=== PATIENT | female | born 1945 | race Caucasian/White ===

== ENCOUNTER → 2020-02-15 09:02 | Outpatient (BNVA) | payer MEDICARE, SELFPAY | PROVIDERS: PCP Internal Medicine; Referring Provider Internal Medicine; Visit Provider Internal Medicine Gastroenterology | DX: K21.00 Gastro-esophageal reflux disease with esophagitis, without bleeding (principal); K74.60 Unspecified cirrhosis of liver; K44.9 Diaphragmatic hernia without obstruction or gangrene; Z86.2 Personal history of diseases of the blood and blood-forming organs and certain disorders involving the immune mechanism | CPT/HCPCS: 99213 ==

== ENCOUNTER → 2020-04-17 10:35 | Outpatient (BNVA) | payer MEDICARE, BC, SELFPAY | PROVIDERS: PCP Internal Medicine; Visit Provider Internal Medicine | DX: J30.9 Allergic rhinitis, unspecified (principal); J44.9 Chronic obstructive pulmonary disease, unspecified | CPT/HCPCS: 99212 ==

== ENCOUNTER 2020-07-26 10:15 | Outpatient (REF) | payer MEDICARE, BC, SELFPAY ==
[2020-07-26 10:54] LABS: MANUAL DIFF FLAG NO
[2020-07-26 11:01] LABS: Basophils Absolute Auto 0.1 X10*3/uL (0.0-0.2); Basophils Percent Auto 0.8 % (0-2); Eosinophils Absolute Auto 0.2 X10*3/uL (0.0-0.4); Eosinophils Percent Auto 2.2 % (0-4); Hematocrit 47.1 % (37-47); Hemoglobin 15.1 g/dl (12.0-16.0); Imm Gran Abs Auto 0.03 X10*3/uL (0.00-0.03); Imm Gran Pct Auto 0.3 % (0.0-0.4); Lymphocytes Absolute Auto 1.8 X10*3/uL (1.2-4.9); Lymphocytes Percent Auto 20.4 % (20-40); Mean Corpuscular HGB Conc 32.1 g/dl (31.0-35.0); Mean Corpuscular Hemoglobin 29.2 pg (27.0-33.0); Mean Corpuscular Volume 91.1 fL (80-98); Mean Platelet Volume 9.9 fL (9.4-12.3); Monocytes Absolute Auto 0.7 X10*3/uL (0.1-1.2); Monocytes Percent Auto 7.8 % (2-11); Neutrophils Percent Auto 68.5 % (45-73); Platelet Count 323 X10*3/uL (160-400); Red Blood Count 5.17 X10*6/uL (4.20-5.50); Red Cell Distribution Width 13.9 % (11.0-16.0); White Blood Count 8.7 X10*3/uL (4.8-10.8)
[2020-07-26 11:08] LABS: INTERNATIONAL NORM RATIO 1.1 (0.9-1.1); Prothrombin Time 12.5 SEC (10.8-13.0)
[2020-07-26 11:26] LABS: Alanine Aminotransferase 15 U/L (0-31); Aspartate Amino Transferase 17 U/L (5-31); Blood Urea Nitrogen 18 mg/dL (9-16); Estimated Glomerular Filt Rate > 60
== END 2020-07-26 10:16 | disposition home or self-care (01) ==
LOC: HO.LAB 10:15
PROVIDERS: PCP Internal Medicine; Visit Provider Internal Medicine Gastroenterology
DX: K74.60 Unspecified cirrhosis of liver (principal); Z86.2 Personal history of diseases of the blood and blood-forming organs and certain disorders involving the immune mechanism
CPT/HCPCS: 36415; 82565; 84450; 84460; 84520; 85025; 85610

== ENCOUNTER → 2020-08-08 09:01 | Outpatient (BNVA) | payer MEDICARE, BC, SELFPAY | PROVIDERS: PCP Internal Medicine; Visit Provider Internal Medicine Gastroenterology | DX: K21.00 Gastro-esophageal reflux disease with esophagitis, without bleeding (principal); K44.9 Diaphragmatic hernia without obstruction or gangrene; K74.60 Unspecified cirrhosis of liver; J44.9 Chronic obstructive pulmonary disease, unspecified; Z86.2 Personal history of diseases of the blood and blood-forming organs and certain disorders involving the immune mechanism | CPT/HCPCS: 99212 ==

== ENCOUNTER → 2020-08-13 11:37 | Outpatient (BNVA) | payer MEDICARE, BC, SELFPAY | PROVIDERS: PCP Internal Medicine; Visit Provider Internal Medicine | DX: J44.9 Chronic obstructive pulmonary disease, unspecified (principal); J30.9 Allergic rhinitis, unspecified; Z79.899 Other long term (current) drug therapy; Z87.891 Personal history of nicotine dependence | CPT/HCPCS: 99212 ==

== ENCOUNTER 2020-09-03 09:05 | Outpatient (REF) | payer MEDICARE, BC, SELFPAY ==
--- NOTE | ~2020-09-03 | US_ITS ---
EXAMINATION: US ABDOMEN COMPLETE CLINICAL INFORMATION: Unspecified cirrhosis of liver. COMPARISON: Ultrasound abdomen complete dated 06/01/2019 and 12/26/2018. MRI abdomen without contrast dated 06/07/2018. TECHNIQUE: Real-time imaging of the abdominal viscera. Technically difficult study secondary to bowel gas and body habitus. FINDINGS: PANCREAS: The pancreas is completely obscured by overlying gas. ABDOMINAL AORTA: The proximal, mid, and distal segments are normal in caliber. INFERIOR VENA CAVA: Visualized portions are normal. LIVER: The liver is normal in size. The liver contour is normal. The liver is diffusely echogenic. No focal hepatic lesion. There is no intrahepatic biliary duct dilatation seen. GALLBLADDER: Surgically absent. COMMON BILE DUCT: Normal in caliber measuring 0.6 cm in diameter. RIGHT KIDNEY: Normal. No hydronephrosis. No renal calculi or focal parenchymal lesions. The kidney measures 10.2 cm in maximum dimension. LEFT KIDNEY: There is mild pelvic fullness. No renal calculi or focal parenchymal lesions. The kidney measures 11.0 cm in maximum dimension. SPLEEN: Normal. The spleen measures 9.0 cm in maximum dimension. FREE FLUID: None. US/US abdomen complete IMPRESSION: Diffusely echogenic liver without focal lesion. Mild pelvic fullness left kidney. No echogenic stones in either kidney. Pancreas is not well visualized.
== END 2020-09-03 09:06 | disposition home or self-care (01) ==
LOC: HO.US 09:05
PROVIDERS: Visit Provider Internal Medicine Gastroenterology
DX: K74.60 Unspecified cirrhosis of liver (principal)
CPT/HCPCS: 76700

== ENCOUNTER → 2020-12-16 11:24 | Outpatient (BNVA) | payer MEDICARE, BC, SELFPAY | PROVIDERS: PCP Internal Medicine; Visit Provider Internal Medicine | DX: J30.9 Allergic rhinitis, unspecified (principal); J44.9 Chronic obstructive pulmonary disease, unspecified | CPT/HCPCS: 99212 ==

== ENCOUNTER → 2021-02-13 08:53 | Outpatient (BNVA) | payer MEDICARE, BC, SELFPAY | PROVIDERS: PCP Internal Medicine; Referring Provider Internal Medicine; Visit Provider Internal Medicine Gastroenterology | DX: K21.00 Gastro-esophageal reflux disease with esophagitis, without bleeding (principal); K44.9 Diaphragmatic hernia without obstruction or gangrene; K74.60 Unspecified cirrhosis of liver; Z86.2 Personal history of diseases of the blood and blood-forming organs and certain disorders involving the immune mechanism | CPT/HCPCS: 99212 ==

== ENCOUNTER 2021-04-17 10:55 | Outpatient (REF) | payer MEDICARE, BC, SELFPAY ==
[2021-04-17 12:00] LABS: MANUAL DIFF FLAG NO
[2021-04-17 12:45] LABS: Basophils Absolute Auto 0.1 X10*3/uL (0.0-0.2); Basophils Percent Auto 0.8 % (0-2); Eosinophils Absolute Auto 0.2 X10*3/uL (0.0-0.4); Eosinophils Percent Auto 1.9 % (0-4); Hematocrit 46.8 % (37.0-47.0); Hemoglobin 14.8 g/dl (12.0-16.0); Imm Gran Abs Auto 0.02 X10*3/uL (0.00-0.03); Imm Gran Pct Auto 0.2 % (0.0-0.4); Lymphocytes Absolute Auto 1.4 X10*3/uL (1.2-4.9); Lymphocytes Percent Auto 14.2 % (20-40); Mean Corpuscular HGB Conc 31.6 g/dl (31.0-35.0); Mean Corpuscular Hemoglobin 28.6 pg (27.0-33.0); Mean Corpuscular Volume 90.3 fL (80.0-98.0); Mean Platelet Volume 10.5 fL (9.4-12.3); Monocytes Absolute Auto 0.7 X10*3/uL (0.1-1.2); Monocytes Percent Auto 7.3 % (2-11); Neutrophils Absolute Auto 7.3 x10*3/uL (2.0-8.3); Neutrophils Percent Auto 75.6 % (45-73); Platelet Count 415 X10*3/uL (160-400); Red Blood Count 5.18 X10*6/uL (4.20-5.50); Red Cell Distribution Width 13.9 % (11.0-16.0); White Blood Count 9.6 X10*3/uL (4.8-10.8)
[2021-04-17 12:49] LABS: Prothrombin Time 11.7 SEC (9.9-13.0)
[2021-04-17 12:52] LABS: Appearance Urine CLEAR; Color Urine YELLOW; Glucose Urine UA NEG (NEG); Leukocyte Esterase Urine NEG (NEG); Nitrite Urine NEG (NEG); PH 5.5 (5.0-8.0); Specific Gravity - Urine 1.025 (1.005-1.025); Urine Blood NEG (NEG); Urine Ketones 5 MG/DL (NEG); Urine Protein NEG (NEG-TRACE)
[2021-04-17 13:09] LABS: Alanine Aminotransferase 11 U/L (0-31); Albumin Level 4.3 g/dL (3.5-5.0); Alkaline Phosphatase 126 U/L (39-117); Anion Gap 16 (12-20); Aspartate Amino Transferase 19 U/L (5-31); Bilirubin Direct 0.2 mg/dL (0.0-0.5); Bilirubin Total 0.5 mg/dL (0.0-1.0); Blood Urea Nitrogen 17 mg/dL (9-16); Calcium 10.4 mg/dL (8.4-10.2); Carbon Dioxide 25 mmol/L (22-29); Chloride 106 mmol/L (96-108); Cholesterol 238 mg/dL; Estimated Glomerular Filt Rate > 60; Glucose Random 91 mg/dL (60-115); HDL Cholesterol 72 mg/dL; LDL Cholesterol Calculated 143 mg/dl; Potassium 4.7 mmol/L (3.3-5.1); Sodium 142 mmol/L (135-145); Total Protein 7.3 g/dL (6.5-8.0); Triglycerides 119 mg/dL
[2021-04-17 13:32] LABS: Thyroid Stimulating Hormone 0.98 uIU/mL (0.32-4.0)
[2021-04-17 13:41] LABS: Vitamin B12 475 pg/mL (200-900)
[2021-04-18 07:40] LABS: ~Hepatitis B Surface Antibody NONREACTIVE (Nonreactive); ~Hepatitis C Antibody Nonreactive (Nonreactive)
[2021-04-18 08:44] LABS: Hepatitis A Antibody IgG REACTIVE (Nonreactive); ~Hepatitis A Antibody IgG 12.44 S/CO (0.00-0.99)
== END 2021-04-17 10:56 | disposition home or self-care (01) ==
LOC: HO.LAB 10:55
PROVIDERS: Absent Provider Internal Medicine; PCP Internal Medicine; Visit Provider Internal Medicine Gastroenterology
DX: K21.00 Gastro-esophageal reflux disease with esophagitis, without bleeding (principal); K74.60 Unspecified cirrhosis of liver; E55.9 Vitamin D deficiency, unspecified; J44.9 Chronic obstructive pulmonary disease, unspecified; J30.9 Allergic rhinitis, unspecified
CPT/HCPCS: 36415; 80053; 80061; 81003; 82248; 82607; 84443; 85025; 85610; 86706; 86708; 86803; 99212

== ENCOUNTER 2021-06-04 10:15 | Outpatient (REF) | payer MEDICARE, BC, SELFPAY ==
--- NOTE | ~2021-06-04 | US_ITS ---
EXAMINATION: US ABDOMEN LIMITED CLINICAL INFORMATION: Unspecified cirrhosis of liver. Screen for HCC. COMPARISON: Ultrasound abdomen complete 09/03/2020 and 06/01/2019. MRI abdomen 06/07/2018. TECHNIQUE: Real-time imaging of the right upper quadrant abdominal viscera. FINDINGS: PANCREAS: The head and body of the pancreas are homogeneous in echotexture. The tail is obscured by overlying gas. LIVER: The liver is normal in size. The liver contour is normal. The liver is diffusely heterogenous and echogenic. No focal hepatic lesion. There is no intrahepatic biliary duct dilatation seen. GALLBLADDER: Surgically absent. COMMON BILE DUCT: Normal in caliber measuring 0.8 cm in diameter. RIGHT KIDNEY: Normal. No hydronephrosis. No renal calculi or focal parenchymal lesions. The kidney measures 10.3 cm in maximum dimension. FREE FLUID: None. US/US abdomen limited IMPRESSION: Heterogeneous and echogenic liver, likely cirrhosis. No focal lesion seen. The visualized gallbladder, CBD and right kidney are unremarkable.
== END 2021-06-04 10:16 | disposition home or self-care (01) ==
LOC: HO.US 10:15
PROVIDERS: PCP Internal Medicine; Visit Provider Internal Medicine Gastroenterology
DX: K74.60 Unspecified cirrhosis of liver (principal)
CPT/HCPCS: 76705

== ENCOUNTER → 2021-08-12 11:09 | Outpatient (BNVA) | payer MEDICARE, BC, SELFPAY | PROVIDERS: PCP Internal Medicine; Visit Provider Internal Medicine | DX: J44.9 Chronic obstructive pulmonary disease, unspecified (principal); J30.9 Allergic rhinitis, unspecified; Z79.899 Other long term (current) drug therapy | CPT/HCPCS: 99212 ==

== ENCOUNTER → 2021-08-14 08:28 | Outpatient (BNVA) | payer MEDICARE, BC, SELFPAY | PROVIDERS: PCP Internal Medicine; Referring Provider Internal Medicine; Visit Provider Internal Medicine Gastroenterology | DX: K21.00 Gastro-esophageal reflux disease with esophagitis, without bleeding (principal); K44.9 Diaphragmatic hernia without obstruction or gangrene; K74.60 Unspecified cirrhosis of liver; Z86.2 Personal history of diseases of the blood and blood-forming organs and certain disorders involving the immune mechanism; Z23 Encounter for immunization | CPT/HCPCS: 90471; 90746; 99212 ==

== ENCOUNTER → 2021-09-16 09:42 | Outpatient (BNVA) | payer MEDICARE, BC, SELFPAY | PROVIDERS: PCP Internal Medicine; Referring Provider Internal Medicine; Visit Provider Internal Medicine Gastroenterology | DX: Z23 Encounter for immunization (principal) | CPT/HCPCS: 90471; 90746 ==

== ENCOUNTER 2021-12-16 09:52 | Outpatient (REF) | payer MEDICARE, BC, SELFPAY ==
[2021-12-16 10:45] LABS: Hematocrit 45.4 % (37.0-47.0); Hemoglobin 14.5 g/dl (12.0-16.0); Mean Corpuscular HGB Conc 31.9 g/dl (31.0-35.0); Mean Corpuscular Hemoglobin 29.5 pg (27.0-33.0); Mean Corpuscular Volume 92.3 fL (80.0-98.0); Mean Platelet Volume 10.4 fL (9.4-12.3); Platelet Count 319 X10*3/uL (160-400); Red Blood Count 4.92 X10*6/uL (4.20-5.50); Red Cell Distribution Width 13.9 % (11.0-16.0); White Blood Count 8.1 X10*3/uL (4.8-10.8)
[2021-12-16 11:20] LABS: Alanine Aminotransferase 9 U/L (0-31); Alkaline Phosphatase 87 U/L (39-117); Anion Gap 15 (12-20); Aspartate Amino Transferase 17 U/L (5-31); Bilirubin Direct 0.2 mg/dL (0.0-0.5); Bilirubin Total 0.3 mg/dL (0.0-1.0); Blood Urea Nitrogen 16 mg/dL (9-16); Calcium 9.2 mg/dL (8.4-10.2); Carbon Dioxide 25 mmol/L (22-29); Chloride 107 mmol/L (96-108); Cholesterol 229 mg/dL; Estimated Glomerular Filt Rate > 60; Glucose Random 82 mg/dL (60-115); HDL Cholesterol 80 mg/dL; LDL Cholesterol Calculated 132 mg/dl; Potassium 4.2 mmol/L (3.3-5.1); Sodium 143 mmol/L (135-145); Total Protein 6.7 g/dL (6.5-8.0); Triglycerides 89 mg/dL
[2021-12-16 11:41] LABS: Thyroid Stimulating Hormone 0.97 uIU/mL (0.32-4.0)
== END 2021-12-16 09:53 | disposition home or self-care (01) ==
LOC: HO.LAB 09:52
PROVIDERS: PCP Internal Medicine; Visit Provider Internal Medicine
DX: K74.60 Unspecified cirrhosis of liver (principal); J44.9 Chronic obstructive pulmonary disease, unspecified; J30.9 Allergic rhinitis, unspecified; Z86.2 Personal history of diseases of the blood and blood-forming organs and certain disorders involving the immune mechanism
CPT/HCPCS: 36415; 80048; 80061; 80076; 84443; 85027; 99212

== ENCOUNTER 2022-01-26 07:51 | Outpatient (REF) | payer MEDICARE, BC, SELFPAY ==
--- NOTE | ~2022-01-26 | US_ITS ---
EXAMINATION: US ABDOMEN LIMITED CLINICAL INFORMATION: Unspecified cirrhosis of liver. COMPARISON: Ultrasound abdomen limited 06/04/2021. TECHNIQUE: Real-time imaging of the right upper quadrant abdominal viscera. FINDINGS: PANCREAS: Visualized portions of the pancreas are unremarkable. The pancreatic tail is obscured by bowel gas. LIVER: The liver is normal in size. The liver contour is normal. There is diffuse increased liver parenchymal echogenicity, consistent with infiltrative hepatocellular disease. No focal hepatic lesion. There is no intrahepatic biliary duct dilatation seen. GALLBLADDER: Surgically absent. COMMON BILE DUCT: Normal in caliber measuring 0.6 cm in diameter. RIGHT KIDNEY: Normal. No hydronephrosis. No renal calculi or focal parenchymal lesions. The kidney measures 10.3 cm in maximum dimension. FREE FLUID: None. US/US abdomen limited IMPRESSION: Increased hepatic echogenicity which can be seen in the setting of hepatic steatosis or underlying liver disease. No liver lesion.
== END 2022-01-26 07:52 | disposition home or self-care (01) ==
LOC: HO.US 07:51
PROVIDERS: Visit Provider Internal Medicine Gastroenterology
DX: K74.60 Unspecified cirrhosis of liver (principal)
CPT/HCPCS: 76705

== ENCOUNTER → 2022-02-12 12:20 | Outpatient (BNVA) | payer MEDICARE, BC, SELFPAY | PROVIDERS: PCP Internal Medicine; Visit Provider Internal Medicine Gastroenterology | DX: K44.9 Diaphragmatic hernia without obstruction or gangrene (principal); K74.60 Unspecified cirrhosis of liver; K21.00 Gastro-esophageal reflux disease with esophagitis, without bleeding; E55.9 Vitamin D deficiency, unspecified; Z86.2 Personal history of diseases of the blood and blood-forming organs and certain disorders involving the immune mechanism | CPT/HCPCS: Q3014 ==

== ENCOUNTER 2022-02-17 14:40 | Outpatient (REF) | payer MEDICARE, BC, SELFPAY ==
--- NOTE | ~2022-02-17 | XR_ITS ---
EXAMINATION: XR CHEST CLINICAL INFORMATION: COPD COMPARISON: Previous chest x-ray June 2018 TECHNIQUE: 2 views of the chest were obtained. FINDINGS: The cardiac and mediastinal contours are stable. There is an air-fluid level that projects over the heart suggestive of an esophageal hernia. The lungs are clear. There is no pleural effusion or pneumothorax. Degenerative changes of the spine, mild scoliosis and kyphosis. There is a moderate old-appearing lower thoracic vertebral body compression fracture. XR/XR chest 2V IMPRESSION: Esophageal hernia. No evidence for acute disease in the chest. Old-appearing moderate lower thoracic vertebral body compression fracture.
== END 2022-02-17 14:41 | disposition home or self-care (01) ==
LOC: HO.XRAY 14:40
PROVIDERS: PCP Internal Medicine; Visit Provider Internal Medicine
DX: J44.9 Chronic obstructive pulmonary disease, unspecified (principal); U07.1 COVID-19
CPT/HCPCS: 71046

== ENCOUNTER 2022-03-05 16:33 | Outpatient (REF) | payer MEDICARE, BC, SELFPAY ==
--- NOTE | ~2022-03-05 | XR_ITS ---
EXAMINATION: XR CHEST CLINICAL INFORMATION: COVID-19 COMPARISON: 02/17/2022 and 06/04/2018 TECHNIQUE: 2 views of the chest were obtained. FINDINGS: There is no evidence of acute parenchymal disease, pneumothorax, or pleural effusion. Heart normal size. No evidence of pulmonary edema. Prominent pericardial fat pads are present. Hiatal hernia is seen. There is degenerative change of both shoulders. XR/XR chest 2V IMPRESSION: No acute disease. Hiatal hernia.
== END 2022-03-05 16:34 | disposition home or self-care (01) ==
LOC: HO.XRAY 16:33
PROVIDERS: PCP Internal Medicine; Visit Provider Internal Medicine
DX: U07.1 COVID-19 (principal); J44.9 Chronic obstructive pulmonary disease, unspecified; J30.9 Allergic rhinitis, unspecified
CPT/HCPCS: 71046; 99212

== ENCOUNTER → 2022-03-12 09:49 | Outpatient (BNVA) | payer MEDICARE, BC, SELFPAY | PROVIDERS: PCP Internal Medicine; Visit Provider Internal Medicine Gastroenterology | DX: Z23 Encounter for immunization (principal); K74.60 Unspecified cirrhosis of liver; Z72.89 Other problems related to lifestyle | CPT/HCPCS: 90471; 90746 ==

== ENCOUNTER → 2022-04-14 10:55 | Outpatient (BNVA) | payer MEDICARE, BC, SELFPAY | PROVIDERS: PCP Internal Medicine; Visit Provider Internal Medicine | DX: J44.9 Chronic obstructive pulmonary disease, unspecified (principal); U07.1 COVID-19; J30.9 Allergic rhinitis, unspecified; R00.0 Tachycardia, unspecified | CPT/HCPCS: 99212 ==

== ENCOUNTER 2022-06-09 09:45 | Outpatient (REF) | payer MEDICARE, BC, SELFPAY ==
--- NOTE | 2022-06-09 11:46 | PFT_ITS ---
Forced vital capacity 70%, FEV1 68%. FEV1/FVC ratio is 73. [id number] is 57% and MVV 64%. Post bronchodilator therapy, there is no significant change. Total lung capacity 74%. Residual volume 69%. Diffusion capacity 77%. CONCLUSION: There is evidence of mild degree of restrictive pulmonary disorder. No significant obstructive airway disorder. Diffusion capacity is normal. MD SARAH Weston/MODL / [id number]
== END 2022-06-09 09:46 | disposition home or self-care (01) ==
LOC: HO.RESP 09:45
PROVIDERS: PCP Internal Medicine; Visit Provider Internal Medicine
DX: J44.9 Chronic obstructive pulmonary disease, unspecified (principal); R00.0 Tachycardia, unspecified; U07.1 COVID-19
CPT/HCPCS: 94060; 94727; 94729; 99212

== ENCOUNTER 2022-07-22 08:38 | Outpatient (REF) | payer MEDICARE, BC, SELFPAY ==
--- NOTE | ~2022-07-22 | US_ITS ---
EXAMINATION: US ABDOMEN COMPLETE CLINICAL INFORMATION: Cirrhosis of liver. COMPARISON: None available. TECHNIQUE: Real-time imaging of the abdominal viscera. FINDINGS: PANCREAS: Normal. ABDOMINAL AORTA: The proximal, mid, and distal segments are normal in caliber. INFERIOR VENA CAVA: Visualized portions are normal. LIVER: The liver is normal in size. The liver contour is normal. Parenchymal echogenicity is heterogeneous. No focal hepatic lesion. There is no intrahepatic biliary duct dilatation seen. GALLBLADDER: Normal. The gallbladder is physiologically distended without evidence of stones, sludge, polyps, wall thickening or pericholecystic fluid. COMMON BILE DUCT: Normal in caliber measuring 0.7 cm in diameter. RIGHT KIDNEY: Normal. No hydronephrosis. No renal calculi or focal parenchymal lesions. The kidney measures 10.6 cm in maximum dimension. LEFT KIDNEY: There are numerous small peripelvic cysts with the largest measuring 2.3 x 1.8 x 2.0 cm. No hydronephrosis. No renal calculi or focal parenchymal lesions. The kidney measures 11.6 cm in maximum dimension. SPLEEN: Normal. The spleen measures 1 cm in maximum dimension. FREE FLUID: None. US/US abdomen complete IMPRESSION: Heterogeneous cirrhotic appearing liver without focal lesion. Left renal cyst. The rest of the abdominal ultrasound is unremarkable.
== END 2022-07-22 08:39 | disposition home or self-care (01) ==
LOC: HO.US 08:38
PROVIDERS: Visit Provider Internal Medicine Gastroenterology
DX: K74.60 Unspecified cirrhosis of liver (principal)
CPT/HCPCS: 76700

== ENCOUNTER → 2022-10-06 11:07 | Outpatient (BNVA) | payer MEDICARE, BC, SELFPAY | PROVIDERS: PCP Internal Medicine; Visit Provider Internal Medicine | DX: J44.9 Chronic obstructive pulmonary disease, unspecified (principal); J98.4 Other disorders of lung; J30.9 Allergic rhinitis, unspecified; Z79.899 Other long term (current) drug therapy | CPT/HCPCS: 99212 ==

== ENCOUNTER 2022-10-15 13:40 | Outpatient (REF) | payer MEDICARE, BC, SELFPAY ==
--- NOTE | ~2022-10-15 | XR_ITS ---
EXAMINATION: XR HIP, RIGHT CLINICAL INFORMATION: Right hip pain. COMPARISON: None available. TECHNIQUE: AP upright, AP supine, and frog-leg lateral views of the right hip. XR/XR hip RT w PEL1V FINDINGS/IMPRESSION: Examination demonstrates moderate to severe osteoarthritis of the right hip, with joint space narrowing, sclerosis, and osteophyte formation. The patient is status post left total hip arthroplasty. There is no evidence of hardware fracture or loosening. There is significant migration of the acetabular component cephalad to its normal anatomical location, with mild associated acetabular protrusion. There are mild degenerative changes of the lower lumbar spine. No soft tissue mass is seen.
[2022-10-15 14:18] LABS: Hematocrit 43.8 % (37.0-47.0); Mean Corpuscular Volume 90.9 fL (80.0-98.0); Mean Platelet Volume 10.1 fL (9.4-12.3); Platelet Count 303 X10*3/uL (160-400); Red Blood Count 4.82 X10*6/uL (4.20-5.50); Red Cell Distribution Width 13.9 % (11.0-16.0); White Blood Count 7.3 X10*3/uL (4.8-10.8)
[2022-10-15 15:04] LABS: Alanine Aminotransferase 15 U/L (0-31); Alkaline Phosphatase 96 U/L (39-117); Anion Gap 14 (12-20); Aspartate Amino Transferase 20 U/L (5-31); Bilirubin Direct 0.1 mg/dL (0.0-0.5); Bilirubin Total 0.4 mg/dL (0.0-1.0); Blood Urea Nitrogen 13 mg/dL (9-16); Calcium 9.1 mg/dL (8.4-10.2); Carbon Dioxide 27 mmol/L (22-29); Chloride 105 mmol/L (96-108); Cholesterol 219 mg/dL; Estimated Glomerular Filt Rate > 60; Glucose Random 84 mg/dL (60-115); HDL Cholesterol 72 mg/dL; LDL Cholesterol Calculated 127 mg/dl; Potassium 3.8 mmol/L (3.3-5.1); Sodium 142 mmol/L (135-145); Triglycerides 103 mg/dL
[2022-10-15 15:10] LABS: Thyroid Stimulating Hormone 1.62 uIU/mL (0.32-4.0)
[2022-10-22 12:44] LABS: Vitamin D 25-OH, D2 <4 ng/mL; Vitamin D 25-OH, D3 34 ng/mL; Vitamin D 25-OH, Total 34 ng/mL (30-100)
== END 2022-10-15 13:41 | disposition home or self-care (01) ==
LOC: HO.XRAY 13:40
PROVIDERS: PCP Internal Medicine; Visit Provider Physician Assistant
DX: M25.551 Pain in right hip (principal); E55.9 Vitamin D deficiency, unspecified; F33.2 Major depressive disorder, recurrent severe without psychotic features; E78.00 Pure hypercholesterolemia, unspecified
CPT/HCPCS: 36415; 73502; 80048; 80061; 80076; 82306; 84443; 85027

== ENCOUNTER 2022-10-29 13:46 | Outpatient (AMB) | payer MEDICARE, BC, SELFPAY ==
--- NOTE | 2022-10-29 14:07 | A.OFFPC_ITS ---
Vital Signs 10/29/22 14:08 Height 5 ft Weight 204 lb 2 oz BMI 39.9 BP 132/82 Blood Pressure Location Lt brachial Position Sitting Pulse 116 H Pulse Source Pulse Oximeter Pulse Oximetry (%) 98 Oxygen Delivery Method Room Air Intake Visit Reasons: 3mth f/u Intake Note: Patient is here to follow up on COPD, GERD, HTN. Results of xray Steam Table Attendant Required: No Transplant Worker: Not Required per policy Accompanied by: Self / Same As Patient Allergies cat dander [CATS] Allergy (Unknown, Verified 11/13/22 16:51) ASTHMA ATTACK Horse/Equine Containing Products [HORSE/EQUINE CONTAINING PRODUCTS] Allergy (Unknown, Verified 11/13/22 16:51) ASTHMA ATTACK ENVIROMENTAL Allergy (Unknown, Uncoded 11/13/22 16:51) ASTHMA ATTACK Tobacco use date assessed: 10/29/22 Fall risk assessment: No Falls in past year Last assessed Fall Risk: 10/29/22 Dental Screening Dental Screen Date: 10/29/22 Did you have a dental visit in the last 12 months?: Yes Did you have a dental problem in the last 6 months where you did not have access to dental care?: No Was dental information given to patient?: Patient has dentist HPI 3mth f/u HPI Details 77-year-old female presents to the office for a sick visit. Patient wants to know the results of her recent x-ray. Her hip pain continues. FOR[facility]LY [facility] Medical History Allergic rhinitis Asthma Cirrhosis of liver without ascites COPD (chronic obstructive pulmonary disease) COPD (chronic obstructive pulmonary disease) COVID-19 Endogenous depression GERD with esophagitis Hiatal hernia History of iron deficiency anemia Restrictive lung disease Tachycardia Surgical History History of dental surgery History of hip surgery History of hysterectomy History of surgery on left wrist Status post laparoscopic cholecystectomy (~06/10/18) Family History Other Mental health disorder Substance use disorder Social History Household Members: Spouse Housing: House Alcohol intake: former Patient Tobacco Use Status: Former Tobacco user e-Cigarette/Vaping Use: Never Used Second Hand Smoke Exposure: No service: No Current occupational status: disabled Cognitive needs: Yes (cane, walker) Hearing needs: No Vision needs: Yes (Reading Glasses) Questionnaire Thrive Questionnaire Date Thrive assessed: 04/21/22 EFRAIN-7 AMB Questionnaire EFRAIN-7 Date EFRAIN - 7 assessed: 07/30/22 Source: Developed by Drs. Robson Avitia, Dinorah Betancur, Spenser Mancera and colleagues, with an educational charisse from [employer]. Physical exam (Primary Care) Vital Signs: Last Vital Signs Pulse 116 H 10/29/22 14:08 BP 132/82 10/29/22 14:08 Pulse Ox 98 10/29/22 14:08 Oxygen Delivery Method Room Air 10/29/22 14:08 BMI result Body Mass Index 39.9 Tobacco/Smoking Status: Tobacco use Status Tobacco use date assessed 10/29/22 10/29/22 14:12 Patient Tobacco Use Status Former Tobacco user 10/29/22 14:12 e-Cigarette/Vaping Use Never Used 10/29/22 14:12 Thrive Assessment: Date of Thrive Assessment Date Thrive assessed 04/21/22 10/29/22 14:12 Const General: cooperative, healthy appearing and comfortable HENWV Head: Yes normal to inspection and Yes atraumatic Eyes General: appearance normal, both eyes and all related structures Neck Neck: Yes normal visual inspection and Yes full ROM Chest Chest palpation & inspection: normal inspection of the chest Resp Effort & Inspection: normal respiratory effort Auscultation: clear to auscultation bilaterally Cardio Jugular venous distension: no JVD Palpation: normal PMI Rate: regular rate Heart sounds: S1 normal heart sound present and S2 normal heart sound present GI Palpation (GI): Soft to palpation and No hepatosplenomegaly present Extrem General: Yes normal to inspection and Yes full ROM Assessment and Plan Assessment & Plan (1) Right hip pain: Code(s): M25.551 - Pain in right hip Plan: X-ray results provided the patient. Continue anti-inflammatories. Coding Level of Care Code Est Pt Level 3 (46327) Diagnoses Right hip pain M25.551
[2022-10-29 14:08] VITALS: BP 132/82; PULSE 116; O2SAT 98; BMI 39.9
== END 2022-10-29 14:24 | disposition home or self-care (01) ==
PROVIDERS: PCP Internal Medicine; Visit Provider Internal Medicine
DX: M25.551 Pain in right hip (principal)
CPT/HCPCS: 99213

== ENCOUNTER 2022-11-12 11:15 | Outpatient (AMB) | payer MEDICARE, BC, SELFPAY ==
--- NOTE | 2022-11-12 11:32 | A.OFFVIS_ITS ---
Intake Vital Signs 11/12/22 11:34 Height 5 ft Weight 204 lb BMI 39.8 BP 135/61 Blood Pressure Location Lt brachial Position Sitting Pulse 112 H Intake Visit Reasons: medication refill follow up for omeprazole Intake Note: Patient follow up for Cirrhosis and US results. Patient cc: [facility] Demonstration Agent Required: No Accompanied by: Self / Same As Patient Allergies cat dander [CATS] Allergy (Unknown, Verified 11/12/22 11:32) ASTHMA ATTACK Horse/Equine Containing Products [HORSE/EQUINE CONTAINING PRODUCTS] Allergy (Unknown, Verified 11/12/22 11:32) ASTHMA ATTACK ENVIROMENTAL Allergy (Unknown, Uncoded 10/29/22 14:08) ASTHMA ATTACK Medication List - Last Reconciled 11/12/22 by Tona Jimenez MD albuterol sulfate 90 mcg/actuation 2 puffs PO Q4H PRN amlodipine 5 mg PO DAILY cetirizine (Zyrtec) 10 mg PO DAILY PRN cholecalciferol (vitamin D3) 25 mcg PO DAILY 90 days fluticasone propion-salmeterol 250-50 mcg/dose 1 ea PO BID omeprazole 20 mg PO DAILY 90 days paroxetine HCl 40 mg PO QAM tiotropium bromide 2.5 mcg/actuation (Spiriva Respimat) 2 puffs PO DAILY tramadol 50 mg PO DAILY HPI medication refill follow up for omeprazole HPI Details GI clinic visit for this 77 YF for FU of GERD and alcoholic cirrhosis. ?CHRONIC ILLNESSES:?GERD, anxiety and depression, asthma, COPD, Htn, gallstones, stomach ulcers, foot drop after hip replacement surgery seen for follow-up of GERD with hiatal hernia, iron deficiency anemia and alcoholic cirrhosis ?[facility] [employer]:?04/2021 reviewed - normal except minimal elevation of AP to 126 ? 06/01/19 H&H of 15.6 and 45.5, platelet 305, INR 0.9, normal LFT ? 06/2018 liver fibrosis score of 0.28, liver fibrosis stage F1, n ecroinflammatory score 0.16 ?IMAGING STUDIES: 07/2022 ABD US SHOWED: Heterogeneous cirrhotic appearing liver without focal lesion. Left renal cyst. 01/26/22 ABD US SHOWED: Increased hepatic echogenicity which can be seen in the setting of hepatic steatosis or underlying liver disease. No liver lesion. ? ENDOSCOPIC STUDIES: 04/20/19 colonoscopy showed: ? Colonoscopy Findings: ? Two polyps removed ? Four AVMs - ablated with APC. ? Moderate to severe diverticulosis seen in the entire colon ? Moderate to large internal/external hemorrhoids on retroflexed exam. ? Plan: Patient has an appointment on 05/25/18 in the GI Clinic with Tona Jimenez M.D. ? Repeat Colonoscopy interval based on path results in 5 years if ? polyps are adenomatous and due to past history of colon polyps. ? Above findings were reviewed with the patient and colon polyps and ? diverticulosis handouts were given in the discharge area ?BIOPSIES SHOWED: ? A. Colon, ascending polyp, polypectomy: Polypoid colonic mucosa within normal ? limits; negative for dysplasia. ? B. Colon, sigmoid polyp, polypectomy: Fragments of tubular adenoma. ? Letter sent advising repeat colonoscopy in 5 years. ?01/12/19 EGD showed: ? ESOPHAGUS: Tortuous esophagus with increased tertiary contractions without stricture. No varices were seen. ? GE junction at 30 cms, large hiatal hernia 30 to 36 cms. Erosions and Fidel's ulcers noted on past EGD healed completely. No Pruitt s. ? STOMACH: Mild gastritis ? DUODENUM: Normal ? Plan: Continue present medications (Omeprazole at 20 mg PO once daily) ? Patient has an appointment on 02/17/19 in the GI Clinic with Tona Jimenez M.D ? Above findings were reviewed with the patient. ?TODAY'S VISIT Having pain in the rt hip and taking Tramadol. Scheduling an appt to get a shot. Walking is becoming difficult and uses a walker. Noted dry heaves on 11/10/22 while she was trying to have a BM and pushed down. Mouth filled with fluid followed by dry heaves - attributes to the PAST VISIT: Diagnosed with COVID on 02/07/22 - has a deep cough cough and fatigue Staying at home - also has the infection Vaccinated with 3 boosters Denies reflux symptoms. Has been having episodes of gagging when she goes to the bathroom in the am after breakfast. Thinks she may be eating too fast - has a bagel and instant coffee Has been trying to eat slowly which helps Had 2 episodes of gagging in the morning - ate too late on one night. Had a stomach bug associated with cramping and diarrhea on 08/04 to 08/07/21 Resolved in 3 days. GERD is well controlled. Wishes she could breath better. fell in March and hurt her back. Had vomiting yesterday 20 min after she took coffee. Can have gagging when she wakes up in the morning - did not happen for a blind eyeletter until yesterday. intentional wt loss of 4 lbs. Denies problems with bowel movements. Has chronic cough due to COPD. Had her COVID vaccine in Jun & July ? Looking forwards to seeing her 11 year old GD in [place]. ? Doing well. ? Denies any problems with heartburn or dysphagia. ? Feeling a bored. ? [place] ? Getting groceries through the drive up window. ? Stopped taking iron pills. ? Got very sick in May with fever and lasted x 5 weeks - took Z pack PFSH Medical History Allergic rhinitis Asthma Cirrhosis of liver without ascites COPD (chronic obstructive pulmonary disease) COPD (chronic obstructive pulmonary disease) COVID-19 Endogenous depression GERD with esophagitis Hiatal hernia History of iron deficiency anemia Restrictive lung disease Tachycardia Surgical History History of dental surgery History of hip surgery History of hysterectomy History of surgery on left wrist Status post laparoscopic cholecystectomy (~06/10/18) Family History Other Mental health disorder Substance use disorder Social History Household Members: Spouse Housing: House Alcohol intake: former Patient Tobacco Use Status: Former Tobacco user e-Cigarette/Vaping Use: Never Used Second Hand Smoke Exposure: No service: No Current occupational status: disabled Cognitive needs: Yes (cane, walker) Hearing needs: No Vision needs: Yes (Reading Glasses) Review of Systems Const All systems reviewed & are unremarkable except as noted in HPI and below Physical Exam Vital Signs: Last Vital Signs Pulse 112 H 11/12/22 11:34 BP 135/61 11/12/22 11:34 BMI result Body Mass Index 39.8 Const General: no acute distress Nutritional Appearance: obese Orientation/consciousness: patient oriented x3 Limitations: ambulation with walker HEENT Head: Yes normal to inspection Ears: hearing grossly normal bilaterally Eyes Sclerae: sclerae normal Pupils: Equal, round and reactive pupils present Neck Neck: Yes normal visual inspection Chest Chest palpation & inspection: normal inspection of the chest Resp Effort & Inspection: normal respiratory effort Auscultation: clear to auscultation bilaterally Cardio Palpation: normal PMI Rate: regular rate Rhythm: regular rhythm Heart sounds: S1 normal heart sound present, S2 normal heart sound present and no murmurs GI Palpation (GI): Soft to palpation, nontender and No hepatosplenomegaly present Auscultation: normal bowel sounds Rectal Exam - Female: deferred Skin General skin exam: no rashes or lesions noted Neuro General: patient oriented x3, gait normal and moves all extremities Cranial nerves: Yes Equal, round and reactive pupils present Psych Appearance: grossly normal Mental Status: mental status grossly normal Assessment & Plan Assessment & Plan (1) Vitamin D deficiency: Code(s): E55.9 - Vitamin D deficiency, unspecified (2) GERD with esophagitis: Code(s): K21.00 - Gastro-esophageal reflux disease with esophagitis, without bleeding (3) History of iron deficiency anemia: Code(s): Z86.2 - Personal history of diseases of the blood and blood-forming organs and certain disorders involving the immune mechanism (4) Hiatal hernia: Code(s): K44.9 - Diaphragmatic hernia without obstruction or gangrene (5) Cirrhosis of liver without ascites: Code(s): K74.60 - Unspecified cirrhosis of liver Plan 77 year-old female with GERD, anxiety and depression, foot drop after hip replacement surgery seen for follow-up of GERD with hiatal hernia, iron deficiency anemia and alcoholic cirrhosis. 06/2018 EGD showed a large hiatal hernia with fidel's ulcers in the hiatal hernia sac felt to be the source of anemia. 01/02/2019 repeat EGD showed healing of Fidel's ulcers. Jun, 2018 Liver fibrosis score was 0.28, fibrosis stage F1 and necroinflammatory score of 0.16. No ascites was seen on abdominal ultrasound. MELD score was 6. 04/20 a 7-8 mm adenomatous polyp was removed, repeat colon advised in 5 yrs - due 04/2024. Patient was advised to recheck labs and schedule an abdominal ultrasound for HCC surveillance 1-2 weeks prior to her FU appt ?REDUCING THE RISK OF LIVER PROGRESSION:? patient was advised to completely avoid use of alcohol and lose weight. ?HCC SURVEILLANCE: ? the patient is at risk of developing hepatocellular carcinoma given the presence of cirrhosis and need 6 monthly imaging surveillance with either abdominal ultrasound (US) or multiphase cross-sectional imaging (CT or MRI).? Last Abd US in 06/2021 had shown no focal liver lesions suspicious of HCC.? She will be scheduled for follow-up? liver ultrasound for ongoing surveillance.? ? QUESTION OF LIVER TRANSPLANTATION: ? As pt has never had any hepatic decompensation, and continues to have good hepatic synthetic function with meld score of 7, liver transplantation does not need to be considered at this time. Pt is immune to Hepatitis A and non-immune to Hepatitis B. Vaccination for Hepatitis B (1st injection) was given by GI RN during her last clinic visit. hepatitis-B vaccination was completed Pt will be due for FU abd US in Jan 2023 Follow-up appointment in 8 months. Orders: Orders US abdomen limited Today K74.60 - Unspecified cirrhosis of liver Medications: Refilled cholecalciferol (vitamin D3) 25 mcg PO DAILY 90 caps 1RF 90 days E55.9 - Vitamin D deficiency, unspecified Coding Level of Care Code Est Pt Level 4 (18712) Diagnoses Vitamin D deficiency E55.9 GERD with esophagitis K21.00 History of iron deficiency anemia Z86.2 Hiatal hernia K44.9 Cirrhosis of liver without ascites K74.60 Time Spent (min) 22
[2022-11-12 11:34] VITALS: BP 135/61; PULSE 112; BMI 39.8
== END 2022-11-12 12:22 | disposition home or self-care (01) ==
PROVIDERS: PCP Internal Medicine; Visit Provider Internal Medicine Gastroenterology
DX: E55.9 Vitamin D deficiency, unspecified (principal); K21.00 Gastro-esophageal reflux disease with esophagitis, without bleeding; Z86.2 Personal history of diseases of the blood and blood-forming organs and certain disorders involving the immune mechanism; K44.9 Diaphragmatic hernia without obstruction or gangrene; K74.60 Unspecified cirrhosis of liver
CPT/HCPCS: 99214

== ENCOUNTER → 2022-11-12 11:15 | Outpatient (BNVA) | payer MEDICARE, BC, SELFPAY | PROVIDERS: PCP Internal Medicine; Visit Provider Internal Medicine Gastroenterology | DX: K21.00 Gastro-esophageal reflux disease with esophagitis, without bleeding (principal); E55.9 Vitamin D deficiency, unspecified; K44.9 Diaphragmatic hernia without obstruction or gangrene; K74.60 Unspecified cirrhosis of liver; Z86.2 Personal history of diseases of the blood and blood-forming organs and certain disorders involving the immune mechanism | CPT/HCPCS: 99212 ==

== ENCOUNTER 2023-01-28 13:16 | Outpatient (AMB) | payer MEDICARE, BC, SELFPAY ==
--- NOTE | 2023-01-28 13:22 | A.OFFPC_ITS ---
Vital Signs 01/28/23 13:23 Height 5 ft Weight 206 lb 8 oz BMI 40.3 BP 110/70 Blood Pressure Location Lt brachial Position Sitting Pulse 121 H Pulse Source Pulse Oximeter Pulse Oximetry (%) 97 Oxygen Delivery Method Room Air Intake Visit Reasons: 3mth f/u Intake Note: Patient is here to follow up on HTN, COPD, GERD,. Director Of Maternity Services Required: No Collar Stay Fuser Tender: Not Required per policy Accompanied by: Self / Same As Patient Allergies cat dander [CATS] Allergy (Unknown, Verified 01/29/23 16:00) ASTHMA ATTACK Horse/Equine Containing Products [HORSE/EQUINE CONTAINING PRODUCTS] Allergy (Unknown, Verified 01/29/23 16:00) ASTHMA ATTACK ENVIROMENTAL Allergy (Unknown, Uncoded 01/29/23 16:00) ASTHMA ATTACK Medication List - Last Reconciled 01/29/23 by Rip Huber MD albuterol sulfate 90 mcg/actuation 2 puffs PO Q4H PRN amlodipine 5 mg PO DAILY cetirizine (Zyrtec) 10 mg PO DAILY PRN cholecalciferol (vitamin D3) 25 mcg PO DAILY 90 days fluticasone propion-salmeterol 250-50 mcg/dose 1 ea PO BID omeprazole 20 mg PO DAILY paroxetine HCl 40 mg PO QAM tiotropium bromide 2.5 mcg/actuation (Spiriva Respimat) 2 puffs PO DAILY Tobacco use date assessed: 01/28/23 Fall risk assessment: No Falls in past year Last assessed Fall Risk: 01/28/23 HPI 3mth f/u HPI Details 77-year-old female presents to the offic e to discuss her chronic medical conditions. Patient was at the orthopedic surgeon last week. She was informed that she would need a new right hip. 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 She is walking with a limp. Patient continues to have pain in the hip. In addition she is been diagnosed with an ocular variant of migraine. She was having bright lights sensation in her eyes. Consumption of caffeine has relieved her of her symptoms. Patient is having urinary incontinence and certain urges to go to the bathroom. She wears pads at all times. [facility] Medical History Allergic rhinitis Asthma Cirrhosis of liver without ascites COPD (chronic obstructive pulmonary disease) COPD (chronic obstructive pulmonary disease) COVID-19 Endogenous depression GERD with esophagitis Hiatal hernia History of iron deficiency anemia Restrictive lung disease Tachycardia Surgical History History of dental surgery History of hip surgery History of hysterectomy History of surgery on left wrist Status post laparoscopic cholecystectomy (~06/10/18) Family History Other Mental health disorder Substance use disorder Social History Household Members: Spouse Housing: House Alcohol intake: former Patient Tobacco Use Status: Former Tobacco user e-Cigarette/Vaping Use: Never Used Second Hand Smoke Exposure: No service: No Current occupational status: disabled Cognitive needs: Yes (cane, walker) Hearing needs: No Vision needs: Yes (Reading Glasses) Questionnaire Thrive Questionnaire Date Thrive assessed: 04/21/22 EFRAIN-7 AMB Questionnaire EFRAIN-7 Date EFRAIN - 7 assessed: 07/30/22 Source: Developed by Drs. Robson Avitia, Dinorah Betancur, Spenser Mancera and colleagues, with an educational charisse from [employer]. Physical exam (Primary Care) Vital Signs: Last Vital Signs Pulse 121 H 01/28/23 13:23 BP 110/70 01/28/23 13:23 Pulse Ox 97 01/28/23 13:23 Oxygen Delivery Method Room Air 01/28/23 13:23 BMI result Body Mass Index 40.3 Tobacco/Smoking Status: Tobacco use Status Tobacco use date assessed 01/28/23 01/28/23 13:29 Patient Tobacco Use Status Former Tobacco user 01/28/23 13:29 e-Cigarette/Vaping Use Never Used 01/28/23 13:29 Thrive Assessment: Date of Thrive Assessment Date Thrive assessed 04/21/22 01/28/23 13:29 Const General: cooperative and healthy appearing Nutritional Appearance: well nourished Orientation/consciousness: patient oriented x3 Limitations: no limitations HENMT Head: Yes normal to inspection Eyes General: appearance normal, both eyes and all related structures Neck Neck: Yes normal visual inspection Chest Chest palpation & inspection: normal palpation of entire chest wall Resp Effort & Inspection: normal respiratory effort Neuro General: patient oriented x3 Assessment and Plan Assessment & Plan (1) Right hip pain: Code(s): M25.551 - Pain in right hip Plan: Patient was advised to follow-up with orthopedics. (2) HTN (hypertension): Code(s): I10 - Essential (primary) hypertension Plan: Blood pressure is in range. (3) Urinary incontinence: Code(s): R32 - Unspecified urinary incontinence Plan: Patient was advised that she would need a document improvement specialist appointment to rule out prolapse. No medication should be started till the actual cause of incontinence is determined. Patient is very reluctant to see a document improvement specialist. Coding Level of Care Code Est Pt Level 4 (01110) Diagnoses Right hip pain M25.551 HTN (hypertension) I10 Urinary incontinence R32
[2023-01-28 13:23] VITALS: BP 110/70; PULSE 121; O2SAT 97; BMI 40.3
== END 2023-01-28 13:51 | disposition home or self-care (01) ==
PROVIDERS: PCP Internal Medicine; Visit Provider Internal Medicine
DX: M25.551 Pain in right hip (principal); I10 Essential (primary) hypertension; R32 Unspecified urinary incontinence
CPT/HCPCS: 99214

== ENCOUNTER 2023-02-02 10:55 | Outpatient (AMB) | payer MEDICARE, BC, SELFPAY ==
[2023-02-02 11:07] VITALS: BP 150/78; PULSE 111; O2SAT 97; BMI 39.6
--- NOTE | 2023-02-02 11:07 | A.OFFVIS_ITS ---
Intake Vital Signs 02/02/23 11:07 Height 5 ft Weight 203 lb BMI 39.6 BP 150/78 H Blood Pressure Location Lt brachial Position Sitting Pulse 111 H Pulse Source Pulse Oximeter Pulse Oximetry (%) 97 Oxygen Delivery Method Room Air Intake Visit Reasons: COPD Intake Note: pt is here for a follow up and states her breathing is good, some coughing with phelgm, sleeping with head up at night. Signs And Displays Sales Representative Required: No Allergies cat dander [CATS] Allergy (Unknown, Verified 02/02/23 11:33) ASTHMA ATTACK Horse/Equine Containing Products [HORSE/EQUINE CONTAINING PRODUCTS] Allergy (Unknown, Verified 02/02/23 11:33) ASTHMA ATTACK ENVIROMENTAL Allergy (Unknown, Uncoded 02/02/23 11:33) ASTHMA ATTACK Medication List - Last Reconciled 02/02/23 by Albertina Kimball MD albuterol sulfate 90 mcg/actuation 2 puffs PO Q4H PRN amlodipine 5 mg PO DAILY cetirizine (Zyrtec) 10 mg PO DAILY PRN cholecalciferol (vitamin D3) 25 mcg PO DAILY 90 days fluticasone propion-salmeterol 250-50 mcg/dose 1 ea PO BID omeprazole 20 mg PO DAILY paroxetine HCl 40 mg PO QAM tiotropium bromide 2.5 mcg/actuation (Spiriva Respimat) 2 puffs PO DAILY Do you need a note to return to daycare/school/sports/work: No HPI COPD HPI Details This 77 years old, grossly obese, female with diagnosis of chronic obstructive pulmonary disease. Comes for follow-up after 4 months. She is mostly homebound, has been .free of any infections She is up to date with vaccinations. Gets short of breath on walking around, but okay at rest. Very little cough not much expectoration. Denies any wheezing attacks. Walks around with the walker. 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 [facility] Medical History Restrictive lung disease Tachycardia COVID-19 Endogenous depression COPD (chronic obstructive pulmonary disease) Allergic rhinitis GERD with esophagitis Asthma COPD (chronic obstructive pulmonary disease) History of iron deficiency anemia Hiatal hernia Cirrhosis of liver without ascites Surgical History History of dental surgery History of surgery on left wrist History of hysterectomy History of hip surgery Status post laparoscopic cholecystectomy (~06/10/18) Family History Other Mental health disorder Substance use disorder Social History Household Members: Spouse Housing: House Alcohol intake: former Patient Tobacco Use Status: Former Tobacco user e-Cigarette/Vaping Use: Never Used Second Hand Smoke Exposure: No service: No Current occupational status: disabled Cognitive needs: Yes (cane, walker) Hearing needs: No Vision needs: Yes (Reading Glasses) Review of Systems Const All systems reviewed & are unremarkable except as noted in HPI and below Eyes Reports no additional complaints ENT Reports nasal congestion (Off and on, mostly controlled at this time) Card Denies chest pain, Denies irregular heart rhythm and Denies leg edema Resp Reports as per HPI GI Reports heartburn (Symptoms of GERD controlled with omeprazole) Reports no additional complaints Musc Reports abnormal gait (Needs cane or walker, for gait stability) and Reports back pain Skin/Breast Reports system reviewed and no additional complaints, except as documented Neuro Reports abnormal gait (Needs cane or walker, for gait stability) Psych Reports depression (Controlled with med) Endo Reports no additional complaints Physical Exam Vital Signs: Last Vital Signs Pulse 111 H 02/02/23 11:07 BP 150/78 H 02/02/23 11:07 Pulse Ox 97 02/02/23 11:07 Oxygen Delivery Method Room Air 02/02/23 11:07 BMI result Body Mass Index 39.6 Const General: comfortable, no acute distress, alert and awake Orientation/consciousness: patient oriented x3 HEENT Head: Yes normal to inspection General nose exam: No nasal polyps present, No nasal discharge present and Other nasal findings present (Mild nasal congestion) Face and sinus: Yes sinuses nontender Mouth: oropharynx normal Throat: Yes posterior oropharynx normal Eyes General: appearance normal, both eyes and all related structures Neck Neck: Yes normal visual inspection, Yes no lymphadenopathy, Yes trachea midline and Yes no JVD Thyroid: Thyroid normal Chest Chest palpation & inspection: normal inspection of the chest, normal palpation of entire chest wall and no tenderness Resp Other: Percussion note is resonant, breath sounds distant on both sides with prolonged expiratory phase. No expiratory wheezes heard . Also no crepitations. Cardio Palpation: normal PMI Rate: tachycardic (hr at rest 120/mt ) Rhythm: regular rhythm Heart sounds: no gallops and no murmurs GI Palpation (GI): Soft to palpation, nontender, No hepatosplenomegaly present and no masses Auscultation: normal bowel sounds Back/Spine/Pelvis Thoracic/Lumbar Spine: thoracic and lumbar spine normal to inspection, thoraco- lumbar ROM limited and thoraco-lumbar spasm Skin General skin exam: no rashes or lesions noted Neuro General: patient oriented x3 and no focal motor deficits Cranial nerves: Yes CN's II-XII intact bilaterally Extrem General: Yes normal to inspection, Yes no clubbing, cyanosis or edema and Yes no calf tenderness Psych Appearance: grossly normal and well kempt Speech and movement: Normal speech and movement present Assessment & Plan Assessment & Plan (1) COPD (chronic obstructive pulmonary disease): Comment: MILD TO MODERTAELY SEVERE , WELL CONTROLLED . , CONT. SPIRIVA RESPIMAT 2 INH DAILY WIXELA , 250-50 ONE INH BID AND ALBUTEROL MDI 2 PUFFS Q 4-6 HRS ONLY PRN/ ADVISE THAT SHE MAY USE 2 PUFFS OF ALBUTEROL AT BEDTIME. Code(s): J44.9 - Chronic obstructive pulmonary disease, unspecified (2) Allergic rhinitis: Comment: MILD , STABLE AND CONTROLLED . CONT. USING CETRIZINE 10 MG DAILY , ADVISED TO TAKE THIS TABLET TOWARDS THE EVENING. Code(s): J30.9 - Allergic rhinitis, unspecified (3) Restrictive lung disease: Comment: PFT Showed Mild restrictive pulmonary disorder in addition to mild COPD. This is most likely due to her gross obesity, BMI=39.6 Patient advised to do deep breathing exercises 2 or 3 times a day. Code(s): J98.4 - Other disorders of lung Coding Level of Care Code Est Pt Level 3 (96850) Diagnoses COPD (chronic obstructive pulmonary disease) J44.9 Allergic rhinitis J30.9 Restrictive lung disease J98.4
== END 2023-02-02 11:40 | disposition home or self-care (01) ==
PROVIDERS: PCP Internal Medicine; Visit Provider Internal Medicine
DX: J44.9 Chronic obstructive pulmonary disease, unspecified (principal); J30.9 Allergic rhinitis, unspecified; J98.4 Other disorders of lung
CPT/HCPCS: 99213

== ENCOUNTER → 2023-02-02 10:55 | Outpatient (BNVA) | payer MEDICARE, BC, SELFPAY | PROVIDERS: PCP Internal Medicine; Visit Provider Internal Medicine | DX: J44.9 Chronic obstructive pulmonary disease, unspecified (principal); J30.9 Allergic rhinitis, unspecified; J98.4 Other disorders of lung | CPT/HCPCS: 99212 ==

== ENCOUNTER 2023-02-25 09:06 | Outpatient (REF) | payer MEDICARE, BC, SELFPAY ==
--- NOTE | ~2023-02-25 | US_ITS ---
EXAMINATION: US ABDOMEN LIMITED CLINICAL INFORMATION: Unspecified cirrhosis of liver. COMPARISON: Ultrasound abdomen complete 07/22/2022. Ultrasound abdomen limited 01/26/2022. MRI abdomen 06/07/2018. TECHNIQUE: Real-time imaging of the right upper quadrant abdominal viscera. FINDINGS: PANCREAS: The pancreas is not well seen due to bowel gas LIVER: The liver is normal in size. The liver contour is normal. There is diffuse increased liver parenchymal echogenicity, consistent with hepatic steatosis. There is minimal coarsening of the echotexture. No focal hepatic lesion. There is no intrahepatic biliary duct dilatation seen. GALLBLADDER: Surgically absent. COMMON BILE DUCT: Normal in caliber measuring 0.8 cm in diameter. RIGHT KIDNEY: Normal. No hydronephrosis. No renal calculi or focal parenchymal lesions. The kidney measures 10.8 cm in maximum dimension. FREE FLUID: None. US/US abdomen limited IMPRESSION: 1. Hepatic steatosis. 2. Prior cholecystectomy.
== END 2023-02-25 09:07 | disposition home or self-care (01) ==
LOC: HO.US 09:06
PROVIDERS: PCP Internal Medicine; Visit Provider Internal Medicine Gastroenterology
DX: K74.60 Unspecified cirrhosis of liver (principal)
CPT/HCPCS: 76705

== ENCOUNTER 2023-05-13 09:48 | Outpatient (AMB) | payer MEDICARE, BC, SELFPAY ==
--- NOTE | 2023-05-13 10:48 | A.OFFPC_ITS ---
Vital Signs 05/13/23 10:52 Height 5 ft Weight 206 lb 8 oz BMI 40.3 BP 124/78 Blood Pressure Location Lt brachial Position Sitting Pulse 111 H Pulse Source Pulse Oximeter Pulse Oximetry (%) 100 Oxygen Delivery Method Room Air Intake Visit Reasons: 3 month f/u Intake Note: Patient is here to follow up on HTN, COPD, GERD. Dialysis Technician Required: No Flour Blender: Not Required per policy Accompanied by: Self / Same As Patient Allergies cat dander [CATS] Allergy (Unknown, Verified 05/18/23 11:07) ASTHMA ATTACK Horse/Equine Containing Products [HORSE/EQUINE CONTAINING PRODUCTS] Allergy (Unknown, Verified 05/18/23 11:07) ASTHMA ATTACK ENVIROMENTAL Allergy (Unknown, Uncoded 05/18/23 11:07) ASTHMA ATTACK Medication List - Last Reconciled 05/18/23 by Rip Huber MD albuterol sulfate 90 mcg/actuation 2 puffs PO Q4H PRN amlodipine 5 mg PO DAILY cetirizine (Zyrtec) 10 mg PO DAILY PRN cholecalciferol (vitamin D3) (Vitamin D3) 25 mcg PO DAILY 90 days fluticasone propion-salmeterol 250-50 mcg/dose (Wixela Inhub) 1 ea PO BID mirabegron ER (Myrbetriq) 25 mg PO DAILY 30 days omeprazole 20 mg PO DAILY paroxetine HCl 40 mg PO QAM tiotropium bromide 2.5 mcg/actuation (Spiriva Respimat) 2 puffs PO DAILY Tobacco use date assessed: 05/13/23 Fall risk assessment: No Falls in past year Last assessed Fall Risk: 05/13/23 Dental Screening Dental Screen Date: 05/13/23 Did you have a dental visit in the last 12 months?: Yes Did you have a dental problem in the last 6 months where you did not have access to dental care?: No Was dental information given to patient?: Patient has dentist HPI 3 month f/u HPI Details 77-year-old female presents to the offic e to discuss her chronic medical conditions. Past medical history significant for depression, urinary incontinence and restrictive lung disease. Patient's medical condition is stable. She is compliant with medications and reporting no side effects. Able to function and do all activities of daily living. [facility] Medical History Restrictive lung disease Tachycardia COVID-19 Endogenous depression COPD (chronic obstructive pulmonary disease) Allergic rhinitis GERD with esophagitis Asthma COPD (chronic obstructive pulmonary disease) History of iron deficiency anemia Hiatal hernia Cirrhosis of liver without ascites Surgical History History of dental surgery History of surgery on left wrist History of hysterectomy History of hip surgery Status post laparoscopic cholecystectomy (~06/10/18) Family History Other Mental health disorder Substance use disorder Social History Household Members: Spouse Housing: House Alcohol intake: former Patient Tobacco Use Status: Former Tobacco user e-Cigarette/Vaping Use: Never Used Second Hand Smoke Exposure: No service: No Current occupational status: disabled Cognitive needs: Yes (cane, walker) Hearing needs: No Vision needs: Yes (Reading Glasses) Questionnaire PHQ-9 Over the last 2 weeks, how often have you been bothered by any of the following problems? 1. Little interest or pleasure in doing things: not at all 2. Feeling down, depressed, or hopeless: not at all 3. Trouble falling or staying asleep, or sleeping too much: not at all 4. Feeling tired or having little energy: not at all 5. Poor appetite or overeating: not at all 6. Feeling bad about yourself - or that you are a failure or have let yourself or your family down: not at all 7. Trouble concentrating on things, such as reading the newspaper or watching television: not at all 8. Moving or speaking so slowly that other people could have noticed. Or the opposite - being so fidgety or restless that you have been moving around a lot more than usual: not at all 9. Thoughts that you would be better off or of hurting yourself in some way: not at all Total score: 0 Depression Screening Interpretation: Negative Depression Screening Done: Yes Source: Developed by Drs. Robson Avitia, Dinorah Betancur, Spenser Mancera and colleagues, with an educational charisse from [employer]. Thrive Questionnaire Date Thrive assessed: 05/13/23 I am a: Patient What is your living situation today?: I have a steady place to live Within the past 12 months, did the food you bought not last and you didn't have the money to get more?: Never true Within the past 12 months, did you worry whether your food would run out before you got money to buy more?: Never true Do you have trouble paying for medicines?: No Do you have trouble getting transportation to medical appointments?: No Do you have trouble paying your heating and electricity bill?: No Do you have trouble taking care of your child, family member or friend?: No Do you have trouble with day-to-day activities such as bathing, preparing meals, shopping, managing finances, etc.?: No Are you currently unemployed and looking for a job?: No Are you interested in more education?: No Currently or been in a relationship where the following occur: no concerns reported AUDIT C Alcohol Use Questionnaire (AUDIT-C) 1. How often do you have a drink containing alcohol?: Never Total Score: 0 EFRAIN-7 AMB Questionnaire EFRAIN-7 Date EFRAIN - 7 assessed: 05/13/23 Feeling nervous, anxious, or on edge: 0 = Not at all Not being able to stop or control worryin = Not at all Worrying too much about different things: 0 = Not at all Trouble relaxin = Not at all Being so restless that it is hard to sit still: 0 = Not at all Becoming easily annoyed or irritable: 0 = Not at all Feeling afraid as if something awful might happen: 0 = Not at all Total EFRAIN-7 score (0-4 normal; 5-9 mild; 10-14 moderate; 15-21 severe): 0 Source: Developed by Drs. Robson Avitia, Dinorah Betancur, Spenser Mancera and colleagues, with an educational charisse from [employer]. Physical exam (Primary Care) Vital Signs: Last Vital Signs Pulse 111 H 05/13/23 10:52 BP 124/78 05/13/23 10:52 Pulse Ox 100 05/13/23 10:52 Oxygen Delivery Method Room Air 05/13/23 10:52 BMI result Body Mass Index 40.3 Tobacco/Smoking Status: Tobacco use Status Tobacco use date assessed 05/13/23 05/13/23 10:53 Patient Tobacco Use Status Former Tobacco user 05/13/23 10:48 e-Cigarette/Vaping Use Never Used 05/13/23 10:48 PHQ-9: PHQ-9 Score PHQ-9: Total score 0 05/13/23 10:53 Depression Screening Interpretation: Negative Thrive Assessment: Date of Thrive Assessment Date Thrive assessed 05/13/23 05/13/23 10:53 Currently or been in a relationship where the following occur: no concerns reported Const General: cooperative and healthy appearing Nutritional Appearance: well nourished Orientation/consciousness: patient oriented x3 Limitations: no limitations HENMT Head: Yes normal to inspection Eyes General: appearance normal, both eyes and all related structures Neck Neck: Yes normal visual inspection Chest Chest palpation & inspection: normal palpation of entire chest wall Resp Effort & Inspection: normal respiratory effort Neuro General: patient oriented x3 Assessment and Plan Assessment & Plan (1) COPD (chronic obstructive pulmonary disease): Comment: MILD TO MODERTAELY SEVERE , WELL CONTROLLED . , CONT. SPIRIVA RESPIMAT 2 INH DAILY WIXELA , 250-50 ONE INH BID AND ALBUTEROL MDI 2 PUFFS Q 4-6 HRS ONLY PRN/ ADVISE THAT SHE MAY USE 2 PUFFS OF ALBUTEROL AT BEDTIME. Code(s): J44.9 - Chronic obstructive pulmonary disease, unspecified Plan: Condition is stable. Continue medications at same dosage. Coding Level of Care Code Est Pt Level 3 (56557) Diagnoses COPD (chronic obstructive pulmonary disease) J44.9
[2023-05-13 10:52] VITALS: BP 124/78; PULSE 111; O2SAT 100; BMI 40.3
== END 2023-05-13 11:40 | disposition home or self-care (01) ==
PROVIDERS: PCP Internal Medicine; Visit Provider Internal Medicine
DX: J44.9 Chronic obstructive pulmonary disease, unspecified (principal)
CPT/HCPCS: 99213

== ENCOUNTER 2023-05-14 09:49 | Outpatient (AMB) | payer MEDICARE, BC, SELFPAY ==
--- NOTE | 2023-05-14 10:46 | MHC.OFFVIS ---
Intake Intake Visit Reasons: Unspecified urinary incontinence Intake Note: New Patient presents for initial visit for urinary incontnence Urology Medications: none Blood Thinner: none PVR: 14ml's Accompanied by: Self / Same As Patient Allergies cat dander [CATS] Allergy (Unknown, Verified 05/14/23 11:43) ASTHMA ATTACK Horse/Equine Containing Products [HORSE/EQUINE CONTAINING PRODUCTS] Allergy (Unknown, Verified 05/14/23 11:43) ASTHMA ATTACK ENVIROMENTAL Allergy (Unknown, Uncoded 05/14/23 11:43) ASTHMA ATTACK Medication List - Last Reconciled 05/14/23 by TERRY Walker albuterol sulfate 90 mcg/actuation 2 puffs PO Q4H PRN amlodipine 5 mg PO DAILY cetirizine (Zyrtec) 10 mg PO DAILY PRN cholecalciferol (vitamin D3) 25 mcg PO DAILY 90 days fluticasone propion-salmeterol 250-50 mcg/dose (Wixela Inhub) 1 ea PO BID omeprazole 20 mg PO DAILY paroxetine HCl 40 mg PO QAM tiotropium bromide 2.5 mcg/actuation (Spiriva Respimat) 2 puffs PO DAILY HPI HPI Comments History of Present Illness Details Aline is a very pleasant 77 year old female patient of Dr. Huber. She has a past medical history restrictive lung disease, tachycardia, depression, COPD, allergic rhinitis, GERD, asthma, hiatal hernia, iron deficiency anemia, and cirrhosis of the liver without ascites. She presents to the office today as a new patient for mixed urinary incontinence. In discussion with the patient today she reports urinary symptoms have been present for many years however feels they are worsening as her COPD has also worsen. She discusses on sensed and sensed urinary incontinence. She reports utilizing 4-6 adult diapers daily. She denies any previous history of childbirth and or . When asked she denies hematuria, dysuria, foul smelling urine, changes to urinary stream, flank pain, fever, and or chills. Discussed at length potential causes for lower urinary tract symptoms patient is experiencing. Discussed pelvic floor therapy as well as medications. Discussed possible near future in office cystoscopy and or urodynamics for further assessment evaluation. Unable to obtain urine for urinalysis today however PVR 14 mL. Discussed obtaining retroperitoneal ultrasound for further assessment evaluation. PFSH Medical History Restrictive lung disease Tachycardia COVID-19 Endogenous depression COPD (chronic obstructive pulmonary disease) Allergic rhinitis GERD with esophagitis Asthma COPD (chronic obstructive pulmonary disease) History of iron deficiency anemia Hiatal hernia Cirrhosis of liver without ascites Surgical History History of dental surgery History of surgery on left wrist History of hysterectomy History of hip surgery Status post laparoscopic cholecystectomy (~06/10/18) Family History Other Mental health disorder Substance use disorder Social History Household Members: Spouse Housing: House Alcohol intake: former Patient Tobacco Use Status: Former Tobacco user e-Cigarette/Vaping Use: Never Used Second Hand Smoke Exposure: No service: No Current occupational status: disabled Cognitive needs: Yes (cane, walker) Hearing needs: No Vision needs: Yes (Reading Glasses) Review of Systems Const Reports as per HPI Eyes Reports no additional complaints ENT Reports no additional complaints Card Reports as per HPI Resp Reports as per HPI GI Reports as per HPI Reports as per HPI Musc Reports no additional complaints Neuro Reports no additional complaints Psych Reports no additional complaints Endo Reports no additional complaints Physical Exam Const General: cooperative, healthy appearing, comfortable, no acute distress, well developed, alert and awake Nutritional Appearance: overweight Orientation/consciousness: patient oriented x3 Limitations: ambulation with walker HEENT Head: Yes normal to inspection, Yes normocephalic and Yes atraumatic Ears: hearing grossly normal bilaterally Eyes General: appearance normal, both eyes and all related structures Neck Neck: Yes normal visual inspection and Yes trachea midline Chest Chest palpation & inspection: normal inspection of the chest Resp Effort & Inspection: normal respiratory effort and able to speak in complete sentences Cardio Rate: regular rate GI Inspection: Yes normal to inspection General: Yes no CVA tenderness Back/Spine/Pelvis Back: no CVA tenderness Skin General skin exam: no rashes or lesions noted Neuro General: patient oriented x3 Extrem General: Yes normal to inspection Psych Appearance: grossly normal and well kempt Mental Status: mental status grossly normal Speech and movement: Normal speech and movement present and Clear speech present Affect: normal affect Attitude: cooperative Thought process: Normal thought process present Thought content: Normal thought content present Insight: Fair insight present (Psych) Judgement: Fair judgement present (Psych) Office Procedures Post Void Residual Post Residual Void Post Void Residual (PVR): 14 [id number] Void Residual by ultrasound Assessment & Plan Assessment & Plan (1) Urinary incontinence: Code(s): R32 - Unspecified urinary incontinence (2) Urinary incontinence, mixed: Code(s): N39.46 - Mixed incontinence Plan Unable to obtain urine for urinalysis; however PVR 14 mL Discussed at length potential causes for urinary incontinence patient is experiencing. Discussed pelvic floor therapy. Start Myrbetriq as discussed and prescribed. Will obtain retroperitoneal ultrasound for further assessment evaluation. Discussed bladder triggers/irritants. Discussed possible near future in office urodynamics and or in office cystoscopy for further assessment evaluation. Follow-up in 6 weeks with imaging to be completed prior and PVR at next office visit; or sooner with any issues, concerns, and or questions. Orders: Orders AMB Post Void Residual by ultrasound Today R32 - Unspecified urinary incontinence US retroperitoneal comp Today R32 - Unspecified urinary incontinence Medications: New mirabegron ER (Myrbetriq) 25 mg PO DAILY 30 days 30 tabs 1RF N30.10 - Interstitial cystitis (chronic) without hematuria, N32.81 - Overactive bladder, R35.1 - Nocturia, R39.15 - Urgency of urination Patient Instructions: The patient had an opportunity to ask questions regarding the treatment plan. All questions were answered. Physical exam, labs, and imaging were discussed and reviewed in detail. As well as risks, benefits, and discussion of treatment choices. No major barriers to understanding were identified. The patient expressed understanding and agreement with the above treatment plan. The patient was made aware they should contact our office by phone for worsening of their current condition, the appearance of new symptoms, or with any questions or concerns. Compliance is encouraged with any medications and follow up testing that is ordered. It is a privilege to be allowed the opportunity to participate in? your urological care.? Again, if you have any questions or concerns If you have any questions or concerns please do not hesitate to contact me. The office is [phone]. This note is constructed using voice recognition software. While every effort has been made to ensure accuracy blood donor unit assistant errors may have been included. Yours sincerely, ARCENIO Walker- Coding Level of Care Code New Pt Level 4 (25850) Diagnoses Urinary incontinence R32 Urinary incontinence, mixed N39.46 CPT Codes Post Residual Void - PVR CPT Code: 86949-[id number] Void Residual by ultrasound ([id number])
== END 2023-05-14 11:08 | disposition home or self-care (01) ==
PROVIDERS: PCP Internal Medicine; Visit Provider Nurse Practitioner Family
DX: R32 Unspecified urinary incontinence (principal)
CPT/HCPCS: 99204

== ENCOUNTER → 2023-05-14 09:49 | Outpatient (BNVA) | payer MEDICARE, BC, SELFPAY | PROVIDERS: PCP Internal Medicine; Visit Provider Nurse Practitioner Family | DX: N39.46 Mixed incontinence (principal) | CPT/HCPCS: 51798; 99202 ==

== ENCOUNTER 2023-06-03 09:44 | Outpatient (REF) | payer MEDICARE, BC, SELFPAY ==
--- NOTE | ~2023-06-03 | US_ITS ---
EXAMINATION: US RETROPERITONEAL COMPLETE (RENAL) CLINICAL INFORMATION: Unspecified urinary incontinence. COMPARISON: Ultrasound abdomen limited 02/25/2023. Ultrasound abdomen complete 07/22/2022. MRI abdomen without contrast 06/07/2018. TECHNIQUE: Real-time imaging of the kidneys and bladder. FINDINGS: RIGHT KIDNEY: 10.1 x 4.4 x 5.0 cm (SAG x AP x TRV). The kidney is normal in size, contour, and echogenicity. Renal cortical thickness is normal. No calculi or focal parenchymal lesions. No hydronephrosis. LEFT KIDNEY: 10.6 x 5.1 x 4.9 cm (SAG x AP x TRV). The kidney is normal in size, contour, and echogenicity. Renal cortical thickness is normal. No renal calculi or hydronephrosis. Multiple benign, simple parapelvic cysts are seen, the largest at the interpolar aspect measuring 2.0 cm. These require no imaging follow-up. BLADDER: Well distended. Bilateral ureteral jets are demonstrated. Prevoid bladder volume is 164 mL. Postvoid bladder volume is 3 mL. There are prominent bladder wall trabeculations. US/US retroperitoneal comp IMPRESSION: 1. Unremarkable ultrasound appearance of the kidneys. 2. There are posterior bladder wall trabeculations, consistent with bladder wall hypertrophy.
== END 2023-06-03 09:45 | disposition home or self-care (01) ==
LOC: HO.US 09:44
PROVIDERS: PCP Internal Medicine; Visit Provider Nurse Practitioner Family
DX: R32 Unspecified urinary incontinence (principal)
CPT/HCPCS: 76770

== ENCOUNTER 2023-06-10 10:50 | Outpatient (AMB) | payer MEDICARE, BC, SELFPAY ==
[2023-06-10 10:57] VITALS: BP 140/80; PULSE 138; O2SAT 96; BMI 41.2
--- NOTE | 2023-06-10 10:57 | MHC.OFFVIS ---
Intake Vital Signs 06/10/23 10:57 Height 5 ft Weight 211 lb BMI 41.2 BP 140/80 H Blood Pressure Location Lt brachial Position Sitting Pulse 138 H Pulse Source Pulse Oximeter Pulse Oximetry (%) 96 Oxygen Delivery Method Room Air Intake Visit Reasons: copd Intake Note: pt is here for follow up and states she was sick for 6 weeks and is still dealing with a cough, and it is now in the throat area, very winded when walking in. Harvest [employer]or Required: No Allergies cat dander [CATS] Allergy (Unknown, Verified 06/10/23 11:09) ASTHMA ATTACK Horse/Equine Containing Products [HORSE/EQUINE CONTAINING PRODUCTS] Allergy (Unknown, Verified 06/10/23 11:09) ASTHMA ATTACK ENVIROMENTAL Allergy (Unknown, Uncoded 06/10/23 11:09) ASTHMA ATTACK Medication List - Last Reconciled 06/10/23 by Albertina Kimball MD albuterol sulfate 90 mcg/actuation 2 puffs PO Q4H PRN amlodipine 5 mg PO DAILY cetirizine (Zyrtec) 10 mg PO DAILY PRN cholecalciferol (vitamin D3) (Vitamin D3) 25 mcg PO DAILY 90 days fluticasone propion-salmeterol 250-50 mcg/dose (Wixela Inhub) 1 ea PO BID mirabegron ER (Myrbetriq) 25 mg PO DAILY 30 days omeprazole 20 mg PO DAILY paroxetine HCl 40 mg PO QAM tiotropium bromide 2.5 mcg/actuation (Spiriva Respimat) 2 puffs PO DAILY Do you need a note to return to daycare/school/sports/work: No HPI copd HPI Details CHELLE IS 77 YEARS OLD GROSSLY OBESE. WITH CHRONIC OBSTRUCTIVE PULMONARY DISEASE. SHE COMES AFTER 4 MONTHS FOR FOLLOW-UP, BUT IN THE INTERIM. SHE HAS GONE THROUGH A BOUT OF UPPER RESPIRATORY INFECTION WITH INCREASED SHORTNESS OF BREATH AND COUGH. SHE HAS BEEN TREATED WITH A COURSE PREDNISONE AND ANTIBIOTIC. AND FINALLY AFTER SUFFERING FOR ABOUT 6 WEEKS SHE DOES FEEL BETTER. HOWEVER SHE IS SOMEWHAT MORE SHORT OF BREATH THAN USUAL, SHE ALSO HAS SOMEWHAT MORE FREQUENT COUGH, AND STILL HAS SOME NASAL STUFFINESS. SHE IS MOSTLY HOMEBOUND AND WALKS WITH THE WALKER. WALKING AND EXERCISE CAPACITY LIMITED . [facility] Medical History Restrictive lung disease Tachycardia COVID-19 Endogenous depression COPD (chronic obstructive pulmonary disease) Allergic rhinitis GERD with esophagitis Asthma COPD (chronic obstructive pulmonary disease) History of iron deficiency anemia Hiatal hernia Cirrhosis of liver without ascites Surgical History History of dental surgery History of surgery on left wrist History of hysterectomy History of hip surgery Status post laparoscopic cholecystectomy (~06/10/18) Family History Other Mental health disorder Substance use disorder Social History Household Members: Spouse Housing: House Alcohol intake: former Patient Tobacco Use Status: Former Tobacco user e-Cigarette/Vaping Use: Never Used Second Hand Smoke Exposure: No service: No Current occupational status: disabled Cognitive needs: Yes (cane, walker) Hearing needs: No Vision needs: Yes (Reading Glasses) Review of Systems Const All systems reviewed & are unremarkable except as noted in HPI and below Eyes Reports no additional complaints ENT Reports nasal congestion (Off and on, mostly controlled at this time) Card Denies chest pain, Denies irregular heart rhythm and Denies leg edema Resp Reports as per HPI GI Reports heartburn (Symptoms of GERD controlled with omeprazole) Reports no additional complaints Musc Reports abnormal gait (Needs cane or walker, for gait stability) and Reports back pain Skin/Breast Reports system reviewed and no additional complaints, except as documented Neuro Reports abnormal gait (Needs cane or walker, for gait stability) Psych Reports depression (Controlled with med) Endo Reports no additional complaints Physical Exam Vital Signs: Last Vital Signs Pulse 138 H 06/10/23 10:57 BP 140/80 H 06/10/23 10:57 Pulse Ox 96 06/10/23 10:57 Oxygen Delivery Method Room Air 06/10/23 10:57 BMI result Body Mass Index 41.2 Const General: comfortable, no acute distress, alert and awake Orientation/consciousness: patient oriented x3 HEENT Head: Yes normal to inspection General nose exam: No nasal polyps present, No nasal discharge present and Other nasal findings present (Mild nasal congestion) Face and sinus: Yes sinuses nontender Mouth: oropharynx normal Throat: Yes posterior oropharynx normal Eyes General: appearance normal, both eyes and all related structures Neck Neck: Yes normal visual inspection, Yes no lymphadenopathy, Yes trachea midline and Yes no JVD Thyroid: Thyroid normal Chest Chest palpation & inspection: normal inspection of the chest, normal palpation of entire chest wall and no tenderness Resp Other: Percussion note is resonant, breath sounds distant on both sides with prolonged expiratory phase. No expiratory wheezes heard . Also no crepitations. Cardio Palpation: normal PMI Rate: tachycardic (hr at rest 120/mt ) Rhythm: regular rhythm Heart sounds: no gallops and no murmurs GI Palpation (GI): Soft to palpation, nontender, No hepatosplenomegaly present and no masses Auscultation: normal bowel sounds Back/Spine/Pelvis Thoracic/Lumbar Spine: thoracic and lumbar spine normal to inspection, thoraco-lumbar ROM limited and thoraco-lumbar spasm Skin General skin exam: no rashes or lesions noted Neuro General: patient oriented x3 and no focal motor deficits Cranial nerves: Yes CN's II-XII intact bilaterally Extrem General: Yes normal to inspection, Yes no clubbing, cyanosis or edema and Yes no calf tenderness Psych Appearance: grossly normal and well kempt Speech and movement: Normal speech and movement present Assessment & Plan Assessment & Plan (1) Restrictive lung disease: Comment: PFT Showed Mild restrictive pulmonary disorder in addition to mild COPD. This is most likely due to her gross obesity, BMI=39.6 Code(s): J98.4 - Other disorders of lung Plan: ADVISED TO RESTRICT CALORIES INTAKE. TRY TO WALK AROUND MUCH SHE CAN EVEN WITH THE WALKER. DO DEEP BREATHING EXERCISES 3 TIMES A DAY. (2) COPD (chronic obstructive pulmonary disease): Comment: MILD TO MODERTAELY SEVERE , WELL CONTROLLED . , BUT HER BREATHING IS SOMEWHAT WORSE DUE TO RECENT UPPER RESPIRATORY INFECTION. Code(s): J44.9 - Chronic obstructive pulmonary disease, unspecified Plan: TX: CONT. SPIRIVA RESPIMAT 2 INH DAILY WIXELA ,( DOSE INCRESED TO 500-50 , ONE INH BID AND ALBUTEROL MDI 2 PUFFS Q 4-6 HRS ONLY PRN/ ADVISE THAT SHE MAY USE 2 PUFFS OF ALBUTEROL AT BEDTIME. (3) Allergic rhinitis: Comment: MILD , STABLE AND CONTROLLED . Code(s): J30.9 - Allergic rhinitis, unspecified Plan: CONT. USING CETRIZINE 10 MG DAILY , ADVISED TO TAKE THIS TABLET TOWARDS THE EVENING. Medications: New fluticasone propion-salmeterol 500-50 mcg/dose (Wixela Inhub) 1 inh inhalation BID 60 ea 5RF COPD 30 days Coding Level of Care Code Est Pt Level 3 (01918) Diagnoses Restrictive lung disease J98.4 COPD (chronic obstructive pulmonary disease) J44.9 Allergic rhinitis J30.9
== END 2023-06-10 11:21 | disposition home or self-care (01) ==
PROVIDERS: PCP Internal Medicine; Visit Provider Internal Medicine
DX: J98.4 Other disorders of lung (principal); J44.9 Chronic obstructive pulmonary disease, unspecified; J30.9 Allergic rhinitis, unspecified
CPT/HCPCS: 99213

== ENCOUNTER → 2023-06-10 10:50 | Outpatient (BNVA) | payer MEDICARE, BC, SELFPAY | PROVIDERS: PCP Internal Medicine; Visit Provider Internal Medicine | DX: J98.4 Other disorders of lung (principal); J44.9 Chronic obstructive pulmonary disease, unspecified; J30.9 Allergic rhinitis, unspecified | CPT/HCPCS: 99212 ==

== ENCOUNTER 2023-07-01 10:22 | Outpatient (AMB) | payer MEDICARE, BC, SELFPAY ==
--- NOTE | 2023-07-01 10:57 | MHC.OFFVIS ---
Intake Intake Visit Reasons: 6w/US(set) Intake Note: Patient presents for follow up visit for urinary incontinence and ultrasound results Imagin06/03/23 Urology Medications: Myrbetriq Blood Thinner: none PVR: 17ml's Railroad Passenger Agent Required: No Accompanied by: Self / Same As Patient Allergies cat dander [CATS] Allergy (Unknown, Verified 07/04/23 14:53) ASTHMA ATTACK Horse/Equine Containing Products [HORSE/EQUINE CONTAINING PRODUCTS] Allergy (Unknown, Verified 07/04/23 14:53) ASTHMA ATTACK ENVIROMENTAL Allergy (Unknown, Uncoded 07/04/23 14:53) ASTHMA ATTACK Medication List - Last Reconciled 07/04/23 by MARSHA Walker albuterol sulfate 90 mcg/actuation 2 puffs PO Q4H PRN amlodipine 5 mg PO DAILY cetirizine (Zyrtec) 10 mg PO DAILY PRN cholecalciferol (vitamin D3) (Vitamin D3) 25 mcg PO DAILY 90 days fluticasone propion-salmeterol 250-50 mcg/dose (Wixela Inhub) 1 ea PO BID fluticasone propion-salmeterol 500-50 mcg/dose (Wixela Inhub) 1 inh inhalation BID 30 days mirabegron ER (Myrbetriq) 25 mg PO DAILY 90 days omeprazole 20 mg PO DAILY paroxetine HCl 40 mg PO QAM solifenacin (Vesicare) 5 mg PO DAILY 30 days tiotropium bromide 2.5 mcg/actuation (Spiriva Respimat) 2 puffs PO DAILY HPI HPI Comments History of Present Illness Details Aline is a very pleasant 77 year old female patient of Dr. Huber. She has a past medical history restrictive lung disease, tachycardia, depression, COPD, allergic rhinitis, GERD, asthma, hiatal hernia, iron deficiency anemia, and cirrhosis of the liver without ascites. She presents to the office today for follow-up. Of note, patient was seen approximately 6 weeks ago as a new patient for mixed urinary incontinence at which time she was started on 25 mg of Myrbetriq and a retroperitoneal ultrasound was ordered for further assessment evaluation. These results were reviewed with the patient today. Bilateral kidneys with no calculi, lesions, and or hydronephrosis. Multiple benign simple peripelvic cysts are seen, the largest at the inter pole aspect measuring approximately 2 cm. There is no follow-up imaging required per radiology report. The bladder is well distended. Bilateral ureteral jets are demonstrated. Pre void bladder volume is approximately 165 mL. Postvoid bladder volume is approximately 5 mL. There are prominent bladder wall trabeculations. In discussion with the patient today she reports urinary symptoms have somewhat improved with 25 mg of Myrbetriq daily however she does continue with intermittent episodes of urinary urgency, urinary frequency, and if not near a bathroom urinary incontinence. She reports utilizing 4-6 adult diapers daily. She denies any previous history of childbirth and or . When asked she denies hematuria, dysuria, foul smelling urine, changes to urinary stream, flank pain, fever, and or chills. Discussed at length potential causes for lower urinary tract symptoms patient is experiencing. Discussed pelvic floor therapy as well as medications. Discussed possible near future in office cystoscopy and or urodynamics for further assessment evaluation. In office urinalysis results reviewed with the patient today. PVR 17 mL. Discussed increase in Myrbetriq verses dual therapy. She otherwise offers no other issues or concerns at this time. [facility] Medical History Restrictive lung disease Tachycardia COVID-19 Endogenous depression COPD (chronic obstructive pulmonary disease) Allergic rhinitis GERD with esophagitis Asthma COPD (chronic obstructive pulmonary disease) History of iron deficiency anemia Hiatal hernia Cirrhosis of liver without ascites Surgical History History of dental surgery History of surgery on left wrist History of hysterectomy History of hip surgery Status post laparoscopic cholecystectomy (~06/10/18) Family History Other Mental health disorder Substance use disorder Social History Household Members: Spouse Housing: House Alcohol intake: former Patient Tobacco Use Status: Former Tobacco user e-Cigarette/Vaping Use: Never Used Second Hand Smoke Exposure: No service: No Current occupational status: disabled Cognitive needs: Yes (cane, walker) Hearing needs: No Vision needs: Yes (Reading Glasses) Review of Systems Const Reports as per HPI Eyes Reports no additional complaints ENT Reports no additional complaints Card Reports as per HPI Resp Reports as per HPI GI Reports as per HPI Reports as per HPI Musc Reports no additional complaints Neuro Reports no additional complaints Psych Reports no additional complaints Endo Reports no additional complaints Physical Exam Const General: cooperative, healthy appearing, comfortable, no acute distress, well developed, alert and awake Nutritional Appearance: overweight Orientation/consciousness: patient oriented x3 Limitations: ambulation with walker HEENT Head: Yes normal to inspection, Yes normocephalic and Yes atraumatic Ears: hearing grossly normal bilaterally Eyes General: appearance normal, both eyes and all related structures Neck Neck: Yes normal visual inspection and Yes trachea midline Chest Chest palpation & inspection: normal inspection of the chest Resp Effort & Inspection: normal respiratory effort and able to speak in complete sentences Cardio Rate: regular rate GI Inspection: Yes normal to inspection General: Yes no CVA tenderness Back/Spine/Pelvis Back: no CVA tenderness Skin General skin exam: no rashes or lesions noted Neuro General: patient oriented x3 Extrem General: Yes normal to inspection Psych Appearance: grossly normal and well kempt Mental Status: mental status grossly normal Speech and movement: Normal speech and movement present and Clear speech present Affect: normal affect Attitude: cooperative Thought process: Normal thought process present Thought content: Normal thought content present Insight: Fair insight present (Psych) Judgement: Fair judgement present (Psych) Office Procedures Post Void Residual Post Residual Void Post Void Residual (PVR): 17 [id number] Void Residual by ultrasound Results AMB Urinalysis, Automated UA Leukoctes 15 Ridge/uL Last Edit by Damballa on 07/01/23 11:14 UA Nitrite Negative Last Edit by Damballa on 07/01/23 11:14 UA Urobilinogen 0.2 mg/dL Last Edit by Damballa on 07/01/23 11:14 UA Protein 30 mg/dL Last Edit by Damballa on 07/01/23 11:14 UA pH 5.5 Last Edit by Damballa on 07/01/23 11:14 UA Blood 0 Deepak/uL Last Edit by Damballa on 07/01/23 11:14 UA Specific [place] 1.030 Last Edit by Damballa on 07/01/23 11:14 UA Ketone Positive Last Edit by Damballa on 07/01/23 11:14 UA Bilirubin 1 mg/dL Last Edit by Sandra Allred on 07/01/23 11:14 UA Glucose 0 mg/dL Last Edit by Sandra Allred on 07/01/23 11:14 Results Reviewed Results Reviewed: Laboratory Last Values Urine pH (Auto) 5.5 07/01/23 10:59 Specific [place] (Auto) 1.030 07/01/23 10:59 Urine Protein (Auto) 30 mg/dL 07/01/23 10:59 Glucose (UA)(Auto) 0 mg/dL 07/01/23 10:59 Urine Ketones (Auto) Positive 07/01/23 10:59 Urine Blood (Auto) 0 Deepak/uL 07/01/23 10:59 Urine Nitrite (Auto) Negative 07/01/23 10:59 Urine Bilirubin (Auto) 1 mg/dL 07/01/23 10:59 Urine Urobilinogen (Auto) 0.2 mg/dL 07/01/23 10:59 Leukocyte Esterase (Auto) 15 Ridge/uL 07/01/23 10:59 Date of Service: 06/03/23 EXAMINATION: US RETROPERITONEAL COMPLETE (RENAL) FINDINGS: RIGHT KIDNEY: 10.1 x 4.4 x 5.0 cm (SAG x AP x TRV). The kidney is normal in size, contour, and echogenicity. Renal cortical thickness is normal. No calculi or focal parenchymal lesions. No hydronephrosis. LEFT KIDNEY: 10.6 x 5.1 x 4.9 cm (SAG x AP x TRV). The kidney is normal in size, contour, and echogenicity. Renal cortical thickness is normal. No renal calculi or hydronephrosis. Multiple benign, simple parapelvic cysts are seen, the largest at the interpolar aspect measuring 2.0 cm. These require no imaging follow-up. BLADDER: Well distended. Bilateral ureteral jets are demonstrated. Prevoid bladder volume is 164 mL. Postvoid bladder volume is 3 mL. There are prominent bladder wall trabeculations. IMPRESSION: 1. Unremarkable ultrasound appearance of the kidneys. 2. There are posterior bladder wall trabeculations, consistent with bladder wall hypertrophy. Assessment & Plan Assessment & Plan (1) Bladder trabeculation: Code(s): N32.89 - Other specified disorders of bladder (2) Urinary incontinence, mixed: Code(s): N39.46 - Mixed incontinence Plan In office urinalysis results reviewed with the patient today; as noted above. PVR 17 mL. Discussed at length potential causes of lower urinary symptoms patient is experiencing. Continue Myrbetriq 25 mg daily. Start VESIcare 5 mg daily as discussed and prescribed. Recent retroperitoneal ultrasound results reviewed with the patient today; as noted above. Discussed possible near future in office urodynamics and or cystoscopy for further assessment evaluation. Discussed pelvic floor therapy. Follow-up in 6-8 weeks with PVR; or sooner with any issues, concerns, and or questions. Orders: Orders AMB Urinalysis Automated 07/01/23 Z13.9 - Encounter for screening, unspecified AMB Post Void Residual by ultrasound 07/01/23 N39.46 - Mixed incontinence Medications: New solifenacin (Vesicare) 5 mg PO DAILY 30 days 30 tabs 2RF Changed From mirabegron ER (Myrbetriq) 25 mg PO DAILY 30 days 30 tabs 1RF N30.10 - Interstitial cystitis (chronic) without hematuria, N32.81 - Overactive bladder, R35.1 - Nocturia, R39.15 - Urgency of urination To mirabegron ER (Myrbetriq) 25 mg PO DAILY 90 days 90 tabs 1RF N30.10 - Interstitial cystitis (chronic) without hematuria, N32.81 - Overactive bladder, R35.1 - Nocturia, R39.15 - Urgency of urination Patient Instructions: The patient had an opportunity to ask questions regarding the treatment plan. All questions were answered. Physical exam, labs, and imaging were discussed and reviewed in detail. As well as risks, benefits, and discussion of treatment choices. No major barriers to understanding were identified. The patient expressed understanding and agreement with the above treatment plan. The patient was made aware they should contact our office by phone for worsening of their current condition, the appearance of new symptoms, or with any questions or concerns. Compliance is encouraged with any medications and follow up testing that is ordered. It is a privilege to be allowed the opportunity to participate in? your urological care.? Again, if you have any questions or concerns If you have any questions or concerns please do not hesitate to contact me. The office is [phone]. This note is constructed using voice recognition software. While every effort has been made to ensure accuracy internal control analyst errors may have been included. Yours sincerely, Maria D Alvarado, CHILDHOOD TEACHER-BC Coding Level of Care Code Est Pt Level 4 (37961) Diagnoses Bladder trabeculation N32.89 Urinary incontinence, mixed N39.46 CPT Codes Post Residual Void - PVR CPT Code: 46378-Etdj Void Residual by ultrasound ([id number])
== END 2023-07-01 12:19 | disposition home or self-care (01) ==
PROVIDERS: PCP Internal Medicine; Visit Provider Nurse Practitioner Family
DX: N32.89 Other specified disorders of bladder (principal); N39.46 Mixed incontinence
CPT/HCPCS: 99214

== ENCOUNTER → 2023-07-01 10:22 | Outpatient (BNVA) | payer MEDICARE, BC, SELFPAY | PROVIDERS: PCP Internal Medicine; Visit Provider Nurse Practitioner Family | DX: N32.89 Other specified disorders of bladder (principal); N39.46 Mixed incontinence | CPT/HCPCS: 51798; 81003; 99212 ==

== ENCOUNTER 2023-07-15 09:54 | Outpatient (AMB) | payer MEDICARE, BC, SELFPAY ==
--- NOTE | 2023-07-15 10:04 | A.OFFVIS_ITS ---
Intake Vital Signs 07/15/23 10:05 Height 5 ft Weight 194 lb BMI 37.9 BP 108/57 L Blood Pressure Location Lt brachial Position Sitting Pulse 116 H Intake Visit Reasons: 8 month follow up Intake Note: Patient follow up for Cirrhosis of liver and US results. Patient cc: change of her bowel with new medication and flame on her throat, denies any GI issues. Helper Metal Hanging Required: No Accompanied by: Self / Same As Patient Allergies cat dander [CATS] Allergy (Unknown, Verified 07/15/23 10:03) ASTHMA ATTACK Horse/Equine Containing Products [HORSE/EQUINE CONTAINING PRODUCTS] Allergy (Unknown, Verified 07/15/23 10:03) ASTHMA ATTACK ENVIROMENTAL Allergy (Unknown, Uncoded 07/04/23 14:53) ASTHMA ATTACK Medication List - Last Reconciled 07/15/23 by Tona Jimenez MD albuterol sulfate 90 mcg/actuation 2 puffs PO Q4H PRN amlodipine 5 mg PO DAILY cetirizine (Zyrtec) 10 mg PO DAILY PRN cholecalciferol (vitamin D3) (Vitamin D3) 25 mcg PO DAILY 90 days fluticasone propion-salmeterol 500-50 mcg/dose (Wixela Inhub) 1 inh inhalation BID 30 days mirabegron ER (Myrbetriq) 25 mg PO DAILY 90 days omeprazole 20 mg PO DAILY paroxetine HCl 40 mg PO QAM solifenacin (Vesicare) 5 mg PO DAILY 30 days tiotropium bromide 2.5 mcg/actuation (Spiriva Respimat) 2 puffs PO DAILY HPI 8 month follow up HPI Details GI clinic visit for this 77 YF for FU of GERD and alcoholic cirrhosis. ?CHRONIC ILLNESSES:?GERD, anxiety and depression, asthma, COPD, Htn, gallstones, stomach ulcers, foot drop after hip replacement surgery seen for follow-up of GERD with hiatal hernia, iron deficiency anemia and alcoholic cirrhosis ?LABS IN [facility]:?04/2021 reviewed - normal except minimal elevation of AP to 126 ? 06/01/19 H&H of 15.6 and 45.5, platelet 305, INR 0.9, normal LFT ? 06/2018 liver fibrosis score of 0.28, liver fibrosis stage F1, necroinflammatory score 0.16 ?IMAGING STUDIES: 02/22 ABD US SHOWED: LIVER: The liver is normal in size. The liver contour is normal. There is diffuse increased liver parenchymal echogenicity, consistent with hepatic steatosis. There is minimal coarsening of the echotexture. No focal hepatic lesion. There is no intrahepatic biliary duct dilatation seen. GALLBLADDER: Surgically absent. 07/2022 ABD US SHOWED: Heterogeneous cirrhotic appearing liver without focal lesion. Left renal cyst. 01/26/22 ABD US SHOWED: Increased hepatic echogenicity which can be seen in the setting of hepatic steatosis or underlying liver disease. No liver lesion. ? ENDOSCOPIC STUDIES: 04/20/19 colonoscopy showed: ? Colonoscopy Findings: ? Two polyps removed ? Four AVMs - ablated with APC. ? Moderate to severe diverticulosis seen in the entire colon ? Moderate to large internal/external hemorrhoids on retroflexed exam. ? Plan: Patient has an appointment on 05/25/18 in the GI Clinic with Tona Jimenez M.D. ? Repeat Colonoscopy interval based on path results in 5 years if ? polyps are adenomatous and due to past history of colon polyps. ? Above findings were reviewed with the patient and colon polyps and ? diverticulosis handouts were given in the discharge area ?BIOPSIES SHOWED: ? A. Colon, ascending polyp, polypectomy: Polypoid colonic mucosa within normal ? limits; negative for dysplasia. ? B. Colon, sigmoid polyp, polypectomy: Fragments of tubular adenoma. ? Letter sent advising repeat colonoscopy in 5 years. ?01/12/19 EGD showed: ? ESOPHAGUS: Tortuous esophagus with increased tertiary contractions without stricture. No varices were seen. ? GE junction at 30 cms, large hiatal hernia 30 to 36 cms. Erosions and Fidel's ulcers noted on past EGD healed completely. No Pruitt s. ? STOMACH: Mild gastritis ? DUODENUM: Normal ? Plan: Continue present medications (Omeprazole at 20 mg PO once daily) ? Patient has an appointment on 02/17/19 in the GI Clinic with Rubeela Tony, M.D ? Above findings were reviewed with the patient. ?TODAY'S VISIT Patient follow up for Cirrhosis of liver and US results. Patient cc: change of her bowel with new medication and flame on her throat, denies any GI issues. Started on Myrbetriq for bladder issues and noted loose stools Started taking fibre gunnies and stool are solid again Had a cold and has phlegm Chronic cough due to COPD Thinking of having a right hip replacement in the future. PAST VISIT: Having pain in the rt hip and taking Tramadol. Scheduling an appt to get a shot. Walking is becoming difficult and uses a walker. Noted dry heaves on 11/10/22 while she was trying to have a BM and pushed down. Mouth filled with fluid followed by dry heaves - attributes to the HH Diagnosed with COVID on 02/07/22 - has a deep cough cough and fatigue Staying at home - also has the infection Vaccinated with 3 boosters Denies reflux symptoms. Has been having episodes of gagging when she goes to the bathroom in the am after breakfast. Thinks she may be eating too fast - has a bagel and instant coffee Has been trying to eat slowly which helps Had vomiting yesterday 20 min after she took coffee. 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 intentional wt loss of 4 lbs. Denies problems with bowel movements. Has chronic cough due to COPD. Had her COVID vaccine in Jun & July ? Looking forwards to seeing her 11 year old GD in [place]. ? Doing well. ? Denies any problems with heartburn or dysphagia. ? Feeling a bored. ? [place] ? Getting groceries through the drive up window. ? Stopped taking iron pills. ? Got very sick in May with fever and lasted x 5 weeks - took Z pack PFSH Medical History Restrictive lung disease Tachycardia COVID-19 Endogenous depression COPD (chronic obstructive pulmonary disease) Allergic rhinitis GERD with esophagitis Asthma COPD (chronic obstructive pulmonary disease) History of iron deficiency anemia Hiatal hernia Cirrhosis of liver without ascites Surgical History History of dental surgery History of surgery on left wrist History of hysterectomy History of hip surgery Status post laparoscopic cholecystectomy (~06/10/18) Family History Other Mental health disorder Substance use disorder Social History Household Members: Spouse Housing: House Alcohol intake: former Patient Tobacco Use Status: Former Tobacco user e-Cigarette/Vaping Use: Never Used Second Hand Smoke Exposure: No service: No Current occupational status: disabled Cognitive needs: Yes (cane, walker) Hearing needs: No Vision needs: Yes (Reading Glasses) Review of Systems Const All systems reviewed & are unremarkable except as noted in HPI and below Physical Exam Vital Signs: Last Vital Signs Pulse 116 H 07/15/23 10:05 BP 108/57 L 07/15/23 10:05 BMI result Body Mass Index 37.9 Const General: healthy appearing and no acute distress Nutritional Appearance: obese Orientation/consciousness: patient oriented x3 Limitations: ambulation with walker HEENT Head: Yes normal to inspection Ears: hearing grossly normal bilaterally Eyes Sclerae: sclerae normal Pupils: Equal, round and reactive pupils present Neck Neck: Yes normal visual inspection Chest Chest palpation & inspection: normal inspection of the chest Resp Effort & Inspection: normal respiratory effort Auscultation: clear to auscultation bilaterally Cardio Palpation: normal PMI Rate: regular rate Rhythm: regular rhythm Heart sounds: S1 normal heart sound present, S2 normal heart sound present and no murmurs GI Palpation (GI): Soft to palpation, nontender and No hepatosplenomegaly present Auscultation: normal bowel sounds Rectal Exam - Female: deferred Skin General skin exam: no rashes or lesions noted Neuro General: patient oriented x3, gait normal and moves all extremities Cranial nerves: Yes Equal, round and reactive pupils present Extrem General: Yes pedal edema (bilateral, Lt > right with changes of stasis dermatitis) Psych Appearance: grossly normal Mental Status: mental status grossly normal Assessment & Plan Assessment & Plan (1) GERD with esophagitis: Code(s): K21.00 - Gastro-esophageal reflux disease with esophagitis, without bleeding (2) History of iron deficiency anemia: Code(s): Z86.2 - Personal history of diseases of the blood and blood-forming organs and certain disorders involving the immune mechanism (3) Hiatal hernia: Code(s): K44.9 - Diaphragmatic hernia without obstruction or gangrene (4) Cirrhosis of liver without ascites: Code(s): K74.60 - Unspecified cirrhosis of liver Plan 77 year-old female with GERD, anxiety and depression, foot drop after hip replacement surgery seen for follow-up of GERD with hiatal hernia, iron deficiency anemia and alcoholic cirrhosis. 06/2018 EGD showed a large hiatal hernia with fidel's ulcers in the hiatal hernia sac felt to be the source of anemia. 01/02/2019 repeat EGD showed healing of Fidel's ulcers. Jun, 2018 Liver fibrosis score was 0.28, fibrosis stage F1 and necroinflammatory score of 0.16. No ascites was seen on abdominal ultrasound. MELD score was 6. 04/20 a 7-8 mm adenomatous polyp was removed, repeat colon advised in 5 yrs - due 04/2024. ?REDUCING THE RISK OF LIVER PROGRESSION:? patient was advised to completely avoid use of alcohol and lose weight. ?HCC SURVEILLANCE: ? the patient is at risk of developing hepatocellular carc inoma given the presence of cirrhosis and need 6 monthly imaging surveillance with either abdominal ultrasound (US) or multiphase cross-sectional imaging (CT or MRI).? Last Abd US in 01/2023 had shown no focal liver lesions suspicious of HCC.? She will be scheduled for follow-up? liver ultrasound for ongoing surveillance.? ? QUESTION OF LIVER TRANSPLANTATION: ? As pt has never had any hepatic dec ompensation, and continues to have good hepatic synthetic function with meld score of 6, liver transplantation does not need to be considered at this time. Pt is immune to Hepatitis A and non-immune to Hepatitis B. Vaccination for Hepatitis B (1st injection) was given by GI RN during her last clinic visit. Hepatitis-B vaccination was completed Pt will be due for FU abd US in September 2023 Follow-up appointment in 5 months. Orders: Orders US abdomen limited 09/01/23 K74.60 - Unspecified cirrhosis of liver Coding Level of Care Code Est Pt Level 4 (70518) Diagnoses GERD with esophagitis K21.00 History of iron deficiency anemia Z86.2 Hiatal hernia K44.9 Cirrhosis of liver without ascites K74.60 Time Spent (min) 23
[2023-07-15 10:05] VITALS: BP 108/57; PULSE 116; BMI 37.9
== END 2023-07-15 10:42 | disposition home or self-care (01) ==
PROVIDERS: PCP Internal Medicine; Visit Provider Internal Medicine Gastroenterology
DX: K21.00 Gastro-esophageal reflux disease with esophagitis, without bleeding (principal); Z86.2 Personal history of diseases of the blood and blood-forming organs and certain disorders involving the immune mechanism; K44.9 Diaphragmatic hernia without obstruction or gangrene; K74.60 Unspecified cirrhosis of liver
CPT/HCPCS: 99214

== ENCOUNTER → 2023-07-15 09:54 | Outpatient (BNVA) | payer MEDICARE, BC, SELFPAY | PROVIDERS: PCP Internal Medicine; Visit Provider Internal Medicine Gastroenterology | DX: K21.00 Gastro-esophageal reflux disease with esophagitis, without bleeding (principal); K44.9 Diaphragmatic hernia without obstruction or gangrene; K74.60 Unspecified cirrhosis of liver; Z86.2 Personal history of diseases of the blood and blood-forming organs and certain disorders involving the immune mechanism | CPT/HCPCS: 99212 ==

== ENCOUNTER 2023-08-05 11:02 | Outpatient (AMB) | payer MEDICARE, BC, SELFPAY ==
[2023-08-05 11:23] VITALS: BP 110/62; PULSE 110; O2SAT 95; BMI 37.9
--- NOTE | 2023-08-05 11:23 | A.OFFVIS_ITS ---
Intake Vital Signs 08/05/23 11:23 Height 5 ft Weight 194 lb BMI 37.9 BP 110/62 Blood Pressure Location Lt brachial Position Sitting Pulse 110 H Pulse Source Pulse Oximeter Pulse Oximetry (%) 95 Oxygen Delivery Method Room Air Intake Visit Reasons: copd Intake Note: pt is here for follow up and states she is feeling good with breathing at the baseline, wixela 500 seems to be making things worse, some coughing jags still. Bookkeeping Machine Operator Required: No Allergies cat dander [CATS] Allergy (Unknown, Verified 08/05/23 11:35) ASTHMA ATTACK Horse/Equine Containing Products [HORSE/EQUINE CONTAINING PRODUCTS] Allergy (Unknown, Verified 08/05/23 11:35) ASTHMA ATTACK ENVIROMENTAL Allergy (Unknown, Uncoded 08/05/23 11:35) ASTHMA ATTACK Medication List - Last Reconciled 08/05/23 by Albertina Kimball MD albuterol sulfate 90 mcg/actuation 2 puffs PO Q4H PRN amlodipine 5 mg PO DAILY cetirizine (Zyrtec) 10 mg PO DAILY PRN cholecalciferol (vitamin D3) (Vitamin D3) 25 mcg PO DAILY 90 days fluticasone propion-salmeterol 500-50 mcg/dose (Wixela Inhub) 1 inh inhalation BID 30 days mirabegron ER (Myrbetriq) 25 mg PO DAILY 90 days omeprazole 20 mg PO DAILY paroxetine HCl 40 mg PO QAM solifenacin (Vesicare) 5 mg PO DAILY 30 days tiotropium bromide 2.5 mcg/actuation (Spiriva Respimat) 2 puffs PO DAILY Do you need a note to return to daycare/school/sports/work: No HPI copd HPI Details YAHIR IS 77 YEARS OLD VERY PLEASANT FEMALE, COMES FOR FOLLOW-UP AFTER 2 MONTHS/ COPD IS UNDER CONTROL, SHE WALKS AROUND WITH A WALKER, SHE DOES GET SHORT OF BREATH WHEN SHE WALKS UP HILL, USUALLY AT LEVEL GROUND SHE IS OKAY. SHE HAS NOT NEEDED OXYGEN SHE CLAIMS THAT SINCE HER WIXELA IS UPGRADED TO 500-50 HER BREATHING IS BETTER SHE ALSO USES SPIRIVA RESPIMAT 2 INHALATIONS DAILY SHE HAS NOT NEEDING ALBUTEROL MUCH. WEIGHT NO CHANGE IS EXPECTED. SHE DENIES ANY ACTIVE GERD SYMPTOMS. LOCOMOTION IS IMPAIRED BUT SHE KEEPS HERSELF ACTIVE WITH THE WALKER. [facility] Medical History Restrictive lung disease Tachycardia COVID-19 Endogenous depression COPD (chronic obstructive pulmonary disease) Allergic rhinitis GERD with esophagitis Asthma COPD (chronic obstructive pulmonary disease) History of iron deficiency anemia Hiatal hernia Cirrhosis of liver without ascites Surgical History History of dental surgery History of surgery on left wrist History of hysterectomy History of hip surgery Status post laparoscopic cholecystectomy (~06/10/18) Family History Other Mental health disorder Substance use disorder Social History Household Members: Spouse Housing: House Alcohol intake: former Patient Tobacco Use Status: Former Tobacco user e-Cigarette/Vaping Use: Never Used Second Hand Smoke Exposure: No service: No Current occupational status: disabled Cognitive needs: Yes (cane, walker) Hearing needs: No Vision needs: Yes (Reading Glasses) Review of Systems Const All systems reviewed & are unremarkable except as noted in HPI and below Eyes Reports no additional complaints ENT Reports nasal congestion (Off and on, mostly controlled at this time) Card Denies chest pain, Denies irregular heart rhythm and Denies leg edema Resp Reports as per HPI GI Reports heartburn (Symptoms of GERD controlled with omeprazole) Reports no additional complaints Musc Reports abnormal gait (Needs cane or walker, for gait stability) and Reports back pain Skin/Breast Reports system reviewed and no additional complaints, except as documented Neuro Reports abnormal gait (Needs cane or walker, for gait stability) Psych Reports depression (Controlled with med) Endo Reports no additional complaints Physical Exam Vital Signs: Last Vital Signs Pulse 110 H 08/05/23 11:23 BP 110/62 08/05/23 11:23 Pulse Ox 95 08/05/23 11:23 Oxygen Delivery Method Room Air 08/05/23 11:23 BMI result Body Mass Index 37.9 Const General: comfortable, no acute distress, alert and awake Orientation/consciousness: patient oriented x3 HEENT Head: Yes normal to inspection General nose exam: No nasal polyps present, No nasal discharge present and Other nasal findings present (Mild nasal congestion) Face and sinus: Yes sinuses nontender Mouth: oropharynx normal Throat: Yes posterior oropharynx normal Eyes General: appearance normal, both eyes and all related structures Neck Neck: Yes normal visual inspection, Yes no lymphadenopathy, Yes trachea midline and Yes no JVD Thyroid: Thyroid normal Chest Chest palpation & inspection: normal inspection of the chest, normal palpation of entire chest wall and no tenderness Resp Other: Percussion note is resonant, breath sounds distant on both sides with prolonged expiratory phase. No expiratory wheezes heard . Also no crepitations. Cardio Palpation: normal PMI Rate: tachycardic (hr at rest 120/mt ) Rhythm: regular rhythm Heart sounds: no gallops and no murmurs GI Palpation (GI): Soft to palpation, nontender, No hepatosplenomegaly present and no masses Auscultation: normal bowel sounds Back/Spine/Pelvis Thoracic/Lumbar Spine: thoracic and lumbar spine normal to inspection, thoraco- lumbar ROM limited and thoraco-lumbar spasm Skin General skin exam: no rashes or lesions noted Neuro General: patient oriented x3 and no focal motor deficits Cranial nerves: Yes CN's II-XII intact bilaterally Extrem General: Yes normal to inspection, Yes no clubbing, cyanosis or edema and Yes no calf tenderness Psych Appearance: grossly normal and well kempt Speech and movement: Normal speech and movement present Assessment & Plan Assessment & Plan (1) COPD (chronic obstructive pulmonary disease): Comment: MILD TO MODERTAELY SEVERE , WELL CONTROLLED , REMAINING STABLE.. , Code(s): J44.9 - Chronic obstructive pulmonary disease, unspecified Plan: CONTINUE SPIRIVA RESPIMAT 2.5 2 INHALATIONS DAILY WIXELA 500-51 INHALATION B.I.D. ALBUTEROL HFA 2 PUFFS Q 6 HOURS P.R.N. (2) Restrictive lung disease: Comment: PFT Showed Mild restrictive pulmonary disorder in addition to mild COPD. This is most likely due to her gross obesity, BMI=37.9 Code(s): J98.4 - Other disorders of lung Plan: ADVISED TO KEEP HER WEIGHT IN CONTROL. DO DEEP BREATHING EXERCISES 3 TIMES A DAY (3) Allergic rhinitis: Comment: MILD , STABLE AND CONTROLLED . Code(s): J30.9 - Allergic rhinitis, unspecified Plan: OK TO USE ZYRTEC 10 MG HALF OR 1 TABLET ONCE A DAY P.R.N. Coding Level of Care Code Est Pt Level 3 (13113) Diagnoses COPD (chronic obstructive pulmonary disease) J44.9 Restrictive lung disease J98.4 Allergic rhinitis J30.9
== END 2023-08-05 11:45 | disposition home or self-care (01) ==
PROVIDERS: PCP Internal Medicine; Visit Provider Internal Medicine
DX: J44.9 Chronic obstructive pulmonary disease, unspecified (principal); J98.4 Other disorders of lung; J30.9 Allergic rhinitis, unspecified
CPT/HCPCS: 99213

== ENCOUNTER → 2023-08-05 11:02 | Outpatient (BNVA) | payer MEDICARE, BC, SELFPAY | PROVIDERS: PCP Internal Medicine; Visit Provider Internal Medicine | DX: J44.9 Chronic obstructive pulmonary disease, unspecified (principal); J98.4 Other disorders of lung; J30.9 Allergic rhinitis, unspecified | CPT/HCPCS: 99212 ==

== ENCOUNTER 2023-08-26 10:25 | Outpatient (AMB) | payer MEDICARE, BC, SELFPAY ==
--- NOTE | 2023-08-26 10:49 | MHC.PC.OV ---
Vital Signs 08/26/23 10:50 Height 5 ft Weight 208 lb 8.917 oz BMI 40.7 BP 120/66 Blood Pressure Location Lt brachial Position Sitting Pulse 123 H Pulse Source Pulse Oximeter Pulse Oximetry (%) 97 Oxygen Delivery Method Room Air Intake Visit Reasons: 3 month f/u Intake Note: Patient is here to follow up on COPD, HTN, GERD. Embroidery Supervisor Required: No Creping Machine Operator: Not Required per policy Accompanied by: Self / Same As Patient Allergies cat dander [CATS] Allergy (Unknown, Verified 08/26/23 10:50) ASTHMA ATTACK Horse/Equine Containing Products [HORSE/EQUINE CONTAINING PRODUCTS] Allergy (Unknown, Verified 08/26/23 10:50) ASTHMA ATTACK ENVIROMENTAL Allergy (Unknown, Uncoded 08/26/23 10:50) ASTHMA ATTACK Tobacco use date assessed: 08/26/23 Fall risk assessment: 1 Fall in past year Last assessed Fall Risk: 08/26/23 Dental Screening Dental Screen Date: 05/13/23 HPI 3 month f/u HPI Details 77-year-old female presents to the office to discuss her medical condition. Her seasonal affective disorders improving with the weather changing. Patient reports she is more cheerful and is sleeping well at night. Patient uses a walker to ambulate. She has getting an injection in the right knee to elevate pain. She is also scheduling herself for right hip replacement. Patient has overactive bladder and is scheduled to get Botox injections. Patient has an ultrasound scheduled by the advertisement distributor who believes she has cirrhosis of the liver. Compliant with medications and able to do her activities of daily living. Due to the pain in the hip and knee, she does not exercise much. Does not follow any particular diet. [facility] Medical History Restrictive lung disease Tachycardia COVID-19 Endogenous depression COPD (chronic obstructive pulmonary disease) Allergic rhinitis GERD with esophagitis Asthma COPD (chronic obstructive pulmonary disease) History of iron deficiency anemia Hiatal hernia Cirrhosis of liver without ascites Surgical History History of dental surgery History of surgery on left wrist History of hysterectomy History of hip surgery Status post laparoscopic cholecystectomy (~06/10/18) Family History Other Mental health disorder Substance use disorder Social History Household Members: Spouse Housing: House Alcohol intake: former Patient Tobacco Use Status: Former Tobacco user e-Cigarette/Vaping Use: Never Used Second Hand Smoke Exposure: No service: No Current occupational status: disabled Cognitive needs: Yes (cane, walker) Hearing needs: No Vision needs: Yes (Reading Glasses) Questionnaire Thrive Questionnaire Date Thrive assessed: 05/13/23 EFRAIN-7 AMB Questionnaire EFRAIN-7 Date EFRAIN - 7 assessed: 05/13/23 Source: Developed by Drs. Robson Avitia, Dinorah Betancur, Spenser Mancera and colleagues, with an educational charisse from [employer]. Physical exam (Primary Care) Vital Signs: Last Vital Signs Pulse 123 H 08/26/23 10:50 BP 120/66 08/26/23 10:50 Pulse Ox 97 08/26/23 10:50 Oxygen Delivery Method Room Air 08/26/23 10:50 BMI result Body Mass Index 40.7 BMI Assessment/Plan discussion: High BMI High, discussed plan: lifestyle, weight reduction and dietary Tobacco/Smoking Status: Tobacco use Status Tobacco use date assessed 08/26/23 08/26/23 10:53 Patient Tobacco Use Status Former Tobacco user 08/26/23 10:53 e-Cigarette/Vaping Use Never Used 08/26/23 10:53 Thrive Assessment: Date of Thrive Assessment Date Thrive assessed 05/13/23 08/26/23 10:53 Const General: cooperative and healthy appearing Nutritional Appearance: well nourished Orientation/consciousness: patient oriented x3 Limitations: no limitations HENMT Head: Yes normal to inspection Eyes General: appearance normal, both eyes and all related structures Neck Neck: Yes normal visual inspection Chest Chest palpation & inspection: normal palpation of entire chest wall Resp Effort & Inspection: normal respiratory effort Neuro General: patient oriented x3 Assessment and Plan Assessment & Plan (1) Urinary incontinence, mixed: Code(s): N39.46 - Mixed incontinence Plan: Continue current management at urology. (2) HTN (hypertension): Code(s): I10 - Essential (primary) hypertension Plan: Blood pressure is stable. Continue current medications. (3) Endogenous depression: Code(s): F33.2 - Major depressive disorder, recurrent severe without psychotic features Plan: Condition is stable. (4) COPD (chronic obstructive pulmonary disease): Comment: MILD TO MODERTAELY SEVERE , WELL CONTROLLED , REMAINING STABLE.. , Code(s): J44.9 - Chronic obstructive pulmonary disease, unspecified Coding Level of Care Code Est Pt Level 4 (43623) Diagnoses Urinary incontinence, mixed N39.46 HTN (hypertension) I10 Endogenous depression F33.2 COPD (chronic obstructive pulmonary disease) J44.9
[2023-08-26 10:50] VITALS: BP 120/66; PULSE 123; O2SAT 97; BMI 40.7
== END 2023-08-26 11:43 | disposition home or self-care (01) ==
PROVIDERS: PCP Internal Medicine; Visit Provider Internal Medicine
DX: J44.9 Chronic obstructive pulmonary disease, unspecified (principal); F33.2 Major depressive disorder, recurrent severe without psychotic features; N39.46 Mixed incontinence; I10 Essential (primary) hypertension
CPT/HCPCS: 99214

== ENCOUNTER 2023-08-27 08:38 | Outpatient (AMB) | payer MEDICARE, BC, SELFPAY ==
--- NOTE | 2023-08-27 08:40 | MHC.OFFVIS ---
Intake Visit Reasons: 2 month follow up/ PVR Intake Note: Patient presents for follow up visit for urinary incontinence Urology Medications: Solifenacin Blood Thinner: none PVR: 24ml's Exit Booth Agent Required: No Accompanied by: Self / Same As Patient Allergies cat dander [CATS] Allergy (Unknown, Verified 08/27/23 09:05) ASTHMA ATTACK Horse/Equine Containing Products [HORSE/EQUINE CONTAINING PRODUCTS] Allergy (Unknown, Verified 08/27/23 09:05) ASTHMA ATTACK ENVIROMENTAL Allergy (Unknown, Uncoded 08/27/23 09:05) ASTHMA ATTACK Medication List - Last Reconciled 08/27/23 by MARSHA Walker albuterol sulfate 90 mcg/actuation 2 puffs PO Q4H PRN amlodipine 5 mg PO DAILY cetirizine (Zyrtec) 10 mg PO DAILY PRN cholecalciferol (vitamin D3) 25 mcg PO DAILY 90 days fluticasone propion-salmeterol 500-50 mcg/dose (Wixela Inhub) 1 inh inhalation BID 30 days mirabegron ER (Myrbetriq) 25 mg PO DAILY 90 days omeprazole 20 mg PO DAILY paroxetine HCl 40 mg PO QAM solifenacin (Vesicare) 5 mg PO DAILY 30 days tiotropium bromide 2.5 mcg/actuation (Spiriva Respimat) 2 puffs PO DAILY HPI Comments Details: Aline is a very pleasant 77 year old female patient of Dr. Huber. She has a past medical history restrictive lung disease, tachycardia, depression, COPD, allergic rhinitis, GERD, asthma, hiatal hernia, iron deficiency anemia, and cirrhosis of the liver without ascites. She presents to the office today for follow-up of her lower urinary tract symptoms. In discussion with the patient today she reports to be doing and feeling well. She reports compliance with 25 mg of Myrbetriq daily as well as VESIcare 5 mg daily. She reports be extremely happy with her current voiding parameters. She discusses having decreased amount of peripad she had been using. She reports she had been utilizing anywhere between 4-6 Bianca pads a day and now is down to approximately 2. Unable to obtain urine for urinalysis today however PVR 24 mL. Previous workup has included a retroperitoneal ultrasound noting bilateral kidneys with no calculi, lesions, and or hydronephrosis. Multiple benign simple peripelvic cysts are seen, the largest at the inter pole aspect measuring approximately 2 cm. There is no follow-up imaging required per radiology report. The bladder is well distended. Bilateral ureteral jets are demonstrated. Pre void bladder volume is approximately 165 mL. Postvoid bladder volume is approximately 5 mL. There are prominent bladder wall trabeculations. She denies any previous history of childbirth and or . When asked she denies hematuria, dysuria, foul smelling urine, changes to urinary stream, flank pain, fever, and or chills. Discussed at length potential causes for lower urinary tract symptoms patient was experiencing. Discussed possible near future in office cystoscopy and or urodynamics for further assessment evaluation if symptoms arise. She discusses her appointment today with santiago for her right knee injection in also be following up with orthopedics for a possible right hip replacement. She otherwise offers no other issues or concerns at this time. [facility] Medical History Restrictive lung disease Tachycardia COVID-19 Endogenous depression COPD (chronic obstructive pulmonary disease) Allergic rhinitis GERD with esophagitis Asthma COPD (chronic obstructive pulmonary disease) History of iron deficiency anemia Hiatal hernia Cirrhosis of liver without ascites Surgical History History of dental surgery History of surgery on left wrist History of hysterectomy History of hip surgery Status post laparoscopic cholecystectomy (~06/10/18) Family History Other Mental health disorder Substance use disorder Social History Household Members: Spouse Housing: House Alcohol intake: former Patient Tobacco Use Status: Former Tobacco user e-Cigarette/Vaping Use: Never Used Second Hand Smoke Exposure: No service: No Current occupational status: disabled Cognitive needs: Yes (cane, walker) Hearing needs: No Vision needs: Yes (Reading Glasses) Review of Systems Const Reports as per HPI Eyes Reports no additional complaints ENT Reports no additional complaints Card Reports as per HPI Resp Reports as per HPI GI Reports as per HPI Reports as per HPI Musc Reports as per HPI Neuro Reports no additional complaints Psych Reports no additional complaints Endo Reports no additional complaints Physical Exam Const General: cooperative, healthy appearing, comfortable, no acute distress, well developed, alert and awake Nutritional Appearance: overweight Orientation/consciousness: patient oriented x3 Limitations: ambulation with walker HEENT Head: Yes normal to inspection, Yes normocephalic and Yes atraumatic Ears: hearing grossly normal bilaterally Eyes General: appearance normal, both eyes and all related structures Neck Neck: Yes normal visual inspection and Yes trachea midline Chest Chest palpation & inspection: normal inspection of the chest Resp Effort & Inspection: normal respiratory effort and able to speak in complete sentences Cardio Rate: regular rate GI Inspection: Yes normal to inspection General: Yes no CVA tenderness Back/Spine/Pelvis Back: no CVA tenderness Skin General skin exam: no rashes or lesions noted Neuro General: patient oriented x3 Extrem General: Yes normal to inspection Psych Appearance: grossly normal and well kempt Mental Status: mental status grossly normal Speech and movement: Normal speech and movement present and Clear speech present Affect: normal affect Attitude: cooperative Thought process: Normal thought process present Thought content: Normal thought content present Insight: Fair insight present (Psych) Judgement: Fair judgement present (Psych) Office Procedures Post Void Residual Post Residual Void Post Void Residual (PVR): 24 [id number] Void Residual by ultrasound Assessment & Plan Assessment & Plan (1) Bladder trabeculation: Code(s): N32.89 - Other specified disorders of bladder Category: Medical (2) Urinary incontinence, mixed: Code(s): N39.46 - Mixed incontinence Category: Medical Plan Unable to obtain urine for urinalysis however PVR 24 mL. Patient reports be extremely happy with her current voiding parameters on 25 mg of Myrbetriq and 5 mg of VESIcare daily; will continue; refills provided. Continue with pelvic floor exercises as discussed. Patient currently denies any bothersome urinary issues or concerns. Discussed importance of bathroom planning given decreased mobility. Follow-up in 3 months with PVR; or sooner with any issues, concerns, and or questions. Orders: Orders AMB Post Void Residual by ultrasound Today N39.46 - Mixed incontinence Medications: Changed From solifenacin (Vesicare) 5 mg PO DAILY 30 days 30 tabs 2RF To solifenacin (Vesicare) 5 mg PO DAILY 90 days 90 tabs 3RF Refilled mirabegron ER (Myrbetriq) 25 mg PO DAILY 90 days 90 tabs 3RF N30.10 - Interstitial cystitis (chronic) without hematuria, N32.81 - Overactive bladder, R35.1 - Nocturia, R39.15 - Urgency of urination Patient Instructions: The patient had an opportunity to ask questions regarding the treatment plan. All questions were answered. Physical exam, labs, and imaging were discussed and reviewed in detail. As well as risks, benefits, and discussion of treatment choices. No major barriers to understanding were identified. The patient expressed understanding and agreement with the above treatment plan. The patient was made aware they should contact our office by phone for worsening of their current condition, the appearance of new symptoms, or with any questions or concerns. Compliance is encouraged with any medications and follow up testing that is ordered. It is a privilege to be allowed the opportunity to participate in? your urological care.? Again, if you have any questions or concerns If you have any questions or concerns please do not hesitate to contact me. The office is [phone]. This note is constructed using voice recognition software. While every effort has been made to ensure accuracy fabrication and layout craftsman errors may have been included. Yours sincerely, MARSHA Walker Coding Level of Care Code Est Pt Level 3 (52401) Diagnoses Bladder trabeculation N32.89 Urinary incontinence, mixed N39.46 CPT Codes Post Residual Void - PVR CPT Code: 31733-Adiu Void Residual by ultrasound ([id number])
== END 2023-08-27 09:02 | disposition home or self-care (01) ==
PROVIDERS: PCP Internal Medicine; Visit Provider Nurse Practitioner Family
DX: N32.89 Other specified disorders of bladder (principal); N39.46 Mixed incontinence
CPT/HCPCS: 99213

== ENCOUNTER → 2023-08-27 08:38 | Outpatient (BNVA) | payer MEDICARE, BC, SELFPAY | PROVIDERS: PCP Internal Medicine; Visit Provider Nurse Practitioner Family | DX: N32.89 Other specified disorders of bladder (principal); N39.46 Mixed incontinence; N30.10 Interstitial cystitis (chronic) without hematuria; Z79.899 Other long term (current) drug therapy | CPT/HCPCS: 51798; 99212 ==

== ENCOUNTER 2023-09-01 08:37 | Outpatient (REF) | payer MEDICARE, BC, SELFPAY ==
--- NOTE | ~2023-09-01 | US_ITS ---
EXAMINATION: US ABDOMEN LIMITED CLINICAL INFORMATION: Unspecified cirrhosis of liver. Screen for HCC and ascites. COMPARISON: Ultrasound kidneys and bladder 06/03/2023. Limited abdominal ultrasound 02/25/2023. MRI abdomen 06/07/2018. TECHNIQUE: Real-time imaging of the right upper quadrant abdominal viscera. FINDINGS: PANCREAS: Obscured by bowel gas. LIVER: Liver is not enlarged. The liver is coarse consistent with the given history of cirrhosis. No discrete mass or ductal dilatation. No ascites. GALLBLADDER: Surgically absent. COMMON BILE DUCT: Normal in caliber measuring 0.6 cm in diameter. RIGHT KIDNEY: Normal. No hydronephrosis. No renal calculi or focal parenchymal lesions. The kidney measures 11.0 cm in maximum dimension. FREE FLUID: None. US/US abdomen limited IMPRESSION: Cirrhotic liver. No focal liver mass. No ascites.
[2023-09-01 09:44] LABS: Hematocrit 41.5 % (37.0-47.0); Hemoglobin 13.6 g/dl (12.0-16.0); Mean Corpuscular HGB Conc 32.8 g/dl (31.0-35.0); Mean Corpuscular Hemoglobin 29.9 pg (27.0-33.0); Mean Corpuscular Volume 91.2 fL (80.0-98.0); Mean Platelet Volume 9.9 fL (9.4-12.3); Platelet Count 316 X10*3/uL (160-400); Red Blood Count 4.55 X10*6/uL (4.20-5.50); Red Cell Distribution Width 13.7 % (11.0-16.0); White Blood Count 8.2 X10*3/uL (4.8-10.8)
[2023-09-01 10:20] LABS: Alanine Aminotransferase 10 U/L (0-31); Alkaline Phosphatase 73 U/L (39-117); Anion Gap 16 (12-20); Aspartate Amino Transferase 11 U/L (5-31); Bilirubin Direct 0.2 mg/dL (0.0-0.5); Bilirubin Total 0.4 mg/dL (0.0-1.0); Blood Urea Nitrogen 15 mg/dL (9-16); Calcium 9.3 mg/dL (8.4-10.2); Carbon Dioxide 25 mmol/L (22-29); Chloride 109 mmol/L (96-108); Cholesterol 215 mg/dL (<200); Estimated Glomerular Filt Rate > 60; Glucose Random 72 mg/dL (60-115); HDL Cholesterol 67 mg/dL (>40); LDL Cholesterol Calculated 129 mg/dL (<100); Potassium 4.2 mmol/L (3.3-5.1); Sodium 146 mmol/L (135-145); Total Protein 6.9 g/dL (6.5-8.0); Triglycerides 99 mg/dL (<150)
== END 2023-09-01 08:38 | disposition home or self-care (01) ==
LOC: HO.US 08:37
PROVIDERS: PCP Internal Medicine; Visit Provider Internal Medicine Gastroenterology
DX: Z13.6 Encounter for screening for cardiovascular disorders (principal); K74.60 Unspecified cirrhosis of liver; N39.46 Mixed incontinence
CPT/HCPCS: 36415; 76705; 80048; 80061; 80076; 84443; 85027

== ENCOUNTER → 2023-11-02 13:20 | Outpatient (BNVA) | payer MEDICARE, BC, SELFPAY | PROVIDERS: PCP Internal Medicine; Visit Provider Physician Assistant Surgical ==

== ENCOUNTER 2023-11-08 08:04 | Outpatient (AMB) | payer MEDICARE, BC, SELFPAY ==
--- NOTE | 2023-11-08 13:28 | A.OFFVIS_ITS ---
VS Expanded 11/08/23 13:56 Height 5 ft Weight 209 lb 2 oz BMI 40.8 Body Fat % 43.2 Body Fat Mass 90.4 Fat Free Mass 118.6 Visceral Fat Rating 16 Body Water % 40 Body Water Mass 83.6 Basal Metabolic Rate/Score 1,634 Intake Visit Reasons: [employer] SWL vs Gastric Balloon BMI 40.9 Allergies cat dander [CATS] Allergy (Unknown, Verified 11/08/23 13:28) ASTHMA ATTACK Horse/Equine Containing Products [HORSE/EQUINE CONTAINING PRODUCTS] Allergy (Unknown, Verified 11/08/23 13:28) ASTHMA ATTACK ENVIROMENTAL Allergy (Unknown, Uncoded 11/08/23 13:28) ASTHMA ATTACK Medication List - Last Reconciled 11/08/23 by Saurav Henriquez MD amlodipine 5 mg PO DAILY cholecalciferol (vitamin D3) 25 mcg PO DAILY 90 days fluticasone propion-salmeterol 500-50 mcg/dose (Wixela Inhub) 1 inh inhalation BID 30 days mirabegron ER (Myrbetriq) 25 mg PO DAILY 90 days omeprazole 20 mg PO DAILY paroxetine HCl 40 mg PO QAM solifenacin (Vesicare) 5 mg PO DAILY 90 days tiotropium bromide 2.5 mcg/actuation (Spiriva Respimat) 2 puffs PO DAILY HPI HPI [employer] SWL vs Gastric Balloon BMI 40.9: Details: Start time: 1.20pm, End time: 2.05pm ?I spent 40 minutes speaking with the patient on the phone plus an additional 5 minutes reviewing and updating records for a total of 45 minutes HPI Comments Details: Previous weight loss efforts: Weight Watchers Wakes up: 9am, Sleeps: 11pm Breakfast: 10pm (Bagel) Lunch: skips Dinner: 5pm (frozen dinners) Snacks: 2.30pm (chips) Exercise: walks with walker Fluids: coffee (one cup/day), tea: none, soda: none, juice: none, ETOH: none PFSH Medical History (Updated 11/08/23 @ 13:58 by Saurav Henriquez MD) Morbid obesity Restrictive lung disease Tachycardia COVID-19 Endogenous depression COPD (chronic obstructive pulmonary disease) Allergic rhinitis GERD with esophagitis Asthma COPD (chronic obstructive pulmonary disease) History of iron deficiency anemia Hiatal hernia Cirrhosis of liver without ascites Surgical History (Updated 11/03/23 @ 15:31 by Sharda Chaney [facility]) Hx of ventral hernia repair History of dental surgery History of surgery on left wrist History of hysterectomy History of hip surgery Status post laparoscopic cholecystectomy (~06/10/18) Family History Other Mental health disorder Substance use disorder Social History Household Members: Spouse Housing: House Alcohol intake: former Patient Tobacco Use Status: Former Tobacco user e-Cigarette/Vaping Use: Never Used Second Hand Smoke Exposure: No service: No Current occupational status: disabled Cognitive needs: Yes (cane, walker) Hearing needs: No Vision needs: Yes (Reading Glasses) Telehealth Telehealth Telehealth Platform: Telephone Location of provider rendering services: practice address Location of patient: address on file Patient Identification confirmed using: Name, : Yes Telehealth method: voice only Patient verbally consented to treatment: Yes Patient verbally consented to billing insurance company: Yes Patient informed of any privacy concerns related to visit: Yes Minutes spent on Phone/Video with Pt.: 45 Assessment & Plan Assessment & Plan (1) Morbid obesity: Code(s): E66.01 - Morbid (severe) obesity due to excess calories Category: Medical Plan: 1.? Plan for lap sleeve gastrectomy. If diaphragmatic or ventral hernias are present at time of surgery, these will be repaired laparoscopically as well. Risks and complications include possible conversion to an open procedure, anastomotic leak, bleeding requiring transfusion, small bowel obstruction, , DVT and pulmonary embolism, cardiac, or pulmonary complications, as lobsterman complications such as anastomotic ulcer, insufficient weight loss and vitamin deficiencies. I emphasized the importance of close follow-up, adherence to instructions and good communication. 2. You will receive a link of our software chuck to generate an individualized nutritional and exercise plan specific for you. Please send me a screenshot of the plans you will generate Meal to include lean meat (beef, fish, pork, turkey, chicken), or mexican yogurt, or egg whites, or beans with a salad with olive oil and fruits (berries, pears, apples, kiwi). Avoid salt, breads, potatoes, rice, pasta, desserts. ?3. If you choose shakes, each shake would be drunk slowly, like coffee in a period of 2 hours. ?4. If you choose bars, cut each bar in 4 pieces and eat each piece in 30min ?to make each bar last 2 hours. ?5. I emphasized the importance of measuring accurately the food portion and measure it when serving the food in plate ?6. The meal portions include a specific number of forks of meat and salad. You always eat the meat portion but you can replace up to half of salad/vegetables portion with rice, potatoes or pasta, or a fruit ?if you like. The less you do it the better weight loss will be. ?7. One full-size fork is what it can be scooped on the fork without falling aside and not what can be bit with the fork. Use regular forks like those you find in a typical restaurant. ?8.? Please send me weight measurements as soon as possible and then once a week. Always include your diet and exercise plan. 9. The best choice would be to purchase a stationary bike, elliptical or treadmill at home that can track calories. Let me know if you do so I can give you an exercise plan. ?10.?Goal is to lose at least 1.5-2lbs per week ?11. Goal to lose 10% of your weight before surgery, which is about 21lbs. Ultimate weight goal: 188lbs before surgery 12. Please follow the diet plan exactly without any change. If you don't like something about the plan or you feel hungry you need to communicate with me so I can help you revise the plan. You should not change the plan yourself. 13. To be scheduled for EGD due to history of GERD and hiatal hernia. The possibility of biopsies was discussed. Patient needs to avoid use of NSAIDs and aspirin for 1 week prior to EGD. Risks of perforation and bleeding was discussed with the patient. This will be an outpatient procedure with IV sedation. Orders: Orders Insulin Today E66.01 - Morbid (severe) obesity due to excess calories, I10 - Essential (primary) hypertension, K21.00 - Gastro-esophageal reflux disease with esophagitis, without bleeding, K44.9 - Diaphragmatic hernia without obstruction or gangrene, K74.60 - Unspecified cirrhosis of liver Hemoglobin A1c Today E66.01 - Morbid (severe) obesity due to excess calories, I10 - Essential (primary) hypertension, K21.00 - Gastro-esophageal reflux disease with esophagitis, without bleeding, K44.9 - Diaphragmatic hernia without obstruction or gangrene, K74.60 - Unspecified cirrhosis of liver H Pylori Breath Test Today E66.01 - Morbid (severe) obesity due to excess calories, I10 - Essential (primary) hypertension, K21.00 - Gastro-esophageal reflux disease with esophagitis, without bleeding, K44.9 - Diaphragmatic hernia without obstruction or gangrene, K74.60 - Unspecified cirrhosis of liver Lipid Panel Today E66.01 - Morbid (severe) obesity due to excess calories, I10 - Essential (primary) hypertension, K21.00 - Gastro-esophageal reflux disease with esophagitis, without bleeding, K44.9 - Diaphragmatic hernia without obstruction or gangrene, K74.60 - Unspecified cirrhosis of liver Comprehensive Met. Panel Today E66.01 - Morbid (severe) obesity due to excess calories, I10 - Essential (primary) hypertension, K21.00 - Gastro-esophageal reflux disease with esophagitis, without bleeding, K44.9 - Diaphragmatic hernia without obstruction or gangrene, K74.60 - Unspecified cirrhosis of liver Vitamin B12 and Folate Today E66.01 - Morbid (severe) obesity due to excess calories, I10 - Essential (primary) hypertension, K21.00 - Gastro-esophageal reflux disease with esophagitis, without bleeding, K44.9 - Diaphragmatic hernia without obstruction or gangrene, K74.60 - Unspecified cirrhosis of liver Zinc Today E66.01 - Morbid (severe) obesity due to excess calories, I10 - Essential (primary) hypertension, K21.00 - Gastro-esophageal reflux disease with esophagitis, without bleeding, K44.9 - Diaphragmatic hernia without obstruction or gangrene, K74.60 - Unspecified cirrhosis of liver Vitamin B1 Today E66.01 - Morbid (severe) obesity due to excess calories, I10 - Essential (primary) hypertension, K21.00 - Gastro-esophageal reflux disease with esophagitis, without bleeding, K44.9 - Diaphragmatic hernia without obstruction or gangrene, K74.60 - Unspecified cirrhosis of liver Vitamin A Today E66.01 - Morbid (severe) obesity due to excess calories, I10 - Essential (primary) hypertension, K21.00 - Gastro-esophageal reflux disease with esophagitis, without bleeding, K44.9 - Diaphragmatic hernia without obstruction or gangrene, K74.60 - Unspecified cirrhosis of liver XR chest 2V Today E66.01 - Morbid (severe) obesity due to excess calories, I10 - Essential (primary) hypertension, K21.00 - Gastro-esophageal reflux disease with esophagitis, without bleeding, K44.9 - Diaphragmatic hernia without obstruction or gangrene, K74.60 - Unspecified cirrhosis of liver ECG 12 lead EKG Today E66.01 - Morbid (severe) obesity due to excess calories, I10 - Essential (primary) hypertension, K21.00 - Gastro-esophageal reflux disease with esophagitis, without bleeding, K44.9 - Diaphragmatic hernia without obstruction or gangrene, K74.60 - Unspecified cirrhosis of liver FL upper GI w air Today E66.01 - Morbid (severe) obesity due to excess calories, I10 - Essential (primary) hypertension, K21.00 - Gastro-esophageal reflux disease with esophagitis, without bleeding, K44.9 - Diaphragmatic hernia without obstruction or gangrene, K74.60 - Unspecified cirrhosis of liver Complete Blood Count Auto Diff Today E66.01 - Morbid (severe) obesity due to excess calories, I10 - Essential (primary) hypertension, K21.00 - Gastro- esophageal reflux disease with esophagitis, without bleeding, K44.9 - Diaphragmatic hernia without obstruction or gangrene, K74.60 - Unspecified cirrhosis of liver IRON PROFILE Today E66.01 - Morbid (severe) obesity due to excess calories, I10 - Essential (primary) hypertension, K21.00 - Gastro-esophageal reflux disease with esophagitis, without bleeding, K44.9 - Diaphragmatic hernia without obstruction or gangrene, K74.60 - Unspecified cirrhosis of liver C Reactive Protein Today E66.01 - Morbid (severe) obesity due to excess calories, I10 - Essential (primary) hypertension, K21.00 - Gastro-esophageal reflux disease with esophagitis, without bleeding, K44.9 - Diaphragmatic hernia without obstruction or gangrene, K74.60 - Unspecified cirrhosis of liver TSH reflex Free T4 Today E66.01 - Morbid (severe) obesity due to excess calories, I10 - Essential (primary) hypertension, K21.00 - Gastro-esophageal reflux disease with esophagitis, without bleeding, K44.9 - Diaphragmatic hernia without obstruction or gangrene, K74.60 - Unspecified cirrhosis of liver Ferritin Today E66.01 - Morbid (severe) obesity due to excess calories, I10 - Essential (primary) hypertension, K21.00 - Gastro-esophageal reflux disease with esophagitis, without bleeding, K44.9 - Diaphragmatic hernia without obstruction or gangrene, K74.60 - Unspecified cirrhosis of liver Vitamin D 25-OH Total Today E66.01 - Morbid (severe) obesity due to excess calories, I10 - Essential (primary) hypertension, K21.00 - Gastro-esophageal reflux disease with esophagitis, without bleeding, K44.9 - Diaphragmatic hernia without obstruction or gangrene, K74.60 - Unspecified cirrhosis of liver US abdomen comp w elastography Today E66.01 - Morbid (severe) obesity due to excess calories, I10 - Essential (primary) hypertension, K21.00 - Gastro- esophageal reflux disease with esophagitis, without bleeding, K44.9 - Diaphragmatic hernia without obstruction or gangrene, K74.60 - Unspecified cirrhosis of liver Referrals Behavioral Health Referral E66.01 - Morbid (severe) obesity due to excess calories, I10 - Essential (primary) hypertension, K21.00 - Gastro-esophageal reflux disease with esophagitis, without bleeding, K44.9 - Diaphragmatic hernia without obstruction or gangrene, K74.60 - Unspecified cirrhosis of liver Nutrition/Dietitian Referral E66.01 - Morbid (severe) obesity due to excess calories, I10 - Essential (primary) hypertension, K21.00 - Gastro-esophageal reflux disease with esophagitis, without bleeding, K44.9 - Diaphragmatic hernia without obstruction or gangrene, K74.60 - Unspecified cirrhosis of liver
[2023-11-08 13:56] VITALS: BMI 40.8
== END 2023-11-08 14:05 | disposition home or self-care (01) ==
PROVIDERS: PCP Internal Medicine; Visit Provider Surgery
DX: E66.01 Morbid (severe) obesity due to excess calories (principal); Z68.41 Body mass index [BMI] 40.0-44.9, adult
CPT/HCPCS: 99443

== ENCOUNTER → 2023-11-08 08:04 | Outpatient (BNVA) | payer MEDICARE, BC, SELFPAY | PROVIDERS: PCP Internal Medicine; Visit Provider Surgery ==

== ENCOUNTER 2023-11-16 10:58 | Outpatient (REF) | payer MEDICARE, BC, SELFPAY ==
--- NOTE | ~2023-11-16 | XR_ITS ---
EXAMINATION: XR CHEST CLINICAL INFORMATION: Morbid severe obesity due to excess calories. COMPARISON: 03/05/2022, 02/17/2022, 06/04/2018. TECHNIQUE: 2 views of the chest were obtained. FINDINGS: Lung volumes are low. There is no gross pneumothorax. S-shaped thoracolumbar scoliosis with multilevel degenerative changes. Retrocardiac opacity characteristic of hiatal hernia redemonstrated. Similar bibasilar hazy opacities appear similar and were previously felt to be related to prominent fat pads. Persistent left costophrenic angle blunting may represent small pleural effusion versus pleural thickening. XR/XR chest 2V IMPRESSION: 1. Persistent left costophrenic angle blunting may represent small pleural effusion versus pleural thickening. 2. Retrocardiac opacity characteristic of hiatal hernia redemonstrated.
--- NOTE | 2023-11-16 11:04 | ECG_ITS ---
Test Reason : morbid obesity Blood Pressure : / mmHG Vent. Rate : 129 BPM Atrial Rate : 129 BPM P-R Int : 124 ms QRS Dur : 072 ms QT Int : 292 ms P-R-T Axes : 051 -03 069 degrees QTc Int : 427 ms Sinus tachycardia with occasional Premature ventricular complexes Otherwise normal ECG When compared with ECG of 09-DEC-2013 04:42, Premature ventricular complexes are now Present Nonspecific T wave abnormality, improved in Inferior leads T wave inversion no longer evident in Anterior leads Referred By: Saurav Henriquez Electronically Signed By:LIUDMILA IBARRA MD
[2023-11-16 11:34] LABS: MANUAL DIFF FLAG NO
[2023-11-16 11:52] LABS: Basophils Absolute Auto 0.1 X10*3/uL (0.0-0.2); Basophils Percent Auto 0.9 % (0-2); Eosinophils Absolute Auto 0.1 X10*3/uL (0.0-0.4); Eosinophils Percent Auto 0.9 % (0-4); Hematocrit 45.4 % (37.0-47.0); Hemoglobin 14.9 g/dl (12.0-16.0); Imm Gran Abs Auto 0.03 X10*3/uL (0.00-0.03); Imm Gran Pct Auto 0.4 % (0.0-0.4); Lymphocytes Absolute Auto 1.2 X10*3/uL (1.2-4.9); Lymphocytes Percent Auto 14.1 % (20-40); Mean Corpuscular HGB Conc 32.8 g/dl (31.0-35.0); Mean Corpuscular Hemoglobin 29.5 pg (27.0-33.0); Mean Corpuscular Volume 89.9 fL (80.0-98.0); Mean Platelet Volume 10.2 fL (9.4-12.3); Monocytes Absolute Auto 0.7 X10*3/uL (0.1-1.2); Neutrophils Absolute Auto 6.5 x10*3/uL (2.0-8.3); Neutrophils Percent Auto 75.7 % (45-73); Platelet Count 320 X10*3/uL (160-400); Red Blood Count 5.05 X10*6/uL (4.20-5.50); Red Cell Distribution Width 13.7 % (11.0-16.0); White Blood Count 8.5 X10*3/uL (4.8-10.8)
[2023-11-16 12:11] LABS: Estimated Average Glucose 103 mg/dL; Hemoglobin A1C 149.7951 umol/L; Hemoglobin A1c % 5.2 % (<6.0)
[2023-11-16 12:29] LABS: Alanine Aminotransferase 12 U/L (0-31); Albumin Level 4.6 g/dL (3.5-5.0); Alkaline Phosphatase 93 U/L (39-117); Anion Gap 19 (12-20); Aspartate Amino Transferase 20 U/L (5-31); Bilirubin Total 0.5 mg/dL (0.0-1.0); Blood Urea Nitrogen 20 mg/dL (9-16); C Reactive Protein 0.96 mg/dL (< or = 0.50); Carbon Dioxide 22 mmol/L (22-29); Chloride 106 mmol/L (96-108); Cholesterol 214 mg/dL (<200); Estimated Glomerular Filt Rate > 60; Glucose Random 80 mg/dL (60-115); HDL Cholesterol 72 mg/dL (>40); Iron 58 mcg/dL (30-160); LDL Cholesterol Calculated 126 mg/dL (<100); Percent Iron Saturation 18 % (15-50); Potassium 4.3 mmol/L (3.3-5.1); Sodium 143 mmol/L (135-145); Total Iron Binding Capacity 330 mcg/dL (228-428); Total Protein 7.8 g/dL (6.5-8.0); Triglycerides 83 mg/dL (<150); Unsaturated Iron Binding 272 ug/dL
[2023-11-16 12:55] LABS: Ferritin 44 ng/mL (10-250); TSH reflex Free T4 0.85 uIU/mL (0.32-4.0); Vitamin D 25-OH Total 40.3 ng/mL (>30)
[2023-11-16 12:58] LABS: Folate 12.8 ng/mL (> or = 4.0); Vitamin B12 325 pg/mL (200-900)
[2023-11-16 13:08] LABS: Insulin 4 uU/mL (2-29)
[2023-11-20 02:19] LABS: Zinc 64 mcg/dL (60-130)
[2023-11-20 10:28] LABS: Vitamin B1 8 nmol/L (8-30)
[2023-11-20 17:33] LABS: Vitamin A 39 mcg/dL (38-98)
== END 2023-11-16 10:59 | disposition home or self-care (01) ==
LOC: HO.XRAY 10:58
PROVIDERS: PCP Internal Medicine; Visit Provider Surgery
DX: E66.01 Morbid (severe) obesity due to excess calories (principal); I10 Essential (primary) hypertension; K21.00 Gastro-esophageal reflux disease with esophagitis, without bleeding; K44.9 Diaphragmatic hernia without obstruction or gangrene; K74.60 Unspecified cirrhosis of liver
CPT/HCPCS: 36415; 71046; 80053; 80061; 82306; 82607; 82728; 82746; 83036; 83525; 83540; 84425; 84443; 84590; 84630; 85025; 86140; 93005

== ENCOUNTER → 2023-11-16 11:04 | Outpatient (BNV) | payer MEDICARE, BC, SELFPAY | PROVIDERS: PCP Internal Medicine; Visit Provider Internal Medicine Cardiovascular Disease | DX: R00.0 Tachycardia, unspecified (principal) | CPT/HCPCS: 93010 ==

== ENCOUNTER 2023-11-23 14:59 | Outpatient (AMB) | payer MEDICARE, BC, SELFPAY ==
--- NOTE | 2023-11-23 14:41 | MHC.WMTHER ---
Intake Intake Visit Reasons: (TV) BH Intake Allergies cat dander [CATS] Allergy (Unknown, Verified 11/08/23 13:28) ASTHMA ATTACK Horse/Equine Containing Products [HORSE/EQUINE CONTAINING PRODUCTS] Allergy (Unknown, Verified 11/08/23 13:28) ASTHMA ATTACK ENVIROMENTAL Allergy (Unknown, Uncoded 11/08/23 13:28) ASTHMA ATTACK PFSH Medical History (Updated 11/23/23 @ 15:10 by Terra Armenta) Morbid obesity Restrictive lung disease Tachycardia COVID-19 Endogenous depression COPD (chronic obstructive pulmonary disease) Allergic rhinitis GERD with esophagitis Asthma COPD (chronic obstructive pulmonary disease) History of iron deficiency anemia Hiatal hernia Cirrhosis of liver without ascites Surgical History (Updated 11/03/23 @ 15:31 by Sharda Chaney [facility]) Hx of ventral hernia repair History of dental surgery History of surgery on left wrist History of hysterectomy History of hip surgery Status post laparoscopic cholecystectomy (~06/10/18) Family History Other Mental health disorder Substance use disorder Social History Household Members: Spouse Housing: House Alcohol intake: former Patient Tobacco Use Status: Former Tobacco user e-Cigarette/Vaping Use: Never Used Second Hand Smoke Exposure: No service: No Current occupational status: disabled Cognitive needs: Yes (cane, walker) Hearing needs: No Vision needs: Yes (Reading Glasses) Behavioral Health Assessment Weight Management Therapy Therapy Notes Details Patient is looking to have weight loss surgery to help improve her health and quality of life. She reported a history of depression and being in therapy. She reported loosing her therapist when [facility] Also has a previous history of inpatient psychiatric admissions, last one being in 2017. Pt reported that she was sober for 22 years and then decided to have a drink relapsed in 2011 and drank for 5 years until she got sober again. She reported that in 2017 she was admitted to [place] [id number] and has been sober since. Presenting Concerns Referral Source provider Reason for referral weight loss surgery evaluation Precipitating Event obesity Living Situation Current Living Situation Own At risk of losing current housing? No Satisfied with current living situation? Yes Comments Patient lives with her . They also have a dog. Food/Weight/Diet Expectations of change weight loss and maintenance. History/Relationship with food She reported that she will have cravings for chips or chocolate, late night snacking is the hardest, will a box of cheeze-it to bed and watch TV. History/Relationship with weight She stated that she started gaining weight after she got in her 20's. History/Relationship with dieting WW several times throughout her life. Social History Family history and relationship Pt has been to her second for 30 years. She has one step son and grandbaby from her husbands children. 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 No Interested in further educational program? 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 No Meaningful activities brings her dog to day care Financial Situation Describe current financial situation Comfortable Financial assistance? None Service Service? No Mental Health and Addiction Treatment Current/Past substance abuse? Yes Comments Alcoholic Current/Past addictive behavior concerns? Yes Psychiatric history hx of inpatient psychiatric admissions Medical and Physical Health Summary Physical exam in the last year? No Pain Screening Current pain? Yes Pain in the last few months? Yes Medications Is the patient compliant with medications? Yes Does the patient have [place]iola Guardian in place? Not applicable Does the patient use complimentary health approaches? Yes Trauma/Abuse History History of trauma? Yes Questionnaires PHQ-9 Over the last 2 weeks, how often have you been bothered by any of the following problems? 1. Little interest or pleasure in doing things: several days 2. Feeling down, depressed, or hopeless: several days 3. Trouble falling or staying asleep, or sleeping too much: several days 4. Feeling tired or having little energy: more than half the days 5. Poor appetite or overeating: more than half the days 6. Feeling bad about yourself - or that you are a failure or have let yourself or your family down: more than half the days 7. Trouble concentrating on things, such as reading the newspaper or watching television: several days 8. Moving or speaking so slowly that other people could have noticed. Or the opposite - being so fidgety or restless that you have been moving around a lot more than usual: not at all 9. Thoughts that you would be better off or of hurting yourself in some way: several days Total score: 11 Depression Screening Interpretation: Positive Depression Screening Done: Yes Source: Developed by Drs. Robson Avitia, Dinorah Betancur, Spenser Mancera and colleagues, with an educational charisse from [email or web address]. Binge Eating Scale Group 1 A. I don't feel self-conscious about my wt. or body size when I'm with others. B. I feel concerned about how I look to others, but it normally does not make me fell disappointed with myself C. I do get self-conscious about my appearance and wt. which makes me feel disappointed in myself. D. I feel very self-conscious about my wt. and frequently I feel intense shame and disgust for myself. I try to avoid social contacts because of my self-consciousness. Response Group 1: B Group 2 A. I don't have any difficulty eating slowly in the proper manner. B. Although I seem to gobble down foods, I don't end up feeling stuffed because of eating to much. C. At times, I tend to eat quickly and then, I feel uncomfortably full afterwards. D. I have the habit of bolting down my food, without really chewing it. When this happens I usually feel uncomfortably stuffed because I've eaten to much. Response Group 2: C Group 3 A. I feel capable to control my eating urges when I want to. B. I feel like I have failed to control my eating more than the average person. C. I feel utterly helpless when it comes to feeling in control of my eating urges. D. Because I feel so helpless about controlling my eating I have become very desperate about trying to get control. Response Group 3: B Group 4 A. I don't have the habit of eating when I'm bored. B. I sometimes eat when I'm bored, but often I'm able to get busy and get my mind off food. C. I have a regular habit of eating when I'm bored, but occasionally, I can use some other activity to get my mind off eating. D. I have a strong habit of eating when I'm bored. Nothing seems to help me breath the habit. Response Group 4: D Group 5 A. I'm usually physically hungry when I eat something. B. Occasionally, I eat something on impulse even though I really am not hungry. C. I have the regular habit of eating foods, that I might not really enjoy, to satisfy a hungry feeling even though physically, I don't need the food. D. Although I'm not physically hungry, I get a hungry feeling in my mouth that only seems to be satisfied when I eat a food, like sandwich, that fills my mouth. Sometimes, when I eat the food to satisfy my mouth hunger, I then spit the food out so I won't gain weight. Response Group 5: C Group 6 A. I don't feel any guilt or self-hate after I overeat. B. After I overeat, occasionally I feel guilt or self-hate. C. Almost all the time I experience strong guilt or self-hate after I overeat. Response Group 6: A Group 7 A. I don't lose total control of my eating when dieting even after periods when I overeat. B. Sometimes when I eat a forbidden food on a diet, I feel like I blew it and eat even more. C. Frequently, I have the habit of saying to myself, I've blown it now, why not go all the way, when I overeat on a diet. When that happens I eat more. D. I have a regular habit of starting a strict diets for myself but I break the diets by going on an eating binge. My life seems to be either a feast or famine. Response Group 7: C Group 8 A. I rarely eat so much food that I feel uncomfortably stuffed afterwards. B. Usually about once a month, I each such a quantity of food, I end up feeling very stuffed. C. I have regular periods during the month when I eat large amounts of food, either at mealtime or at snacks. D. I eat so much food that I regularly feel quite uncomfortable after eating and sometimes a bit nauseous. Response Group 8: C Group 9 A. My level of calorie intake does not go up very high or go down very low on a regular basis. B. Sometimes after I overeat, I will try to reduce my caloric intake to almost nothing to compensate for the excess calories I've eaten. C. I have a regular habit of overeating during the night. It seems that my routine is not to be hungry in the morning but overeat in the evening. D. In my adult years, I have had week-long periods where I practically starve myself. This follows periods when I overeat. It seems I live a life of either feast or famine. Response Group 9: C Group 10 A. I usually am able to stop eating when I want to. I know when enough is enough. B. Every so often, I experience a compulsion to eat which I can't seem to control. C. Frequently, I experience strong urges to eat which I seem unable to control, but at other times I can control my eating urges. D. I feel incapable of controlling urges to eat. I have a fear of not being able to stop eating voluntarily. Response Group 10: C Group 11 A. I don't have any problem stopping eating when I feel full. B. I usually can stop eating when I feel full but occasionally overeat leaving me feeling uncomfortably stuffed. C. I have a problem stopping eating once I start and usually I feel uncomfortably stuffed after I eat a meal. D. Because I have a problem not being able to stop eating when I want, I sometimes have to induce vomiting to relieve my stuffed feeling. Response Group 11: B Group 12 A. I seem to eat just as much when I'm with others, Family social gatherings as when I'm by myself. B. Sometimes, when I'm with other persons, I don't eat as much as I want to eat because I'm self-conscious about my eating. C. Frequently, I eat only a small amount of food when others are present, because I'm very embarrassed about my eating. D. I feel so ashamed about overeating that I pick times to overeat when I know no one will see me. I feel like a closet eater. Response Group 12: B Group 13 A. I eat three meals a day with only an occasional between meal snack. B. I eat 3 meals a day, but I also normally snack between meals. C. When I am snacking heavily, I get in the habit of skipping regular meals. D. There are regular periods when I seem to be continually eating, with no planned meals. Response Group 13: C Group 14 A. I don't think much about trying to control unwanted eating urges. B. At least some of the time, I feel my thoughts are pre-occupied with trying to control my eating urges. C. I feel that frequently I spend much time thinking about how much I ate or about trying not to eat anymore. D. It seems to me that most of my waking hours are pre-occupied by thoughts about eating or not eating. I feel like I'm constantly struggling not to eat. Response Group 14: C Group 15 A. I don't think about food a great deal. B. I have strong craving for food but they last only for brief periods of time. C. I have days when I can't seem to think about anything else but food. D. Most of my days seem to be pre-occupied with thoughts about food. I feel like I live to eat. Response Group 15: B Group 16 A. I usually know whether or not I'm physically hungry. I take the right portion of food to satisfy me. B. Occasionally, I feel uncertain about knowing whether or not I'm physically hungry. A these times it's hard to know how much food I should take to satisfy me. C. Even though I might know how many calories I should eat, I don't have any idea what is a normal amount of food for me. Response Group 16: B Binge Eating Score: 25 Score less than 17 Minimal Risk Score between 18-26 Moderate Risk Score between 27-46 High Risk Assessment & Plan Assessment & Plan (1) Major depressive disorder, recurrent, moderate: Code(s): F33.1 - Major depressive disorder, recurrent, moderate (2) Morbid obesity: Code(s): E66.01 - Morbid (severe) obesity due to excess calories Plan Patient has a long history of depression and alcoholism. She has been sober for 7 years and previously to that 22 years. She acknowledges the importance of getting help as needed during this process. Patient is cleared for surgery. Telehealth Telehealth Telehealth Platform: Telephone Location of provider rendering services: other Location of patient: address on file Patient Identification confirmed using: Name, : Yes Telehealth method: voice only Patient verbally consented to treatment: Yes Patient verbally consented to billing insurance company: Yes Patient informed of any privacy concerns related to visit: Yes Minutes spent on Phone/Video with Pt.: 45 Coding Level of Care Code Tele Psy Diag Eval (86221) Diagnoses Major depressive disorder, recurrent, moderate F33.1 Morbid obesity E66.01 Time Spent (min) 40
== END 2023-11-23 15:38 | disposition home or self-care (01) ==
LOC: HO.HBST 14:59
PROVIDERS: PCP Internal Medicine; Visit Provider Counselor Mental Health
DX: F33.1 Major depressive disorder, recurrent, moderate (principal); E66.01 Morbid (severe) obesity due to excess calories
CPT/HCPCS: 90791

== ENCOUNTER → 2023-11-23 14:59 | Outpatient (BNVA) | payer MEDICARE, BC, SELFPAY | PROVIDERS: PCP Internal Medicine; Visit Provider Counselor Mental Health ==

== ENCOUNTER 2023-11-24 08:30 | Outpatient (AMB) | payer MEDICARE, BC, SELFPAY ==
--- NOTE | 2023-11-24 08:48 | A.OFFVIS_ITS ---
Intake Visit Reasons: 3m/PVR Intake Note: Patient presents today for follow up on: urinary incontinence Urology Medications: Solifenacin, myrbetriq Blood Thinner: none PVR: 19ml's Wool Merchant Required: No Accompanied by: Self / Same As Patient Allergies cat dander [CATS] Allergy (Unknown, Verified 11/24/23 09:15) ASTHMA ATTACK Horse/Equine Containing Products [HORSE/EQUINE CONTAINING PRODUCTS] Allergy (Unknown, Verified 11/24/23 09:15) ASTHMA ATTACK ENVIROMENTAL Allergy (Unknown, Uncoded 11/24/23 09:15) ASTHMA ATTACK Medication List - Last Reconciled 11/24/23 by LIZ WalkerP- amlodipine 5 mg PO DAILY cholecalciferol (vitamin D3) 25 mcg PO DAILY 90 days fluticasone propion-salmeterol 500-50 mcg/dose (Wixela Inhub) 1 inh inhalation BID 30 days mirabegron ER (Myrbetriq) 25 mg PO DAILY 90 days omeprazole 20 mg PO DAILY paroxetine HCl 40 mg PO QAM solifenacin (Vesicare) 10 mg (2 x 5 mg) PO DAILY 90 days tiotropium bromide 2.5 mcg/actuation (Spiriva Respimat) 2 puffs PO DAILY HPI Comments Details: Aline is a very pleasant 78 year old female patient of Dr. Huber. She has a past medical history restrictive lung disease, tachycardia, depression, COPD, allergic rhinitis, GERD, asthma, hiatal hernia, iron deficiency anemia, and cirrhosis of the liver without ascites. She presents to the office today for follow-up of her lower urinary tract symptoms. In discussion with the patient today she reports to be doing and feeling well. She reports compliance with 25 mg of Myrbetriq daily as well as VESIcare 5 mg daily. She discusses having recently started the weight loss program here at [facility] and has since lost 11 lb since starting 2 weeks ago. She does note episodes of urinary urgency and frequency and incontinence if not near a bathroom she reports utilizing 2 Bianca pads daily. In office urinalysis results reviewed with the patient today. PVR 19 mL. Previous workup has included a retroperitoneal ultrasound noting bilateral kidneys with no calculi, lesions, and or hydronephrosis. Multiple benign simple peripelvic cysts are seen, the largest at the inter pole aspect measuring approximately 2 cm. There is no follow-up imaging required per radiology report. The bladder is well distended. Bilateral ureteral jets are demonstrated. Pre void bladder volume is approximately 165 mL. Postvoid bladder volume is approximately 5 mL. There are prominent bladder wall trabeculations. She denies any previous history of childbirth and or . When asked she denies hematuria, dysuria, foul smelling urine, changes to urinary stream, flank pain, fever, and or chills. Discussed at length potential causes for lower urinary tract symptoms patient is experiencing. Discussed possible near future in office cystoscopy and or urodynamics for further assessment evaluation. She otherwise offers no other issues or concerns at this time. [facility] Medical History Morbid obesity Restrictive lung disease Tachycardia COVID-19 Endogenous depression COPD (chronic obstructive pulmonary disease) Allergic rhinitis GERD with esophagitis Asthma COPD (chronic obstructive pulmonary disease) History of iron deficiency anemia Hiatal hernia Cirrhosis of liver without ascites Surgical History Hx of ventral hernia repair History of dental surgery History of surgery on left wrist History of hysterectomy History of hip surgery Status post laparoscopic cholecystectomy (~06/10/18) Family History Other Mental health disorder Substance use disorder Social History Household Members: Spouse Housing: House Alcohol intake: former Patient Tobacco Use Status: Former Tobacco user e-Cigarette/Vaping Use: Never Used Second Hand Smoke Exposure: No service: No Current occupational status: disabled Cognitive needs: Yes (cane, walker) Hearing needs: No Vision needs: Yes (Reading Glasses) Review of Systems Const Reports as per HPI Eyes Reports no additional complaints ENT Reports no additional complaints Card Reports as per HPI Resp Reports as per HPI GI Reports as per HPI Reports as per HPI Musc Reports as per HPI Neuro Reports no additional complaints Psych Reports no additional complaints Endo Reports no additional complaints Physical Exam Const General: cooperative, healthy appearing, comfortable, no acute distress, well developed, alert and awake Nutritional Appearance: overweight Orientation/consciousness: patient oriented x3 Limitations: ambulation with walker HEENT Head: Yes normal to inspection, Yes normocephalic and Yes atraumatic Ears: hearing grossly normal bilaterally Eyes General: appearance normal, both eyes and all related structures Neck Neck: Yes normal visual inspection and Yes trachea midline Chest Chest palpation & inspection: normal inspection of the chest Resp Effort & Inspection: normal respiratory effort and able to speak in complete sentences Cardio Rate: regular rate GI Inspection: Yes normal to inspection General: Yes no CVA tenderness Back/Spine/Pelvis Back: no CVA tenderness Skin General skin exam: no rashes or lesions noted Neuro General: patient oriented x3 Extrem General: Yes normal to inspection Psych Appearance: grossly normal and well kempt Mental Status: mental status grossly normal Speech and movement: Normal speech and movement present and Clear speech present Affect: normal affect Attitude: cooperative Thought process: Normal thought process present Thought content: Normal thought content present Insight: Fair insight present (Psych) Judgement: Fair judgement present (Psych) Office Procedures Post Void Residual Post Residual Void Post Void Residual (PVR): 19 [id number] Void Residual by ultrasound Results AMB Urinalysis, Automated UA Leukoctes 0 Ridge/uL Last Edit by [employer] on 11/24/23 09:09 UA Nitrite Negative Last Edit by [employer] on 11/24/23 09:09 UA Urobilinogen 0.2 mg/dL Last Edit by [employer] on 11/24/23 09:09 UA Protein 15 mg/dL Last Edit by [employer] on 11/24/23 09:09 UA pH 6.0 Last Edit by [employer] on 11/24/23 09:09 UA Blood 0 Deepak/uL Last Edit by [employer] on 11/24/23 09:09 UA Specific [place] 1.010 Last Edit by [employer] on 11/24/23 09:09 UA Ketone Negative Last Edit by [employer] on 11/24/23 09:09 UA Bilirubin 0 mg/dL Last Edit by [employer] on 11/24/23 09:09 UA Glucose 0 mg/dL Last Edit by [employer] on 11/24/23 09:09 Results Reviewed Results Reviewed: Laboratory Last Values Urine pH (Auto) 6.0 11/24/23 08:55 Specific [place] (Auto) 1.010 11/24/23 08:55 Urine Protein (Auto) 15 mg/dL 11/24/23 08:55 Glucose (UA)(Auto) 0 mg/dL 11/24/23 08:55 Urine Ketones (Auto) Negative 11/24/23 08:55 Urine Blood (Auto) 0 Deepak/uL 11/24/23 08:55 Urine Nitrite (Auto) Negative 11/24/23 08:55 Urine Bilirubin (Auto) 0 mg/dL 11/24/23 08:55 Urine Urobilinogen (Auto) 0.2 mg/dL 11/24/23 08:55 Leukocyte Esterase (Auto) 0 Ridge/uL 11/24/23 08:55 Assessment & Plan Assessment & Plan (1) Bladder trabeculation: Code(s): N32.89 - Other specified disorders of bladder Category: Medical (2) Urinary incontinence, mixed: Code(s): N39.46 - Mixed incontinence Category: Medical Plan In office urinalysis results reviewed with the patient today; as noted above. PVR 19mls Continue Myrbetriq and VESIcare; will increase vesicare to 10 mg daily Continue with pelvic floor exercises as discussed. Patient currently denies any bothersome urinary issues or concerns. Discussed importance of bathroom planning given decreased mobility. Follow-up in 3 months with PVR; or sooner with any issues, concerns, and or questions. Orders: Orders AMB Post Void Residual by ultrasound Today N39.46 - Mixed incontinence AMB Urinalysis Automated Today Z13.9 - Encounter for screening, unspecified Medications: Changed From solifenacin (Vesicare) 5 mg PO DAILY 90 tabs 3RF 90 days To solifenacin (Vesicare) 10 mg (2 x 5 mg) PO DAILY 180 tabs 3RF 90 days Patient Instructions: The patient had an opportunity to ask questions regarding the treatment plan. All questions were answered. Physical exam, labs, and imaging were discussed and reviewed in detail. As well as risks, benefits, and discussion of treatment choices. No major barriers to understanding were identified. The patient expressed understanding and agreement with the above treatment plan. The patient was made aware they should contact our office by phone for worsening of their current condition, the appearance of new symptoms, or with any questions or concerns. Compliance is encouraged with any medications and follow up testing that is ordered. It is a privilege to be allowed the opportunity to participate in? your urological care.? Again, if you have any questions or concerns If you have any questions or concerns please do not hesitate to contact me. The office is [phone]. This note is constructed using voice recognition software. While every effort has been made to ensure accuracy geophysical observer errors may have been included. Yours sincerely, MARSHA Walker Coding Level of Care Code Est Pt Level 3 (70110) Complex EM visit Add On G2211 Diagnoses Bladder trabeculation N32.89 Urinary incontinence, mixed N39.46 CPT Codes Post Residual Void - PVR CPT Code: [id number] Void Residual by ultrasound ([id number])
== END 2023-11-24 09:17 | disposition home or self-care (01) ==
PROVIDERS: PCP Internal Medicine; Visit Provider Nurse Practitioner Family
DX: N32.89 Other specified disorders of bladder (principal); N39.46 Mixed incontinence; Z13.9 Encounter for screening, unspecified
CPT/HCPCS: 99213; G2211

== ENCOUNTER → 2023-11-24 08:30 | Outpatient (BNVA) | payer MEDICARE, BC, SELFPAY | PROVIDERS: PCP Internal Medicine; Visit Provider Nurse Practitioner Family | DX: N32.89 Other specified disorders of bladder (principal); N39.46 Mixed incontinence | CPT/HCPCS: 51798; 81003; 99212 ==

== ENCOUNTER 2023-11-30 09:15 | Outpatient (REF) | payer MEDICARE, BC, SELFPAY ==
--- NOTE | ~2023-11-30 | US_ITS ---
EXAMINATION: US COMPLETE ABDOMEN WITH LIVER ELASTOGRAPHY CLINICAL INFORMATION: Morbid obesity due to excess calories. COMPARISON: Abdominal ultrasound 09/01/2023. TECHNIQUE: Real-time imaging of the abdominal viscera. Noninvasive ultrasound liver fibrosis assessment is performed using Javi ElastPQ point quantification shear wave elastography (2D-SWE) with a C5-2 MHz transducer. Multiple elastography samples are obtained. FINDINGS: PANCREAS: Normal. The visualized pancreatic head and body are normal in appearance. The remainder of the pancreas is obscured from visualization by the overlying bowel gas. ABDOMINAL AORTA: The proximal, middle, and distal aortic segments are normal in caliber. INFERIOR VENA CAVA: Visualized portions are normal. LIVER: The liver is echogenic and heterogeneous. The liver is not enlarged. No discrete liver mass. The right lobe measures 16.8 cm in length. The left lobe measures 9.0 cm in length. Portal flow is towards the liver (hepatopetal). Shear wave liver elastography median stiffness is 1.1 m/s (reference: normal median stiffness is 1.3 m/s or less). IQR/median stiffness to assess sampling precision is 0.12 (reference: good quality data set is IQR/median stiffness of 0.15 or less). GALLBLADDER: Cholecystectomy. COMMON BILE DUCT: Normal in caliber measuring 0.6 cm in diameter. RIGHT KIDNEY: Normal. No hydronephrosis. No renal calculi or focal parenchymal lesions. The kidney measures 9.4 cm in maximum dimension. LEFT KIDNEY: Multiple parapelvic cysts, the largest measuring 2.7 cm. No imaging follow-up is recommended. No hydronephrosis. No renal calculi or suspicious parenchymal lesions. The kidney measures 11.1 cm in maximum dimension. SPLEEN: Normal. The spleen measures 9.5 cm in maximum dimension. FREE FLUID: None. US/US abdomen comp w elastography IMPRESSION: 1. Echogenic heterogeneous liver consistent with chronic hepatocellular disease. 2. Liver elastography: Measurements are consistent with a high probability of normal liver stiffness. REFERENCE: Society of Radiologists in Ultrasound Liver Stiffness Thresholds (2020): LIVER STIFFNESS THRESHOLDS: *Liver Stiffness equal or less than 1.3 m/s: High probability of being normal. *Liver Stiffness less than 1.7 m/s: In the absence of other known clinical signs, rules out compensated advanced chronic liver disease. *Liver Stiffness 1.7-2.1 m/s: Suggestive of compensated advanced chronic liver disease but need further test for confirmation. *Liver Stiffness over 2.1 m/s: Rules in compensated advanced chronic liver disease. *Liver Stiffness over 2.4 m/s: Suggestive of clinically significant portal hypertension. QUALITY OF DATA SET: *IQR/Median value equal or less than 0.15 implies a quality data set. *IQR/Median value over 0.15 implies a poor quality data set. SIGNIFICANT CHANGE FROM PRIOR EXAM: Significant change if liver stiffness measurement is 10% or greater from prior exam. OTHER CONSIDERATIONS: The stage of liver fibrosis may be overestimated in the setting of acute hepatitis, liver inflammation, elevated liver function tests, hepatic vascular congestion, obstructive cholestasis, non-fasting state, and infiltrative diseases such as amyloidosis and lymphoma. In some patients with NAFLD, the liver stiffness thresholds for compensated advanced chronic liver disease may be lower. In causes other than viral hepatitis and NAFLD, liver stiffness thresholds are not well established.
== END 2023-11-30 09:16 | disposition home or self-care (01) ==
LOC: HO.US 09:15
PROVIDERS: PCP Internal Medicine; Visit Provider Surgery
DX: K21.00 Gastro-esophageal reflux disease with esophagitis, without bleeding (principal); I10 Essential (primary) hypertension; K44.9 Diaphragmatic hernia without obstruction or gangrene; K74.60 Unspecified cirrhosis of liver; E66.01 Morbid (severe) obesity due to excess calories
CPT/HCPCS: 76700; 76981

== ENCOUNTER 2023-12-01 10:34 | Outpatient (AMB) | payer MEDICARE, BC, SELFPAY ==
--- NOTE | 2023-12-01 10:39 | MHC.PC.OV ---
Vital Signs 12/01/23 10:41 Height 5 ft Weight 202 lb 4 oz BMI 39.5 BP 124/76 Blood Pressure Location Lt brachial Position Sitting Pulse 126 H Pulse Source Pulse Oximeter Pulse Oximetry (%) 97 Oxygen Delivery Method Room Air Intake Visit Reasons: 3mof\u Intake Note: Patient is here to follow up on HTN, COPD, Cirrhosis of liver. Customer Service Engineer Required: No Outsole Scheduler: Not Required per policy Accompanied by: Self / Same As Patient Allergies cat dander [CATS] Allergy (Unknown, Verified 12/01/23 10:40) ASTHMA ATTACK Horse/Equine Containing Products [HORSE/EQUINE CONTAINING PRODUCTS] Allergy (Unknown, Verified 12/01/23 10:40) ASTHMA ATTACK ENVIROMENTAL Allergy (Unknown, Uncoded 12/01/23 10:40) ASTHMA ATTACK Tobacco use date assessed: 12/01/23 Fall risk assessment: No Falls in past year Last assessed Fall Risk: 12/01/23 Dental Screening Dental Screen Date: 05/13/23 HPI 3mof\u HPI Details 78-year-old female 78-year-old female presents to the office to discuss her chronic medical conditions. Since last office visit patient has started attending the weight loss program at the hospital. She has lost 12 lb. An abdominal ultrasound, endoscopy and upper GI have been scheduled to see if she is a candidate for sleeve gastrectomy. Her urinary incontinence has improved after increasing the VESIcare to 10 mg once a day. She is more confident now going out of the house. Using a walker to ambulate. [facility] Medical History Morbid obesity Restrictive lung disease Tachycardia COVID-19 Endogenous depression COPD (chronic obstructive pulmonary disease) Allergic rhinitis GERD with esophagitis Asthma COPD (chronic obstructive pulmonary disease) History of iron deficiency anemia Hiatal hernia Cirrhosis of liver without ascites Surgical History Hx of ventral hernia repair History of dental surgery History of surgery on left wrist History of hysterectomy History of hip surgery Status post laparoscopic cholecystectomy (~06/10/18) Family History Other Mental health disorder Substance use disorder Social History Household Members: Spouse Housing: House Alcohol intake: former Patient Tobacco Use Status: Former Tobacco user e-Cigarette/Vaping Use: Never Used Second Hand Smoke Exposure: No service: No Current occupational status: disabled Cognitive needs: Yes (cane, walker) Hearing needs: No Vision needs: Yes (Reading Glasses) Questionnaire Thrive Questionnaire Date Thrive assessed: 05/13/23 EFRAIN-7 AMB Questionnaire EFRAIN-7 Date EFRAIN - 7 assessed: 05/13/23 Source: Developed by Drs. Robson Avitia, Dinorah Betancur, Spenser Mancera and colleagues, with an educational charisse from [employer]. Physical exam (Primary Care) Vital Signs: Last Vital Signs Pulse 126 H 12/01/23 10:41 BP 124/76 12/01/23 10:41 Pulse Ox 97 12/01/23 10:41 Oxygen Delivery Method Room Air 12/01/23 10:41 Care Plan Goal for BP management: Blood pressure is stable. Continue medications at same dosage. BMI result Body Mass Index 39.5 BMI Assessment/Plan discussion: High (Continue current interventions.) BMI High, discussed plan: lifestyle, weight reduction and dietary Tobacco/Smoking Status: Tobacco use Status Tobacco use date assessed 12/01/23 12/01/23 10:47 Patient Tobacco Use Status Former Tobacco user 12/01/23 10:47 e-Cigarette/Vaping Use Never Used 12/01/23 10:47 Thrive Assessment: Date of Thrive Assessment Date Thrive assessed 05/13/23 12/01/23 10:47 Advance Care Planning discussion: Exists, not on file Date of discussion: 12/01/23 Who was present: Patient Forms completed: Health Care Proxy and MOLST Const General: cooperative and healthy appearing Nutritional Appearance: well nourished Orientation/consciousness: patient oriented x3 Limitations: no limitations HENMT Head: Yes normal to inspection Eyes General: appearance normal, both eyes and all related structures Neck Neck: Yes normal visual inspection Chest Chest palpation & inspection: normal palpation of entire chest wall Resp Effort & Inspection: normal respiratory effort Neuro General: patient oriented x3 Assessment and Plan Assessment & Plan (1) Obesity (BMI 35.0-39.9 without comorbidity): Code(s): E66.9 - Obesity, unspecified Plan: Patient was encouraged to continue follow-up at the medical weight management clinic. (2) Bladder trabeculation: Code(s): N32.89 - Other specified disorders of bladder Plan: Continue the increased dosage on the VESIcare. (3) HTN (hypertension): Code(s): I10 - Essential (primary) hypertension Plan: Blood pressure is stable. Continue medications at same dosage. (4) COPD (chronic obstructive pulmonary disease): Comment: MILD TO MODERTAELY SEVERE , WELL CONTROLLED , REMAINING STABLE.. , Code(s): J44.9 - Chronic obstructive pulmonary disease, unspecified (5) Cirrhosis of liver without ascites: Code(s): K74.60 - Unspecified cirrhosis of liver Coding Level of Care Code Est Pt Level 4 (79930) Complex EM visit Add On G2211 Diagnoses Obesity (BMI 35.0-39.9 without comorbidity) E66.9 Bladder trabeculation N32.89 HTN (hypertension) I10 COPD (chronic obstructive pulmonary disease) J44.9 Cirrhosis of liver without ascites K74.60 Additional Codes Vital Signs *Quality* - Advance Care Planning discussion: Exists, not on file ([id number])
[2023-12-01 10:41] VITALS: BP 124/76; PULSE 126; O2SAT 97; BMI 39.5
== END 2023-12-01 11:21 | disposition home or self-care (01) ==
PROVIDERS: PCP Internal Medicine; Visit Provider Internal Medicine
DX: N32.89 Other specified disorders of bladder (principal); J44.9 Chronic obstructive pulmonary disease, unspecified; K74.60 Unspecified cirrhosis of liver; I10 Essential (primary) hypertension
CPT/HCPCS: 1123F; 99214; G2211

== ENCOUNTER 2023-12-02 10:49 | Outpatient (AMB) | payer MEDICARE, BC, SELFPAY ==
[2023-12-02 11:05] VITALS: BP 110/70; PULSE 111; O2SAT 94; BMI 39.2
--- NOTE | 2023-12-02 11:05 | MHC.OFFVIS ---
Vital Signs 12/02/23 11:05 Height 5 ft Weight 200 lb 9.93 oz BMI 39.2 BP 110/70 Blood Pressure Location Lt brachial Position Sitting Pulse 111 H Pulse Source Pulse Oximeter Pulse Oximetry (%) 94 Oxygen Delivery Method Room Air Intake Visit Reasons: COPD Intake Note: pt is here for follow up and states she is better breathing, she lost 8 lbs!! Industrial Ecologist Required: No Allergies cat dander [CATS] Allergy (Unknown, Verified 12/02/23 11:17) ASTHMA ATTACK Horse/Equine Containing Products [HORSE/EQUINE CONTAINING PRODUCTS] Allergy (Unknown, Verified 12/02/23 11:17) ASTHMA ATTACK ENVIROMENTAL Allergy (Unknown, Uncoded 12/02/23 11:17) ASTHMA ATTACK Medication List - Last Reconciled 12/02/23 by Albertina Kimball MD amlodipine 5 mg PO DAILY cholecalciferol (vitamin D3) 25 mcg PO DAILY 90 days fluticasone propion-salmeterol 500-50 mcg/dose (Wixela Inhub) 1 inh inhalation BID 30 days mirabegron ER (Myrbetriq) 25 mg PO DAILY 90 days omeprazole 20 mg PO DAILY 90 days paroxetine HCl 40 mg PO QAM solifenacin (Vesicare) 10 mg (2 x 5 mg) PO DAILY 90 days tiotropium bromide 2.5 mcg/actuation (Spiriva Respimat) 2 puffs PO DAILY Do you need a note to return to daycare/school/sports/work: No HPI HPI COPD: Details: ALINE comes after 4 months for follow-up of COPD. Breathing has been very well controlled and stable. She is on Wixela 500-50 1 inhalation b.i.d.. And does not. Have to use the rescue inhaler Talked to her about cutting down the does and she does not like it, she say is that she does better with this higher dose of Wixela. Luckily she has had no acute infection or exacerbation. Aline is in weight management program, on the dietary limb, has lost 8 lb of weight and about this she is very happy. She is aiming towards having bariatric surgery ( gastric Sleeve ) Locomotion is impaired but she walks around and remains. active with the use of walker [facility] Medical History Morbid obesity Restrictive lung disease Tachycardia COVID-19 Endogenous depression COPD (chronic obstructive pulmonary disease) Allergic rhinitis GERD with esophagitis Asthma COPD (chronic obstructive pulmonary disease) History of iron deficiency anemia Hiatal hernia Cirrhosis of liver without ascites Surgical History Hx of ventral hernia repair History of dental surgery History of surgery on left wrist History of hysterectomy History of hip surgery Status post laparoscopic cholecystectomy (~06/10/18) Family History Other Mental health disorder Substance use disorder Social History Household Members: Spouse Housing: House Alcohol intake: former Patient Tobacco Use Status: Former Tobacco user e-Cigarette/Vaping Use: Never Used Second Hand Smoke Exposure: No service: No Current occupational status: disabled Cognitive needs: Yes (cane, walker) Hearing needs: No Vision needs: Yes (Reading Glasses) Review of Systems Const All systems reviewed & are unremarkable except as noted in HPI and below Eyes Reports no additional complaints ENT Reports nasal congestion (Off and on, mostly controlled at this time) Card Denies chest pain, Denies irregular heart rhythm and Denies leg edema Resp Reports as per HPI GI Reports heartburn (Symptoms of GERD controlled with omeprazole) Reports no additional complaints Musc Reports abnormal gait (Needs cane or walker, for gait stability) and Reports back pain Skin/Breast Reports system reviewed and no additional complaints, except as documented Neuro Reports abnormal gait (Needs cane or walker, for gait stability) Psych Reports depression (Controlled with med) Endo Reports no additional complaints Physical Exam Vital Signs: Last Vital Signs Pulse 111 H 12/02/23 11:05 BP 110/70 12/02/23 11:05 Pulse Ox 94 12/02/23 11:05 Oxygen Delivery Method Room Air 12/02/23 11:05 BMI result Body Mass Index 39.2 Const General: comfortable, no acute distress, alert and awake Orientation/consciousness: patient oriented x3 HEENT Head: Yes normal to inspection General nose exam: No nasal polyps present, No nasal discharge present and Other nasal findings present (Mild nasal congestion) Face and sinus: Yes sinuses nontender Mouth: oropharynx normal Throat: Yes posterior oropharynx normal Eyes General: appearance normal, both eyes and all related structures Neck Neck: Yes normal visual inspection, Yes no lymphadenopathy, Yes trachea midline and Yes no JVD Thyroid: Thyroid normal Chest Chest palpation & inspection: normal inspection of the chest, normal palpation of entire chest wall and no tenderness Resp Other: Percussion note is resonant, breath sounds distant on both sides with prolonged expiratory phase. No expiratory wheezes heard . Also no crepitations. Cardio Palpation: normal PMI Rate: tachycardic (hr at rest 120/mt ) Rhythm: regular rhythm Heart sounds: no gallops and no murmurs GI Palpation (GI): Soft to palpation, nontender, No hepatosplenomegaly present and no masses Auscultation: normal bowel sounds Back/Spine/Pelvis Thoracic/Lumbar Spine: thoracic and lumbar spine normal to inspection, thoraco-lumbar ROM limited and thoraco-lumbar spasm Skin General skin exam: no rashes or lesions noted Neuro General: patient oriented x3 and no focal motor deficits Cranial nerves: Yes CN's II-XII intact bilaterally Extrem General: Yes normal to inspection, Yes no clubbing, cyanosis or edema and Yes no calf tenderness Psych Appearance: grossly normal and well kempt Speech and movement: Normal speech and movement present Assessment & Plan Assessment & Plan (1) Obesity (BMI 35.0-39.9 without comorbidity): Comment: She has been morbidly obese, now be BMI down to 39 KG . Well motivated to lose weight. Code(s): E66.9 - Obesity, unspecified Category: Medical Plan: Commended for being in active weight management program. (2) Restrictive lung disease: Comment: PFT Showed Mild restrictive pulmonary disorder in addition to mild COPD. This is most likely due to her gross obesity, and is expected to improve as she loses weight. Code(s): J98.4 - Other disorders of lung Category: Medical Plan: Continue doing deep breathing exercises 3 times a day. (3) COPD (chronic obstructive pulmonary disease): Comment: MILD TO MODERTAELY SEVERE , WELL CONTROLLED , REMAINING STABLE.. , Code(s): J44.9 - Chronic obstructive pulmonary disease, unspecified Category: Medical Plan: SPIRIVA RESPIMAT 2.52 INHALATIONS DAILY CONTINUE WIXELA 500-50 1 INHALATION B.I.D.. I TALKED TO HER ABOUT REDUCING THE DOSE TO 250-50 BUT SHE IS AFRAID , AND WANTS TO CONTINUE AT THE PRESENT DOES. (4) Allergic rhinitis: Comment: MILD , STABLE AND CONTROLLED . Code(s): J30.9 - Allergic rhinitis, unspecified Category: Medical Plan: LORATADINE 10 MG ONCE A DAY P.R.N. Coding Level of Care Code Est Pt Level 3 (84912) Diagnoses Obesity (BMI 35.0-39.9 without comorbidity) E66.9 Restrictive lung disease J98.4 COPD (chronic obstructive pulmonary disease) J44.9 Allergic rhinitis J30.9
== END 2023-12-02 11:25 | disposition home or self-care (01) ==
PROVIDERS: PCP Internal Medicine; Visit Provider Internal Medicine
DX: E66.9 Obesity, unspecified (principal); J98.4 Other disorders of lung; J44.9 Chronic obstructive pulmonary disease, unspecified; J30.9 Allergic rhinitis, unspecified
CPT/HCPCS: 99213

== ENCOUNTER → 2023-12-02 10:49 | Outpatient (BNVA) | payer MEDICARE, BC, SELFPAY | PROVIDERS: PCP Internal Medicine; Visit Provider Internal Medicine | DX: J44.9 Chronic obstructive pulmonary disease, unspecified (principal); J98.4 Other disorders of lung; E66.9 Obesity, unspecified | CPT/HCPCS: 99212 ==

== ENCOUNTER 2024-02-23 08:41 | Outpatient (AMB) | payer MEDICARE, BC, SELFPAY ==
--- NOTE | 2024-02-23 08:49 | A.OFFVIS_ITS ---
Intake Visit Reasons: 3m/PVR Intake Note: Patient presents today for follow up on: urinary incontinence Urology Medications: Solifenacin, myrbetriq Blood Thinner: none PVR: 43ml's Lute Packer Or Applier Required: No Accompanied by: Self / Same As Patient Allergies cat dander [CATS] Allergy (Unknown, Verified 02/23/24 09:13) ASTHMA ATTACK Horse/Equine Containing Products [HORSE/EQUINE CONTAINING PRODUCTS] Allergy (Unknown, Verified 02/23/24 09:13) ASTHMA ATTACK ENVIROMENTAL Allergy (Unknown, Uncoded 02/23/24 09:13) ASTHMA ATTACK Medication List - Last Reconciled 02/23/24 by ARCENIO Walker- amlodipine 5 mg PO DAILY cholecalciferol (vitamin D3) 25 mcg PO DAILY fluticasone propion-salmeterol 500-50 mcg/dose (Wixela Inhub) 1 inh inhalation BID 30 days mirabegron ER (Myrbetriq) 25 mg PO DAILY 90 days gafneilk-vxurtfmmaBt-pqakhsklB 3.5mg-400 unit- 5,000 unit/gram (Neosporin (mol-vmr-dosbk)) 1 appl topical TID omeprazole 20 mg PO DAILY 90 days paroxetine HCl 40 mg PO QAM solifenacin (Vesicare) 10 mg (2 x 5 mg) PO DAILY 90 days tiotropium bromide 2.5 mcg/actuation (Spiriva Respimat) 2 puffs PO DAILY HPI Comments Details: Aline is a very pleasant 78 year old female patient of Dr. Huber. She has a past medical history restrictive lung disease, tachycardia, depression, COPD, allergic rhinitis, GERD, asthma, hiatal hernia, iron deficiency anemia, and cirrhosis of the liver without ascites. She presents to the office today for follow-up of her lower urinary tract symptoms. In discussion with the patient today she reports to be doing and feeling well. Of note, patient was seen approximately 3 months ago at which time her VESIcare was increased. She reports significant improvement in urinary urgency and frequency she had been experiencing. She discusses feeling extremely happy with her overall health. She reports having lost 30 lb and is in the weight management program [facility] at [facility]. She also has recently underwent right-sided hip replacement in is recovering well. She discusses having recently went to her granddaughter's soccer game for the 1st time in over 2 years. She currently denies any bothersome urinary issues or concerns. Unable to obtain urine for urinalysis however PVR 19ml's. Previous workup has included a retroperitoneal ultrasound noting bilateral kidneys with no calculi, lesions, and or hydronephrosis. Multiple benign simple peripelvic cysts are seen, the largest at the inter pole aspect measuring approximately 2 cm. There is no follow-up imaging required per radiology report. The bladder is well distended. Bilateral ureteral jets are demonstrated. Pre void bladder volume is approximately 165 mL. Postvoid bladder volume is approximately 5 mL. There are prominent bladder wall trabeculations. She denies any previous history of childbirth and or . When asked she denies hematuria, dysuria, foul smelling urine, changes to urinary stream, flank pain, fever, and or chills. Discussed at length potential causes for lower urinary tract symptoms patient was experiencing. Discussed possible near future in office cystoscopy and or urodynamics for further assessment evaluation if symptoms arise. She otherwise offers no other issues or concerns at this time. [facility] Medical History Morbid obesity Restrictive lung disease Tachycardia COVID-19 Endogenous depression COPD (chronic obstructive pulmonary disease) Allergic rhinitis GERD with esophagitis Asthma COPD (chronic obstructive pulmonary disease) History of iron deficiency anemia Hiatal hernia Cirrhosis of liver without ascites Surgical History Hx of ventral hernia repair History of dental surgery History of surgery on left wrist History of hysterectomy History of hip surgery Status post laparoscopic cholecystectomy (~06/10/18) Family History Other Mental health disorder Substance use disorder Social History Household Members: Spouse Housing: House Alcohol intake: former Patient Tobacco Use Status: Former Tobacco user e-Cigarette/Vaping Use: Never Used Second Hand Smoke Exposure: No service: No Current occupational status: disabled Cognitive needs: Yes (cane, walker) Hearing needs: No Vision needs: Yes (Reading Glasses) Review of Systems Const Reports as per [facility] Eyes Reports no additional complaints ENT Reports no additional complaints Card Reports as per [facility] Resp Reports as per [facility] GI Reports as per [facility] Reports as per [facility] Musc Reports as per [facility] Neuro Reports no additional complaints Psych Reports no additional complaints Endo Reports no additional complaints Physical Exam Const General: cooperative, healthy appearing, comfortable, no acute distress, well developed, alert and awake Nutritional Appearance: overweight Orientation/consciousness: patient oriented x3 Limitations: ambulation with walker HEENT Head: Yes normal to inspection, Yes normocephalic and Yes atraumatic Ears: hearing grossly normal bilaterally Eyes General: appearance normal, both eyes and all related structures Neck Neck: Yes normal visual inspection and Yes trachea midline Chest Chest palpation & inspection: normal inspection of the chest Resp Effort & Inspection: normal respiratory effort and able to speak in complete se ntences Cardio Rate: regular rate GI Inspection: Yes normal to inspection General: Yes no CVA tenderness Back/Spine/Pelvis Back: no CVA tenderness Skin General skin exam: no rashes or lesions noted Neuro General: patient oriented x3 Extrem General: Yes normal to inspection Psych Appearance: grossly normal and well kempt Mental Status: mental status grossly normal Speech and movement: Normal speech and movement present and Clear speech present Affect: normal affect Attitude: cooperative Thought process: Normal thought process present Thought content: Normal thought content present Insight: Fair insight present (Psych) Judgement: Fair judgement present (Psych) Office Procedures Post Void Residual Post Residual Void Post Void Residual (PVR): 43 [id number] Void Residual by ultrasound Assessment & Plan Assessment & Plan (1) Bladder trabeculation: Code(s): N32.89 - Other specified disorders of bladder Category: Medical (2) Urinary incontinence, mixed: Code(s): N39.46 - Mixed incontinence Category: Medical Plan Unable to obtain urine for urinalysis however PVR 19mls Continue Myrbetriq and VESIcare; refills provided. She currently denies any bothersome urinary issues or concerns. She reports be happy with current voiding parameters. Discussed bladder triggers/irritants. Continue with pelvic floor exercises as discussed. Discussed importance of bathroom planning given decreased mobility. Follow-up in one year with PVR; or sooner with any issues, concerns, and or questions. Orders: Orders AMB Post Void Residual by ultrasound Today N39.46 - Mixed incontinence Medications: Refilled solifenacin (Vesicare) 10 mg (2 x 5 mg) PO DAILY 180 tabs 3RF 90 days mirabegron ER (Myrbetriq) 25 mg PO DAILY 90 tabs 3RF 90 days N30.10 - Interstitial cystitis (chronic) without hematuria, N32.81 - Overactive bladder, R35.1 - Nocturia, R39.15 - Urgency of urination Patient Instructions: The patient had an opportunity to ask questions regarding the treatment plan. All questions were answered. Physical exam, labs, and imaging were discussed and reviewed in detail. As well as risks, benefits, and discussion of treatment choices. No major barriers to understanding were identified. The patient expressed understanding and agreement with the above treatment plan. The patient was made aware they should contact our office by phone for worsening of their current condition, the appearance of new symptoms, or with any questions or concerns. Compliance is encouraged with any medications and follow up testing that is ordered. It is a privilege to be allowed the opportunity to participate in? your urological care.? Again, if you have any questions or concerns If you have any questions or concerns please do not hesitate to contact me. The office is [phone]. This note is constructed using voice recognition software. While every effort has been made to ensure accuracy real estate rental agent errors may have been included. Yours sincerely, MARSHA Walker Coding Level of Care Code Est Pt Level 3 (62580) Complex EM visit Add On G2211 Diagnoses Bladder trabeculation N32.89 Urinary incontinence, mixed N39.46 CPT Codes Post Residual Void - PVR CPT Code: 32855-[id number] Void Residual by ultrasound ([id number])
== END 2024-02-23 09:12 | disposition home or self-care (01) ==
PROVIDERS: PCP Internal Medicine; Visit Provider Nurse Practitioner Family
DX: N32.89 Other specified disorders of bladder (principal); N39.46 Mixed incontinence
CPT/HCPCS: 99213; G2211

== ENCOUNTER → 2024-02-23 08:41 | Outpatient (BNVA) | payer MEDICARE, BC, SELFPAY | PROVIDERS: PCP Internal Medicine; Visit Provider Nurse Practitioner Family | DX: N32.89 Other specified disorders of bladder (principal); N39.46 Mixed incontinence | CPT/HCPCS: 51798; 99212 ==

== ENCOUNTER 2024-03-08 09:40 | Outpatient (AMB) | payer MEDICARE, BC, SELFPAY ==
--- NOTE | 2024-03-08 09:46 | MHC.PC.OV ---
Vital Signs 03/08/24 09:47 Height 5 ft Weight 177 lb 8 oz BMI 34.7 BP 120/72 Blood Pressure Location Lt brachial Position Sitting Pulse 113 H Pulse Source Pulse Oximeter Pulse Oximetry (%) 97 Oxygen Delivery Method Room Air Intake Visit Reasons: 3 month follow up Intake Note: Patient is here to follow up on HTN, COPD, GERD. Grants Officer Required: No Clay Carman: Not Required per policy Accompanied by: Self / Same As Patient Allergies cat dander [CATS] Allergy (Unknown, Verified 03/08/24 10:31) ASTHMA ATTACK Horse/Equine Containing Products [HORSE/EQUINE CONTAINING PRODUCTS] Allergy (Unknown, Verified 03/08/24 10:31) ASTHMA ATTACK ENVIROMENTAL Allergy (Unknown, Uncoded 03/08/24 10:31) ASTHMA ATTACK Medication List - Last Reconciled 03/08/24 by Rip Huber MD amlodipine 5 mg PO DAILY cholecalciferol (vitamin D3) 25 mcg PO DAILY fluticasone propion-salmeterol 500-50 mcg/dose (Wixela Inhub) 1 inh inhalation BID 30 days mirabegron ER (Myrbetriq) 25 mg PO DAILY 90 days jclxpmrh-osnkonhtqMe-orensklhN 3.5mg-400 unit- 5,000 unit/gram (Neosporin (gyc-sxj-jvhws)) 1 appl topical TID omeprazole 20 mg PO DAILY 90 days paroxetine HCl 40 mg PO QAM solifenacin (Vesicare) 10 mg (2 x 5 mg) PO DAILY 90 days tiotropium bromide 2.5 mcg/actuation (Spiriva Respimat) 2 puffs PO DAILY Tobacco use date assessed: 03/08/24 Fall risk assessment: No Falls in past year Last assessed Fall Risk: 03/08/24 Dental Screening Dental Screen Date: 05/13/23 HPI 3 month follow up HPI Details 78-year-old female presents to the office to discuss her chronic medical conditions. Patient since last office visit had her right hip replaced. The procedure went well and she has completed physical therapy. Uses a sit-down walker to ambulate. Since last office visit patient has also lost 30 lb. She has been going to the weight loss clinic in the hospital. She is not ready to get bariatric surgery yet. Her bladder issues are stable. Continues to use both the medications. Able to function and do all activities of daily living. Lives with her . Patient continues to drive and lead an active life. [facility] Medical History Morbid obesity Restrictive lung disease Tachycardia COVID-19 Endogenous depression COPD (chronic obstructive pulmonary disease) Allergic rhinitis GERD with esophagitis Asthma COPD (chronic obstructive pulmonary disease) History of iron deficiency anemia Hiatal hernia Cirrhosis of liver without ascites Surgical History (Updated 03/08/24 @ 09:51 by TEE Lopez) History of right hip replacement Hx of ventral hernia repair History of dental surgery History of surgery on left wrist History of hysterectomy History of hip surgery Status post laparoscopic cholecystectomy (~06/10/18) Family History Other Mental health disorder Substance use disorder Social History Household Members: Spouse Housing: House Alcohol intake: former Patient Tobacco Use Status: Former Tobacco user e-Cigarette/Vaping Use: Never Used Second Hand Smoke Exposure: No service: No Current occupational status: disabled Cognitive needs: Yes (cane, walker) Hearing needs: No Vision needs: Yes (Reading Glasses) Questionnaire Thrive Questionnaire Date Thrive assessed: 05/13/23 EFRAIN-7 AMB Questionnaire EFRAIN-7 Date EFRAIN - 7 assessed: 05/13/23 Source: Developed by Drs. Robson Avitia, Dinorah Betancur, Spenser Mancera and colleagues, with an educational charisse from [employer]. Physical exam (Primary Care) Vital Signs: Last Vital Signs Pulse 113 H 03/08/24 09:47 BP 120/72 03/08/24 09:47 Pulse Ox 97 03/08/24 09:47 Oxygen Delivery Method Room Air 03/08/24 09:47 BMI result Body Mass Index 34.7 Tobacco/Smoking Status: Tobacco use Status Tobacco use date assessed 03/08/24 03/08/24 09:49 Patient Tobacco Use Status Former Tobacco user 03/08/24 09:49 e-Cigarette/Vaping Use Never Used 03/08/24 09:49 Thrive Assessment: Date of Thrive Assessment Date Thrive assessed 05/13/23 03/08/24 09:49 Const General: cooperative and healthy appearing Nutritional Appearance: well nourished Orientation/consciousness: patient oriented x3 Limitations: no limitations HENMT Head: Yes normal to inspection Eyes General: appearance normal, both eyes and all related structures Neck Neck: Yes normal visual inspection Chest Chest palpation & inspection: normal palpation of entire chest wall Resp Effort & Inspection: normal respiratory effort Neuro General: patient oriented x3 Coding Level of Care Code Est Pt Level 4 (86789) Complex EM visit Add On G2211 Diagnoses HTN (hypertension) I10 Urinary incontinence R32 Assessment & Plan Assessment & Plan (1) HTN (hypertension): Code(s): I10 - Essential (primary) hypertension Category: Medical Plan: Blood pressure is in range. Continue medications at same dosage. (2) Urinary incontinence: Code(s): R32 - Unspecified urinary incontinence Category: Medical Plan: Condition is stable. Continue medications at same dosage.
[2024-03-08 09:47] VITALS: BP 120/72; PULSE 113; O2SAT 97; BMI 34.7
== END 2024-03-08 10:24 | disposition home or self-care (01) ==
LOC: HO.HMCH 09:41
PROVIDERS: PCP Internal Medicine; Visit Provider Internal Medicine
DX: I10 Essential (primary) hypertension (principal); R32 Unspecified urinary incontinence

== ENCOUNTER → 2024-03-08 09:40 | Outpatient (BNVA) | payer MEDICARE, BC, SELFPAY | PROVIDERS: PCP Internal Medicine; Visit Provider Internal Medicine | DX: I10 Essential (primary) hypertension (principal); R32 Unspecified urinary incontinence | CPT/HCPCS: 99212 ==

== ENCOUNTER → 2024-03-16 08:20 | Outpatient (BNVA) | payer MEDICARE, BC, SELFPAY | PROVIDERS: PCP Internal Medicine; Visit Provider Internal Medicine Gastroenterology | DX: K74.60 Unspecified cirrhosis of liver (principal); K44.9 Diaphragmatic hernia without obstruction or gangrene; K21.00 Gastro-esophageal reflux disease with esophagitis, without bleeding; E66.9 Obesity, unspecified; Z68.34 Body mass index [BMI] 34.0-34.9, adult; Z86.2 Personal history of diseases of the blood and blood-forming organs and certain disorders involving the immune mechanism | CPT/HCPCS: 99212 ==

== ENCOUNTER → 2024-03-16 08:20 | Outpatient (AMB) | payer MEDICARE, BC, SELFPAY ==
--- NOTE | 2024-03-16 08:26 | A.OFFVIS_ITS ---
Vital Signs 03/16/24 08:33 Height 5 ft Weight 174 lb BMI 34.0 BP 120/65 Blood Pressure Location Lt brachial Position Sitting Pulse 119 H Intake Visit Reasons: follow up r/s Intake Note: Patient follow up for cirrhosis of liver with out ascites, US abdomen results. Patient denies any GI issues. Production Support Supervisor Required: No Accompanied by: Self / Same As Patient Allergies cat dander [CATS] Allergy (Unknown, Verified 04/12/24 10:54) ASTHMA ATTACK Horse/Equine Containing Products [HORSE/EQUINE CONTAINING PRODUCTS] Allergy (Unknown, Verified 04/12/24 10:54) ASTHMA ATTACK ENVIROMENTAL Allergy (Unknown, Uncoded 04/12/24 10:54) ASTHMA ATTACK Medication List - Last Reconciled 03/16/24 by Tona Jimenez MD amlodipine 5 mg PO DAILY cholecalciferol (vitamin D3) 25 mcg PO DAILY fluticasone propion-salmeterol 500-50 mcg/dose (Wixela Inhub) 1 inh inhalation BID 30 days mirabegron ER (Myrbetriq) 25 mg PO DAILY 90 days lpmvbiea-dxvxbxpwyJy-mctetcgqO 3.5mg-400 unit- 5,000 unit/gram (Neosporin (pgi-sam-vsluy)) 1 appl topical TID omeprazole 20 mg PO DAILY 90 days paroxetine HCl 40 mg PO QAM solifenacin (Vesicare) 10 mg (2 x 5 mg) PO DAILY 90 days tiotropium bromide 2.5 mcg/actuation (Spiriva Respimat) 2 puffs PO DAILY HPI HPI follow up r/s: Details: GI clinic visit for this 78 YF for FU of GERD and alcoholic cirrhosis. ?CHRONIC ILLNESSES:?GERD, anxiety and depression, asthma, COPD, Htn, gallstones, stomach ulcers, foot drop after hip replacement surgery seen for follow-up of GERD with hiatal hernia, iron deficiency anemia and alcoholic cirrhosis ?TODAY'S VISIT Patient follow up for Cirrhosis of liver and US results. Intentional wt loss of 37 lbs since mid Jan and doing the diet part. Weighs herself every and send information to Bariatric surgery. Had [place] [facility] [place] and has been doing well. Diagnosed with overactive bladder by Urology. Denies heartburn. PAST VISIT: Patient cc: change of her bowel with new medication and flame on her throat, denies any GI issues. Started on Myrbetriq for bladder issues and noted loose stools Started taking fibre gunnies and stool are solid again Had a cold and has phlegm Chronic cough due to COPD Thinking of having a right hip replacement in the future. Having pain in the rt hip and taking Tramadol. Scheduling an appt to get a shot. Walking is becoming difficult and uses a walker. Noted dry heaves on 11/10/22 while she was trying to have a BM and pushed down. Mouth filled with fluid followed by dry heaves - attributes to the HH Diagnosed with COVID on 02/07/22 - has a deep cough cough and fatigue Staying at home - also has the infection Vaccinated with 3 boosters Denies reflux symptoms. Has been having episodes of gagging when she goes to the bathroom in the am after breakfast. Thinks she may be eating too fast - has a bagel and instant coffee Has been trying to eat slowly which helps Had vomiting yesterday 20 min after she took coffee. 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 intentional wt loss of 4 lbs. Denies problems with bowel movements. Has chronic cough due to COPD. Had her COVID vaccine in Jun & July ? Looking forwards to seeing her 11 year old GD in [place]. ? Doing well. ? Denies any problems with heartburn or dysphagia. ? Feeling a bored. ? [place] ? Getting groceries through the drive up window. ? Stopped taking iron pills. ? Got very sick in May with fever and lasted x 5 weeks - took Z pack ?[facility] reviewed - normal except minimal elevation of AP to 126 ? 06/01/19 H&H of 15.6 and 45.5, platelet 305, INR 0.9, normal LFT ? 06/2018 liver fibrosis score of 0.28, liver fibrosis stage F1, necroinflammatory score 0.16 ?IMAGING STUDIES: 02/22 ABD US SHOWED: LIVER: The liver is normal in size. The liver contour is normal. There is diffuse increased liver parenchymal echogenicity, consistent with hepatic steatosis. There is minimal coarsening of the echotexture. No focal hepatic lesion. There is no intrahepatic biliary duct dilatation seen. GALLBLADDER: Surgically absent. 07/2022 ABD US SHOWED:Heterogeneous cirrhotic appearing liver without focal lesion. Left renal cyst. 01/26/22 ABD US SHOWED:Increased hepatic echogenicity which can be seen in the setting of hepatic steatosis or underlying liver disease. No liver lesion. ? ENDOSCOPIC STUDIES: 04/20/19 colonoscopy showed: ? Colonoscopy Findings: ? Two polyps removed ? Four AVMs - ablated with APC. ? Moderate to severe diverticulosis seen in the entire colon ? Moderate to large internal/external hemorrhoids on retroflexed exam. ? Plan: Patient has an appointment on 05/25/18 in the GI Clinic with Tona Jimenez M.D. ? Repeat Colonoscopy interval based on path results in 5 years if ? polyps are adenomatous and due to past history of colon polyps. ? Above findings were reviewed with the patient and colon polyps and ? diverticulosis handouts were given in the discharge area ?BIOPSIES SHOWED: ? A. Colon, ascending polyp, polypectomy: Polypoid colonic mucosa within normal ? limits; negative for dysplasia. ? B. Colon, sigmoid polyp, polypectomy: Fragments of tubular adenoma. ? Letter sent advising repeat colonoscopy in 5 years. ?01/12/19 EGD showed: ? ESOPHAGUS: Tortuous esophagus with increased tertiary contractions without stricture. No varices were seen. ? GE junction at 30 cms, large hiatal hernia 30 to 36 cms. Erosions and Fidel's ulcers noted on past EGD healed completely. No Pruitt s. ? STOMACH: Mild gastritis ? DUODENUM: Normal ? Plan: Continue present medications (Omeprazole at 20 mg PO once daily) ? Patient has an appointment on 02/17/19 in the GI Clinic with Tona Jimenez M.D ? Above findings were reviewed with the patient. [facility] Medical History Morbid obesity Restrictive lung disease Tachycardia COVID-19 Endogenous depression COPD (chronic obstructive pulmonary disease) Allergic rhinitis GERD with esophagitis Asthma COPD (chronic obstructive pulmonary disease) History of iron deficiency anemia Hiatal hernia Cirrhosis of liver without ascites Surgical History History of right hip replacement Hx of ventral hernia repair History of dental surgery History of surgery on left wrist History of hysterectomy History of hip surgery Status post laparoscopic cholecystectomy (~06/10/18) Family History Other Mental health disorder Substance use disorder Social History Household Members: Spouse Housing: House Alcohol intake: former Patient Tobacco Use Status: Former Tobacco user e-Cigarette/Vaping Use: Never Used Second Hand Smoke Exposure: No service: No Current occupational status: disabled Cognitive needs: Yes (cane, walker) Hearing needs: No Vision needs: Yes (Reading Glasses) Review of Systems Const All systems reviewed & are unremarkable except as noted in HPI and below Physical Exam Vital Signs: Last Vital Signs Pulse 119 H 03/16/24 08:33 BP 120/65 03/16/24 08:33 BMI result Body Mass Index 34.0 Const General: no acute distress Nutritional Appearance: obese Orientation/consciousness: patient oriented x3 Limitations: ambulation with walker HEENT Head: Yes normal to inspection Ears: hearing grossly normal bilaterally Eyes Sclerae: sclerae normal Pupils: Equal, round and reactive pupils present Neck Neck: Yes normal visual inspection Chest Chest palpation & inspection: normal inspection of the chest Resp Effort & Inspection: normal respiratory effort Auscultation: clear to auscultation bilaterally Cardio Palpation: normal PMI Rate: regular rate Rhythm: regular rhythm Heart sounds: S1 normal heart sound present, S2 normal heart sound present and no murmurs GI Inspection: Yes scar Palpation (GI): Soft to palpation, nontender and No hepatosplenomegaly present Auscultation: normal bowel sounds Rectal Exam - Female: deferred Skin General skin exam: no rashes or lesions noted Neuro General: patient oriented x3, gait normal and moves all extremities Cranial nerves: Yes Equal, round and reactive pupils present Psych Appearance: grossly normal Mental Status: mental status grossly normal Assessment & Plan Assessment & Plan (1) Cirrhosis of liver without ascites: Code(s): K74.60 - Unspecified cirrhosis of liver Category: Medical (2) Hiatal hernia: Code(s): K44.9 - Diaphragmatic hernia without obstruction or gangrene Category: Medical (3) History of iron deficiency anemia: Code(s): Z86.2 - Personal history of diseases of the blood and blood-forming organs and certain disorders involving the immune mechanism Category: Medical (4) GERD with esophagitis: Code(s): K21.00 - Gastro-esophageal reflux disease with esophagitis, without bleeding Category: Medical (5) Obesity (BMI 35.0-39.9 without comorbidity): Comment: She has been morbidly obese, now be BMI down to 39 KG . Well motivated to lose weight. Code(s): E66.9 - Obesity, unspecified Category: Medical Plan 78 year-old female with GERD, anxiety and depression, foot drop after hip replacement surgery seen for follow-up of GERD with hiatal hernia, iron deficiency anemia and alcoholic cirrhosis. 06/2018 EGD showed a large hiatal hernia with fidel's ulcers in the hiatal hernia sac felt to be the source of anemia. 01/02/2019 repeat EGD showed healing of Fidel's ulcers. Jun, 2018 Liver fibrosis score was 0.28, fibrosis stage F1 and necroinflammatory score of 0.16. No ascites was seen on abdominal ultrasound. MELD score was 6. 04/20 a 7-8 mm adenomatous polyp was removed, repeat colon advised in 5 yrs - due 04/2024. ?REDUCING THE RISK OF LIVER PROGRESSION:? patient was advised to completely avoid use of alcohol and lose weight. ?HCC SURVEILLANCE: ? the patient is at risk of developing hepatocellular carcinoma given the presence of cirrhosis and need 6 monthly imaging surveillance with either abdominal ultrasound (US) or multiphase cross-sectional imaging (CT or MRI).? Last Abd US in 01/2023 had shown no focal liver lesions suspicious of HCC.? She will be scheduled for follow-up? liver ultrasound for ongoing surveillance.? ? QUESTION OF LIVER TRANSPLANTATION: ? As pt has never had any hepatic decompensation, and continues to have good hepatic synthetic function with meld score of 6, liver transplantation does not need to be considered at this time. Pt is immune to Hepatitis A and non-immune to Hepatitis B. Vaccination for Hepatitis B (1st injection) was given by GI RN during her last clinic visit. Hepatitis-B vaccination was completed 03/16/24 Intentional wt loss of 37 lbs since mid Sep and doing the diet part. Pt advised to schedule a colonoscopy for FU of colon polyps Follow-up appointment in 6 months Medications: New polyethylene glycol 3350 (Miralax) Mix Miralax with 64 oz(8 cups) of Crystal light. Take 2 tablets of Dulcolax qt 12 pm. Wait to have your 1st bowel movement, then begin drinking Miralax. Drink a glass of Miralax every 10-15 minutes until you are finished. You will drink at least another 4 cups of clear liquid of your choice over the next 2 hours. Please drink as many clear liquids as possible You may have clear liquids up to four hours before your procedure 17 grams PO DAILY 238 grams 0RF 1 day bisacodyl (Dulcolax (bisacodyl)) Take 4 tablets at 12 pm the day before colonoscopy appointment 20 mg (4 x 5 mg) PO ONCE 4 tabs 0RF colon prep 1 day Coding Level of Care Code Est Pt Level 4 (89385) Diagnoses Cirrhosis of liver without ascites K74.60 Hiatal hernia K44.9 History of iron deficiency anemia Z86.2 GERD with esophagitis K21.00 Obesity (BMI 35.0-39.9 without comorbidity) E66.9 Time Spent (min) 23
[2024-03-16 08:33] VITALS: BP 120/65; PULSE 119; BMI 34.0
== END ==
PROVIDERS: PCP Internal Medicine; Visit Provider Internal Medicine Gastroenterology
DX: K74.60 Unspecified cirrhosis of liver (principal); K44.9 Diaphragmatic hernia without obstruction or gangrene; Z86.2 Personal history of diseases of the blood and blood-forming organs and certain disorders involving the immune mechanism; K21.00 Gastro-esophageal reflux disease with esophagitis, without bleeding; E66.9 Obesity, unspecified
CPT/HCPCS: 99214

== ENCOUNTER 2024-04-12 10:36 | Outpatient (AMB) | payer MEDICARE, BC, SELFPAY ==
[2024-04-12 10:50] VITALS: BP 140/70; PULSE 124; O2SAT 94; BMI 33.1
--- NOTE | 2024-04-12 10:50 | A.OFFVIS_ITS ---
Vital Signs 04/12/24 10:50 Height 5 ft Weight 169 lb 12.095 oz BMI 33.1 BP 140/70 H Blood Pressure Location Lt brachial Position Sitting Pulse 124 H Pulse Source Pulse Oximeter Pulse Oximetry (%) 94 Oxygen Delivery Method Room Air Intake Visit Reasons: COPD Intake Note: pt is here for follow up and states she had her hip replacement, and breathing is good but a lot of coughing at night dry but wakes her up. She has lost over 30lbs by diet changes!! Garment Examiner Required: No Allergies cat dander [CATS] Allergy (Unknown, Verified 04/12/24 10:54) ASTHMA ATTACK Horse/Equine Containing Products [HORSE/EQUINE CONTAINING PRODUCTS] Allergy (Unknown, Verified 04/12/24 10:54) ASTHMA ATTACK ENVIROMENTAL Allergy (Unknown, Uncoded 04/12/24 10:54) ASTHMA ATTACK Medication List - Last Reconciled 04/12/24 by Albertina Kimball MD amlodipine 5 mg PO DAILY bisacodyl (Dulcolax (bisacodyl)) 20 mg (4 x 5 mg) PO ONCE 1 day cholecalciferol (vitamin D3) 25 mcg PO DAILY 90 days fluticasone propion-salmeterol 500-50 mcg/dose (Wixela Inhub) 1 inh inhalation BID 30 days mirabegron ER (Myrbetriq) 25 mg PO DAILY 90 days rkimtejg-xmcyaxknsNb-jqaleajnH 3.5mg-400 unit- 5,000 unit/gram (Neosporin (fag-mhi-rqfri)) 1 appl topical TID omeprazole 20 mg PO DAILY 90 days paroxetine HCl 40 mg PO QAM polyethylene glycol 3350 (Miralax) 17 grams PO DAILY 1 day solifenacin (Vesicare) 10 mg (2 x 5 mg) PO DAILY 90 days tiotropium bromide 2.5 mcg/actuation (Spiriva Respimat) 2 puffs PO DAILY Do you need a note to return to daycare/school/sports/work: No HPI HPI COPD: Details: 78 years old very pleasant female is here for 4 months follow-up for her COPD. She is doing very well with the current medical regimen. Has cough at night which is probably due to dryness of the air. She can walk around without much shortness of breath. She did have right hip replacement without any pulmonary complications. She has lost significant weight ( more than 40 lb in the last 5 months) in the weight management program and on only dietary limb. She is very happy and motivated. [facility] Medical History Morbid obesity Restrictive lung disease Tachycardia COVID-19 Endogenous depression COPD (chronic obstructive pulmonary disease) Allergic rhinitis GERD with esophagitis Asthma COPD (chronic obstructive pulmonary disease) History of iron deficiency anemia Hiatal hernia Cirrhosis of liver without ascites Surgical History History of right hip replacement Hx of ventral hernia repair History of dental surgery History of surgery on left wrist History of hysterectomy History of hip surgery Status post laparoscopic cholecystectomy (~06/10/18) Family History Other Mental health disorder Substance use disorder Social History Household Members: Spouse Housing: House Alcohol intake: former Patient Tobacco Use Status: Former Tobacco user e-Cigarette/Vaping Use: Never Used Second Hand Smoke Exposure: No service: No Current occupational status: disabled Cognitive needs: Yes (cane, walker) Hearing needs: No Vision needs: Yes (Reading Glasses) Review of Systems Const All systems reviewed & are unremarkable except as noted in HPI and below Eyes Reports no additional complaints ENT Reports nasal congestion (Off and on, mostly controlled at this time) Card Denies chest pain, Denies irregular heart rhythm and Denies leg edema Resp Reports as per HPI GI Reports heartburn (Symptoms of GERD controlled with omeprazole) Reports no additional complaints Musc Reports abnormal gait (Needs cane or walker, for gait stability) and Reports back pain Skin/Breast Reports system reviewed and no additional complaints, except as documented Neuro Reports abnormal gait (Needs cane or walker, for gait stability) Psych Reports depression (Controlled with med) Endo Reports no additional complaints Physical Exam Vital Signs: Last Vital Signs Pulse 124 H 04/12/24 10:50 BP 140/70 H 04/12/24 10:50 Pulse Ox 94 04/12/24 10:50 Oxygen Delivery Method Room Air 04/12/24 10:50 BMI result Body Mass Index 33.1 Const General: comfortable, no acute distress, alert and awake Orientation/consciousness: patient oriented x3 HEENT Head: Yes normal to inspection General nose exam: No nasal polyps present, No nasal discharge present and Other nasal findings present (Mild nasal congestion) Face and sinus: Yes sinuses nontender Mouth: oropharynx normal Throat: Yes posterior oropharynx normal Eyes General: appearance normal, both eyes and all related structures Neck Neck: Yes normal visual inspection, Yes no lymphadenopathy, Yes trachea midline and Yes no JVD Thyroid: Thyroid normal Chest Chest palpation & inspection: normal inspection of the chest, normal palpation of entire chest wall and no tenderness Resp Other: Percussion note is resonant, breath sounds distant on both sides with prolonged expiratory phase. No expiratory wheezes heard . Also no crepitations. Cardio Palpation: normal PMI Rate: tachycardic (hr at rest 120/mt ) Rhythm: regular rhythm Heart sounds: no gallops and no murmurs GI Palpation (GI): Soft to palpation, nontender, No hepatosplenomegaly present and no masses Auscultation: normal bowel sounds Back/Spine/Pelvis Thoracic/Lumbar Spine: thoracic and lumbar spine normal to inspection, thoraco- lumbar ROM limited and thoraco-lumbar spasm Skin General skin exam: no rashes or lesions noted Neuro General: patient oriented x3 and no focal motor deficits Cranial nerves: Yes CN's II-XII intact bilaterally Extrem General: Yes normal to inspection, Yes no clubbing, cyanosis or edema and Yes no calf tenderness Psych Appearance: grossly normal and well kempt Speech and movement: Normal speech and movement present Assessment & Plan Assessment & Plan (1) COPD (chronic obstructive pulmonary disease): Comment: MILD TO MODERTAELY SEVERE , WELL CONTROLLED , REMAINING STABLE.. , Code(s): J44.9 - Chronic obstructive pulmonary disease, unspecified Category: Medical Plan: Wixela, the does decrease to 250-50, 1 inhalation b.i.d.. Spiriva Respimat 2.5 mg 2 inhalations daily Albuterol HFA 2 puffs Q 6 hours p.r.n. (2) Allergic rhinitis: Comment: MILD , STABLE AND CONTROLLED . Code(s): J30.9 - Allergic rhinitis, unspecified Category: Medical Plan: May use OTC antihistaminics such as loratadine 10 mg only p.r.n. (3) Restrictive lung disease: Comment: PFT Showed Mild restrictive pulmonary disorder in addition to mild COPD. This is most likely due to her obesity, and is expected to improve as she loses weight. Code(s): J98.4 - Other disorders of lung Category: Medical Plan: Continue doing deep breathing exercises. Medications: New fluticasone propion-salmeterol 250-50 mcg/dose (Wixela Inhub) 1 inh inhalation BID 60 ea 5RF 30 days Coding Level of Care Code Est Pt Level 3 (93462) Diagnoses COPD (chronic obstructive pulmonary disease) J44.9 Allergic rhinitis J30.9 Restrictive lung disease J98.4
--- OUTSIDE RECORDS SUMMARY | 2024-04-13 00:51 | XMS_ITS ---
Author Organization [facility] Address [address] [place] [address] Care Team Providers Care Extension Edger Name Role Phone Rip Huber Primary Care Provider [phone] Black, Adriana Unavailable [phone] Allergies No Known Allergies REASON FOR VISIT Pcp-03/08/24, Foot pain Medications Medication SIG (Take, Route, Frequency, Duration) Notes Start Date End Date Status Ibuprofen 800 MG 1 tablet Orally Three times a day for 30 day(s) Not-Taking Lasix 40 MG 1 tablet Orally Once a day for 30 day(s) Not-Taking Calcium 500 MG 1 tablet with meals Orally Twice a day for 30 day(s) Not-Taking Magnesium 300 MG 1 capsule with a meal Orally Once a day for 30 day(s) Not-Taking Custom Orthotics as directed 03/20/2024 Active Flovent Diskus 50 MCG/BLIST 2 puffs Inhalation Twice a day Not-Taking PROzac 20 MG 1 capsule in the morning Orally Once a day for 30 day(s) Not-Taking Augmentin Not-Taking predniSONE Not-Quintinin amanda Flexeril 5 MG 1 tablet Orally Once a day for 30 day(s) Not-Taking Vistaril 25 MG 1 capsule Orally Three times a day for 30 day(s) Not-Taking Protonix 40 MG 1 tablet Orally Once a day for 30 day(s) Not-Taking Albuterol Sulfate 1.25 MG/3ML 3 ml as needed Inhalation every 6 hrs Not-Taking Albuterol Sulfate HFA 108 (90 Base) MCG/ACT 2 puffs as needed Inhalation every 4 hrs Not-Taking Prednisone Not-Takin g Keflex 500 MG 1 capsule Orally every 12 hrs for 10 day(s) 11/11/2017 Not-Taking Iron 325 (65 Fe) MG 1 tablet Orally Once a day Not-Taking Keflex 500 MG 1 capsule Orally every 12 hrs for 10 day(s) 10/09/2019 Not-Taking Cephalexin 500 MG 1 capsule Orally BID for 10 days 06/13/2020 Not-Taking Inhaler Companions N ot-Taking Custom Orthotics . . . for . 06/10/2015 Not-Taking predniSONE 20 MG 1 tablet Orally Once a day for 30 day(s) Not-Taking Amoxicillin Not-Taki ng traMADol HCl 50 MG 1 tablet as needed Orally Once a day for two weeks Not-Taking Cephalexin 500 MG 1 capsule Orally twice a day for 10 days Not-Taking Solifenacin Succinate 5 MG TAKE 1 TABLET BY MOUTH DAILY Oral for 90 Active Heel lift as directed add to shoe 08/05/2015 Active Custom Orthotics as directed 02/25/2011 Active albuterol 1 tab Oral Not-Takin g Advair Diskus Not-Ta joseph Vitamin D3 Active amLODIPine Besylate 5 MG 1 tablet Orally Once a day for 30 day(s) Active Spiriva HandiHaler 18 MCG 1 capsule Inhalation Once a day Active Paxil 50 1 tablet in the morning Once a day Active Omeprazole 20 MG Orally Act ghassan Wixela Inhub Active Myrbetriq 25 MG 1 tablet Orally Once a day Active ZyrTEC 10 MG 1 tablet Orally Once a day Active Tylenol Active Social History Tobacco Use: Social History Observation Description Date Details (start date - stop date) Former Smoker NA - NA Tobacco use other than smoking: Question Answer Notes Are you an other tobacco user? No Tobacco Control (Standard) Question Answer Notes Tobacco use: Former smoker Additional Findings: Tobacco non-user Ex-cigaret te smoker Vital Signs Height 5ft in 03/20/2024 Weight 173 lbs 03/20/2024 BMI 33.78 kg/m2 03/20/2024 Blood pressure systolic 120 mm Hg 03/20/20 24 Blood pressure diastolic 70 mm Hg 024 Encounters Encounter Location Date Provider Diagnosis [facility] [address] [place] [address] 03/20/2024 Adriana Black Metatarsalgia of lef t foot M77.42 ; Metatarsalgia, right foot M77.41 ; Pain in left foot M79.672 ; Pain in left ankle and joints of left foot M25.572 ; Bursitis of intermetatarsal bursa of left foot M77.52 ; Pain in right foot M79.671 ; Pain in right ankle and joints of right foot M25.571 and Bursitis of intermetatarsal bursa of right foot M77.51 Assessments Encounter Date Diagnosis (ICD Code) Assessment Notes Treatment Notes Treatment Clinical Notes Section Notes 03/20/2024 Metatarsalgia of left foot (ICD-10 - M77.42) 03/20/2024 Metatarsalgia, right foot (ICD-10 - M77.41) 03/20/2024 Pain in left foot (ICD-10 - M79.672) 03/20/2024 Pain in left ankle and joints of left foot (ICD-10 - M25.572) 03/20/2024 Bursitis of intermetatarsal bursa of left foot (ICD-10 - M77.52) 03/20/2024 Pain in right foot (ICD-10 - M79.671) 03/20/2024 Pain in right ankle and joints of right foot (ICD-10 - M25.571) 03/20/2024 Bursitis of intermetatarsal bursa of right foot (ICD-10 - M77.51) Plan Of Treatment Medication Medication Name Sig Start Date Stop Date Notes Custom Orthotics as directed 03/20/2024 Next Appt Details Follow Up: prn, Reason: Provider Name:Adriana Walton , 04/17/2024 01:45:00 PM, [address] [place] [address], [phone], Provider Name:Adriana Walton , 05/25/2024 01:45:00 PM, [address] [place] [address], [phone], Progress Notes * Aline HALLMAN MDOB: (78 yo F)Acc No.[id number]:03/20/2024 Progress Notes Patient:?Aline HALLMAN Provider:?Adriana Walton DPM :1945???Age:78 Y???Sex:Female D ate:03/20/2024 Address:[address] [place] [address], [phone] Pcp:Rip Huber Subjective: * Chief Complaints: * ???Pcp-03/08/24Foot pain * HPI: ???Foot Pain:?Nature:?aching, burning.?Location:?Bottom, Forefoot, B/L.?Duration:?, several weeks.?Onset:?gradual.?Course:?worse.?Aggravated:?standing, walking, any pressure.?Treatments:?rest/alter normal daily activity,custom orthotics which are worn.? * ROS:?General/Constitutional:?Nausea?denies.?Vomiting?denies.?Hunger Thirst?denies.?Loss appetite?denies.?Chills?denies.?Fatigue?denies.?Fever?denies.?Night Sweats?denies.?Unexplained weight loss?denies.?Unexplained weight gain?denies.?HEENTM:?Dentures?denies.?Dizziness?denies.?Glasses/contacts?admits.?Retinopathy?de nies.?Blurred/double vision?denies.?TMJ?denies.?Discharge/drainage?denies.?Implants?denies.?Sore throat?denies.?Dental implants?denies.?Hard of hearing ?denies.?Difficulty chewing/swallowing/speaking?denies.?Nose bleeds?denies.?Sore mouth?denies.?Respiratory:?On Oxygen?denies.?Pneumonia/pleurisy?denies.?Bronchitis?denies.?Emphysema?denies.?C oughing?denies.?Cough blood?denies.?Shortness of breath?denies.?Wheezing?denies.?Cardiovascular:?Pacemaker?denies.?MVP?denies.?WPW?denies.?CHF?denies.?Heart attack?denies.?Septal defect?denies.?Rapid beat?denies.?Chest pain ?denies.?Atrial Fib.?denies.?Murmur/Palpitations?denies.?Gastrointestinal:?Hemorrhoids?denies.?Stomach/Abdominal pain?denies.?Dark blood stool?denies.?Irritable bowel ?denies.?Constipation?denies.?Diarrhea?denies.?Hematology:?Swelling?denies.?Clots?denies.?Varicose Veins?denies.?Bruising?denies.?Bleeding problem?denies.?Genitourinary:?Blood urine?denies.?Frequent/Painfu/urination/bladder control?denies.?Kidney stones?denies.?Infection (UTI)?denies.?Nephropathy?denies.?sex trans dis (STD)?denies.?Prostate?denies.?Musculoskeletal:?Hammertoes?admits.?Bunions?admits.?Back Pain?admits.?Muscle Cramps/ Resting?admits.?Muscle cramps / walking?denies.?Generalized aches and pains?admits.?Weakness?denies.?Integ.:?Thomas?denies.?Scars?denies.?Corns/calluses?admits.?Ingrown nails?admits.?Painful nails?admits.?Open Sores?denies.?Rashes?denies.?Neurologic:?Difficulty sleeping?denies.?Brain disorder?denies.?Numbness?admits.?Balance trouble?denies.?Confusion?denies.?Fainting/blackouts?denies.?Tingling?admits.?Tr emors?denies.? * Medical History:? * Surgical History:?hand/wrist 1995hernia 1991, 2005hysterectomy 1990vein left leg laser oblasion 07/19/2014Colonoscopy 08/16/2017- 04/20/2019cataracts 04/08/18 and 04/18/18cholecystectomy 06/04/2018[facility]- right hip replacement 01/05/24 * Hospitalization/Major Diagno stic Procedure:?admitted to [facility], severe depression, anxiety, took to many drinks 12/08/13-12/22/13Endoscopy & colonoscopy 08/20/14Left Leg laser ablation 07/19/14colonoscopy 04/2015[facility]- Pnuemonia, Sepsis, Bleeding ulcer, Transfusion, Cholecystectomy 06/04/2018-06/11/18 * Family History:?Mother: dece ased, foot problems, diagnosed with Other malignant neoplasm of unspecified site, Unspecified cerebral artery occlusion with cerebral infarction.?Father: .?Spouse: alive.? No children. * Social History:?Tobacco Use:?Tobacco use other than smoking?Are you an other tobacco user??No ?Tobacco Control (Standard)?Tobacco use:?Former smoker ?Additional Findings: Tobacco non-user?Ex-cigarette smoker * Medications:?TakingWixela In hub Tylenol ZyrTEC 10 MG Tablet Chewable 1 tablet Orally Once a day Myrbetriq 25 MG Tablet Extended Release 24 Hour 1 tablet Orally Once a day amLODIPine Besylate 5 MG Tablet 1 tablet Orally Once a day Omeprazole 20 MG Tablet Delayed Release Orally Paxil 50 1 tablet in the morning Once a day Spiriva HandiHaler 18 MCG Capsule 1 capsule Inhalation Once a day Vitamin D3 Custom Orthotics as directed Heel lift as directed add to shoe Solifenacin Succinate 5 MG Tablet TAKE 1 TABLET BY MOUTH DAILY Oral Taking Wixela Inhub Taking Tylenol Taking ZyrTEC 10 MG Tablet Chewable 1 tablet Orally Once a day Taking Myrbetriq 25 MG Tablet Extended Release 24 Hour 1 tablet Orally Once a day Taking amLODIPine Besylate 5 MG Tablet 1 tablet Orally Once a day Taking Omeprazole 20 MG Tablet Delayed Release Orally Taking Paxil 50 1 tablet in the morning Once a day Taking Spiriva HandiHaler 18 MCG Capsule 1 capsule Inhalation Once a day Taking Vitamin D3 Taking Custom Orthotics as directed Taking Heel lift as directed add to shoe Taking Solifenacin Succinate 5 MG Tablet TAKE 1 TABLET BY MOUTH DAILY Oral Not-Taking/PRNAdvair Diskus albuterol 1 tab Oral Amoxicillin predniSONE 20 MG Tablet 1 tablet Orally Once a day Cephalexin 500 MG Capsule 1 capsule Orally twice a day traMADol HCl 50 MG Tablet 1 tablet as needed Orally Once a day , Notes to Pharmacist: for two weeksCustom Orthotics . . . . Cephalexin 500 MG Capsule 1 capsule Orally BID Keflex 500 MG Capsule 1 capsule Orally every 12 hrs Iron 325 (65 Fe) MG Tablet 1 tablet Orally Once a day Keflex 500 MG Capsule 1 capsule Orally every 12 hrs Inhaler Companions Albuterol Sulfate HFA 108 (90 Base) MCG/ACT Aerosol Solution 2 puffs as needed Inhalation every 4 hrs Albuterol Sulfate 1.25 MG/3ML Nebulization Solution 3 ml as needed Inhalation every 6 hrs Protonix 40 MG Tablet Delayed Release 1 tablet Orally Once a day Prednisone Vistaril 25 MG Capsule 1 capsule Orally Three times a day Flovent Diskus 50 MCG/BLIST Aerosol Powder Breath Activated 2 puffs Inhalation Twice a day Flexeril 5 MG Tablet 1 tablet Orally Once a day predniSONE Augmentin PROzac 20 MG Capsule 1 capsule in the morning Orally Once a day Magnesium 300 MG Capsule 1 capsule with a meal Orally Once a day Calcium 500 MG Tablet 1 tablet with meals Orally Twice a day Lasix 40 MG Tablet 1 tablet Orally Once a day Ibuprofen 800 MG Tablet 1 tablet Orally Three times a day Medication List reviewed and reconciled with the patientNot-Taking/PRN Advair Diskus Not-Taking/PRN albuterol 1 tab Oral Not-Taking/PRN Amoxicillin Not-Taking/PRN predniSONE 20 MG Tablet 1 tablet Orally Once a day Not-Taking/PRN Cephalexin 500 MG Capsule 1 capsule Orally twice a day Not-Taking/PRN traMADol HCl 50 MG Tablet 1 tablet as needed Orally Once a day , Notes to Pharmacist: for two weeksNot- Taking/PRN Custom Orthotics . . . . Not-Taking/PRN Cephalexin 500 MG Capsule 1 capsule Orally BID Not-Taking/PRN Keflex 500 MG Capsule 1 capsule Orally every 12 hrs Not- Taking/PRN Iron 325 (65 Fe) MG Tablet 1 tablet Orally Once a day Not-Taking/PRN Keflex 500 MG Capsule 1 capsule Orally every 12 hrs Not-Taking/PRN Inhaler Companions Not-Taking/PRN Albuterol Sulfate HFA 108 (90 Base) MCG/ACT Aerosol Solution 2 puffs as needed Inhalation every 4 hrs Not-Taking/PRN Albuterol Sulfate 1.25 MG/3ML Nebulization Solution 3 ml as needed Inhalation every 6 hrs Not-Taking/PRN Protonix 40 MG Tablet Delayed Release 1 tablet Orally Once a day Not-Taking/PRN Prednisone Not-Taking/PRN Vistaril 25 MG Capsule 1 capsule Orally Three times a day Not-Taking/PRN Flovent Diskus 50 MCG/BLIST Aerosol Powder Breath Activated 2 puffs Inhalation Twice a day Not-Taking/PRN Flexeril 5 MG Tablet 1 tablet Orally Once a day Not-Taking/PRN predniSONE Not-Taking/PRN Augmentin Not-Taking/PRN PROzac 20 MG Capsule 1 capsule in the morning Orally Once a day Not-Taking/PRN Magnesium 300 MG Capsule 1 capsule with a meal Orally Once a day Not-Taking/PRN Calcium 500 MG Tablet 1 tablet with meals Orally Twice a day Not-Taking/PRN Lasix 40 MG Tablet 1 tablet Orally Once a day Not-Taking/PRN Ibuprofen 800 MG Tablet 1 tablet Orally Three times a day Medication List reviewed and reconciled with the patient * Allergies:?N.K.D.A.yes[Aller gies Verified] Objective: * Vitals:?Ht: 5ft, Wt: 173, BM I: 33.78, Shoe size: 7, BP: 120/70 mm Hg, Ht-cm: 152.4 cm, Wt-k.47 kg. * Examination: ???General Examination: ?GENERAL APPEARANCE:?Reveals a pleasant, alert, well nourished, well- developed, well hydrated individual, who demonstrates proper attention to hygiene/body habitus, and is in no acute distress, Pt serves as own historian for office visit today.?ORIENTED:?person, place, and time.?Dermatologic: ?HYPERKERATOSIS:?2nd MTH, 3rd MTH, right, 5th MTH, left.?Orthopedic: ?MUSCLE STRENGTH:?Generalized decrease in strength, B/L, Drop foot,, Right.?GAIT ABNORMALITY:?antalgic.?DIGITAL DEFORMITIES:?Digital contracture, PIPJ, 2-5 B/L, non-reducible with WB or to push-up test, multiple crossovers.?MPJ PATHOLOGY:?Pain, swelling, and inflammation to plantar MPJ(s),2nd3rd,RIGHT, 5th, LEFT, , B/L , No MPJ pain with ROM , [ - ] Ecchymosis.?FOOTWEAR:?OT were inspected and noted to be severely worn, in poor condition not giving proper support at the present time.?Neurological: ?SENSORY:?Neurological exam reveals intact sensorium, pain sensation normal, vibration sensation intact, pinprick sensation is normal in the lower extremities, Pt denies, anesthesia, burning, paresthesia, tingling, B/L.?TINEL'S COMPRESSION:? Negative tarsal tunnel, ciro pedis, and medial calcaneal nerves.?Neuroma Pain: ?PALPATION:?No interspace pain noted on palpation.? Assessment: * Assessment: 1.?Metatarsalgia, right foot - M77.41 (Primary)???Specify :Acute problem, Complicated w/ Multiple Tx Options(4) Rx Management (4)???2.?Metatarsalgia of left foot - M77.42???Specify :Acute problem, Complicated w/ Multiple Tx Options(4) Rx Management (4)???3.?Pain in left foot - M79.672???4.?Pain in left ankle and joints of left foot - M25.572???5.?Bursitis of intermetatarsal bursa of left foot - M77.52???6.?Pain in right foot - M79.671???7.?Pain in right ankle and joints of right foot - M25.571???8.?Bursitis of intermetatarsal bursa of right foot - M77.51??? Plan: * Treatment: * Procedure Codes:? * Preventive Medicine:? ??Counseling:?Discussion:?-14: Office or other outpatient visit for the evaluation and management of an established patient, which required a medically appropriate history and/or examination and MODERATE level of DECISION MAKING for: 1 OR MORE CHRONIC PROBLEM(S) THATS WORSENING, 2 STABLE CHRONIC PROBLEMS, A NEWLY DIAGNOSED PROBLEM WITH UNCERTAIN PROGNOSIS, AN ACUTE COMPLICATED INJURY WITH MULTIPLE TREATMENT OPTIONS, OR AN ACUTE PROBLEM WITH ACCOMPANYING SYSTEMIC SYMPTOMS, THAT POSE(S) A MODERATE RISK OF MORBIDITY. THIS CONDITION MAY ALSO INCLUDE RX DRUG MANAGEMENT, OR A DECISON FOR MINOR SURGERY. The visit on the day of the encounter encompassed interpreting the data and educating the patient as to the nature of their condition, treatment options available according to their individual PMH, meds, allergies, and overall health/living conditions, as well as any potential risks or complications that may occur from a failure to adhere to, and participate in, the recommended course of therapy. The discussion included a complete verbal, and/or written explanation of the examination results, any x-rays taken, the proposed diagnosis, and outline of the treatment plan. A schedule for future care needs was also explained. The patient verbalized an understanding of the instructions at this time and agreed to be an active participant in their treatment. If the patient should think of any questions or concerns after the visit, I have encouraged the patient to call the office.?Metatarsalgea:?I explained to the patient the possible etiologies of their Metatarsalgea Foot pain, including foot type/shoegear/activity level/exercise routine and the risks/benefits of all the different treatment options for pain including: No treatment at all, Rest, Ice, NSAIDs(only if well tolerated after meals), New/supportive Shoegear, Strappings and Tapings, Foot/Ankle AFO Bracing, Stretching exercises, Deep Tissue Massage, Arch support/shoe inserts, Custom orthoses, Topical analgesics including Aspercream/Voltaren gel, Physical Therapy, Cortisone injection therapy, EPAT/ESWT. Advantages and disadvantages of each option were discussed and the patients questions re: shoegear, custom vs prefabricated inserts, activity level, PO vs Topical medications (and their respective potential complications/drug interactions/side effects), and consistency in home treatment regimens for optimal success were answered to their verbally confirmed satisfaction.?Orthotics:?I explained to the patient the benefits of OT use. I explained that orthoses are medically necessary to decrease the foot pain through proper mechanical control, support of their foot, decrease pain associated with the plantar lesion, decrease pain under the painful metatarsal by supplementing the soft tissue, cushion the forefoot by supplementing the soft tissue, Rx OT given and recommended [facility] * Follow Up:?prn * Images: * Sign off status: Completed true * Provider:?Adriana Walton DPM Date:?2023 Generated for Nate barbour/Georgie/Jeannine on:?04/13/2024 12:51 AM EST History and Physical Notes * HPI (History of Present Illness) Category Sub-Category Detail Notes Category Not es Foot Pain Nature: aching, burning Location: Bottom, Forefoot, B/ L Duration: , several weeks Onset: gradual Course: worse Aggravated: standing, walking, a ny pressure Treatments: rest/alter normal da raudel activity,custom orthotics which are worn Examination Category Sub-Category Detail Notes Category Not es Neuroma Pain PALPATION: No interspace pain noted on palpation Neurological SENSORY: Neurological exa m reveals intact sensorium, pain sensation normal, vibration sensation intact, pinprick sensation is normal in the lower extremities, Pt denies, anesthesia, burning, paresthesia, tingling, B/L TINEL'S COMPRESSION: Negative tarsal nelida gladys, ciro pedis, and medial calcaneal nerves Dermatologic HYPERKERATOSIS: 2nd MTH, 3rd MTH, right, 5th MTH, left Orthopedic GAIT ABNORMALITY: antalgic FOOTWEAR: OT were inspected an d noted to be severely worn, in poor condition not giving proper support at the present time DIGITAL DEFORMITIES: Digital contracture , PIPJ, 2-5 B/L, non-reducible with WB or to push-up test, multiple crossovers MPJ PATHOLOGY: Pain, swelling, and inflammation to plantar MPJ(s),2nd3rd,RIGHT, 5th, LEFT, , B/L , No MPJ pain with ROM , [ - ] Ecchymosis MUSCLE STRENGTH: Generalized decrease in strength, B/L, Drop foot,, Right General Examination GENERAL APPEARANCE: Reveals a pleasant, alert, well nourished, well-developed, well hydrated individual, who demonstrates proper attention to hygiene/body habitus, and is in no acute distress, Pt serves as own historian for office visit today ORIENTED: person, place, and t randy
--- OUTSIDE RECORDS SUMMARY | 2024-04-13 00:52 | XMS_ITS ---
Author Organization [facility] Address [address] [place] [address] Care Team Providers Care Data Integration Architect Name Role Phone Rip Huber Primary Care Provider Adriana Walton [phone] Encounters Encounter Location Date Provider Diagnosis [address] [address] 03/16/2024 Adriana Walton Plan Of Treatment Next Appt Details Provider Name:Adriana A Anton , 04/17/2024 01:45:00 PM, [address] [place] [address], [phone], Provider Name:Adriana Parra Anton , 05/25/2024 01:45:00 PM, [address] [place] [address], [phone], Progress Notes * Aline HARTLEY MDOB: 8 (78 yo F)Acc No.[id number]:03/16/2024 Progress Notes Patient:?Aline HARTLEY Provider:?Adriana Walton DPM :1945???Age:78 Y???Sex:Female D ate:03/16/2024 Address:[address] [place], [place] [phone] Pcp:Rip Huber Subjective: * Chief Complaints: * ??? * Medical History:? Objective: * Vitals:? Assessment: Plan: * Treatment: * Images: * The named appointment provid er may or may not be the originator of this progress note, and it is not deemed complete until electronically signed by the appointment provider. Sign off status: Pending * Provider:William Walton DPM Date:?2023 Generated for Nate barbour/Georgie/Jeannine on:?04/13/2024 12:51 AM EST
--- OUTSIDE RECORDS SUMMARY | 2024-04-13 00:52 | XMS_ITS | Patient Health Record ---
Author Organization 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 Name Role Phone Rip Huber Primary Care Provider Adriana Walton Unavailable [phone] Allergies No Known Allergies Reason For Referral No Information Medications Medication SIG (Take, Route, Frequency, Duration) Notes Start Date End Date Status Flovent Diskus 50 MCG/BLIST 2 puffs Inhalation Twice a day Not-Taking Vistaril 25 MG 1 capsule Orally Three times a day for 30 day(s) Not-Taking Solifenacin Succinate 5 MG TAKE 1 TABLET BY MOUTH DAILY Oral for 90 Active PROzac 20 MG 1 capsule in the morning Orally Once a day for 30 day(s) Not-Taking Heel lift as directed add to shoe 08/05/2015 Active Augmentin Not-Taking Custom Orthotics as directed 02/25/2011 Active predniSONE Not-Takin g Vitamin D3 Active Flexeril 5 MG 1 tablet Orally Once a day for 30 day(s) Not-Taking Custom Orthotics as directed 03/20/2024 Active amLODIPine Besylate 5 MG 1 tablet Orally Once a day for 30 day(s) Active Protonix 40 MG 1 tablet Orally Once a day for 30 day(s) Not-Taking Myrbetriq 25 MG 1 tablet Orally Once a day Active Albuterol Sulfate 1.25 MG/3ML 3 ml as needed Inhalation every 6 hrs Not-Taking ZyrTEC 10 MG 1 tablet Orally Once a day Active Albuterol Sulfate HFA 108 (90 Base) MCG/ACT 2 puffs as needed Inhalation every 4 hrs Not-Taking Tylenol Active Inhaler Companions N ot-Taking Spiriva HandiHaler 18 MCG 1 capsule Inhalation Once a day Active Paxil 50 1 tablet in the morning Once a day Active Omeprazole 20 MG Orally Act ghassan Prednisone Not-Emperatriz g Custom Orthotics . . . for . 06/10/2015 Not-Taking Wixela Inhub Active Keflex 500 MG 1 capsule Orally every 12 hrs for 10 day(s) 11/11/2017 Not-Taking Iron 325 (65 Fe) MG 1 tablet Orally Once a day Not-Taking Keflex 500 MG 1 capsule Orally every 12 hrs for 10 day(s) 10/09/2019 Not-Taking Cephalexin 500 MG 1 capsule Orally BID for 10 days 06/13/2020 Not-Taking predniSONE 20 MG 1 tablet Orally Once a day for 30 day(s) Not-Taking Ibuprofen 800 MG 1 tablet Orally Three times a day for 30 day(s) Not-Taking Amoxicillin Not-Jim ng Lasix 40 MG 1 tablet Orally Once a day for 30 day(s) Not-Taking albuterol 1 tab Oral Not-Emperatriz g Calcium 500 MG 1 tablet with meals Orally Twice a day for 30 day(s) Not-Taking Advair Diskus Not-Ta joseph Magnesium 300 MG 1 capsule with a meal Orally Once a day for 30 day(s) Not-Taking traMADol HCl 50 MG 1 tablet as needed Orally Once a day for two weeks Not-Taking Cephalexin 500 MG 1 capsule Orally twice a day for 10 days Not-Taking Immunizations Vaccine Route Administration Date Status Comme nts COVID-19 Moderna Vaccine Unknown 02/26/2021 Administered 1st 06/29/20 Second Dose: 07/27/20 Influenza Unknown 12/14/2020 Administered Social History Tobacco Use: Social History Observation Description Date Details (start date - stop date) Former Smoker NA - NA Alcohol Screen Question Answer Notes Did you have a drink containing alcohol in the p ast year? No Points 0 Interpretation Negative Tobacco use other than smoking: Question Answer Notes Are you an other tobacco user? No Tobacco Control (Standard) Question Answer Notes Tobacco use: Former smoker Additional Findings: Tobacco non-user Ex-cigaret te smoker Problems Problem Type SNOMED Code ICD Code Onset Dates Problem Status W/U Status Risk Notes Problem Acquired hallux valgus (87060620) Hallux valgus (acquired), left foot (M20.12) Active confirmed Problem Chronic ulcer of foot (169940305) Non-pressure chronic ulcer of other part of left foot with fat layer exposed (L97.522) Active confirmed Problem Acquired hallux valgus (80691768) Hallux valgus (acquired), right foot (M20.11) Active confirmed Problem Right foot drop (855792329151 106) Foot drop, right foot (M21.371) Active confirmed Problem Metatarsal bone fracture (319455538) Displaced fracture of fifth metatarsal bone, left foot, subsequent encounter for fracture with delayed healing (S92.352G) Active confirmed Problem Non-pressure ulcer lower limb (225167432) Non-pressure chronic ulcer of other part of left foot limited to breakdown of skin (L97.521) Active confirmed Problem Non-pressure ulcer lower limb (372071657) Non-pressure chronic ulcer of other part of right foot limited to breakdown of skin (L97.511) Active confirmed Problem Acquired hammer toe of right foot (905343720874 9105) Other hammer toe(s) (acquired), right foot (M20.41) Active confirmed Problem Acquired hammer toe of left foot (243360494109 9103) Other hammer toe(s) (acquired), left foot (M20.42) Active confirmed Problem 18763377 Lower limb length difference (M21.70) Active confirmed Problem 52938688 Unsteady gait (R26.81) Active confirmed Response to treatment - Improvement Problem Joint contracture of the ankle and/or foot (576271585) Flexion contracture of joint of right foot (M24.574) Active confirmed Problem Acquired deformity of right foot (038003357600 50208) PlantarFlexion of metatarsal of right foot (M21.6X1) Active confirmed Problem Joint contracture of the ankle and/or foot (478108239) Flexion contracture of joint of left foot (M24.575) Active confirmed Problem Ulcer of toe of right foot (disorder) (905903948957 ) Skin ulcer of toe of right foot, limited to breakdown of skin (L97.511) Active confirmed Nonapplicable Problem Ulcer of toe of left foot (disorder) (613159365140 72232) Skin ulcer of toe of left foot, limited to breakdown of skin (L97.521) Active confirmed Improvement Vital Signs Blood pressure diastolic 70 mm Hg 03/20/2024 Height 5ft in 03/20/2024 Blood pressure systolic 120 mm Hg 03/20/2024 Weight 173 lbs 03/20/2024 BMI 33.78 kg/m2 03/20/2024 Procedures Procedure Date Ordered Date Performed Result Body Sit e 88849-TNXT SKIN LESIONS, 2 TO 4 05/10/2023 N/A 51572-OPWH NAIL(S) 05/10/2023 N/A 98981- Debride <25 sq cm 07/12/2023 N/A 95784-PXHD SKIN LESIONS, 2 TO 4 09/20/2023 N/A 75042-VQVV NAIL(S) 09/20/2023 N/A 29757-MQWZ SKIN LESIONS, 2 TO 4 10/25/2023 N/A 37352-FOAP NAIL(S) 10/25/2023 N/A 50675-UBPT SKIN LESIONS, 2 TO 4 11/29/2023 N/A 60199-JGEW NAIL(S) 11/29/2023 N/A 17964-VAYI SKIN LESIONS, 2 TO 4 02/17/2024 N/A 42929-LTTR NAIL(S) 02/17/2024 N/A Encounters Encounter Location Date Provider Diagnosis [address] [address] 05/10/2023 Adriana Black Acquired keratosis [keratoderma] palmaris et plantaris L85.1 and Other nail disorders L60.[address] [address] 06/14/2023 Adriana Black Foot drop, right tim t M21.371 ; Unsteady gait R26.81 and Lower limb length difference M21.[address] [address] 07/12/2023 Adriana Black Foot drop, right tim t M21.371 ; Cellulitis of toe of right foot L03.031 ; Unsteady gait R26.81 ; Lower limb length difference M21.70 and Skin ulcer of toe of left foot, limited to breakdown of skin L97.[address] [address] 07/26/2023 Adriana Black Skin ulcer of toe of left foot, limited to breakdown of skin L97.521 ; Cellulitis of toe of right foot L03.031 and Skin ulcer of toe of right foot, limited to breakdown of skin L97.[address] [address] 09/20/2023 Adriana Black Acquired keratosis [keratoderma] palmaris et plantaris L85.1 and Other nail disorders L60.[address] [address] 10/25/2023 Adriana Black Acquired keratosis [keratoderma] palmaris et plantaris L85.1 and Other nail disorders L60.[address] [address] 11/29/2023 Adriana Black Acquired keratosis [keratoderma] palmaris et plantaris L85.1 and Other nail disorders L60.[address] [address] 02/17/2024 Adriana Black Acquired keratosis [keratoderma] palmaris et plantaris L85.1 and Other nail disorders L60.[address] [address] 03/20/2024 Adriana Black Metatarsalgia of lef t [...] of intermetatarsal bursa of right foot M77.[address] [address] 08/12/2023 Adriana Black Assessments Encounter Date Diagnosis (ICD Code) Assessment Notes Treatment Notes Treatment Clinical Notes Section Notes 05/10/2023 Acquired keratosis [keratoderma] palmaris et plantaris (ICD-10 - L85.1) 06/14/2023 Foot drop, right foot (ICD-10 - M21.371) 06/14/2023 Unsteady gait (ICD-10 - R26.81) 07/12/2023 Foot drop, right foot (ICD-10 - M21.371) 07/12/2023 Cellulitis of toe of right foot (ICD-10 - L03.031) 07/26/2023 Cellulitis of toe of right foot (ICD-10 - L03.031) 07/26/2023 Skin ulcer of toe of left foot, limited to breakdown of skin (ICD-10 - L97.521) Improvement Patient Educated with: WOUND CARE INSTRUCTIONS. pdf (WOUND CARE INSTRUCTIONS. pdf) 09/20/2023 Acquired keratosis [keratoderma] palmaris et plantaris (ICD-10 - L85.1) 10/25/2023 Acquired keratosis [keratoderma] palmaris et plantaris (ICD-10 - L85.1) 11/29/2023 Acquired keratosis [keratoderma] palmaris et plantaris (ICD-10 - L85.1) 02/17/2024 Acquired keratosis [keratoderma] palmaris et plantaris (ICD-10 - L85.1) 03/20/2024 Metatarsalgia, right foot (ICD-10 - M77.41) 03/20/2024 Metatarsalgia of left foot (ICD-10 - M77.42) 03/20/2024 Pain in left foot (ICD-10 - M79.672) 02/17/2024 Other nail disorders (ICD-10 - L60.8) 11/29/2023 Other nail disorders (ICD-10 - L60.8) 10/25/2023 Other nail disorders (ICD-10 - L60.8) 09/20/2023 Other nail disorders (ICD-10 - L60.8) 07/26/2023 Skin ulcer of toe of right foot, limited to breakdown of skin (ICD-10 - L97.511) Nonapplicable Patient Educated with: WOUND CARE INSTRUCTIONS. pdf (WOUND CARE INSTRUCTIONS. pdf) 07/12/2023 Unsteady gait (ICD-10 - R26.81) Response to treatment - Improvement 06/14/2023 Lower limb length difference (ICD-10 - M21.70) RX lift to left shoe 05/10/2023 Other nail disorders (ICD-10 - L60.8) 07/12/2023 Lower limb length difference (ICD-10 - M21.70) 03/20/2024 Pain in left ankle and joints of left foot (ICD-10 - M25.572) 03/20/2024 Bursitis of intermetatarsal bursa of left foot (ICD-10 - M77.52) 07/12/2023 Skin ulcer of toe of left foot, limited to breakdown of skin (ICD-10 - L97.521) Response to treatment - Unchanged Patient Educated with: WOUND CARE INSTRUCTIONS. pdf (WOUND CARE INSTRUCTIONS. pdf) 03/20/2024 Pain in right foot (ICD-10 - M79.671) 03/20/2024 Pain in right ankle and joints of right foot (ICD-10 - M25.571) 03/20/2024 Bursitis of intermetatarsal bursa of right foot (ICD-10 - M77.51) 07/12/2023 Other Plan Of Treatment Pending Test Test Name Order Date 25365-WRIVGPV NAIL, 6 OR MORE 02/22/2013 37370-OYULEEL NAIL, 6 OR MORE 05/04/2013 93248-CDZQGLX NAIL, 6 OR MORE 06/05/2013 20885-FYNJEJZ NAIL, 6 OR MORE 07/03/2013 95118-PWTRUOP NAIL, 6 OR MORE 08/28/2013 65815-SWXXMDC NAIL, 6 OR MORE 11/27/2013 02281-FYUZDDI NAIL, 6 OR MORE 03/26/2014 69525-ZZRPIAZ NAIL, 6 OR MORE 07/30/2014 76526-LRIXKHM NAIL, 1-11/28/2012 17980-RIHSQKQ NAIL, -12/07/2011 22836-UMSFQYL NAIL, -06/01/2012 92651-CSANGGW NAIL, -08/17/2012 87659-BVJGLAF NAIL, -10/28/2011 02467-VTLGXOM NAIL, -01/18/2012 31258-SABNIZS NAIL, -02/29/2012 10550-Cvrk Destruction, 1-12/31/2014 80937-Hfaahkzl Plate 05/23/2014 02433-Tsseectp Plate 08/28/2013 47792-Gtitpaju Plate 07/22/2020 19232- Debride <25 sq cm 08/29/2020 85186- Debride <25 sq cm 12/05/2020 27025- Debride <25 sq cm 07/31/2021 68631- Debride <25 sq cm 09/11/2019 13571- Debride <25 sq cm 10/23/2019 76862- Debride <25 sq cm 11/13/2019 34452- Debride <25 sq cm 12/14/2019 12946- Debride <25 sq cm 02/29/2012 18626- Debride <25 sq cm 03/21/2020 18470- Debride <25 sq cm 05/16/2020 93877- Debride <25 sq cm 06/13/2020 31193- Debride <25 sq cm 07/22/2020 11586- Debride <25 sq cm 07/12/2023 52168- Debride <25 sq cm 09/27/2013 08437- Debride <25 sq cm 10/26/2013 55067- Debride <25 sq cm 08/28/2013 49987- Debride <25 sq cm 07/03/2013 72176- Debride <25 sq cm 07/31/2013 23963- Debride <25 sq cm 03/26/2014 75268- Debride <25 sq cm 04/23/2014 45709- Debride <25 sq cm 05/23/2014 46637- Debride <25 sq cm 11/27/2013 63477- Debride <25 sq cm 12/27/2013 12245- Debride <25 sq cm 01/24/2014 38885- Debride <25 sq cm 02/22/2014 56587- Debride <25 sq cm 06/25/2014 51652- Debride <25 sq cm 01/28/2015 42080- Debride <25 sq cm 02/27/2015 77720- Debride <25 sq cm 08/27/2014 14377- Debride <25 sq cm 09/27/2014 78806- Debride <25 sq cm 10/29/2014 75920- Debride <25 sq cm 11/28/2014 72382- Debride <25 sq cm 12/31/2014 55750- Debride <25 sq cm 03/31/2012 91527- Debride <25 sq cm 05/04/2012 24160- Debride <25 sq cm 06/01/2012 82661- Debride <25 sq cm 01/18/2012 63908- Debride <25 sq cm 12/07/2011 84278- Debride <25 sq cm 08/13/2011 64178- Debride <25 sq cm 10/28/2011 97059- Debride <25 sq cm 04/08/2011 16445- Debride <25 sq cm 05/14/2011 67087- Debride <25 sq cm 08/17/2012 92208- Debride <25 sq cm 11/28/2012 98162- Debride <25 sq cm 12/28/2012 25505- Debride <25 sq cm 02/22/2013 86510- Debride <25 sq cm 03/27/2013 03217- Debride <25 sq cm 06/05/2013 57096- Debride <25 sq cm 05/04/2013 13122- Debride <25 sq cm 12/09/2017 19920- Debride <25 sq cm 07/14/2018 45124- Debride <25 sq cm 08/18/2018 99793- Debride <25 sq cm 12/08/2018 23379-LOEFERV SKIN/TISSUE 06/05/2013 77837-WZZOYOP SKIN/TISSUE 06/30/2012 27071-VPLJUDD SKIN/TISSUE 07/28/2012 40205-DBCAMIO SKIN/TISSUE 07/31/2013 94900-KGFZPHQ SKIN/TISSUE 07/03/2013 11132-TLRPZER SKIN/TISSUE 02/19/2020 62871 I&D ABSCESS- SIMPLE,SINGLE 015 04116 I&D ABSCESS- SIMPLE,SINGLE 013 36609 I&D ABSCESS- SIMPLE,SINGLE 013 24587 I&D ABSCESS- SIMPLE,SINGLE 019 02027-TTZR SKIN LESIONS, OVER 4 04/07/20 18 95203-JNMA SKIN LESIONS, OVER 4 05/09/19 19 33849-XHDC SKIN LESIONS, OVER 4 01/07/20 18 16156-HGIV SKIN LESIONS, OVER 4 10/08/19 18 03404-JAJN SKIN LESIONS, OVER 4 02/04/20 18 71304-DKWQ SKIN LESIONS, OVER 4 03/10/20 18 52137-EFOI SKIN LESIONS, OVER 4 01/06/20 19 94344-HXEQ SKIN LESIONS, OVER 4 11/16/19 19 06117-DACV SKIN LESIONS, OVER 4 09/16/19 22127-AZJF SKIN LESIONS, OVER 4 10/14/19 19 02631-QBNC SKIN LESIONS, OVER 4 02/07/20 19 74217-LPWH SKIN LESIONS, OVER 4 03/06/20 19 68116-MTEX SKIN LESIONS, OVER 4 05/08/19 10310-WNXY SKIN LESIONS, OVER 4 06/05/19 21034-GBAG SKIN LESIONS, OVER 4 11/18/19 16 08212-CGZX SKIN LESIONS, OVER 4 12/23/19 16 11496-OKEE SKIN LESIONS, OVER 4 01/13/20 16 69646-TYDY SKIN LESIONS, OVER 4 02/17/20 16 16480-FIAF SKIN LESIONS, OVER 4 03/16/20 16 72889-LZWR SKIN LESIONS, OVER 4 04/20/20 16 64286-QDMO SKIN LESIONS, OVER 4 05/25/19 17 61672-JTCL SKIN LESIONS, OVER 4 06/25/19 17 70946-ABKE SKIN LESIONS, OVER 4 07/21/19 17 52998-SRZC SKIN LESIONS, OVER 4 08/28/19 17 62898-BWFU SKIN LESIONS, OVER 4 01/26/20 17 62261-RDPM SKIN LESIONS, OVER 4 02/23/20 17 42972-ZNYM SKIN LESIONS, OVER 4 03/29/20 17 94701-BQJA SKIN LESIONS, OVER 4 06/03/19 18 84808-VZPU SKIN LESIONS, OVER 4 07/02/19 18 23141-RLRS SKIN LESIONS, OVER 4 08/06/19 18 57669-DASA SKIN LESIONS, OVER 4 08/05/19 16 08335-ILKP SKIN LESIONS, OVER 4 09/02/19 16 08632-UCTE SKIN LESIONS, OVER 4 10/07/19 16 66222-HQDW SKIN LESIONS, OVER 4 07/03/19 16 34620-GLSM SKIN LESIONS, OVER 4 04/18/20 20 29817-XZLD SKIN LESIONS, OVER 4 07/03/19 43237-ZGCD SKIN LESIONS, OVER 4 07/07/19 05163-OCXS SKIN LESIONS, 2 TO 4 06/01/19 15346-SKXR SKIN LESIONS, 2 TO 4 03/30/20 85827-DXUN SKIN LESIONS, 2 TO 4 04/23/20 89429-TFOR SKIN LESIONS, 2 TO 4 10/10/19 17433-FBXM SKIN LESIONS, 2 TO 4 11/18/19 23407-IEJQ SKIN LESIONS, 2 TO 4 01/20/20 08816-FHLV SKIN LESIONS, 2 TO 4 02/24/20 85609-MJLT SKIN LESIONS, 2 TO 4 09/20/19 10061-IDAZ SKIN LESIONS, 2 TO 4 05/10/19 68856-ALPA SKIN LESIONS, 2 TO 4 01/19/20 07863-QDNN SKIN LESIONS, 2 TO 4 03/22/20 13970-OGHR SKIN LESIONS, 2 TO 4 08/04/19 78301-JMUY SKIN LESIONS, 2 TO 4 09/01/19 75695-FRVO SKIN LESIONS, 2 TO 4 10/02/19 78641-YVQH SKIN LESIONS, 2 TO 4 11/24/19 14715-DGEL SKIN LESIONS, 2 TO 4 08/29/19 69142-DTER SKIN LESIONS, 2 TO 4 06/19/19 25616-UBIR SKIN LESIONS, 2 TO 4 04/03/20 72478-LIXQ SKIN LESIONS, 2 TO 4 05/01/20 86761-JWGX SKIN LESIONS, 2 TO 4 01/03/20 87348-OVQY SKIN LESIONS, 2 TO 4 02/14/20 90345-RSGV SKIN LESIONS, 2 TO 4 11/01/19 06221-MGYP SKIN LESIONS, 2 TO 4 10/25/19 20328-BYCZ SKIN LESIONS, 2 TO 4 11/29/19 89832-ERSE SKIN LESIONS, 2 TO 4 02/17/20 11473, I4737-AVCQM/INJECT, JOINT/BURSA 0 12/07/201120333, Z4256-WVTQW/INJECT, JOINT/BURSA 0 05/14/201103007, K4293-GKIIS/INJECT, JOINT/BURSA 1 06/09/201011666, A2214-CTFGE/INJECT, JOINT/BURSA 0 01/18/201299761, S7394-ROUTL/INJECT, JOINT/BURSA 0 08/18/2018 99187-JHJJ NAIL(S) 05/09/2018 52078-AQAT NAIL(S) 04/07/2018 24376-FKTN NAIL(S) 03/10/2018 79923-QZHI NAIL(S) 02/03/2018 16464-YUKO NAIL(S) 10/07/2017 56179-YARN NAIL(S) 01/06/2018 06807-JFEV NAIL(S) 06/05/2019 48132-NAWO NAIL(S) 05/08/2019 19552-KNZG NAIL(S) 03/06/2019 61914-TWVK NAIL(S) 02/06/2019 94034-EBZA NAIL(S) 10/13/2018 50742-QSPH NAIL(S) 09/15/2018 85458-OMZY NAIL(S) 11/15/2018 74440-ZHJQ NAIL(S) 01/05/2019 02564-VZSJ NAIL(S) 08/05/2017 83890-TMIM NAIL(S) 07/01/2017 77137-ZPJS NAIL(S) 06/03/2017 84452-BIRP NAIL(S) 02/22/2017 03443-AUOC NAIL(S) 01/25/2017 98579-FAIH NAIL(S) 02/17/2024 73463-GBKI NAIL(S) 11/29/2023 47292-ZFVT NAIL(S) 10/25/2023 02698-HDBC NAIL(S) 10/31/2020 58090-BUWF NAIL(S) 02/13/2021 97909-AZOI NAIL(S) 01/02/2021 12978-KMDD NAIL(S) 05/01/2021 71424-ZIRF NAIL(S) 04/03/2021 42875-IZTF NAIL(S) 06/19/2021 18251-EJWQ NAIL(S) 08/28/2021 83005-YWIJ NAIL(S) 07/03/2019 64686-FBQU NAIL(S) 04/18/2020 74593-OJKV NAIL(S) 11/23/2022 43816-HYXO NAIL(S) 10/01/2022 65292-LBHS NAIL(S) 08/31/2022 67914-WXWW NAIL(S) 08/03/2022 42824-DIFO NAIL(S) 03/22/2023 36704-CWIL NAIL(S) 01/18/2023 28851-KEHB NAIL(S) 05/10/2023 94244-TEBL NAIL(S) 09/20/2023 45233-BSXL NAIL(S) 02/23/2022 97661-BXSC NAIL(S) 01/19/2022 79898-FWMP NAIL(S) 11/17/2021 90926-DLLX NAIL(S) 10/09/2021 99546-JGJQ NAIL(S) 04/23/2022 80596-WTPA NAIL(S) 03/30/2022 36048-DEZN NAIL(S) 06/01/2022 75786-CUWE NAIL(S) 07/06/2022 R6370-BSQICDFA DYSTROPHIC NAILS ANY # G5909-TYIKBOMN DYSTROPHIC NAILS ANY # D6456-RNBHSMAF DYSTROPHIC NAILS ANY # E8603-HRTQHQNP DYSTROPHIC NAILS ANY # N5247-MVADKYXU DYSTROPHIC NAILS ANY # K5363-PNBLEFHS DYSTROPHIC NAILS ANY # N8523-OKEDYSXJ DYSTROPHIC NAILS ANY # S8279-XHKTQPHP DYSTROPHIC NAILS ANY # W9139-VVOAZZZW DYSTROPHIC NAILS ANY # R8593-AAUKNPFV DYSTROPHIC NAILS ANY # Q8352-ENFFEFNG DYSTROPHIC NAILS ANY # D4525-DXLDJSNC DYSTROPHIC NAILS ANY # L3459-LRTMDMQA DYSTROPHIC NAILS ANY # W8925-ADNBETBL DYSTROPHIC NAILS ANY # O2467-HGDXIQVZ DYSTROPHIC NAILS ANY # T6026-Fbwybhqth 3mg 01/18/2012 R2500-Srhkfidio 3mg 12/07/2011 29922 - Tenotomy, open flexor 06/13/2020 33114 - Tenotomy, open flexor 10/09/2019 00227 - Tenotomy, open flexor 01/18/2020 Next Appt Details Provider Name:Adriana Walton , 04/17/2024 01:45:00 PM, [address] [place] [address], [phone], Provider Name:Adriana Walton , 05/25/2024 01:45:00 PM, [address] [facility], [place], [phone], Insurance Providers Payer Name Payer Address Payer Phone Subscriber Number Group Number Insured Name Patient Relationship to Insured Coverage Start Date Coverage End Date Medicare [facility] [address] [place] [address] [id number] Aline Hartley Self - patient is the insured [facility] [address] [place] [address] [id number] Yuan Hartley Spouse - patient is the spouse of the insured Medical (General) History Medical History History ICD Code joint implants/screws mumps measles chicken pox sinus conditions reflux paralysis hernia cataracts back, hip, knee pain asthma Arthritis Anxiety disorder COPD Surgical History Surgery Date(Month/Year) hand/wrist 1994 hernia 1991, 2004 hysterectomy 1989 vein left leg laser oblasion 07/19/2014 Colonoscopy 08/16/2017- 9 cataracts 04/08/18 and 04/18/18 [place]ole[place] [facility] [place] 01/05/24 Hospitalization History Reason Date(Month/[place] [facility] [place], [place], Blee ding ulcer, Transfusion, Cholecystectomy 06/04/2018-06/11/18 colonoscopy 04/2015 Left Leg laser ablation 07/19/14 Endoscopy & colonoscopy 08/20/14 admitted to [facility] , severe depression, anxiety, took to many drinks 12/08/13-12/22/13
--- OUTSIDE RECORDS SUMMARY | 2024-04-13 00:52 | XMS_ITS ---
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 Name Role Phone Rip Huber Primary Care Provider [phone] Adriana Walton [phone] Encounters Encounter Location Date Provider Diagnosis [address] [address] 03/16/2024 Adriana Walton Plan Of Treatment Next Appt Details Provider Name:Adriana A Anton , 04/17/2024 01:45:00 PM, [address] [place] [address], [phone], Provider Name:Adriana Parra Anton , 05/25/2024 01:45:00 PM, [address] [place] [address], [phone], Progress Notes * Aline HARTLEY MDOB: [birth year] (78 yo F)Acc No.[id number]:03/16/2024 Progress Notes Patient:?Aline HARTLEY Provider:?Adriana Walton DPM :1945???Age:78 Y???Sex:Female D ate:03/16/2024 Address:[address] [place], [place] [phone] Pcp:Rip Huber Subjective: * Chief Complaints: * [...]
== END 2024-04-12 11:08 | disposition home or self-care (01) ==
PROVIDERS: PCP Internal Medicine; Visit Provider Internal Medicine
DX: J44.9 Chronic obstructive pulmonary disease, unspecified (principal); J30.9 Allergic rhinitis, unspecified; J98.4 Other disorders of lung
CPT/HCPCS: 99213

== ENCOUNTER → 2024-04-12 10:36 | Outpatient (BNVA) | payer MEDICARE, BC, SELFPAY | PROVIDERS: PCP Internal Medicine; Visit Provider Internal Medicine | DX: J44.9 Chronic obstructive pulmonary disease, unspecified (principal); J30.9 Allergic rhinitis, unspecified; J98.4 Other disorders of lung | CPT/HCPCS: 99212 ==

== ENCOUNTER 2024-06-29 08:15 | Outpatient (AMB) | payer MEDICARE, BC, SELFPAY ==
--- NOTE | 2024-06-29 08:26 | A.OFFPC_ITS ---
Vital Signs 06/29/24 08:27 Height 5 ft Weight 155 lb 6 oz BMI 30.3 BP 110/72 Blood Pressure Location Lt brachial Position Sitting Pulse 110 H Pulse Source Pulse Oximeter Temp 96.6 F L Temp Source Temporal Artery Scan Pulse Oximetry (%) 97 Oxygen Delivery Method Room Air Intake Visit Reasons: 3mth hip follow up Intake Note: Patient is here to follow up on HTN, COPD. 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: Not Required per policy Accompanied by: Self / Same As Patient Allergies cat dander [CATS] Allergy (Unknown, Verified 06/29/24 08:58) ASTHMA ATTACK Horse/Equine Containing Products [HORSE/EQUINE CONTAINING PRODUCTS] Allergy (Unknown, Verified 06/29/24 08:58) ASTHMA ATTACK ENVIROMENTAL Allergy (Unknown, Uncoded 06/29/24 08:58) ASTHMA ATTACK Medication List - Last Reconciled 06/29/24 by Rip Huber MD amlodipine 5 mg PO DAILY bisacodyl (Dulcolax (bisacodyl)) 20 mg (4 x 5 mg) PO ONCE 1 day cholecalciferol (vitamin D3) 25 mcg PO DAILY 90 days fluticasone propion-salmeterol 250-50 mcg/dose (Wixela Inhub) 1 inh inhalation BID 30 days fluticasone propion-salmeterol 500-50 mcg/dose (Wixela Inhub) 1 inh inhalation BID 30 days mirabegron ER (Myrbetriq) 25 mg PO DAILY 90 days jzulkjlr-rcjxhspsaNw-heppdpeyQ 3.5mg-400 unit- 5,000 unit/gram (Neosporin (goj-hkv-gizbh)) 1 appl topical TID omeprazole 20 mg PO DAILY 90 days paroxetine HCl 40 mg PO QAM polyethylene glycol 3350 (Miralax) 17 grams PO DAILY 1 day solifenacin (Vesicare) 10 mg (2 x 5 mg) PO DAILY 90 days tiotropium bromide 2.5 mcg/actuation (Spiriva Respimat) 2 puffs PO DAILY Tobacco use date assessed: 06/29/24 Fall risk assessment: No Falls in past year Last assessed Fall Risk: 06/29/24 Dental Screening Dental Screen Date: 06/29/24 Did you have a dental visit in the last 12 months?: Yes Did you have a dental problem in the last 6 months where you did not have access to dental care?: No Was dental information given to patient?: Patient has dentist [facility] Medical History Morbid obesity Restrictive lung disease Tachycardia COVID-19 Endogenous depression COPD (chronic obstructive pulmonary disease) Allergic rhinitis GERD with esophagitis Asthma COPD (chronic obstructive pulmonary disease) History of iron deficiency anemia Hiatal hernia Cirrhosis of liver without ascites Surgical History History of right hip replacement Hx of ventral hernia repair History of dental surgery History of surgery on left wrist History of hysterectomy History of hip surgery Status post laparoscopic cholecystectomy (~06/10/18) Family History Other Mental health disorder Substance use disorder Social History Household Members: Spouse Housing: House Alcohol intake: former Patient Tobacco Use Status: Former Tobacco user e-Cigarette/Vaping Use: Never Used Second Hand Smoke Exposure: No service: No Current occupational status: disabled Cognitive needs: Yes (cane, walker) Hearing needs: No Vision needs: Yes (Reading Glasses) Questionnaire PHQ-9 Over the last 2 weeks, how often have you been bothered by any of the following problems? 1. Little interest or pleasure in doing things: not at all 2. Feeling down, depressed, or hopeless: not at all 3. Trouble falling or staying asleep, or sleeping too much: not at all 4. Feeling tired or having little energy: not at all 5. Poor appetite or overeating: not at all 6. Feeling bad about yourself - or that you are a failure or have let yourself or your family down: not at all 7. Trouble concentrating on things, such as reading the newspaper or watching television: not at all 8. Moving or speaking so slowly that other people could have noticed. Or the opposite - being so fidgety or restless that you have been moving around a lot more than usual: not at all 9. Thoughts that you would be better off or of hurting yourself in some way: not at all Total score: 0 Depression Screening Interpretation: Negative Depression Screening Done: Yes Source: Developed by Drs. Robson Avitia, Spenser Ha and colleagues, with an educational charisse from [employer]. Thrive Questionnaire Date Thrive assessed: 06/29/24 I am a: Patient What is your living situation today?: I have a steady place to live Within the past 12 months, did the food you bought not last and you didn't have the money to get more?: Never true Within the past 12 months, did you worry whether your food would run out before you got money to buy more?: Never true Do you have trouble paying for medicines?: No Do you have trouble getting transportation to medical appointments?: No Do you have trouble paying your heating and electricity bill?: No Do you have trouble taking care of your child, family member or friend?: No Do you have trouble with day-to-day activities such as bathing, preparing meals, shopping, managing finances, etc.?: No Are you currently unemployed and looking for a job?: No Are you interested in more education?: No Please select the resources that you would like help with: None Currently or been in a relationship where the following occur: No concerns reported THRIVE Score: 0 AUDIT C Alcohol Use Questionnaire (AUDIT-C) 1. How often do you have a drink containing alcohol?: Never 3. How often do you have six or more drinks on one occasion?: Never Total Score: 0 EFRAIN-7 AMB Questionnaire EFRAIN-7 Date EFRAIN - 7 assessed: 06/29/24 Feeling nervous, anxious, or on edge: 0 = Not at all Not being able to stop or control worryin = Not at all Worrying too much about different things: 0 = Not at all Trouble relaxin = Not at all Being so restless that it is hard to sit still: 0 = Not at all Becoming easily annoyed or irritable: 0 = Not at all Feeling afraid as if something awful might happen: 0 = Not at all Total EFRAIN-7 score (0-4 normal; 5-9 mild; 10-14 moderate; 15-21 severe): 0 Source: Developed by Dinorah Strange Kurt Kroenke and colleagues, with an educational charisse from [employer]. Physical exam (Primary Care) Vital Signs: Last Vital Signs Temp 96.6 F L 06/29/24 08:27 Pulse 110 H 06/29/24 08:27 BP 110/72 06/29/24 08:27 Pulse Ox 97 06/29/24 08:27 Oxygen Delivery Method Room Air 06/29/24 08:27 BMI result Body Mass Index 30.3 Tobacco/Smoking Status: Tobacco use Status Tobacco use date assessed 06/29/24 06/29/24 08:34 Patient Tobacco Use Status Former Tobacco user 06/29/24 08:34 e-Cigarette/Vaping Use Never Used 06/29/24 08:34 PHQ-9: PHQ-9 Score PHQ-9: Total score 0 06/29/24 08:34 Depression Screening Interpretation: Negative Thrive Assessment: Date of Thrive Assessment Date Thrive assessed 06/29/24 06/29/24 08:34 Currently or been in a relationship where the following occur: No concerns reported Coding Level of Care Code Est Pt Level 4 (60345) Complex EM visit Add On G2211 Diagnoses Cirrhosis of liver without ascites K74.60 COPD (chronic obstructive pulmonary disease) J44.9 HTN (hypertension) I10 Knee pain, right M25.561 Urinary incontinence R32 Morbid obesity E66.01 Major depressive disorder, recurrent, moderate F33.1 Assessment & Plan Assessment & Plan (1) Cirrhosis of liver without ascites: Code(s): K74.60 - Unspecified cirrhosis of liver Category: Medical Plan: Condition is stable. (2) COPD (chronic obstructive pulmonary disease): Comment: MILD TO MODERTAELY SEVERE , WELL CONTROLLED , REMAINING STABLE.. , Code(s): J44.9 - Chronic obstructive pulmonary disease, unspecified Category: Medical Plan: On the current inhalers, symptoms are well controlled. (3) HTN (hypertension): Code(s): I10 - Essential (primary) hypertension Category: Medical Plan: Blood pressure is stable. Continue medications at same dosage. (4) Knee pain, right: Code(s): M25.561 - Pain in right knee Category: Medical Plan: Patient is scheduled for a right knee replacement. She makes her own appointment at [facility] (5) Urinary incontinence: Code(s): R32 - Unspecified urinary incontinence Category: Medical Plan: Condition is stable. (6) Morbid obesity: Code(s): E66.01 - Morbid (severe) obesity due to excess calories Category: Medical Plan: Counseling on the importance of diet and exercise done. (7) Major depressive disorder, recurrent, moderate: Code(s): F33.1 - Major depressive disorder, recurrent, moderate Category: Medical Plan: Condition is stable. Continue current medications. Plan History of Present Illness The patient is a 78-year-old female presenting with concerns primarily related to her right knee pain. The progression to a [id number] condition in her right knee necessitates orthopedic involvement, where surgical options are being considered. The urinary incontinence medication has been effective, currently under proper management. Additionally, the patient's hip pain has been resolved, and she continues to deal with chronic localized back pain, regarding which she applies frankincense oil for symptomatic relief. Her cataracts have been successfully addressed via surgery. Social History - Active driving capability despite occasional difficulty with night vision. - Self-manages with alternative therapies such as frankincense oil for pain relief. Review of Systems - Musculoskeletal: Reports back pain. Physical Exam General: Appearance normal, both eyes and all related structures Nutritional Appearance: Well nourished Orientation/consciousness: Patient oriented x3 Limitations: Right knee limitation due to bone on bone condition Head: Normal to inspection Neck: Normal visual inspection Chest: Normal palpation of entire chest wall Respiratory: Normal respiratory effort Neurology: Patient oriented x3 Results Plan Orthopedic evaluation continues for the right knee osteoarthritis to evaluate surgical intervention necessity. The management of urinary incontinence with medication has been effective and does not require change. Resolved hip pain needs no additional intervention. Symptomatic relief for chronic back pain can proceed with current supportive and alternative measures. Patient was informed and verbally consented to the use of an ambient scribe for clinic note documentation during this visit. Discussion Notes In our discussion, I emphasized the likelihood of surgery for her right knee osteoarthritis, discussing potential benefits and possible recovery scenarios. The effective management of urinary incontinence was noted as a success of current treatment. I addressed the patient's satisfaction with her hip condition being resolved and discussed ongoing strategies for managing her chronic back pain, including her use of alternative therapies. We discussed her cataract surgery outcome, affirming no further vision issues. Follow-up visits will concentrate on the patient's orthopedic plan and pain management strategies. Patient Instructions - Continue current urinary incontinence medication as directed. - Maintain orthopedic follow-ups for right knee osteoarthritis. - Use alternative therapies for back pain as needed. - Ensure adherence to night driving precautions. - Follow fasting guidelines for upcoming blood work. Orders: Orders 2 Complete Blood Count no Diff Today E66.01 - Morbid (severe) obesity due to excess calories, F33.1 - Major depressive disorder, recurrent, moderate, I10 - Essential (primary) hypertension, J44.9 - Chronic obstructive pulmonary disease, unspecified, K74.60 - Unspecified cirrhosis of liver, M25.561 - Pain in right knee, R32 - Unspecified urinary incontinence Thyroid Stimulating Hormone Today E66.01 - Morbid (severe) obesity due to excess calories, F33.1 - Major depressive disorder, recurrent, moderate, I10 - Essential (primary) hypertension, J44.9 - Chronic obstructive pulmonary disease, unspecified, K74.60 - Unspecified cirrhosis of liver, M25.561 - Pain in right knee, R32 - Unspecified urinary incontinence UA and rflx microscopic Today E66.01 - Morbid (severe) obesity due to excess calories, F33.1 - Major depressive disorder, recurrent, moderate, I10 - Essential (primary) hypertension, J44.9 - Chronic obstructive pulmonary disease, unspecified, K74.60 - Unspecified cirrhosis of liver, M25.561 - Pain in right knee, R32 - Unspecified urinary incontinence Basic Metabolic Panel Today E66.01 - Morbid (severe) obesity due to excess calories, F33.1 - Major depressive disorder, recurrent, moderate, I10 - Essential (primary) hypertension, J44.9 - Chronic obstructive pulmonary disease, unspecified, K74.60 - Unspecified cirrhosis of liver, M25.561 - Pain in right knee, R32 - Unspecified urinary incontinence Lipid Panel Today E66.01 - Morbid (severe) obesity due to excess calories, F33.1 - Major depressive disorder, recurrent, moderate, I10 - Essential (primary) hypertension, J44.9 - Chronic obstructive pulmonary disease, unspecified, K74.60 - Unspecified cirrhosis of liver, M25.561 - Pain in right knee, R32 - Unspecified urinary incontinence Liver Panel Today E66.01 - Morbid (severe) obesity due to excess calories, F3 3.1 - Major depressive disorder, recurrent, moderate, I10 - Essential (primary) hypertension, J44.9 - Chronic obstructive pulmonary disease, unspecified, K74.60 - Unspecified cirrhosis of liver, M25.561 - Pain in right knee, R32 - Unspecified urinary incontinence Medications: Refilled paroxetine HCl 40 mg PO QAM 90 tabs 1RF amlodipine 5 mg PO DAILY 90 tabs 1RF E55.9 - Vitamin D deficiency, unspecified
[2024-06-29 08:27] VITALS: BP 110/72; PULSE 110; TEMP 35.9; O2SAT 97; BMI 30.3
--- OUTSIDE RECORDS SUMMARY | 2024-06-29 08:37 | XMS_ITS ---
[facility] Organization [facility] Address [address] [place] [address] Care Team Providers Care Rn Bsn Name Role Phone Cecile, Kartik Primary Care Provider Black, Adriana Unavailable [phone] Allergies No Known Allergies REASON FOR VISIT At Risk Footcare < 61 days Medications Medication SIG (Take, Route, Frequency, Duration) Notes Start Date End Date Status Vistaril 25 MG 1 capsule Orally Three times a day for 30 day(s) Not-Taking Flovent Diskus 50 MCG/BLIST 2 puffs Inhalation Twice a day Not-Taking Augmentin Not-Taking Flexeril 5 MG 1 tablet Orally Once a day for 30 day(s) Not-Taking predniSONE Not-Takin g Protonix 40 MG 1 tablet Orally Once a day for 30 day(s) Not-Taking Prednisone Not-Takin g Albuterol Sulfate HFA 108 (90 Base) MCG/ACT 2 puffs as needed Inhalation every 4 hrs Not-Taking Albuterol Sulfate 1.25 MG/3ML 3 ml as needed Inhalation every 6 hrs Not-Taking Inhaler Companions N ot-Taking Custom Orthotics . . . for . 06/10/2015 Not-Taking Iron 325 (65 Fe) MG 1 tablet Orally Once a day Not-Taking Keflex 500 MG 1 capsule Orally every 12 hrs for 10 day(s) 11/11/2017 Not-Taking Cephalexin 500 MG 1 capsule Orally BID for 10 days 06/13/2020 Not-Taking Keflex 500 MG 1 capsule Orally every 12 hrs for 10 day(s) 10/09/2019 Not-Taking traMADol HCl 50 MG 1 tablet as needed Orally Once a day for two weeks Not-Taking predniSONE 20 MG 1 tablet Orally Once a day for 30 day(s) Not-Taking Cephalexin 500 MG 1 capsule Orally twice a day for 10 days Not-Taking albuterol 1 tab Oral Not-Takin g Amoxicillin Not-Taki ng Advair Diskus Not-Ta joseph Solifenacin Succinate 5 MG TAKE 1 TABLET BY MOUTH DAILY Oral for 90 Active Custom Orthotics as directed 03/20/2024 Active Custom Orthotics as directed 02/25/2011 Active Heel lift as directed add to shoe 08/05/2015 Active Spiriva HandiHaler 18 MCG 1 capsule Inhalation Once a day Active Vitamin D3 Active Omeprazole 20 MG Orally Act ghassan Paxil 50 1 tablet in the morning Once a day Active amLODIPine Besylate 5 MG 1 tablet Orally Once a day for 30 day(s) Active Ibuprofen 800 MG 1 tablet Orally Three times a day for 30 day(s) Not-Taking ZyrTEC 10 MG 1 tablet Orally Once a day Active Myrbetriq 25 MG 1 tablet Orally Once a day Active Wixela Inhub Active Tylenol Active Calcium 500 MG 1 tablet with meals Orally Twice a day for 30 day(s) Not-Taking Lasix 40 MG 1 tablet Orally Once a day for 30 day(s) Not-Taking PROzac 20 MG 1 capsule in the morning Orally Once a day for 30 day(s) Not-Taking Magnesium 300 MG 1 capsule with a meal Orally Once a day for 30 day(s) Not-Taking Social History Tobacco Use: Social History Observation Description Date Details (start date - stop date) Never Smoker NA - NA Tobacco use other than smoking: Question Answer Notes Are you an other tobacco user? No Tobacco Control (Standard) Question Answer Notes Tobacco use: Nonsmoker Additional Findings: Tobacco non-user Current no nsmoker AUDIT-C (Standard) Question Answer Notes Did you have a drink containing alcohol in the p ast year? No Points 0 Interpretation Negative Vital Signs Height 5ft in 06/22/2024 Weight 159 lbs 06/22/2024 BMI 31.05 kg/m2 06/22/2024 Blood pressure systolic 120 mm Hg 06/22/19 25 Blood pressure diastolic 60 mm Hg 025 Procedures Procedure Date Ordered Date Performed Result Body Sit e 51491-GRNZ SKIN LESIONS, OVER 4 06/22/2024 N/A 88164-HZLI NAIL(S) 06/22/2024 N/A Encounters Encounter Location Date Provider Diagnosis [facility] [address] [address] 06/22/2024 Adriana Walton Atherosclerosis of [place] artery of both lower extremities, with unspecified presence of clinical manifestation I70.203 Assessments Encounter Date Diagnosis (ICD Code) Assessment Notes Treatment Notes Treatment Clinical Notes Section Notes 06/22/2024 Atherosclerosis of [place] artery of both lower extremities, with unspecified presence of clinical manifestation (ICD-10 - I70.203) Q7(A), Q8(2B), Q9(1B,2C) Plan Of Treatment Pending Test Test Name Order Date 61698-YRJG SKIN LESIONS, OVER 4 06/22/19 25 09360-WQLN NAIL(S) 06/22/2024 Next Appt Details Follow Up: 4 Weeks, Reason: Provider Name:Adriana Walton , 07/10/2024 03:15:00 PM, [address] [place] [address], [phone], Provider Name:Adriana Walton , 08/07/2024 03:30:00 PM, [address] [place] [address], [phone], Procedure Notes * Category Sub-Category Detail Notes Keratoma Treatment Parring or Cutting o f Benign Hyperkeratotic Lesion(s) (-57) More than 4 Lesions - Due to the at risk nature of the patients medical condition as documented in the exam findings, performance of this keratoderma treatment is medically necessary as its management by an unskilled/untrained nonprofessional would put this patients foot and overall health at risk. Therefore, the benign hyperkeratotic lesions, ( _6_ ) in total, locations as stated and described in the exam ( SUB MTH (s), 2, 3, Right, 2, 5, Left, Plantar Heel(s), B/L ), were pared, and/or cut utilizing a sterile 15 blade, tissue nippers, and/or power dremel instrumentation by the physician of record - 64163, Q8, 99516-SE Self Pay Non-Covered Callus care Nail Reduction Nail Reduction (-19) Trimming o f all non-dystrophic nails - Due to the at risk nature of the patients medical condition as documented in the exam findings, performance of this nail treatment is medically necessary as its management by an unskilled/untrained nonprofessional would put this patients foot and overall health at risk. Therefore, the non-dystrophic nails, in locations as stated and described in the exam ( TA, T1, T2, T3, T4, T5, T6, T7, T8, T9 ), were debrided by the physician of record to reduce/remove overall nail length and girth, by manual and electrical means with use of a nail nipper and/or dremel, to more viable healthy nail plate or bed tissue - 52620 Progress Notes * Aline HALLMAN MDOB: 8 (78 yo F)Acc No.[id number]:06/22/2024 Progress Notes Patient:?Aline HALLMAN Provider:?Adriana Walton DPM :1945???Age:78 Y???Sex:Female D ate:06/22/2024 Address:[address] [place], [place] [phone] Pcp:Rip Huber Subjective: * Chief Complaints: * ???At Risk Footcare < 61 day s * HPI: ???At Risk footcare:?Pt States Last PCP Visit:?Date?05/04/2024 * ROS:?General/Constitutional:?Nausea?denies.?Vomiting?denies.?Hunger Thirst?denies.?Loss appetite?denies.?Chills?denies.?Fatigue?denies.?Fever?denies.?Night Sweats?denies.?Unexplained weight loss?denies.?Unexplained [...] * Medical History:? * Surgical History:?hand/wrist 1995hernia 1992, 2005hysterectomy 1990vein left leg laser oblasion 07/19/2014Colonoscopy 08/16/2017- 04/20/2019cataracts 04/08/18 and 04/18/18cholecystectomy 06/04/2018[facility] [place]- right hip replacement 01/05/24 * Hospitalization/Major Diagno stic Procedure:?admitted to [facility], severe depression, anxiety, took to many drinks 12/08/13-12/22/13Endoscopy & colonoscopy 08/20/14Left Leg laser ablation 07/19/14colonoscopy 04/2015[facility] [place] Pnuemonia, Sepsis, Bleeding ulcer, Transfusion, Cholecystectomy 06/04/2018-06/11/18 * Family History:?Mother: dece ased, foot problems, diagnosed with Other malignant neoplasm of unspecified site, Unspecified cerebral artery occlusion with cerebral infarction.?Father: .?Spouse: alive.? No children. * Social History:?Tobacco Use:?Tobacco use other than smoking?Are you an other tobacco user??No ?Tobacco Control (Standard)?Tobacco use:?Nonsmoker ?Additional Findings: Tobacco non-user?Current nonsmoker ???Drugs/Alcohol:?Drugs?Have you used drugs other than those for medical reasons in the past 12 months??No ???Miscellaneous:?Caffeine: yes, frequency:, 1-2 cups per day. ?Children: yes, Step son. ?Exercise: no. ?Marital status: . ?Occupation: Retired. ???Drug/Alcohol:?AUDIT-C (Standard)?Did you have a drink containing alcohol in the past year??No ?Points?0 ?Interpretation?Negative * Medications:?TakingWixela In hub Tylenol ZyrTEC 10 [...] TAKE 1 TABLET BY MOUTH DAILY Oral Custom Orthotics as directed Taking Wixela Inhub Taking Tylenol Taking ZyrTEC [...] 1 TABLET BY MOUTH DAILY Oral Taking Custom Orthotics as directed Not-Taking/PRNAdvair Diskus albuterol 1 tab Oral Amoxicillin [...] Allergies:?N.K.D.A.yes[Aller gies Verified] Objective: * Vitals:?Ht: 5ft, Wt:159, BMI : 31.05, Shoe size:7, BP:120/60mm Hg, Ht-cm: 152.4 cm, Wt-k.12 kg. * Examination: ???Dermatologic: ?SKIN FINDINGS:?Skin exam reveals Keratotic lesion(s) located at, SUB MTH (s), 2, 3, Right, 2, 5, Left, Plantar Heel(s), B/L.?HYPERKERATOSIS:?2nd MTH, 3rd MTH, right, 5th MTH, left.?Vascular: ?DP PULSES (B):? 0/4, B/L.?PT PULSES (B):? 0/4, B/L.?CAPILLARY FILL TIME:? delayed, all digits, B/L.?TROPHIC CONDITION-TEXTURE/ELASTICITY/TURGOR/HAIR GROWTH (B):? decreased, fragile, thin, shiny skin, with sparse to absent hair growth, B/L.?TEMPERTURE GRADIENT (C):? decreased, cool to cool, proximal to distal, B/L.?PIGMENTATION:?, rubrous, B/L.?EDEMA (C):?, 2/4, Left.?CLAUDICATION (C):?denies, B/L.?REST PAIN:?denies, B/L.?PARESTHESIA (C):?absent, B/L.?BURNING (C):?absent, B/L.?Neurological: ?SENSORY:?Neurological exam reveals intact sensorium, pain sensation normal, vibration sensation intact, pinprick sensation is normal in the lower extremities, Pt denies, anesthesia, burning, paresthesia, tingling, B/L.?Nails: ?NAILS are:?elongated,overgrown, and non-dystrophic,, TA, T1, T2, T3, T4, T5, T6, T7, T8, T9.? Assessment: * Assessment: 1.?Atherosclerosis of [place] artery of both lower extremities, with unspecified presence of clinical manifestation - I70.203 (Primary)???Notes :Q7(A), Q8(2B), Q9(1B,2C)??? Plan: * Treatment: * Procedures:?Keratoma Treatment:?Parring or Cutting of Benign Hyperkeratotic Lesion(s)?(-57) More than 4 Lesions - Due to the at risk nature of the patients medical condition as documented in the exam findings, performance of this keratoderma treatment is medically necessary as its management by an unskilled/untrained nonprofessional would put this patients foot and overall health at risk. Therefore, the benign hyperkeratotic lesions, ( _6_ ) in total, locations as stated and described in the exam ( SUB MTH (s), 2, 3, Right, 2, 5, Left, Plantar Heel(s), B/L ), were pared, and/or cut utilizing a sterile 15 blade, tissue nippers, and/or power dremel instrumentation by the physician of record - 82814, Q8, 08990-LN Self Pay Non-Covered Callus care.?Nail Reduction:?Nail Reduction?(-19) Trimming of all non-dystrophic nails - Due to the at risk nature of the patients medical condition as documented in the exam findings, performance of this nail treatment is medically necessary as its management by an unskilled/untrained nonprofessional would put this patients foot and overall health at risk. Therefore, the non-dystrophic nails, in locations as stated and described in the exam ( TA, T1, T2, T3, T4, T5, T6, T7, T8, T9 ), were debrided by the physician of record to reduce/remove overall nail length and girth, by manual and electrical means with use of a nail nipper and/or dremel, to more viable healthy nail plate or bed tissue - 28533.? * Procedure Codes:?52218 TRIM SKIN LESIONS, OVER 4 NC $60, [place] [address] TRIM NAIL(S), Modifiers: GA * Follow Up:?4 Weeks * Images: * Sign off status: Completed true * Provider:William Walton DPM Date:?2024 Generated for Nate barbour/Georgie/Jeannine on:?06/29/2024 08:37 AM EST History and Physical Notes * HPI (History of Present Illness) Category Sub-Category Detail Notes Category Not es At Risk footcare Pt States Last PCP Visit: Date: Examination Category Sub-Category Detail Notes Category Not es Neurological SENSORY: Neurological exa m reveals intact sensorium, pain sensation normal, vibration sensation intact, pinprick sensation is normal in the lower extremities, Pt denies, anesthesia, burning, paresthesia, tingling, B/L Dermatologic SKIN FINDINGS: Skin exam reveal s Keratotic lesion(s) located at, SUB MTH (s), 2, 3, Right, 2, 5, Left, Plantar Heel(s), B/L HYPERKERATOSIS: 2nd MTH, 3rd MTH, ri ght, 5th MTH, left Vascular DP PULSES (B): 0/4, B/L PT PULSES (B): 0/4, B/L CAPILLARY FILL TIME: delayed, all digits , B/L TEMPERTURE GRADIENT (C): decreased, cool to cool, proximal to distal, B/L TROPHIC CONDITION-TEXTURE/ELASTICITY/TURGOR/HAIR GROWTH (B): decreased, fragile, thin, shiny skin, wi th sparse to absent hair growth, B/L EDEMA (C): , 2/4, Left CLAUDICATION (C): denies, B/L REST PAIN: denies, B/L PIGMENTATION: , rubrous, B/L PARESTHESIA (C): absent, B/L BURNING (C): absent, B/L Nails NAILS are: elongated,overgr own, and non-dystrophic,, TA, T1, T2, T3, T4, T5, T6, T7, T8, T9
--- OUTSIDE RECORDS SUMMARY | 2024-06-29 08:38 | XMS_ITS ---
Author Organization [facility] Address [address] [place] [address] Care Team Providers Care Statement Request Clerk Name Role Phone Rip Huber Primary Care Provider Black, Adriana Unavailable [phone] Allergies No Known Allergies REASON FOR VISIT Noncovered Foot Care, Pcp-03/08/24 Medications Medication SIG (Take, Route, Frequency, Duration) Notes Start Date End Date Status Cephalexin 500 MG 1 capsule Orally twice a day for 10 days Not-Taking traMADol HCl 50 MG 1 tablet as needed Orally Once a day for two weeks Not-Taking Custom Orthotics . . . for . 06/10/2015 Not-Taking Cephalexin 500 MG 1 capsule Orally BID for 10 days 06/13/2020 Not-Taking predniSONE 20 MG 1 tablet Orally Once a day for 30 day(s) Not-Taking Solifenacin Succinate 5 MG TAKE 1 TABLET BY MOUTH DAILY Oral for 90 Active Custom Orthotics as directed 03/20/2024 Active Advair Diskus Not-Ta joseph albuterol 1 tab Oral Not-Takin g Amoxicillin Not-Taki ng Heel lift as directed add to shoe 08/05/2015 Active Paxil 50 1 tablet in the morning Once a day Active Spiriva HandiHaler 18 MCG 1 capsule Inhalation Once a day Active Vitamin D3 Active Custom Orthotics as directed 02/25/2011 Active Tylenol Active ZyrTEC 10 MG 1 tablet Orally Once a day Active Myrbetriq 25 MG 1 tablet Orally Once a day Active amLODIPine Besylate 5 MG 1 tablet Orally Once a day for 30 day(s) Active Omeprazole 20 MG Orally Act ghassan Wixela Inhub Active Magnesium 300 MG 1 capsule with a meal Orally Once a day for 30 day(s) Not-Taking Calcium 500 MG 1 tablet with meals Orally Twice a day for 30 day(s) Not-Taking Lasix 40 MG 1 tablet Orally Once a day for 30 day(s) Not-Taking Ibuprofen 800 MG 1 tablet Orally Three times a day for 30 day(s) Not-Taking Flexeril 5 MG 1 tablet Orally Once a day for 30 day(s) Not-Taking predniSONE Not-Takin g Augmentin Not-Taking PROzac 20 MG 1 capsule in the morning Orally Once a day for 30 day(s) Not-Taking Flovent Diskus 50 MCG/BLIST 2 puffs Inhalation Twice a day Not-Taking Prednisone Not-Takin g Vistaril 25 MG 1 capsule Orally Three times a day for 30 day(s) Not-Taking Albuterol Sulfate HFA 108 (90 Base) MCG/ACT 2 puffs as needed Inhalation every 4 hrs Not-Taking Albuterol Sulfate 1.25 MG/3ML 3 ml as needed Inhalation every 6 hrs Not-Taking Protonix 40 MG 1 tablet Orally Once a day for 30 day(s) Not-Taking Keflex 500 MG 1 capsule Orally every 12 hrs for 10 day(s) 10/09/2019 Not-Taking Iron 325 (65 Fe) MG 1 tablet Orally Once a day Not-Taking Keflex 500 MG 1 capsule Orally every 12 hrs for 10 day(s) 11/11/2017 Not-Taking Inhaler Companions N ot-Taking Social History Tobacco Use: Social History Observation [...] Problem Status W/U Status Risk Notes Problem Essential hypertension ([id number]) Essential hypertension (I10) Active confirmed Vital Signs Height 5ft in 04/17/2024 Weight 166 lbs 04/17/2024 BMI 32.42 kg/m2 04/17/2024 Blood pressure systolic 120 mm Hg 04/17/20 24 Blood pressure diastolic 75 mm Hg 024 Procedures Procedure Date Ordered Date Performed Result Body Sit e 97555-TPFV SKIN LESIONS, 2 TO 4 04/17/2024 N/A 81564-FTRE NAIL(S) 04/17/2024 N/A Encounters Encounter Location Date Provider Diagnosis [facility] [address] [address] 04/17/2024 Adriana Walton Acquired keratosis [keratoderma] palmaris et plantaris L85.1 and Other nail disorders L60.8 Assessments Encounter Date Diagnosis (ICD Code) Assessment Notes Treatment Notes Treatment Clinical Notes Section Notes 04/17/2024 Acquired keratosis [keratoderma] palmaris et plantaris (ICD-10 - L85.1) 04/17/2024 Other nail disorders (ICD-10 - L60.8) Plan Of Treatment Pending Test Test Name Order Date 23888-SVQM SKIN LESIONS, 2 TO 4 04/17/20 24 49577-QMEW NAIL(S) 04/17/2024 Next Appt Details Follow Up: 4 Weeks, Reason: Non-covered footcare Provider Name:Adriana Walton , 07/10/2024 03:15:00 PM, [address] [place] [address], [phone], Provider Name:Adriana Walton , 08/07/2024 03:30:00 PM, [address] [place] [address], [phone], Procedure Notes * Category Sub-Category Detail Notes Keratoma Treatment Parring or Cutting o f Benign Hyperkeratotic Lesion(s) 62391-IC Self Pay Non-Covered Callus care- Nail Reduction Nail Reduction 32506-SR Trimmin g of noncovered non-dystrophic nails, any number Progress Notes * Aline HALLMAN MDOB: 8 (78 yo F)Acc No.[id number]:04/17/2024 Progress Notes Patient:?Aline HALLMAN M Provider:?Adriana Walton DPM :1945???Age:78 Y???Sex:Female D ate:04/17/2024 Address:[address] [place], [place] [phone] Pcp:Rip Huber Subjective: * Chief Complaints: * ???Noncovered Foot CarePcp-1 05/08/23 * ROS:?General/Constitutional:?Nausea?denies.?Vomiting?denies.?Hunger Thirst?denies.?Loss appetite?denies.?Chills?denies.?Fatigue?denies.?Fever?denies.?Night Sweats?denies.?Unexplained weight loss?denies.?Unexplained [...] oblasion 07/19/2014Colonoscopy 08/16/2017- 04/20/2019cataracts 04/08/18 and 04/18/18cholecystectomy 06/04/2018[facility] [place]- right hip replacement 01/05/24 * Hospitalization/Major Diagno stic Procedure:?admitted to [facility], severe depression, anxiety, took to many drinks 12/08/13-12/22/13Endoscopy & colonoscopy 08/20/14Left Leg laser ablation 07/19/14colonoscopy 04/2015[facility] [place] Pnuem[place], Sepsis, Bleeding ulcer, Transfusion, Cholecystectomy 06/04/2018-06/11/18 [...] gies Verified] Objective: * Vitals:?Ht: 5ft, Wt: 166, BM I: 32.42, Shoe size: 7, BP: 120/75 mm Hg, Ht-cm: 152.4 cm, Wt-k.3 kg. * Examination: ???Nails: ?NAILS are:?elongated,overgrown, and non-dystrophic, 1-5 B/L.?Dermatologic: ?HYPERKERATOSIS:?2nd MTH, 3rd MTH, right, 5th MTH, left.? 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 Plan: * Treatment: 2.?Other nail disorders?Procedure: 45079-TOII NAIL(S) * Procedures:?Keratoma Treatment:?Parring or Cutting of Benign Hyperkeratotic Lesion(s)?94025-ZW Self Pay Non-Covered Callus care-.?Nail Reduction:?Nail Reduction?29058-QX Trimming of noncovered non-dystrophic nails, any number.? * Procedure Codes:?68413 TRIM NAIL(S), Modifiers: [place] [address] TRIM SKIN LESIONS, 2 TO 4 $60, Modifiers: GY * Follow Up:?4 Weeks (Reason: Non-covered footcare) * Images: * Sign off status: Completed true * Provider:?Adriana Walton DPM Date:?2023 Generated for Nate barbour/Georgie/Jeannine on:?06/29/2024 08:37 AM EST History and Physical Notes * Examination Category Sub-Category Detail Notes Category Not es Dermatologic HYPERKERATOSIS: 2nd MTH, 3rd MTH, right, 5th MTH, left Nails NAILS are: elongated,overgr own, and non-dystrophic, 1-5 B/L
--- OUTSIDE RECORDS SUMMARY | 2024-06-29 08:38 | XMS_ITS ---
Author Organization [facility] Address [address] [place] [id number] Care Team Providers Care Superintendent Commissary Name Role Phone Rip Huber Primary Care Provider Black, Adriana Unavailable [phone] Allergies No Known Allergies REASON FOR VISIT At Risk Footcare Medications Medication SIG (Take, Route, Frequency, Duration) Notes Start Date End Date Status Custom Orthotics as directed 02/25/2011 Active Advair Diskus Not-Ta joseph Custom Orthotics as directed 03/20/2024 Active Solifenacin Succinate 5 MG TAKE 1 TABLET BY MOUTH DAILY Oral for 90 Active Heel lift as directed add to shoe 08/05/2015 Active Vitamin D3 Active Spiriva HandiHaler 18 MCG 1 capsule Inhalation Once a day Active Paxil 50 1 tablet in the morning Once a day Active Omeprazole 20 MG Orally Act ghassan amLODIPine Besylate 5 MG 1 tablet Orally Once a day for 30 day(s) Active ZyrTEC 10 MG 1 tablet Orally Once a day Active Tylenol Active Wixela Inhub Active Myrbetriq 25 MG 1 tablet Orally Once a day Active Ibuprofen 800 MG 1 tablet Orally Three times a day for 30 day(s) Not-Taking Augmentin Not-Taking PROzac 20 MG 1 capsule in the morning Orally Once a day for 30 day(s) Not-Taking Lasix 40 MG 1 tablet Orally Once a day for 30 day(s) Not-Taking Calcium 500 MG 1 tablet with meals Orally Twice a day for 30 day(s) Not-Taking Magnesium 300 MG 1 capsule with a meal Orally Once a day for 30 day(s) Not-Taking Flexeril 5 MG 1 tablet Orally Once a day for 30 day(s) Not-Taking Flovent Diskus 50 MCG/BLIST 2 puffs Inhalation Twice a day Not-Taking Vistaril 25 MG 1 capsule Orally Three times a day for 30 day(s) Not-Taking Prednisone Not-Takin g predniSONE Not-Takin g Keflex 500 MG 1 capsule Orally every 12 hrs for 10 day(s) 11/11/2017 Not-Taking Protonix 40 MG 1 tablet Orally Once a day for 30 day(s) Not-Taking Albuterol Sulfate 1.25 MG/3ML 3 ml as needed Inhalation every 6 hrs Not-Taking Albuterol Sulfate HFA 108 (90 Base) MCG/ACT 2 puffs as needed Inhalation every 4 hrs Not-Taking Inhaler Companions N ot-Taking Cephalexin 500 MG 1 capsule Orally BID for 10 days 06/13/2020 Not-Taking Custom Orthotics . . . for . 06/10/2015 Not-Taking traMADol HCl 50 MG 1 tablet as needed Orally Once a day for two weeks Not-Taking Iron 325 (65 Fe) MG 1 tablet Orally Once a day Not-Taking Keflex 500 MG 1 capsule Orally every 12 hrs for 10 day(s) 10/09/2019 Not-Taking Cephalexin 500 MG 1 capsule Orally twice a day for 10 days Not-Taking predniSONE 20 MG 1 tablet Orally Once a day for 30 day(s) Not-Taking Amoxicillin Not-Taki ng albuterol 1 tab Oral Not-Takin g Social History Tobacco Use: Social History Observation Description Date Details (start date - stop date) Never Smoker NA - NA Tobacco use other than smoking: Question Answer Notes Are you an other tobacco user? No Tobacco Control (Standard) Question Answer Notes Tobacco use: Nonsmoker Additional Findings: Tobacco non-user Ex-cigaret te smoker Problems Problem Type SNOMED Code ICD Code Onset Dates Problem Status W/U Status Risk Notes Problem Atherosclerosis of [place] arteries of the extremities (975925486046229) Atherosclerosis of [place] artery of both lower extremities, with unspecified presence of clinical manifestation (I70.203) Active confirmed Q7(A), Q8(2B), Q9(1B,2 C) Vital Signs Height 5ft in 05/25/2024 Weight 159 lbs 05/25/2024 BMI 31.05 kg/m2 05/25/2024 Blood pressure systolic 123 mm Hg 05/25/19 25 Blood pressure diastolic 63 mm Hg 025 Procedures Procedure Date Ordered Date Performed Result Body Sit e 34972-JNUS SKIN LESIONS, OVER 4 05/25/2024 N/A 70632-XKBI NAIL(S) 05/25/2024 N/A Encounters Encounter Location Date Provider Diagnosis [facility] [address] [address] 05/25/2024 Adriana Walton Atherosclerosis of napaim[place] artery of both lower extremities, with unspecified presence of clinical manifestation I70.203 Assessments Encounter Date Diagnosis (ICD Code) Assessment Notes Treatment Notes Treatment Clinical Notes Section Notes 05/25/2024 Atherosclerosis of [place] artery of both lower extremities, with unspecified presence of clinical manifestation (ICD-10 - I70.203) Q7(A), Q8(2B), Q9(1B,2C) Plan Of Treatment Pending Test Test Name Order Date 86668-YFLD SKIN LESIONS, OVER 4 05/25/19 25 [id number]-CDZS NAIL(S) 05/25/2024 Next Appt Details Follow Up: 2 Months, Reason: Provider Name:Adriana Walton , 07/10/2024 03:15:00 PM, [address] [place] [address], [id number], Provider Name:Adriana Walton , 08/07/2024 03:30:00 PM, [address] [place] [address], [phone], Procedure Notes * Category Sub-Category Detail Notes [...] instrumentation by the physician of record - 86242, Q8 Nail Reduction Nail Reduction (-19) Trimming o [...] healthy nail plate or bed tissue - 19129 Progress Notes * Aline HALLMAN MDOB: 8 (78 yo F)Acc No.[id number]:05/25/2024 Progress Notes Patient:?Aline HALLMAN M Provider:?Adriana Walton DPM :1945???Age:78 Y???Sex:Female D ate:05/25/2024 Address:[address] [place], [place] [id number] Pcp:Rip Huber Subjective: * Chief Complaints: * ???At Risk Footcare * HPI: ???At Risk footcare:?Pt States Last PCP Visit:?Date?03/08/2024 * ROS:?General/Constitutional:?Nausea?denies.?Vomiting?denies.?Hunger Thirst?denies.?Loss appetite?denies.?Chills?denies.?Fatigue?denies.?Fever?denies.?Night Sweats?denies.?Unexplained weight loss?denies.?Unexplained [...] History:? * Surgical History:?hand/wrist 1995hernia 1992, 2005hysterectomy 1989vein left leg laser oblasion 07/19/2014Colonoscopy 08/16/2017- 04/20/2019cataracts 04/08/18 and 04/18/18[place]olecyst[place] [place] 01/05/24 * Hospitalization/Major Diagno stic Procedure:?ad[facility], severe depression, anxiety, took to many drinks 12/08/13-12/22/13Endoscopy & colonoscopy 08/20/14Left Leg laser ablation 07/19/14[place] [place], Sepsis, Bleeding ulcer, Transfusion, Cholecystectomy 06/04/2018-06/11/18 * Family History:?Mother: dece ased, foot problems, diagnosed with Other malignant neoplasm of unspecified site, Unspecified cerebral artery occlusion with cerebral infarction.?Father: .?Spouse: alive.? No children. * Social History:?Tobacco Use:?Tobacco use other than smoking?Are you an other tobacco user??No ?Tobacco Control (Standard)?Tobacco use:?Nonsmoker ?Additional Findings: Tobacco non-user?Ex-cigarette smoker ???Miscellaneous:?Caffeine: yes, frequency:, 1-2 cups per day. ?Children: yes, Step son. ?Exercise: no. ?Marital status: . ?Occupation: Retired. * Medications:?TakingWixela In hub Tylenol ZyrTEC 10 [...] gies Verified] Objective: * Vitals:?Ht: 5ft, Wt: 159, BM I: 31.05, Shoe size: 7, BP: 123/63 mm Hg, Ht-cm: 152.4 cm, Wt-k.12 kg. * Examination: ???General Examination: ?GENERAL APPEARANCE:?Reveals a pleasant, alert, well nourished, well- developed, well hydrated individual, who demonstrates proper attention to hygiene/body habitus, and is in no acute distress, Pt serves as own historian for office visit today.?ORIENTED:?person, place, and time.?Dermatologic: ?SKIN FINDINGS:?Skin exam reveals Keratotic lesion(s) located [...] T8, T9.? Assessment: * Assessment: 1.?Atherosclerosis of napaim[place] artery of both lower extremities, with unspecified [...] instrumentation by the physician of record - 95435, Q8.?Nail Reduction:?Nail Reduction?(-19) Trimming of all non-dystrophic nails [...] T2, T3, T4, T5, T6, T7, T8, T9?), were debrided by the physician of record to reduce/remove overall nail length and girth, by manual and electrical means with use of a nail nipper and/or dremel, to more viable healthy nail plate or bed tissue - 19594.? * Procedure Codes:?90853 TRIM NAIL(S), Modifiers: Q8 , AU01000 TRIM SKIN LESIONS, OVER 4, Modifiers: Q8 * Follow Up:?2 Months * Images: * Sign off status: Completed true * Provider:William Walton DPM Date:?2024 Generated for Nate barbour/Georgie/Jeannine on:?06/29/2024 08:38 AM EST History and Physical Notes * HPI (History of Present Illness) Category Sub-Category Detail Notes Category Not es At Risk footcare Pt States Last PCP Visit: Date: 4 Examination Category Sub-Category Detail Notes Category Not [...] 3rd MTH, ri ght, 5th MTH, left General Examination GENERAL APPEARANCE: Reveals a pleasant, alert, well nourished, well-developed, well hydrated individual, who demonstrates proper attention to hygiene/body habitus, and is in no acute distress, Pt serves as own historian for office visit today ORIENTED: person, place, and t randy Vascular DP PULSES (B): 0/4, B/L PT [...]
--- OUTSIDE RECORDS SUMMARY | 2024-06-29 08:38 | XMS_ITS | Data Portability ---
Author Organization [place] - [facility], [facility] Address [address] [place] [address] Care Team Providers Care Fire Boss Name Role Phone JUANCHO MCLEOD Referring Provider JUANCHO MCLEOD Primary Care Provider Assessment Encounter Date Assessment Date Assessment LastModified by Organization Details LastModified Time 02/08/2024 02/08/2024 Assessment: Making steady progress increasing ROM but continues to fatigue quickly with all therex due to decreased endurance. Functional mobility slowly improving Plan: Continue with PT at 2x/week focusing on decreasing pain, improving ROM, strength, optimizing gait and stair mechanics, and mobility for functional ADL's. kayley Not available 02/08/2024 10:20:09 02/15/2024 02/15/2024 Assessment: Good tolerance to all strengthening performed. Difficulty ascending 4 inch step w/ R LE. able to ambulate 50 ft in clinic w/ use of SPC, limited stance time on R LE. Plan: Continue with PT at 2x/week focusing on decreasing pain, improving ROM, strength, optimizing gait and stair mechanics, and mobility for functional ADL's. heide Not available 02/16/2024 07:37:28 02/17/2024 02/17/2024 Assessment: Good tolerance to all strengthening performed. Difficulty ascending 4 inch step w/ R LE. able to ambulate 50 ft in clinic w/ use of SPC, limited stance time on R LE. Plan: At this time pt will be d/c to [facility] to continue to work on strengthening/mob ility. Progressed well in PT. f/u w/ on 04/14/24 heide Not available 02/21/2024 06:57:40 06/15/2024 06/15/2024 Aline is an extremely from a pleasant 78 year old female who presents today for evaluation of her left hip. She had her left hip replaced approximately 45 years ago, this office visit was scheduled in error as we had not obtained any clinical information about her left hip replacement prior to her scheduling this visit. She previously underwent a right hip replacement by Dr. Anderson and has a right arthritic knee that she is planning on having replaced by Dr. Anderson. She states that her left hip is not currently hurting her but given that it has been so long since she had it replaced she wanted to have it checked. 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 She currently has no pain in her left hip and so she is likely not experiencing failure of her left hip, but I did explain to her that a revision of this hip replacement would likely require treatment at an academic tertiary referral center. I wrote her the names of multiple options for this level of care and recommended that she begin contacting academic centers in order to establish care such that if her left hip does ever fails she will have immediate access to reconstructive surgery. She is currently using a shoe lift which we measured today and about three quarters of an inch which is fitting her well. She was interested in undergoing a course of physical therapy for strengthening of her low back and gait training which I was happy to provide today. Further follow-up for any of her operative needs with Dr. Anderson unless she chooses to switch to another provider in our group [email or web address] Not available 06/15/2024 13:06:30 Plan of Treatment Reminders Order Date Submit Date Provider Last Modified By Organization Details Last Modified Time Details Appointments SHANELL Cai 2024 09:00A Ayala Rodriguez PA-C Not available Not available Not available Lab None record ed. Referral physic al therap ist referr al - LEG LENGTH DESCRE PANCYL UMBAR DANNIE Ortega AND GAIT TRAINI NG 2024 025 [email or web address] 5 [facility] ([facility] Valle), [address], [place], [address], 06/15/2024 16:57:20 Procedures None record ed. Surgeries None record ed. Imaging XR, hip + pelvis , unilat eral, 2 or 3 view - room 212 3 p/o RTHR (AL) 2023 024 [facility], [address], [address], [place], [address], 05/09/2024 11:41:58 Medication Orders None record ed. Patient TargetsNo targets recorded. Patient InstructionsNo instructions recorded. Reason for Referral Physical Therapist Referral for Leg length inequality LEG LENGTH DESCREPANCYLUMBAR STRENGTHENING AND GAIT TRAINING Referring Physician: Yossi Martínez, Orthopedic Surgery, Encounter Date: 06/15/2024 Results Created Date Observation Date Name Description Value Unit Range Abnormal Flag Note LastModifiedBy Organization Detail LastModifiedTime 01/18/20 24 01/18/2024 XR, hip + pelvi s, unila teral , 2 or 3 view [email or web address]:/ [email or web address] ?Encry pted=s hAaTro YD8dLq bEUv6g %2BXZw aYqtaq 0bqfl% 2Fg9IQ a4ajBk vP9nXo QUaueC m3YtLR FvZlgJ JJ8mAn HZtai3 0f7455 AC0Kqa niGWKS iKiQtr MwF INTERFACE [facility] [address], [place], [address], 01/18/2024 15:25:06 01/18/20 24 01/18/2024 XR, hip + pelvi s, unila teral , 2 or 3 view [email or web address]:/ [email or web address] ?Encry pted=s hAaTro YD8dLq bEUv6g %2BXZw aYqtaq 0bqfl% 2Fg9IQ a4ajBk vP9nXo QUaueC m3YtLR FvZlgJ JJ8mAn HZtai3 9h8506 AC0Kqa niGWKS iKiQtr MwF INTERFACE [facility] [address], [place], [address], 01/18/2024 15:25:08 02/02/20 24 02/02/2024 XR, hip + pelvi s, unila teral , 2 or 3 view [email or web address]:/ [email or web address] ?Encry pted=s hAaTro YD8dLq bEUv6g %2BXZw aYqtaq 0bqfl% 2Fg9IQ a4ajBk vP9nXo QUaueC m3YtLR FvZlgJ JJ8mAn HZtai3 0z1589 AC0Kqa 3yGWKS nKiQtr MwF INTERFACE [facility] [address] [facility] [address], [place], [address], 02/02/2024 09:51:18 02/02/20 24 02/02/2024 XR, hip + pelvi s, unila teral , 2 or 3 view [email or web address]:/ [email or web address] ?Encry pted=s hAaTro YD8dLq bEUv6g %2BXZw aYqtaq 0bqfl% 2Fg9IQ a4ajBk vP9nXo QUaueC m3YtLR FvZlg JJ8mAn HZtai3 1n1888 AC0Kqa 3yGWKS nKiQtr MwF INTERFACE [facility] [address] [facility] [address], [place], [address], 02/02/2024 09:51:20 04/13/20 24 04/13/2024 XR, hip + pelvi s, unila teral , 2 or 3 view http:/ [email or web address] ?Encry pted=s hAaTro YD8dLq bEUv6g %2BXZw aYqtaq 0bqfl% 2Fg9IQ a4ajBk vP9nXo QUaueC m3YtLR FvZlgJ JJ8mAn HZtai3 3d9657 AC0Kqb nyGWKW kKiQtr MwF INTERFACE [facility] [address], [place], [address], 04/13/2024 10:40:15 04/13/20 24 04/13/2024 XR, hip + pelvi s, unila teral , 2 or 3 view http:/ [email or web address] ?Encry pted=s hAaTro YD8dLq bEUv6g %2BXZw aYqtaq 0bqfl% 2Fg9IQ a4ajBk vP9nXo QUaueC m3YtLR FvZlgJ JJ8mAn HZtai3 1r2057 AC0Kqb nyGWKW kKiQtr MwF INTERFACE [facility] [address], [place], [address], 04/13/2024 10:40:17 Result Notes None recorded. Problems Name Problem SNOMED Code Status Onset Date Resolution Date Notes Provider Name and Address Organization Details Recorded Time Pain in right hip joint 4345437305782 02 Active 2023 CHAPIN sharma [facility] 4 10:54:29 Leg length inequality 21205697 Active 2024 CHAPIN sharma [facility] 5 10:51:07 Problem Notes None recorded. Procedures Surgical History Date Name Laterality Status Provider Name and Address Organization Details Recorded Time 4 88325 Therapeutic Exercise (1:1) completed Idris Orta DPT [address] [facility], [place], [address], [facility] 02/21/2024 06:56:39 4 44024: Gait training completed Idris Orta DPT [address], [place], [address], [facility] 02/21/2024 06:57:55 4 97365 Therapeutic Exercise (1:1) completed Idris Orta DPT [address] [facility], [place], [address], [facility] 02/16/2024 07:35:27 4 92557: Gait training completed Idris Orta DPT [address] [facility], [place], [address], [facility] 02/16/2024 07:35:35 4 69133 Therapeutic Exercise (1:1) completed Iqra Cowart PTA [address], [place], [address], [facility] 02/07/2024 12:19:25 4 75139 Therapeutic Exercise (1:1) completed Idris Orta DPT [address], [place], [address], [facility] 02/03/2024 12:52:59 4 25510 Therapeutic Exercise (1:1) completed Idris Orta DPT [address], [place], [address], [facility] 02/01/2024 16:00:57 4 51012 Therapeutic Exercise (1:1) completed Iqra Cowart PTA [address], [place], [address], [facility] 01/25/2024 14:48:20 4 82837 Therapeutic Exercise (1:1) completed Iqra Cowart PTA [address], [place], [address], [facility] 01/24/2024 06:43:44 4 04100 Therapeutic Exercise (1:1) completed Iqra Cowart PTA [address], [place], [address], [facility] 01/20/2024 09:44:34 4 Sports Knee 4&1 completed Loly Chance PA-C [address], [place], [address], [facility] 01/19/2024 13:59:36 4 10404 Therapeutic Exercise (1:1) completed Idris Orta, DPT [address], [place], [address], [facility] 01/20/2024 08:00:23 4 68573 Therapeutic Exercise (1:1) completed Idris Orta, DPT [address], [place], [address], [facility] 01/17/2024 07:44:39 4 64432: Low complexity PT Eval completed Idris Orta, DPT [address], [place], [address], [facility] 01/17/2024 07:44:51 4 G8417 BMI Above Upper Parameters, F/U Documented completed Idris Orta DPT [address], [place], [address], [facility] 01/17/2024 07:44:42 4 G8427 Current Medication Documented completed Idris Orta DPT [address], [place], [address], [facility] 01/17/2024 07:44:46 4 85718 Therapeutic Exercise (1:1) completed Idris Orta, DPT [address], [place], [address], [facility] 12/23/2023 15:02:41 4 29867: Low complexity PT Eval completed Idris Orta, DPT [address], [place], [address], [facility] 12/23/2023 15:08:14 4 G8417 BMI Above Upper Parameters, F/U Documented completed Idris Orta, DPT [address], [place], [address], [facility] 12/23/2023 15:02:46 4 G8427 Current Medication Documented completed Idris Orta DPT [address], [place], [address], [facility] 12/23/2023 15:02:49 4 Sports Knee 4&1 completed Petrona Gage PA-C [address], [place], [address], [facility] 08/27/2023 14:53:25 5 Fracture Surgery completed [facility] 02/02/2024 09:42:11 5 Hand Surgery completed [facility] 02/02/2024 09:42:11 0 Hip Surgery completed [facility] 02/02/2024 09:42:11 Imaging Results Imaging Date Name Status LastModified by Organiz ation Details LastModified Time 01/18/2024 XR, hip + pelvis, unilateral , 2 or 3 view completed INTERFACE [facility] [address], [place], [address], 01/18/2024 15:25:06 01/18/2024 XR, hip + pelvis, unilateral , 2 or 3 view completed INTERFACE [facility] [address], [place], [address], 01/18/2024 15:25:08 02/02/2024 XR, hip + pelvis, unilateral , 2 or 3 view completed INTERFACE [facility] [address], [place], [address], 02/02/2024 09:51:18 02/02/2024 XR, hip + pelvis, unilateral , 2 or 3 view completed INTERFACE [facility] [address], [place], [address], 02/02/2024 09:51:20 04/13/2024 XR, hip + pelvis, unilateral , 2 or 3 view completed INTERFACE [facility] [address], [place], [address], 04/13/2024 10:40:15 04/13/2024 XR, hip + pelvis, unilateral , 2 or 3 view completed INTERFACE [facility] [address], [place], [address], 04/13/2024 10:40:17 Procedure Notes None recorded. Medical Equipment None Reported. Allergies No known drug allergies Medications Name Sig Start Date Stop Date Status Note LastModified by Organization Details LastModified Time celecoxib 200 mg capsule TAKE 1 CAPSULE BY MOUTH EVERY DAY FOR 33 DAYS DIRECTED 04/13 completed Not Available Not Available Not Available prednisone 20 mg tablet TAKE 1 TABLET BY MOUTH TWICE DAILY FOR 5 DAYS FOR COPD 08/26 completed Not Available Not Available Not Available amlodipine 5 mg tablet 1 tablet every day by oral route. active Not Available Not Available No t Available tramadol 50 mg tablet TAKE 1 TABLET BY MOUTH EVERY 4 HOURS; NOT TO EXCEED 400 MG/DAY, NEEDED FOR MODERATE PAIN 04/13 completed Not Available Not Available Not Available aspirin 325 mg tablet,annette yed release TAKE 1 TABLET BY MOUTH TWO TIMES A DAY 04/13 completed Not Available Not Available Not Available cephalexin 500 mg capsule TAKE 1 CAPSULE BY MOUTH TWICE DAILY FOR 10 DAYS 08/26 completed Not Available Not Available Not Available docusate sodium 100 mg capsule TAKE 1 CAPSULE BY MOUTH TWICE DAILY 04/13 completed Not Available Not Available Not Available omeprazole 20 mg capsule,del ayed release TAKE 1 CAPSULE BY MOUTH DAILY active Not Available Not Available No t Available polyethylen e glycol 3350 17 gram/dose oral powder MIX WITH 64 OZ OF CRYSTAL LIGHT. BEGIN DRINKING AFTER FIRST BOWEL MOVEMENT AFTER TAKING DUCOLAX. DRINK EVERY 15 MINUTES UNTIL FINISHED. 04/13 completed Not Available Not Available Not Available paroxetine 40 mg tablet 1 tablet every day by oral route. active Not Available Not Available No t Available amoxicillin 875 mg-potassiu m clavulanate 125 mg tablet TAKE 1 TABLET BY MOUTH TWICE DAILY FOR 7 DAYS 08/26 completed Not Available Not Available Not Available oxycodone 5 mg tablet TAKE 1 TABLET BY MOUTH EVERY 6 HOURS NEEDED FOR SEVERE PAIN 02/01 completed Not Available Not Available Not Available Laxative (bisacodyl) 5 mg tablet TAKE 4 TABLETS BY MOUTH ONCE FOR COLON PREP FOR 1 DAY TAKE AT 12 PM THE DAY BEFORE COLONOSCO PY APPOINTME NT 04/13 completed Not Available Not Available Not Available Vitamin D3 25 mcg (1,000 unit) capsule 1 capsule every day by oral route. active Not Available Not Available No t Available solifenacin 5 mg tablet TAKE 2 TABLETS BY MOUTH DAILY active Not Available Not Available No t Available Flovent active Not Available Not Avail able Not Available Zyrtec 10 mg capsule Take by oral route. active Not Available Not Available No t Available omeprazole magnesium 20 mg capsule,del ayed release Take 1 capsule every day by oral route. 06/15 completed Not Available Not Available Not Available mirabegron ER 25 mg tablet,exte nded release 24 hr TAKE 1 TABLET BY MOUTH DAILY active Not Available Not Available No t Available Spiriva Respimat 2.5 mcg/actuati on solution for inhalation 2 puffs every day by inhalatio n route. active Not Available Not Available No t Available Wixela Inhub 250 mcg-50 mcg/dose powder for inhalation INHALE 1 PUFF BY MOUTH TWICE DAILY active Not Available Not Available No t Available Wixela Inhub 500 mcg-50 mcg/dose powder for inhalation INHALE 1 PUFF BY MOUTH TWICE DAILY FOR COPD 04/13 completed Not Available Not Available Not Available Wixela Inhub 06/15 completed Not Available Not Available Not Available Vitals Date Recorded Body height Body mass index (BMI) Body weight Provider Name and Address Organization Details Last Updated DateTime 04/13/2024 149.86 cm 33.5 kg/m2 81920.33 g amor randolph [facility] 04/13/2024 10:29:06 Date Recorded Body height Body mass index (BMI) Body weight Provider Name and Address Organization Details Last Updated DateTime 06/15/2024 149.86 cm 31.5 kg/m2 87908.41 g CHAPIN PFEIFFER [facility] 06/15/2024 10:29:06 Social History Question Answer Notes LastModified by Organizat ion Details LastModified Time Tobacco Smoking Status Former Smoker CHAPIN sharma [place] [facility] 06/15/2024 10:28:54 How Many Times Per Week Do You Consume Alcohol? Less Than 1 Time Per Week Information not available 06/15/2024 Do You Or Have You Ever Used E-cigarettes Or Vape? Never Used Electronic Cigarettes Information not available 06/15/2024 When Did You Quit Smoking? 16+yearssincel astcibriana Information not available 06/15/2024 What Is Your Relationship Status? Information not available 06/15/2024 Do You Use Any Illicit Or Recreational Drugs? No Information not available 06/15/2024 How Many Years Have You Smoked Tobacco? 15 Information not available 06/15/2024 Do You Or Have You Ever Used Any Other Forms Of Tobacco Or Nicotine? No Information not available 06/15/2024 Sex: Unknown Functional Status None recorded. Mental Status None recorded. Family History Nothing Reported. Medical History Condition Response Anxiety/Depression Y Emphysema Y COPD Y Gastrointestinal Disease Y Arthritis Y Allergies/Hayfever Y Asthma Y Osteoporosis Y Gynecological HistoryNo gynecological history recorded. Obstetrics History GPAL:G 0 P 0 0 0 0 Past Encounters Encounter ID Performer Location Encounter Start Date Encounter Closed Date Diagnosis/Indication Diagnosis SNOMED-CT Code Diagnosis ICD10 Code Diagnosis Note [id number] HUSSEIN Buckner [address] [place] [address] 08/27/2023 14:10:58 08/27/2023 14:53:48 Pain of right knee joint 1712816301 70983 M25.601 [id number] MD Anamaria Agarwal [address] [place] [address] 12/09/2023 10:14:31 12/30/2023 11:29:18 Pain in right hip joint 7203410529 38897 M25.551 Osteoarthr itis of right hip joint 9154390251 67746 M16.11 [id number] MD [facility] [address] [place] [address] 12/23/2023 13:13:59 12/23/2023 14:13:12 Osteoarthritis of hip 930310812 M16.11 [id number] Alex Bauer, JONATHAN [facility] [address] [place] [address] 12/27/2023 09:48:15 01/13/2024 18:36:37 Osteoarthritis of right hip joint 8833413489 69813 M16.11 [id number] Tigre Anderson MD [facility] [address] [place] [address] 01/13/2024 13:21:21 01/13/2024 14:34:06 Aftercare 662050988 Z47.1 Z96.858 [id number] Idris Orta DPT [facility] [address] [place] [address] 01/18/2024 13:37:48 01/18/2024 16:57:31 Aftercare [id number] Z47.1 Z96.078 [id number] Loly Chance PA-C [facility] [address] [place] [address] 01/18/2024 14:28:17 02/09/2024 08:52:04 History of total replacement of right hip joint 8261128599 42045 Z96.641 Postoperative visit 1836 17506 Z48.89 Osteoarthr itis of right knee joint 2796274678 79845 M17.11 [id number] Faraz Damian DPT [facility] [address] [place] [address] 01/20/2024 11:48:03 01/20/2024 15:12:00 Aftercare 429207675 Z47.1 Z96.366 [id number] CLARENCE MurilloT [facility] [address] [place] [address] 01/25/2024 11:43:16 01/25/2024 14:01:05 Aftercare 745670197 Z47.1 Z96.593 [id number] Idris Orta DPT [facility] [address] [place] [address] 01/27/2024 11:48:11 01/27/2024 13:20:49 Aftercare [id number] Z47.1 Z96.282 [id number] Idris Orta , DPT [facility] [address] [place] [address] 02/01/2024 11:48:45 02/01/2024 13:09:36 Aftercare 065042169 Z47.1 Z96.544 [id number] Garett Camara PA-C [facility] [address] [place] [address] 02/02/2024 09:36:34 02/28/2024 16:12:47 Aftercare 005981023 Z51.89 Hip joint prosthesis present 517064934 Z96.222 [id number] Idris Orta , DPT [facility] [address] [place] [address] 02/03/2024 11:49:39 02/03/2024 13:03:29 Aftercare [id number] Z47.1 Z96.286 [id number] Idris Orta , DPT [facility] [address] [place] [address] 02/08/2024 09:25:54 02/08/2024 10:37:27 Aftercare 946620095 Z47.1 Z96.226 [id number] Idris Orta , DPT [facility] [address] [place] [address] 02/15/2024 15:13:10 02/15/2024 16:42:30 Aftercare [id number] Z47.1 Z96.953 [id number] Idris Orta , DPT [facility] [address] [place] [address] 02/17/2024 15:14:49 02/17/2024 17:33:36 Aftercare [id number] Z47.1 Z96.053 [id number] Loly Chance PA-C [facility] [address] [place] [address] 04/13/2024 10:03:46 05/09/2024 11:41:57 Hip joint prosthesis present 466341654 Z96.580 [id number] MD JOHN Castro [address] [place] [address] 06/15/2024 09:55:25 06/15/2024 13:06:43 Leg length inequality 65212911 M21.70 Health Concerns Section Related Observation LastModified by Organization Detai ls LastModified Time None Recorded Concern Status LastModified by Organization Details LastModified Time None Recorded Advance Directives Directive None Recorded Payers Encounter Date Sequence Insurance Name Policy Number Policy Stewart Covered Member ID Stewart Member ID Guarantor Name 02/08/2024 1 [place] [facility] Aline Hartley [id number] Aline Ayala Naeem 02/08/2024 2 [place] Yuan Hartley [id number] Aline Hartley 02/15/2024 1 [place] [facility] [employer] Aline Hartley [id number] Aline Ayala Naeem 02/15/2024 2 [place] Yuan Hartley [id number] Aline Hartley 02/17/2024 1 [place] [facility] [employer] Aline Hartley [id number] Aline Ayala Naeem 02/17/2024 2 [place] Yuan Hartley [id number] Aline Hartley 04/13/2024 1 [place] [facility] [employer] Aline Hartley [id number] Aline Hartley 04/13/2024 2 [place] Yuan Hartley [id number] Aline Hartley 06/15/2024 1 [place] [facility] [employer] Aline Hartley [id number] Aline Hartley 06/15/2024 2 [place] Yuan Hartley [id number] Aline Hartley Notes Date Note Type Note Provider Name and Address Organization Details Recorded Time 02/08/2024 text/html Pt reports 4/10 px in groin today, amb with RW. Some px in knee as well. Drove today to PT. Iqra Cowart, WIND TECHNICIAN [address], [place], [address], [facility] 02/08/2024 10:20:31 02/15/2024 text/html Pt reports 5/10 px in groin today, amb with RW. notes feeling good over weekend, being able to go to [place] soccer game, but sore next day. Idris Orta, DPT [address], [place], [address], [facility] 02/16/2024 07:37:38 02/17/2024 text/html Pt reports 5/10 px in groin today, amb with RW. notes feeling good over weekend, being able to go to [place] soccer game, but sore next day. CLARENCE FernandezT [address], [place], [address], [facility] 02/21/2024 06:58:12 04/13/2024 text/html I am seeing the patient today under the supervision of Dr. Rader who was available but who did not see the patient. HPI: Patient comes in for follow-up, now 3 months status post right total hip arthroplasty. Happy with results. No significant complaints of pain. Has returned to her daily activities without difficulty. Past family, medical, social history and review of systems has been reviewed, updated, and is located in the patient? s chart. Examination: The patient is well appearing and in no apparent distress. Alert and oriented x3. Gait is antalgic on the right. Examination hip has a healed surgical incision. No edema, erythema, ecchymosis, or drainage. Range of motion is pain free. Calf is soft and nontender bilaterally. 4+/5 strength of hip flexion and extension. X-rays ordered, obtained, and reviewed at [facility] today include an AP pelvis and lateral view of the right hip. Radiographs demonstrate a total joint arthroplasty with good interfaces and alignment. No evidence of any lysis or loosening. No acute fractures appreciated. Impression: 3 months status post right total hip arthroplasty Plan: The patient has recovered well following her recent surgical procedure. I encouraged her to continue increasing her daily activities. She was reminded of MATT precautions. We reviewed pre-dental antibiotic protocol as well. She will follow up in 1-2 years for an annual visit. All questions were answered. Loly Chance PA-C [address] [place], [place] [address] [address], [place], [address], [facility] 04/13/2024 13:00:02 OBGyn Episode No OBEpisode recorded.
== END 2024-06-29 08:59 | disposition home or self-care (01) ==
PROVIDERS: PCP Internal Medicine; Visit Provider Internal Medicine
DX: K74.60 Unspecified cirrhosis of liver (principal); J44.9 Chronic obstructive pulmonary disease, unspecified; E66.01 Morbid (severe) obesity due to excess calories; F33.1 Major depressive disorder, recurrent, moderate; Z68.30 Body mass index [BMI] 30.0-30.9, adult; R32 Unspecified urinary incontinence; I10 Essential (primary) hypertension; M25.561 Pain in right knee

== ENCOUNTER → 2024-06-29 08:15 | Outpatient (BNVA) | payer MEDICARE, BC, SELFPAY | PROVIDERS: PCP Internal Medicine; Visit Provider Internal Medicine | DX: K74.60 Unspecified cirrhosis of liver (principal); J44.9 Chronic obstructive pulmonary disease, unspecified; I10 Essential (primary) hypertension; M25.561 Pain in right knee; R32 Unspecified urinary incontinence; E66.01 Morbid (severe) obesity due to excess calories; F33.1 Major depressive disorder, recurrent, moderate | CPT/HCPCS: 99212 ==

== ENCOUNTER 2024-08-10 09:57 | Outpatient (AMB) | payer MEDICARE, BC, SELFPAY ==
[2024-08-10 10:22] VITALS: BP 120/70; PULSE 93; O2SAT 97; BMI 30.1
--- NOTE | 2024-08-10 10:22 | A.OFFVIS_ITS ---
Vital Signs 08/10/24 10:22 Height 5 ft Weight 154 lb 5.177 oz BMI 30.1 BP 120/70 Blood Pressure Location Lt brachial Position Sitting Pulse 93 Pulse Source Pulse Oximeter Pulse Oximetry (%) 97 Oxygen Delivery Method Room Air Intake Visit Reasons: COPD Intake Note: pt is here for pre-op clearance and follow up of copd, she is having a knee replacement right knee, Dr. Justin SUAREZ. in 08/22/24, pt needs refill on rescue inhaler. Vascular Physician Required: No Allergies cat dander [CATS] Allergy (Unknown, Verified 08/10/24 10:34) ASTHMA ATTACK Horse/Equine Containing Products [HORSE/EQUINE CONTAINING PRODUCTS] Allergy (Unknown, Verified 08/10/24 10:34) ASTHMA ATTACK ENVIROMENTAL Allergy (Unknown, Uncoded 08/10/24 10:34) ASTHMA ATTACK Medication List - Last Reconciled 08/10/24 by Albertina Kimball MD amlodipine 5 mg PO DAILY bisacodyl (Dulcolax (bisacodyl)) 20 mg (4 x 5 mg) PO ONCE 1 day cholecalciferol (vitamin D3) 25 mcg PO DAILY 90 days fluticasone propion-salmeterol 250-50 mcg/dose (Wixela Inhub) 1 inh inhalation BID 30 days mirabegron ER 50 mg PO DAILY ilfgquou-compfnxmgPn-nrxeasatB 3.5mg-400 unit- 5,000 unit/gram (Neosporin (osw-oqm-tkrrd)) 1 appl topical TID omeprazole 20 mg PO DAILY 90 days paroxetine HCl 40 mg PO QAM polyethylene glycol 3350 (Miralax) 17 grams PO DAILY 1 day tiotropium bromide 2.5 mcg/actuation (Spiriva Respimat) 2 puffs PO DAILY Do you need a note to return to daycare/school/sports/work: No HPI HPI COPD: Details: This 78 years old very pleasant female is here for follow-up after 4 months for her COPD. With the current medical regimen her breathing has remained very stable, She has only mild intermittent cough and mild dyspnea on walking up hill. She uses walker to walk. She underwent right hip surgery last January without any problem. Now she is anticipating right knee replacement . At present she has no signs of acute respiratory infection. She claims that her breathing status is very stable. [facility] Medical History Morbid obesity Restrictive lung disease Tachycardia COVID-19 Endogenous depression COPD (chronic obstructive pulmonary disease) Allergic rhinitis GERD with esophagitis Asthma COPD (chronic obstructive pulmonary disease) History of iron deficiency anemia Hiatal hernia Cirrhosis of liver without ascites Surgical History History of right hip replacement Hx of ventral hernia repair History of dental surgery History of surgery on left wrist History of hysterectomy History of hip surgery Status post laparoscopic cholecystectomy (~06/10/18) Family History Other Mental health disorder Substance use disorder Social History Household Members: Spouse Housing: House Alcohol intake: former Patient Tobacco Use Status: Former Tobacco user e-Cigarette/Vaping Use: Never Used Second Hand Smoke Exposure: No service: No Current occupational status: disabled Cognitive needs: Yes (cane, walker) Hearing needs: No Vision needs: Yes (Reading Glasses) Review of Systems Const All systems reviewed & are unremarkable except as noted in HPI and below Eyes Reports no additional complaints ENT Reports nasal congestion (Off and on, mostly controlled at this time) Card Denies chest pain, Denies irregular heart rhythm and Denies leg edema Resp Reports as per HPI GI Reports heartburn (Symptoms of GERD controlled with omeprazole) Reports no additional complaints Musc Reports abnormal gait (Needs cane or walker, for gait stability) and Reports back pain Skin/Breast Reports system reviewed and no additional complaints, except as documented Neuro Reports abnormal gait (Needs cane or walker, for gait stability) Psych Reports depression (Controlled with med) Endo Reports no additional complaints Physical Exam Vital Signs: Last Vital Signs Pulse 93 08/10/24 10:22 BP 120/70 08/10/24 10:22 Pulse Ox 97 08/10/24 10:22 Oxygen Delivery Method Room Air 08/10/24 10:22 BMI result Body Mass Index 30.1 Const General: comfortable, no acute distress, alert and awake Orientation/consciousness: patient oriented x3 HEENT Head: Yes normal to inspection General nose exam: No nasal polyps present, No nasal discharge present and Other nasal findings present (Mild nasal congestion) Face and sinus: Yes sinuses nontender Mouth: oropharynx normal Throat: Yes posterior oropharynx normal Eyes General: appearance normal, both eyes and all related structures Neck Neck: Yes normal visual inspection, Yes no lymphadenopathy, Yes trachea midline and Yes no JVD Thyroid: Thyroid normal Chest Chest palpation & inspection: normal inspection of the chest, normal palpation of entire chest wall and no tenderness Resp Other: Percussion note is resonant, breath sounds distant on both sides with prolonged expiratory phase. No expiratory wheezes heard . Also no crepitations. Cardio Palpation: normal PMI Rate: tachycardic (hr at rest 120/mt ) Rhythm: regular rhythm Heart sounds: no gallops and no murmurs GI Palpation (GI): Soft to palpation, nontender, No hepatosplenomegaly present and no masses Auscultation: normal bowel sounds Back/Spine/Pelvis Thoracic/Lumbar Spine: thoracic and lumbar spine normal to inspection, thoraco- lumbar ROM limited and thoraco-lumbar spasm Skin General skin exam: no rashes or lesions noted Neuro General: patient oriented x3 and no focal motor deficits Cranial nerves: Yes CN's II-XII intact bilaterally Extrem General: Yes normal to inspection, Yes no clubbing, cyanosis or edema and Yes no calf tenderness Psych Appearance: grossly normal and well kempt Speech and movement: Normal speech and movement present Assessment & Plan Assessment & Plan (1) COPD (chronic obstructive pulmonary disease): Comment: MILD TO MODERTAELY SEVERE , WELL CONTROLLED , REMAINING STABLE.. , NO ACTIVE SYMPTOMS OF COUGH OR WHEEZING, Code(s): J44.9 - Chronic obstructive pulmonary disease, unspecified Category: Medical Plan: CONTINUE WIXELA 250-51 INHALATION B.I.D.. SPIRIVA RESPIMAT 2.5 MCGM 2 INHALATIONS DAILY. ALBUTEROL HFA 2 PUFFS Q 6 HOURS ONLY P.R.N. (2) Restrictive lung disease: Comment: PFT Showed Mild restrictive pulmonary disorder in addition to mild COPD. This is most likely due to her obesity, and is expected to improve as she loses weight. Code(s): J98.4 - Other disorders of lung Category: Medical Plan: PATIENT DOES HAVE INCENTIVE SPIROMETRY DEVICE AT HOME AND SHE IS ADVISED TO DO DEEP BREATHING EXERCISES EVERY 2-3 HOURS DURING THE DAYTIME. Plan PULMONARY CLEARANCE : PATIENT IS AWAITING TO UNDERGO RIGHT KNEE REPLACEMENT SURGERY. FROM PULMONARY POINT OF VIEW NO CONTRAINDICATION AND SHE CAN SAFELY UNDERGO THE SURGERY. CONTINUE USING REGULAR MEDICATIONS , FOR BREATHING POSTOPERATIVELY MAY NEED TO USE ALBUTEROL SOLUTION IN THE NEBULIZER Q 4-6 HOURS P.R.N.. Medications: New albuterol sulfate 90 mcg/actuation 2 puffs inhalation Q4-6H 30 days PRN 8.5 grams 3RF shortness of breath or wheezing Coding Level of Care Code Est Pt Level 3 (99101) Diagnoses COPD (chronic obstructive pulmonary disease) J44.9 Restrictive lung disease J98.4
--- OUTSIDE RECORDS SUMMARY | 2024-08-10 11:31 | XMS_ITS ---
[facility] Organization [facility] Address [address] [place] [address] Care Team Providers Care Fire Protection Inspector Name Role Phone Cecile, Kartik Primary Care Provider [phone] Black, Adriana Unavailable [phone] Allergies No Known Allergies REASON FOR VISIT [...] Ordered Date Performed Result Body Sit e 70692-TXDK SKIN LESIONS, OVER 4 06/22/2024 N/A 10621-ZVDM NAIL(S) 06/22/2024 N/A Encounters Encounter Location Date Provider Diagnosis [facility] [place] [address] [place] [address] 06/22/2024 Adriana Walton Atherosclerosis of [place] artery of both lower extremities, with unspecified presence of clinical manifestation I70.203 Assessments Encounter Date Diagnosis (ICD Code) Assessment Notes Treatment Notes Treatment Clinical Notes Section Notes 06/22/2024 Atherosclerosis of [place] artery of both lower extremities, with unspecified presence of clinical manifestation (ICD-10 - I70.203) Q7(A), Q8(2B), Q9(1B,2C) Plan Of Treatment Pending Test Test Name Order Date 23003-PSKE SKIN LESIONS, OVER 4 06/22/19 25 53244-SKLH NAIL(S) 06/22/2024 Next Appt Details Follow Up: 4 Weeks, Reason: Provider Name:Adriana Walton , 10/19/2024 10:45:00 AM, [address] [place] [address], [phone], Procedure Notes * Category Sub-Category Detail Notes [...] instrumentation by the physician of record - 75840, Q8, 23007-LS Self Pay Non-Covered Callus care Nail Reduction [...] healthy nail plate or bed tissue - 54577 Progress Notes * Aline HALLMAN MDOB: 8 (78 yo F)Acc No.[id number]:06/22/2024 Progress Notes Patient:?Aline HALLMAN Provider:?Adriana Walton DPM :1945???Age:78 Y???Sex:Female D ate:06/22/2024 Address:[address] [place], [place] [id number] Pcp:Rip Huber Subjective: * Chief Complaints: * [...] oblasion 07/19/2014Colonoscopy 08/16/2017- 04/20/2019cataracts 04/08/18 and 04/18/18cholecystectomy 06/04/2018[facility] [place]- right hip replacement 01/05/24 * Hospitalization/Major Diagno stic Procedure:?admitted to [facility], severe depression, anxiety, took to many drinks 12/08/13-12/22/13Endoscopy & colonoscopy 08/20/14Left Leg laser ablation 07/19/14[place] [place], Sepsis, Bleeding ulcer, Transfusion, Cholecystectomy 06/04/2018-06/11/18 [...] T8, T9.? Assessment: * Assessment: 1.?Atherosclerosis of [place] artery of both lower extremities, with unspecified [...] instrumentation by the physician of record - 71236, Q8, 27379-ER Self Pay Non-Covered Callus care.?Nail Reduction:?Nail Reduction?(-19) [...] healthy nail plate or bed tissue - 94914.? * Procedure Codes:?85831 TRIM SKIN LESIONS, OVER 4 NC $60, [place] [address] TRIM NAIL(S), Modifiers: GA * Follow Up:?4 Weeks * Images: * Sign off status: Completed true * Provider:?Adriana Walton DPM Date:?2024 Generated for Nate barbour/Georgie/Jeannine on:?08/10/2024 11:30 AM EDT History and Physical Notes * HPI (History [...]
--- OUTSIDE RECORDS SUMMARY | 2024-08-10 11:31 | XMS_ITS ---
Author Organization [facility] Address [address] [place] [address] Care Team Providers Care Mica Splitter Name Role Phone Cecile, Kartik Primary Care Provider [phone] Black, Adriana Unavailable [phone] Allergies No Known Allergies REASON FOR VISIT At Risk Footcare Medications Medication SIG (Take, Route, Frequency, Duration) Notes Start Date End Date Status PROzac 20 MG 1 capsule in the [...] 2 puffs Inhalation Twice a day Not-Taking Flexeril 5 MG 1 tablet Orally Once a day for 30 day(s) Not-Taking predniSONE Not-Takin g Augmentin Not-Taking Vistaril 25 MG 1 capsule Orally Three times a day for 30 day(s) Not-Taking Inhaler Companions N ot-Taking Albuterol Sulfate HFA 108 (90 Base) MCG/ACT 2 puffs as needed Inhalation every 4 hrs Not-Taking Albuterol Sulfate 1.25 MG/3ML 3 ml as needed Inhalation every 6 hrs Not-Taking Protonix 40 MG 1 tablet Orally Once a day for 30 day(s) Not-Taking Prednisone Not-Emperatriz g [employer] . . [...] 12 hrs for 10 day(s) 11/11/2017 Not-Taking albuterol 1 tab Oral Not-Takin g Amoxicillin Not-Taki ng predniSONE 20 MG 1 tablet Orally Once a day for 30 day(s) Not-Taking Cephalexin 500 MG 1 capsule Orally twice a day for 10 days Not-Taking traMADol HCl 50 MG 1 tablet as needed Orally Once a day for two weeks Not-Taking [employer] as directed 02/25/2011 Active Heel lift as directed add to shoe 08/05/2015 Active Solifenacin Succinate 5 MG TAKE 1 TABLET BY MOUTH DAILY Oral for 90 Not-Taking [employer] as directed 03/20/2024 Active Advair Diskus Not-Ta joseph Vitamin D3 Active amLODIPine Besylate 5 MG 1 tablet Orally Once a day for 30 day(s) Active Omeprazole 20 MG Orally Act ghassan Paxil 50 1 tablet in the morning Once a day Active Spiriva HandiHaler 18 MCG 1 capsule Inhalation Once a day Active Wixela Inhub Active Tylenol Active ZyrTEC 10 MG 1 tablet Orally Once a day Active Myrbetriq 50 MG 1 tablet Orally Once a day Active Social History Tobacco Use: Social History [...] Interpretation Negative Vital Signs Height 5ft in 08/07/2024 Weight 159 lbs 08/07/2024 BMI 31.05 kg/m2 08/07/2024 Blood pressure systolic 120 mm Hg 08/08/19 25 Blood pressure diastolic 60 mm Hg 025 Procedures Procedure Date Ordered Date Performed Result Body Sit e 51295-EQES SKIN LESIONS, OVER 4 08/07/2024 N/A 24953-LPLJ NAIL(S) 08/07/2024 N/A Encounters Encounter Location Date Provider Diagnosis [facility] [place] [address] [place] [address] 08/07/2024 Adriana Walton Atherosclerosis of [place] artery of both lower extremities, with unspecified presence of clinical manifestation I70.203 Assessments Encounter Date Diagnosis (ICD Code) Assessment Notes Treatment Notes Treatment Clinical Notes Section Notes 08/07/2024 Atherosclerosis of [place] artery of both lower extremities, with unspecified presence of clinical manifestation (ICD-10 - I70.203) Q7(A), Q8(2B), Q9(1B,2C) Plan Of Treatment Pending Test Test Name Order Date 01521-LFJR SKIN LESIONS, OVER 4 08/08/19 25 98026-SLDW NAIL(S) 08/07/2024 Next Appt Details Follow Up: october, Reason: Provider Name:Adriana Walton , 10/19/2024 10:45:00 AM, [address] [place] [address], [phone], Procedure Notes * Category Sub-Category Detail Notes [...] instrumentation by the physician of record - 14311, Q8 Nail Reduction Nail Reduction (-19) Trimming [...] healthy nail plate or bed tissue - 14341, Q8 Progress Notes * Aline HALLMAN MDOB: 8 (78 yo F)Acc No.[id number]:08/07/2024 Progress Notes Patient:?LEXXMoece Ayala Provider:?Adriana Walton DPM :1945???Age:78 Y???Sex:Female D ate:08/07/2024 Address:[address] [place], [place] [id number] Pcp:Rip Huber Subjective: * Chief Complaints: * ???At Risk Footcare * HPI: ???At Risk footcare:?Pt States Last PCP Visit:?Date?06/29/2024 * ROS:?General/Constitutional:?Nausea?denies.?Vomiting?denies.?Hunger Thirst?denies.?Loss appetite?denies.?Chills?denies.?Fatigue?denies.?Fever?denies.?Night Sweats?denies.?Unexplained weight loss?denies.?Unexplained [...] 07/19/2014Colonoscopy 08/16/2017- 04/20/2019cataracts 04/08/18 and 04/18/18cholecystectomy 06/04/2018[facility] [place]- right [place] replacement 01/05/24 * Hospitalization/Major Diagno stic Procedure:?admitted to [facility], severe depression, anxiety, took to many drinks 12/08/13-12/22/13Endoscopy & colonoscopy 08/20/14Left Leg laser ablation 07/19/14colonoscopy 04/2015[facility] [place] Pnuemonia, Sepsis, Bleeding ulcer, Transfusion, Cholecystectomy 06/04/2018-06/11/18 [...] 1 tablet Orally Once a day Myrbetriq 50 MG Tablet Extended Release 24 Hour 1 [...] Heel lift as directed add to shoe [employer] as directed Taking Wixela Inhub Taking Tylenol Taking ZyrTEC 10 MG Tablet Chewable 1 tablet Orally Once a day Taking Myrbetriq 50 MG Tablet Extended Release 24 Hour 1 [...] lift as directed add to shoe Taking Custom Orthotics as directed Not-Taking/PRNSolifenacin Succinate 5 MG Tablet TAKE 1 TABLET BY MOUTH DAILY Oral Advair Diskus albuterol 1 tab Oral Amoxicillin predniSONE [...] List reviewed and reconciled with the patientNot-Taking/PRN Solifenacin Succinate 5 MG Tablet TAKE 1 TABLET BY MOUTH DAILY Oral Not-Taking/PRN Advair Diskus Not-Taking/PRN albuterol 1 tab Oral [...] BM I: 31.05, Shoe size: 7, BP: 120/60 mm Hg, Ht-cm: 152.4 cm, Wt-k.12 kg. [...] 3, Right, 2, 5, Left, Plantar Heel(s), B/L.?Vascular: ?DP PULSES (B):? 0/4, B/L.?PT PULSES (B):? [...] T8, T9.? Assessment: * Assessment: 1.?Atherosclerosis of [place] artery of both lower extremities, with unspecified [...] instrumentation by the physician of record - 46403, Q8.?Nail Reduction:?Nail Reduction?(-19) Trimming of all non-dystrophic [...] healthy nail plate or bed tissue - 54496, Q8.? * Procedure Codes:?61499 TRIM NAIL(S), Modifiers: Q8 , [id number] TRIM SKIN LESIONS, OVER 4, Modifiers: Q8 * Preventive Medicine:? ??Screening/Special Tests:?Fall Risk?Screening:?No falls in the past year ?FALLS: Screening for Future Fall Risk?Have you had any falls with injury in the past year??No * Follow Up:?mid october * Images: * Sign off status: Completed true * Provider:?Adriana Walton DPM Date:?2024 Generated for Nate barbour/Georgie/Jeannine on:?08/10/2024 11:31 AM EDT History and Physical Notes * [...] 2, 5, Left, Plantar Heel(s), B/L HYPERKERATOSIS: General Examination GENERAL APPEARANCE: Reveals a pleasant, [...]
--- OUTSIDE RECORDS SUMMARY | 2024-08-10 11:31 | XMS_ITS | Patient Health Record ---
[facility] Address [address] [place] [address] Care Team Providers Care Newsagent Name Role Phone Rip Huber Primary Care Provider Adriana Walton Unavailable [phone] Allergies No Known Allergies Reason For Referral No Information Medications Medication SIG (Take, Route, Frequency, Duration) Notes Start Date End Date Status Custom Orthotics . . . for . 06/10/2015 Not-Taking Cephalexin 500 MG 1 capsule Orally BID for 10 days 06/13/2020 Not-Taking Keflex 500 MG 1 capsule Orally every 12 hrs for 10 day(s) 10/09/2019 Not-Taking Wixela Inhub Active Iron 325 (65 Fe) MG 1 tablet Orally Once a day Not-Taking Tylenol Active Keflex 500 MG 1 capsule Orally every 12 hrs for 10 day(s) 11/11/2017 Not-Taking ZyrTEC 10 MG 1 tablet Orally Once a day Active Inhaler Companions N ot-Taking Myrbetriq 50 MG 1 tablet Orally Once a day Active Albuterol Sulfate HFA 108 (90 Base) MCG/ACT 2 puffs as needed Inhalation every 4 hrs Not-Taking amLODIPine Besylate 5 MG 1 tablet Orally Once a day for 30 day(s) Active Albuterol Sulfate 1.25 MG/3ML 3 ml as needed Inhalation every 6 hrs Not-Taking Omeprazole 20 MG Orally Act ghassan Paxil 50 1 tablet in the morning Once a day Active Lasix 40 MG 1 tablet Orally Once a day for 30 day(s) Not-Taking Ibuprofen 800 MG 1 tablet Orally Three times a day for 30 day(s) Not-Taking Cephalexin 500 MG 1 capsule Orally twice a day for 10 days Not-Taking traMADol HCl 50 MG 1 tablet as needed Orally Once a day for two weeks Not-Taking Vitamin D3 Active Flovent Diskus 50 MCG/BLIST 2 puffs Inhalation Twice a day Not-Taking Custom Orthotics as directed 02/25/2011 Active Flexeril 5 MG 1 tablet Orally Once a day for 30 day(s) Not-Taking Heel lift as directed add to shoe 08/05/2015 Active predniSONE Not-Takin g Solifenacin Succinate 5 MG TAKE 1 TABLET BY MOUTH DAILY Oral for 90 Not-Taking Augmentin Not-Taking Custom Orthotics as directed 03/20/2024 Active PROzac 20 MG 1 capsule in the morning Orally Once a day for 30 day(s) Not-Taking Advair Diskus Not-Ta joseph Magnesium 300 MG 1 capsule with a meal Orally Once a day for 30 day(s) Not-Taking albuterol 1 tab Oral Not-Takin g Calcium 500 MG 1 tablet with meals Orally Twice a day for 30 day(s) Not-Taking Amoxicillin Not-Taki ng predniSONE 20 MG 1 tablet Orally Once a day for 30 day(s) Not-Taking Protonix 40 MG 1 tablet Orally Once a day for 30 day(s) Not-Taking Prednisone Not-Takin g Spiriva HandiHaler 18 MCG 1 capsule Inhalation Once a day Active Vistaril 25 MG 1 capsule Orally Three times a day for 30 day(s) Not-Taking Immunizations Vaccine Route Administration Date Status [...] ast year? No Points 0 Interpretation Negative Problems Problem Type SNOMED Code ICD Code Onset Dates Problem Status W/U Status Risk Notes Problem Acquired hallux valgus (83653284) Hallux valgus (acquired), left foot (M20.12) Active confirmed Problem Acquired hallux valgus (62004911) Hallux valgus (acquired), right foot (M20.11) Active confirmed Problem Right foot drop (862357350670333) Foot drop, right foot (M21.371) Active confirmed Problem Metatarsal bone fracture (171602580) Displaced fracture of fifth metatarsal bone, left foot, subsequent encounter for fracture with delayed healing (S92.352G) Active confirmed Problem Acquired hammer toe of right foot (3456185477554072 ) Other hammer toe(s) (acquired), right foot (M20.41) Active confirmed Problem Acquired hammer toe of left foot (8266168089201206 ) Other hammer toe(s) (acquired), left foot (M20.42) Active confirmed Problem Short leg (904880952) Lower limb length difference (M21.70) Active confirmed Problem Difficulty balancing (712674739) Unsteady gait (R26.81) Active confirmed Response to treatment - Improvement Problem Atherosclerosis of [place] arteries of the extremities (676618114227914) Atherosclerosis of [place] artery of both lower extremities, with unspecified presence of clinical manifestation (I70.203) Active confirmed Q7(A), Q8(2B), Q9(1B,2C) Problem Acquired deformity of right foot (8446788486114310 0) PlantarFlexion of metatarsal of right foot (M21.6X1) Active confirmed Problem Pressure injury of left foot stage I (disorder) (323870310145048) Pressure injury of left foot, stage 1 (L89.891) Active confirmed Response to treatment Nonapplicable Problem Pressure injury of right foot stage I (disorder) (197592225644390) Pressure injury of right foot, stage 1 (L89.891) Active confirmed Response to treatment Problem Essential hypertension (83946567) Essential hypertension (I10) Active confirmed Vital Signs Blood pressure diastolic 60 mm Hg 08/07/2024 Height 5ft in 08/07/2024 Blood pressure systolic 120 mm Hg 08/07/2024 Weight 159 lbs 08/07/2024 BMI 31.05 kg/m2 08/07/2024 Procedures Procedure Date Ordered Date Performed Result Body Sit e 18250-QXPH SKIN LESIONS, 2 TO 4 09/20/2023 N/A 52222-LLUR NAIL(S) 09/20/2023 N/A 65962-NAZZ SKIN LESIONS, 2 TO 4 10/25/2023 N/A 87620-TGKJ NAIL(S) 10/25/2023 N/A 40884-IOSD SKIN LESIONS, 2 TO 4 11/29/2023 N/A 38128-CJRQ NAIL(S) 11/29/2023 N/A 45749-BXCZ SKIN LESIONS, 2 TO 4 02/17/2024 N/A 56608-ZULY NAIL(S) 02/17/2024 N/A 55296-KUEP SKIN LESIONS, 2 TO 4 04/17/2024 N/A 20363-XRAC NAIL(S) 04/17/2024 N/A 69713-JGGQ SKIN LESIONS, OVER 4 05/25/2024 N/A 71313-VDTJ NAIL(S) 05/25/2024 N/A 13419-GWIQ SKIN LESIONS, OVER 4 06/22/2024 N/A 25295-JLZI NAIL(S) 06/22/2024 N/A 10044- Debride <25 sq cm 07/10/2024 N/A 33039-ZIHV SKIN LESIONS, OVER 4 08/07/2024 N/A 59460-VBQK NAIL(S) 08/07/2024 N/A Encounters Encounter Location Date Provider Diagnosis [address] [address] 09/20/2023 Adriana Black Acquired keratosis [keratoderma] palmaris et plantaris L85.1 and Other nail disorders L60.[address] [address] 10/25/2023 Adriana Black Acquired keratosis [keratoderma] palmaris et plantaris L85.1 and Other nail disorders L60.[address] [address] 11/29/2023 Adriana Black Acquired keratosis [keratoderma] palmaris et plantaris L85.1 and Other nail disorders L60.[address] [address] 02/17/2024 Adriana Black Acquired keratosis [keratoderma] palmaris et plantaris L85.1 and Other nail disorders L60.[address] [address] 03/20/2024 Adriana Black Metatarsalgia of lef t [...] of intermetatarsal bursa of right foot M77.[address] [address] 04/17/2024 Adriana Black Acquired keratosis [keratoderma] palmaris et plantaris L85.1 and Other nail disorders L60.[address] [address] 05/25/2024 Adriana Black Atherosclerosis of [place] artery of both lower extremities, with unspecified presence of clinical manifestation I70.[address] [address] 06/22/2024 Adriana Black Atherosclerosis of [place] artery of both lower extremities, with unspecified presence of clinical manifestation I70.[address] [address] 07/10/2024 Adriana Black Pressure injury of l eft foot, stage [address] [address] 08/07/2024 Adriana Black Atherosclerosis of [place] artery of both lower extremities, with unspecified presence of clinical manifestation I70.[address] [address] 08/12/2023 Adriana Black Assessments Encounter Date Diagnosis (ICD Code) Assessment Notes Treatment Notes Treatment Clinical Notes Section Notes 09/20/2023 Acquired keratosis [keratoderma] palmaris et plantaris (ICD-10 - L85.1) 10/25/2023 Acquired keratosis [keratoderma] palmaris et plantaris (ICD-10 - L85.1) 11/29/2023 Acquired keratosis [keratoderma] palmaris et plantaris (ICD-10 - L85.1) 02/17/2024 Acquired keratosis [keratoderma] palmaris et plantaris (ICD-10 - L85.1) 03/20/2024 Metatarsalgia, right foot (ICD-10 - M77.41) 03/20/2024 Metatarsalgia of left foot (ICD-10 - M77.42) 04/17/2024 Acquired keratosis [keratoderma] palmaris et plantaris (ICD-10 - L85.1) 05/25/2024 Atherosclerosis of [place] artery of both lower extremities, with unspecified presence of clinical manifestation (ICD-10 - I70.203) Q7(A), Q8(2B), Q9(1B,2C) 06/22/2024 Atherosclerosis of [place] artery of both lower extremities, with unspecified presence of clinical manifestation (ICD-10 - I70.203) Q7(A), Q8(2B), Q9(1B,2C) 07/10/2024 Pressure injury of left foot, stage 1 (ICD-10 - L89.891) Response to treatment Nonapplicable Patient Educated with: WOUND CARE INSTRUCTIONS. pdf (WOUND CARE INSTRUCTIONS. pdf) 08/07/2024 Atherosclerosis of [place] artery of both lower extremities, with unspecified presence of clinical manifestation (ICD-10 - I70.203) Q7(A), Q8(2B), Q9(1B,2C) 02/17/2024 Other nail disorders (ICD-10 - L60.8) 11/29/2023 Other nail disorders (ICD-10 - L60.8) 10/25/2023 Other nail disorders (ICD-10 - L60.8) 09/20/2023 Other nail disorders (ICD-10 - L60.8) 03/20/2024 Pain in left foot (ICD-10 - M79.672) 04/17/2024 Other nail disorders (ICD-10 - L60.8) 03/20/2024 Pain in left ankle and joints of left foot (ICD-10 - M25.572) 03/20/2024 Bursitis of intermetatarsal bursa of left foot (ICD-10 - M77.52) 03/20/2024 Pain in right foot (ICD-10 - M79.671) 03/20/2024 Pain in right ankle and joints of right foot (ICD-10 - M25.571) 03/20/2024 Bursitis of intermetatarsal bursa of right foot (ICD-10 - M77.51) 07/10/2024 Other Plan Of Treatment Pending Test Test Name Order Date 83360-MNARSDG NAIL, 6 OR MORE 02/22/2013 97229-DFGDLJL NAIL, 6 OR MORE 05/04/2013 55174-CAKTJSR NAIL, 6 OR MORE 06/05/2013 96896-RDDQNXN NAIL, 6 OR MORE 07/03/2013 54590-CKENCEB NAIL, 6 OR MORE 08/28/2013 25802-RBZLRXV NAIL, 6 OR MORE 11/27/2013 80059-MIXCQCY NAIL, 6 OR MORE 03/26/2014 30107-WRHXJET NAIL, 6 OR MORE 07/30/2014 91774-OFQCOOA NAIL, 1-5 11/28/2012 39441-ZUQDPNS NAIL, 1-5 12/07/2011 49010-CYBBXMA NAIL, 1-5 06/01/2012 05487-LPMBIHM NAIL, 1-5 08/17/2012 82359-GUOFMJR NAIL, 1-5 10/28/2011 72456-YFYPYBO NAIL, 1-5 01/18/2012 18210-EQGHLOC NAIL, 1-5 02/29/2012 05400-Ylxr Destruction, 1-14 12/31/2014 30125-Tdmartbv Plate 05/23/2014 95180-Bfxbaext Plate 08/28/2013 48341-Wfzhbngi Plate 07/22/2020 15212- Debride <25 sq cm 08/29/2020 34741- Debride <25 sq cm 12/05/2020 45861- Debride <25 sq cm 07/31/2021 00941- Debride <25 sq cm 09/11/2019 11985- Debride <25 sq cm 10/23/2019 77850- Debride <25 sq cm 11/13/2019 03397- Debride <25 sq cm 12/14/2019 62358- Debride <25 sq cm 02/29/2012 75549- Debride <25 sq cm 03/21/2020 58159- Debride <25 sq cm 05/16/2020 37132- Debride <25 sq cm 06/13/2020 46762- Debride <25 sq cm 07/22/2020 45625- Debride <25 sq cm 07/12/2023 26476- Debride <25 sq cm 07/10/2024 13450- Debride <25 sq cm 09/27/2013 69382- Debride <25 sq cm 10/26/2013 08340- Debride <25 sq cm 08/28/2013 25745- Debride <25 sq cm 07/03/2013 44983- Debride <25 sq cm 07/31/2013 06687- Debride <25 sq cm 03/26/2014 67396- Debride <25 sq cm 04/23/2014 04384- Debride <25 sq cm 05/23/2014 49363- Debride <25 sq cm 11/27/2013 90838- Debride <25 sq cm 12/27/2013 28228- Debride <25 sq cm 01/24/2014 75029- Debride <25 sq cm 02/22/2014 62345- Debride <25 sq cm 06/25/2014 17542- Debride <25 sq cm 01/28/2015 88149- Debride <25 sq cm 02/27/2015 16730- Debride <25 sq cm 08/27/2014 62723- Debride <25 sq cm 09/27/2014 56772- Debride <25 sq cm 10/29/2014 19127- Debride <25 sq cm 11/28/2014 14021- Debride <25 sq cm 12/31/2014 94624- Debride <25 sq cm 03/31/2012 74165- Debride <25 sq cm 05/04/2012 37674- Debride <25 sq cm 06/01/2012 02799- Debride <25 sq cm 01/18/2012 41574- Debride <25 sq cm 12/07/2011 31408- Debride <25 sq cm 08/13/2011 64364- Debride <25 sq cm 10/28/2011 19675- Debride <25 sq cm 04/08/2011 66902- Debride <25 sq cm 05/14/2011 54625- Debride <25 sq cm 08/17/2012 85430- Debride <25 sq cm 11/28/2012 15571- Debride <25 sq cm 12/28/2012 45117- Debride <25 sq cm 02/22/2013 17990- Debride <25 sq cm 03/27/2013 33134- Debride <25 sq cm 06/05/2013 32497- Debride <25 sq cm 05/04/2013 51562- Debride <25 sq cm 12/09/2017 17773- Debride <25 sq cm 07/14/2018 05258- Debride <25 sq cm 08/18/2018 48864- Debride <25 sq cm 12/08/2018 02549-BJYZKXP SKIN/TISSUE 06/05/2013 55082-XCCAZPQ SKIN/TISSUE 06/30/2012 71822-RXOEZEQ SKIN/TISSUE 07/28/2012 73113-RAFVBPV SKIN/TISSUE 07/31/2013 70099-LYRLYFJ SKIN/TISSUE 07/03/2013 42988-YISTWZP SKIN/TISSUE 02/19/2020 59098 I&D ABSCESS- SIMPLE,SINGLE 015 88420 I&D ABSCESS- SIMPLE,SINGLE 013 19787 I&D ABSCESS- SIMPLE,SINGLE 013 73518 I&D ABSCESS- SIMPLE,SINGLE 019 86142-GIYZ SKIN LESIONS, OVER 4 04/07/20 18 96016-RFKE SKIN LESIONS, OVER 4 05/09/19 19 75640-EXPB SKIN LESIONS, OVER 4 01/07/20 18 14995-TSQG SKIN LESIONS, OVER 4 10/08/19 18 77119-WUMC SKIN LESIONS, OVER 4 02/04/20 18 93708-OPOG SKIN LESIONS, OVER 4 03/10/20 18 29437-SPXT SKIN LESIONS, OVER 4 01/06/20 19 04263-QYSZ SKIN LESIONS, OVER 4 11/16/19 19 83959-SPRJ SKIN LESIONS, OVER 4 09/16/19 19 83386-FRAN SKIN LESIONS, OVER 4 10/14/19 19 48307-EPTS SKIN LESIONS, OVER 4 02/07/20 19 66809-XNPN SKIN LESIONS, OVER 4 03/06/20 19 77865-FFEP SKIN LESIONS, OVER 4 05/08/19 20 82558-DURT SKIN LESIONS, OVER 4 06/05/19 20 17715-FRKC SKIN LESIONS, OVER 4 11/18/19 16 37313-IRCF SKIN LESIONS, OVER 4 12/23/19 16 34327-VNVI SKIN LESIONS, OVER 4 01/13/20 16 63459-DQIN SKIN LESIONS, OVER 4 02/17/20 16 19274-BTIA SKIN LESIONS, OVER 4 03/16/20 16 03423-BJFW SKIN LESIONS, OVER 4 04/20/20 16 44586-USNQ SKIN LESIONS, OVER 4 05/25/19 17 42863-SNHS SKIN LESIONS, OVER 4 06/25/19 17 92322-LBLQ SKIN LESIONS, OVER 4 07/21/19 17 75746-NUFX SKIN LESIONS, OVER 4 08/28/19 17 64346-IDON SKIN LESIONS, OVER 4 01/26/20 17 28274-JNRU SKIN LESIONS, OVER 4 02/23/20 17 28705-XQMC SKIN LESIONS, OVER 4 03/29/20 17 96643-JPEL SKIN LESIONS, OVER 4 06/03/19 18 04097-KOHH SKIN LESIONS, OVER 4 07/02/19 18 92566-ZYML SKIN LESIONS, OVER 4 08/06/19 18 29676-PGVM SKIN LESIONS, OVER 4 08/05/19 16 71391-AJJV SKIN LESIONS, OVER 4 09/02/19 16 74822-IWIN SKIN LESIONS, OVER 4 10/07/19 16 69917-ZLNV SKIN LESIONS, OVER 4 07/03/19 16 32917-SWOV SKIN LESIONS, OVER 4 04/18/20 20 86826-XAKW SKIN LESIONS, OVER 4 07/03/19 20 52658-QRNK SKIN LESIONS, OVER 4 07/07/19 23 60126-SWTD SKIN LESIONS, OVER 4 08/08/19 25 50139-DFMI SKIN LESIONS, OVER 4 05/25/19 25 46365-OFFY SKIN LESIONS, OVER 4 06/22/19 81587-WJJF SKIN LESIONS, 2 TO 4 10/25/19 24 92445-EBHO SKIN LESIONS, 2 TO 4 11/29/19 24 85830-NHYJ SKIN LESIONS, 2 TO 4 02/17/20 54512-LPZY SKIN LESIONS, 2 TO 4 04/17/20 48199-HIPW SKIN LESIONS, 2 TO 4 06/01/19 33350-TVYK SKIN LESIONS, 2 TO 4 03/30/20 52260-AHXQ SKIN LESIONS, 2 TO 4 04/23/20 63189-GJPS SKIN LESIONS, 2 TO 4 10/10/19 97211-JILC SKIN LESIONS, 2 TO 4 11/18/19 08891-QBIK SKIN LESIONS, 2 TO 4 01/20/20 27967-WRZG SKIN LESIONS, 2 TO 4 02/24/20 43645-HRWZ SKIN LESIONS, 2 TO 4 09/20/19 11621-OJOG SKIN LESIONS, 2 TO 4 05/10/19 11024-ATIU SKIN LESIONS, 2 TO 4 01/19/20 95273-OPWN SKIN LESIONS, 2 TO 4 03/22/20 57926-TNQE SKIN LESIONS, 2 TO 4 08/04/19 65655-KJEY SKIN LESIONS, 2 TO 4 09/01/19 82054-ZHEV SKIN LESIONS, 2 TO 4 10/02/19 96591-GUJO SKIN LESIONS, 2 TO 4 11/24/19 05449-FWQZ SKIN LESIONS, 2 TO 4 08/29/19 26726-HBMX SKIN LESIONS, 2 TO 4 06/19/19 33719-CPBI SKIN LESIONS, 2 TO 4 04/03/20 09993-PMKW SKIN LESIONS, 2 TO 4 05/01/20 56491-NRDR SKIN LESIONS, 2 TO 4 01/03/20 16589-TOCH SKIN LESIONS, 2 TO 4 02/14/20 48588-UMAL SKIN LESIONS, 2 TO 4 11/01/19 19034, G2159-UPQQH/INJECT, JOINT/BURSA 0 12/07/2011 61053, P3047-WHBVG/INJECT, JOINT/BURSA 0 05/14/2011 59477, F8989-RGYWG/INJECT, JOINT/BURSA 1 06/09/2010 14501, A4422-OFHFT/INJECT, JOINT/BURSA 0 01/18/2012 08615, G2843-XYXDF/INJECT, JOINT/BURSA 0 08/18/2018 64948-MZKK NAIL(S) 05/09/2018 42066-APJW NAIL(S) 04/07/2018 21407-EXLY NAIL(S) 03/10/2018 45173-DQJA NAIL(S) 02/03/2018 33046-QYML NAIL(S) 10/07/2017 63323-FWCF NAIL(S) 01/06/2018 69440-YDKJ NAIL(S) 06/05/2019 79034-PPSN NAIL(S) 05/08/2019 68169-YQTL NAIL(S) 03/06/2019 07328-HVEJ NAIL(S) 02/06/2019 16213-MBOE NAIL(S) 10/13/2018 34216-TRES NAIL(S) 09/15/2018 04529-VMRN NAIL(S) 11/15/2018 31504-JXQP NAIL(S) 01/05/2019 78025-ULSN NAIL(S) 08/05/2017 40037-DJSK NAIL(S) 07/01/2017 58612-GSHS NAIL(S) 06/03/2017 44548-JXVB NAIL(S) 02/22/2017 35647-KXAR NAIL(S) 01/25/2017 39703-OBHP NAIL(S) 10/31/2020 09671-OLJM NAIL(S) 02/13/2021 00652-JRXC NAIL(S) 01/02/2021 98638-UJFT NAIL(S) 05/01/2021 42274-RRBU NAIL(S) 04/03/2021 95704-RJAQ NAIL(S) 06/19/2021 03746-NKPA NAIL(S) 08/28/2021 36030-BRUB NAIL(S) 07/03/2019 11708-WYJP NAIL(S) 04/18/2020 28708-JEVY NAIL(S) 11/23/2022 83070-UKMW NAIL(S) 10/01/2022 40833-MRLH NAIL(S) 08/31/2022 38665-BJBQ NAIL(S) 08/03/2022 54044-QBAM NAIL(S) 03/22/2023 62768-PWHX NAIL(S) 01/18/2023 60428-WKYR NAIL(S) 05/10/2023 39658-NUDF NAIL(S) 09/20/2023 57706-GAGX NAIL(S) 02/23/2022 50462-WUAT NAIL(S) 01/19/2022 17056-WWOW NAIL(S) 11/17/2021 59745-DNEO NAIL(S) 10/09/2021 40371-IWLF NAIL(S) 04/23/2022 33771-UURW NAIL(S) 03/30/2022 83741-SDBJ NAIL(S) 06/01/2022 66094-BUCU NAIL(S) 07/06/2022 90000-XWRS NAIL(S) 04/17/2024 70607-BVNX NAIL(S) 02/17/2024 91693-RNQE NAIL(S) 11/29/2023 19972-NIMX NAIL(S) 10/25/2023 92087-JWCI NAIL(S) 06/22/2024 68134-SHEB NAIL(S) 05/25/2024 62630-QEMF NAIL(S) 08/07/2024 D3883-OEEKAGDC DYSTROPHIC NAILS ANY # H6950-KPLWRZYO DYSTROPHIC NAILS ANY # M2238-NBEVZGVH DYSTROPHIC NAILS ANY # D0896-TPJDIYLM DYSTROPHIC NAILS ANY # K2766-FOICRKHD DYSTROPHIC NAILS ANY # H5558-TXLCZZAA DYSTROPHIC NAILS ANY # F7870-AYKDBKHT DYSTROPHIC NAILS ANY # Q6252-OMFKTACW DYSTROPHIC NAILS ANY # W5307-DOXBWHSV DYSTROPHIC NAILS ANY # U0970-TLJLTHYI DYSTROPHIC NAILS ANY # D8516-OKRQXUNA DYSTROPHIC NAILS ANY # M1814-XBOOMQFK DYSTROPHIC NAILS ANY # K0851-XMFLKSGO DYSTROPHIC NAILS ANY # A4794-FCAUSQPG DYSTROPHIC NAILS ANY # Z8892-QYGQJBTB DYSTROPHIC NAILS ANY # D8511-Okrduxurj 3mg 01/18/2012 H3341-Amwovdzdt 3mg 12/07/2011 76274 - Tenotomy, open flexor 06/13/2020 81271 - Tenotomy, open flexor 10/09/2019 69413 - Tenotomy, open flexor 01/18/2020 Next Appt Details Provider Name:Adriana Walton , 10/19/2024 10:45:00 AM, [address] [facility], [place], [address], Insurance Providers Payer Name Payer Address Payer Phone Subscriber Number Group Number Insured Name Patient Relationship to Insured Coverage Start Date Coverage End Date [employer] [address] [place] [address] [id number] Aline Hartley Self - patient is the insured [facility] [address] [place] [address] [id number] Yuan Hartley Spouse - patient is the [...] 9 cataracts 04/08/18 and 04/18/18 cholecystectomy 06/04/2018 [facility] [place]- right hip replacement 01/05/24 Hospitalization History Reason Date(Month/Year) [facility] [place]- Pnuemonia, Sepsis, Blee ding ulcer, Transfusion, Cholecystectomy 06/04/2018-06/11/18 colonoscopy 04/2015 Left Leg laser ablation 07/19/14 Endoscopy & colonoscopy 08/20/14 admitted to [facility] , severe depression, anxiety, took to many drinks 12/08/13-12/22/13
--- OUTSIDE RECORDS SUMMARY | 2024-08-10 11:31 | XMS_ITS ---
Author Organization [facility] Address [address] [place] [address] Care Team Providers Care It Systems Engineer Name Role Phone Cecile, Kartik Primary Care Provider Black, Adriana Unavailable [phone] Allergies No Known Allergies REASON FOR VISIT Open sore Medications Medication SIG (Take, Route, Frequency, Duration) Notes Start Date End Date Status predniSONE Not-Takin g PROzac 20 MG 1 capsule in the morning Orally Once a day for 30 day(s) Not-Taking Augmentin Not-Taking Calcium 500 MG 1 tablet with meals Orally Twice a day for 30 day(s) Not-Taking Magnesium 300 MG 1 capsule with a meal Orally Once a day for 30 day(s) Not-Taking Protonix 40 MG 1 tablet Orally Once a day for 30 day(s) Not-Taking Vistaril 25 MG 1 capsule Orally Three times a day for 30 day(s) Not-Taking Prednisone Not-Takin g Flexeril 5 MG 1 tablet Orally Once a day for 30 day(s) Not-Taking Flovent Diskus 50 MCG/BLIST 2 puffs Inhalation Twice a day Not-Taking Keflex 500 MG 1 capsule Orally every 12 hrs for 10 day(s) 11/11/2017 Not-Taking Iron 325 (65 Fe) MG 1 tablet Orally Once a day Not-Taking Albuterol Sulfate HFA 108 (90 Base) MCG/ACT 2 puffs as needed Inhalation every 4 hrs Not-Taking Inhaler Companions N ot-Taking Albuterol Sulfate 1.25 MG/3ML 3 ml as needed Inhalation every 6 hrs Not-Taking Keflex 500 MG 1 capsule Orally every 12 hrs for 10 day(s) 10/09/2019 Not-Taking traMADol HCl 50 MG 1 tablet as needed Orally Once a day for two weeks Not-Taking Cephalexin 500 MG 1 capsule Orally twice a day for 10 days Not-Taking Cephalexin 500 MG 1 capsule Orally BID for 10 days 06/13/2020 Not-Taking Custom Orthotics . . . for . 06/10/2015 Not-Taking Custom Orthotics as directed 03/20/2024 Active albuterol 1 tab Oral Not-Emperatriz g Advair Diskus Not-Ta joseph predniSONE 20 MG 1 tablet Orally Once a day for 30 day(s) Not-Taking Amoxicillin Not-Jim barbour Solifenacin Succinate 5 MG TAKE 1 TABLET BY MOUTH DAILY Oral for 90 Active Heel lift as directed add to shoe 08/05/2015 Active Spiriva HandiHaler 18 MCG 1 capsule Inhalation Once a day Active Custom Orthotics as directed 02/25/2011 Active Vitamin D3 Active Myrbetriq 25 MG 1 tablet Orally Once a day Active ZyrTEC 10 MG 1 tablet Orally Once a day Active Omeprazole 20 MG Orally Act ghassan amLODIPine Besylate 5 MG 1 tablet Orally Once a day for 30 day(s) Active Paxil 50 1 tablet in the morning Once a day Active Wixela Inhub Active Tylenol Active Ibuprofen 800 MG 1 tablet Orally [...] Problem Status W/U Status Risk Notes Problem Pressure injury of left foot stage I (disorder) (54283300709 4106) Pressure injury of left foot, stage 1 (L89.891) Active confirmed Response to treatment Nonapplicable Problem Pressure injury of right foot stage I (disorder) (59677611786 4102) Pressure injury of right foot, stage 1 (L89.891) Active confirmed Response to treatment Vital Signs Height 5ft in 07/10/2024 Weight 159 lbs 07/10/2024 BMI 31.05 kg/m2 07/10/2024 Blood pressure systolic 120 mm Hg 07/11/19 25 Blood pressure diastolic 60 mm Hg 025 Procedures Procedure Date Ordered Date Performed Result [place] e 90485- Debride <25 sq cm 07/10/2024 N/A Encounters Encounter Location Date Provider Diagnosis [facility] [address] [address] 07/10/2024 Adriana Walton Pressure injury of left foot, stage 1 L89.891 Assessments Encounter Date Diagnosis (ICD Code) Assessment Notes Treatment Notes Treatment Clinical Notes Section Notes 07/10/2024 Pressure injury of left foot, stage 1 (ICD-10 - L89.891) Response to treatment Nonapplicable Patient Educated with: WOUND CARE INSTRUCTIONS.p df (WOUND CARE INSTRUCTIONS.p df) 07/10/2024 Other Plan Of Treatment Treatment Notes Assessment Notes Pressure injury of left foot, stage 1 Pa tient Educated with: WOUND CARE INSTRUCTIONS.pdf (WOUND CARE INSTRUCTIONS.pdf) Pending Test Test Name Order Date 58699- Debride <25 sq cm 07/10/2024 Next Appt Details Follow Up: 4 Weeks, Reason: Provider Name:Adriana Walton , 10/19/2024 10:45:00 AM, [address] [place] [address], [phone], Procedure Notes * Category Sub-Category Detail Notes Debride skin< 25 sq cm Open wound Physician of record performed open wound selective debridement of first 25 sq cm or less, of devitilized necrotic/nonviable soft tissue, fibrin, and exudate extending from the epidermis through the dermis, utilizing sharp dissection with sterile 15 blade, and/or tissue nippers. Sterile antibiotic dressing applied, ANESTHESIA was accomplished TOPICALLY with Lidocaine Hydrochloride Jelly 2%. Hemostasis was achieved through direct pressure. Post debridement measurements: 20 mm x12mm x 2mm. Character of the wound post debridement is stable (95786) Progress Notes * Aline HALLMAN MDOB: 8 (78 yo F)Acc No.[id number]:07/10/2024 Progress Notes Patient:?Aline HALLMAN Provider:?Adriana Walton DPM :1945???Age:78 Y???Sex:Female D ate:07/10/2024 Address:[address] [place], [place] [address]Justice [id number] Pcp:Rip Huber Subjective: * Chief Complaints: * ???Open sore * HPI: ???Skin problems:?Treatments:?, Topical abx.? * ROS:?General/Constitutional:?Nausea?denies.?Vomiting?denies.?Hunger Thirst?denies.?Loss appetite?denies.?Chills?denies.?Fatigue?denies.?Fever?denies.?Night Sweats?denies.?Unexplained weight loss?denies.?Unexplained [...] oblasion 07/19/2014Colonoscopy 08/16/2017- 04/20/2019cataracts 04/08/18 and 04/18/18[place]ole[place] [place]04[place] * Hospitalization/Major Diagno stic Procedure:?admitted to [facility], severe depression, anxiety, took to many drinks 12/08/13-12/22/13Endoscopy & colonoscopy 08/20/14Left Leg laser ablation 07/19/14colonoscopy 04/2015[facility] [place] Pnuemonia, Sepsis, Bleeding ulcer, Transfusion, Cholecystectomy 06/04/2018-06/11/18 * Family History:?Mother: dece ased, foot problems, diagnosed with Unspecified cerebral artery occlusion with cerebral infarction, Other malignant neoplasm of unspecified site.?Father: .?Spouse: alive.? No children. * Social History:?Tobacco [...] 152.4 cm, Wt-k.12 kg. * Examination: ???Dermatologic: ?ULCER:? LOCATION,3 MTH4 MTH, left??SIZE, 15mm X 10mm X 2mm, BASE, granular, RIM, hyperkeratotic, UNDERMINING, absent, TRACKING, Full thickness breakdown of skin, DRAINAGE, serosanguineous, mild, NECROTIC TISSUE, loosely-adherent, yellow slough, MALODOR, absent, CALOR, absent, ERYTHEMA, absent, PAIN ON PALPATION, present.?Vascular: ?DP PULSES (B):? 0/4, B/L.?PT PULSES (B):? 0/4, B/L.?CAPILLARY FILL TIME:? delayed, all digits, B/L.?TROPHIC CONDITION-TEXTURE/ELASTICITY/TURGOR/HAIR GROWTH (B):? decreased, fragile, thin, shiny skin, with sparse to absent hair growth, B/L.?TEMPERTURE GRADIENT (C):? decreased, cool to cool, proximal to distal, B/L.?PIGMENTATION:?, rubrous, B/L.?EDEMA (C):?, 2/4, Left.?CLAUDICATION (C):?denies, B/L.?REST PAIN:?denies, B/L.?PARESTHESIA (C):?absent, B/L.?BURNING (C):?absent, B/L.? Assessment: * Assessment: 1.?Pressure injury of left f oot, stage 1 - L89.891 (Primary)???Notes :Response to treatment Nonapplicable??? Plan: * Treatment: * Procedures:?Debride skin< 25 sq cm:?Open wound?Physician of record performed open wound selective debridement of first 25 sq cm or less, of devitilized necrotic/nonviable soft tissue, fibrin, and exudate extending from the epidermis through the dermis, utilizing sharp dissection with sterile 15 blade, and/or tissue nippers. Sterile antibiotic dressing applied, ANESTHESIA was accomplished TOPICALLY with Lidocaine Hydrochloride Jelly 2%. Hemostasis was achieved through direct pressure. Post debridement measurements: 20 mm x12mm x 2mm. Character of the wound post debridement is stable (93386).? * Procedure Codes:?18760 ACTIV E WOUND CARE/20 CM OR < * Follow Up:?4 Weeks * Images: * Sign off status: Completed true * Provider:?Adriana Walton DPM Date:?2024 Generated for Nate barbour/Georgie/eTransmitting on:?08/10/2024 11:31 AM EDT History and Physical Notes * HPI (History of Present Illness) Category Sub-Category Detail Notes Category Not es Skin problems Treatments: , Topical abx Examination Category Sub-Category Detail Notes Category Not es Dermatologic ULCER: LOCATION,3 MTH4 MTH, left SIZE, 15mm X 10mm X 2mm, BASE, granular, RIM, hyperkeratotic, UNDERMINING, absent, TRACKING, Full thickness breakdown of skin, DRAINAGE, serosanguineous, mild, NECROTIC TISSUE, loosely-adherent, yellow slough, MALODOR, absent, CALOR, absent, ERYTHEMA, absent, PAIN ON PALPATION, present Vascular DP PULSES (B): 0/4, B/L PT [...]
--- NOTE | 2024-08-10 12:01 | MHC.OFFVIS ---
Vital Signs 08/10/24 10:22 Height 5 ft Weight 154 lb 5.177 oz BMI 30.1 BP 120/70 Blood Pressure Location Lt brachial Position Sitting Pulse 93 Pulse Source Pulse Oximeter Pulse Oximetry (%) 97 Oxygen Delivery Method Room Air Intake Visit Reasons: COPD Allergies cat dander [CATS] Allergy (Unknown, Verified 08/10/24 10:34) ASTHMA ATTACK Horse/Equine Containing Products [HORSE/EQUINE CONTAINING PRODUCTS] Allergy (Unknown, Verified 08/10/24 10:34) ASTHMA ATTACK ENVIROMENTAL Allergy (Unknown, Uncoded 08/10/24 10:34) ASTHMA ATTACK Medication List - Last Reconciled 08/10/24 by Albertina Kimball MD amlodipine 5 mg PO DAILY bisacodyl (Dulcolax (bisacodyl)) 20 mg (4 x 5 mg) PO ONCE 1 day cholecalciferol (vitamin D3) 25 mcg PO DAILY 90 days fluticasone propion-salmeterol 250-50 mcg/dose (Wixela Inhub) 1 inh inhalation BID 30 days mirabegron ER 50 mg PO DAILY cmxqjbsh-hqkrvvzcsAh-pmonrmkjN 3.5mg-400 unit- 5,000 unit/gram (Neosporin (gmo-cpt-myfwa)) 1 appl topical TID omeprazole 20 mg PO DAILY 90 days paroxetine HCl 40 mg PO QAM polyethylene glycol 3350 (Miralax) 17 grams PO DAILY 1 day tiotropium bromide 2.5 mcg/actuation (Spiriva Respimat) 2 puffs PO DAILY PFSH Medical History Morbid obesity Restrictive lung disease Tachycardia COVID-19 Endogenous depression COPD (chronic obstructive pulmonary disease) Allergic rhinitis GERD with esophagitis Asthma COPD (chronic obstructive pulmonary disease) History of iron deficiency anemia Hiatal hernia Cirrhosis of liver without ascites Surgical History History of right hip replacement Hx of ventral hernia repair History of dental surgery History of surgery on left wrist History of hysterectomy History of hip surgery Status post laparoscopic cholecystectomy (~06/10/18) Family History Other Mental health disorder Substance use disorder Social History Household Members: Spouse Housing: House Alcohol intake: former Patient Tobacco Use Status: Former Tobacco user e-Cigarette/Vaping Use: Never Used Second Hand Smoke Exposure: No service: No Current occupational status: disabled Cognitive needs: Yes (cane, walker) Hearing needs: No Vision needs: Yes (Reading Glasses) Physical Exam Vital Signs: Last Vital Signs Pulse 93 08/10/24 10:22 BP 120/70 08/10/24 10:22 Pulse Ox 97 08/10/24 10:22 Oxygen Delivery Method Room Air 08/10/24 10:22 BMI result Body Mass Index 30.1 Assessment & Plan Assessment & Plan (1) COPD (chronic obstructive pulmonary disease): Comment: MILD TO MODERTAELY SEVERE , WELL CONTROLLED , REMAINING STABLE.. , NO ACTIVE SYMPTOMS OF COUGH OR WHEEZING, Code(s): J44.9 - Chronic obstructive pulmonary disease, unspecified Category: Medical (2) Restrictive lung disease: Comment: PFT Showed Mild restrictive pulmonary disorder in addition to mild COPD. This is most likely due to her obesity, and is expected to improve as she loses weight. Code(s): J98.4 - Other disorders of lung Category: Medical Medications: New albuterol sulfate 90 mcg/actuation 2 puffs inhalation Q4-6H PRN 8.5 grams 3RF shortness of breath or wheezing 30 days Coding Level of Care Code Est Pt Level 3 (77505) Diagnoses COPD (chronic obstructive pulmonary disease) J44.9 Restrictive lung disease J98.4
== END 2024-08-10 10:50 | disposition home or self-care (01) ==
LOC: HO.HPS 09:58
PROVIDERS: PCP Internal Medicine; Visit Provider Internal Medicine
DX: J44.9 Chronic obstructive pulmonary disease, unspecified (principal); J98.4 Other disorders of lung
CPT/HCPCS: 99213

== ENCOUNTER → 2024-08-10 09:57 | Outpatient (BNVA) | payer MEDICARE, BC, SELFPAY | PROVIDERS: PCP Internal Medicine; Visit Provider Internal Medicine | DX: J44.9 Chronic obstructive pulmonary disease, unspecified (principal); J98.4 Other disorders of lung; Z79.899 Other long term (current) drug therapy | CPT/HCPCS: 99212 ==

== ENCOUNTER 2024-12-04 10:09 | Outpatient (AMB) | payer MEDICARE, BC, SELFPAY ==
[2024-12-04 10:33] VITALS: BP 120/70; PULSE 108; O2SAT 98; BMI 27.1
--- NOTE | 2024-12-04 10:33 | MHC.OFFVIS ---
Vital Signs 12/04/24 10:33 Height 5 ft Weight 138 lb 14.259 oz BMI 27.1 BP 120/70 Blood Pressure Location Lt brachial Position Sitting Pulse 108 H Pulse Source Pulse Oximeter Pulse Oximetry (%) 98 Oxygen Delivery Method Room Air Intake Visit Reasons: COPD Intake Note: pt is here for follow up and has lost weight, some coughing. Message And Delivery Service Pricer Required: No Allergies cat dander (CATS) Allergy (Unknown, Verified 12/04/24 10:39) ASTHMA ATTACK Horse/Equine Containing Products (HORSE/EQUINE CONTAINING PRODUCTS) Allergy (Unknown, Verified 12/04/24 10:39) ASTHMA ATTACK ENVIROMENTAL Allergy (Unknown, Uncoded 12/04/24 10:39) ASTHMA ATTACK PFSH Medical History (Updated 08/10/24 @ 10:52 by Albertina Kimball MD) Morbid obesity Restrictive lung disease Tachycardia COVID-19 Endogenous depression COPD (chronic obstructive pulmonary disease) Allergic rhinitis GERD with esophagitis Asthma COPD (chronic obstructive pulmonary disease) History of iron deficiency anemia Hiatal hernia Cirrhosis of liver without ascites Surgical History (Updated 08/17/24 @ 10:13 by Breanne Thomas) History of colonoscopy (~04/20/19) History of right hip replacement Hx of ventral hernia repair History of dental surgery History of surgery on left wrist History of hysterectomy History of hip surgery Status post laparoscopic cholecystectomy (~06/10/18) Family History Other Mental health disorder Substance use disorder Social History Household Members: Spouse Housing: House Alcohol intake: former Patient Tobacco Use Status: Former Tobacco user e-Cigarette/Vaping Use: Never Used Second Hand Smoke Exposure: No service: No Current occupational status: disabled Cognitive needs: Yes (cane, walker) Hearing needs: No Vision needs: Yes (Reading Glasses) Coding
--- OUTSIDE RECORDS SUMMARY | 2024-12-04 10:47 | XMS_ITS | Patient Health Record ---
[facility] Address [address] [place] [address] Care Team Providers Care Haulage Boss Name Role Phone Rip Huber Primary Care Provider [phone] Adriana Walton Unavailable [phone] Allergies No Known Allergies Reason For Referral No Information Medications Medication SIG (Take, Route, Frequency, Duration) Notes Start Date End Date Status Albuterol Sulfate 1.25 MG/3ML 3 ml as needed Inhalation every 6 hrs Not-Taking Protonix 40 MG 1 tablet Orally Once a day; Duration: 30 day(s) Not-Taking Inhaler Companions N ot-Taking Albuterol Sulfate HFA 108 (90 Base) MCG/ACT 2 puffs as needed Inhalation every 4 hrs Not-Taking Prednisone Not-Takin g Vistaril 25 MG 1 capsule Orally Three times a day; Duration: 30 day(s) Not-Taking Spiriva HandiHaler 18 MCG 1 capsule Inhalation Once a day Active Vitamin D3 Active Omeprazole 20 MG Orally Act ghassan Paxil 50 1 tablet in the morning Once a day Active Iron 325 (65 Fe) MG 1 tablet Orally Once a day Not-Taking Keflex 500 MG 1 capsule Orally every 12 hrs; Duration: 10 day(s) 11/11/2017 Not-Taking Custom Orthotics as directed 02/25/2011 Active Cephalexin 500 MG 1 capsule Orally BID; Duration: 10 days 06/13/2020 Not-Taking Keflex 500 MG 1 capsule Orally every 12 hrs; Duration: 10 day(s) 10/09/2019 Not-Taking Wixela Inhub Active Myrbetriq 50 MG 1 tablet Orally Once a day Active amLODIPine Besylate 5 MG 1 tablet Orally Once a day; Duration: 30 day(s) Active Tylenol Active ZyrTEC 10 MG 1 tablet Orally Once a day Active Lasix 40 MG 1 tablet Orally Once a day; Duration: 30 day(s) Not-Taking Ibuprofen 800 MG 1 tablet Orally Three times a day; Duration: 30 day(s) Not-Taking Magnesium 300 MG 1 capsule with a meal Orally Once a day; Duration: 30 day(s) Not-Taking Calcium 500 MG 1 tablet with meals Orally Twice a day; Duration: 30 day(s) Not-Taking traMADol HCl 50 MG 1 tablet as needed Orally Once a day for two weeks Not-Taking Custom Orthotics . . .; Duration: . 06/10/2015 Not-Taking Flovent Diskus 50 MCG/BLIST 2 puffs Inhalation Twice a day Not-Taking predniSONE 20 MG 1 tablet Orally Once a day; Duration: 30 day(s) Not-Taking Cephalexin 500 MG 1 capsule Orally twice a day; Duration: 10 days Not-Taking Augmentin Not-Taking PROzac 20 MG 1 capsule in the morning Orally Once a day; Duration: 30 day(s) Not-Taking Flexeril 5 MG 1 tablet Orally Once a day; Duration: 30 day(s) Not-Taking predniSONE Not-Takin g Heel lift as directed add to shoe 08/05/2015 Active Custom Orthotics as directed 03/20/2024 Active albuterol 1 tab Oral Not-Takin g Amoxicillin Not-Taki ng Solifenacin Succinate 5 MG TAKE 1 TABLET BY MOUTH DAILY Oral; Duration: 90 Not-Taking Advair Diskus Not-Ta joseph Immunizations Vaccine Route Administration Date Status Comme nts Influenza Unknown 12/14/2020 Administered Influenza Unknown 01/02/2024 Administered COVID-19 Moderna Vaccine Unknown 02/26/2021 Administered 1st 06/29/20 Second Dose: 07/27/20 Social History Tobacco Use: Social History Observation [...] Problem Status W/U Status Risk Notes Problem Bilateral atherosclerosis of arteries of lower limbs (disorder) ([id number] ) Atherosclerosis of [place] artery of both lower extremities, with unspecified presence of clinical manifestation (I70.203) Active confirmed Q7(A), Q8(2B), Q9(1B,2 C) Vital Signs Blood pressure diastolic 60 mm Hg 10/19/2024 Height 5ft in 10/19/2024 Blood pressure systolic 120 mm Hg 10/19/2024 Weight 159 lbs 10/19/2024 BMI 31.05 kg/m2 10/19/2024 Procedures Procedure Date Ordered Date Performed Result Body Sit e 05092-SFOZ SKIN LESIONS, 2 TO 4 02/17/2024 N/A 09882-GIWP NAIL(S) 02/17/2024 N/A 68092-VQLJ SKIN LESIONS, 2 TO 4 04/17/2024 N/A 03603-GWBH NAIL(S) 04/17/2024 N/A 47651-WEPP SKIN LESIONS, OVER 4 05/25/2024 N/A 32435-TLQT NAIL(S) 05/25/2024 N/A 52688-HOSX SKIN LESIONS, OVER 4 06/22/2024 N/A 25409-VAQJ NAIL(S) 06/22/2024 N/A 11050- Debride <25 sq cm 07/10/2024 N/A 89303-XRSM SKIN LESIONS, OVER 4 08/07/2024 N/A 17711-LLRL NAIL(S) 08/07/2024 N/A 79949-QYDO SKIN LESIONS, OVER 4 10/19/2024 N/A 73327-DEJK NAIL(S) 10/19/2024 N/A Encounters Encounter Location Date Provider Diagnosis [facility] [address] [address] 02/17/2024 Adriana Black Acquired keratosis [keratoderma] palmaris et plantaris L85.1 and Other nail disorders L60.8 [facility] [address] [address] 03/20/2024 Adriana Black Metatarsalgia of lef t [...] of intermetatarsal bursa of right foot M77.[address] [address] 04/17/2024 Adriana Black Acquired keratosis [keratoderma] palmaris et plantaris L85.1 and Other nail disorders L60.[address] [address] 05/25/2024 Adriana Black Atherosclerosis of [place] artery of both lower extremities, with unspecified presence of clinical manifestation I70.[address] [address] 06/22/2024 Adriana Black Atherosclerosis of [place] artery of both lower extremities, with unspecified presence of clinical manifestation I70.[address] [address] 07/10/2024 Adriana Black Pressure injury of l eft foot, stage [address] [address] 08/07/2024 Adriana Black Atherosclerosis of [place] artery of both lower extremities, with unspecified presence of clinical manifestation I70.[address] [address] 10/19/2024 Adriana Black Atherosclerosis of [place] artery of both lower extremities, with unspecified presence of clinical manifestation I70.203 Assessments Encounter Date Diagnosis (ICD Code) Assessment Notes Treatment Notes Treatment Clinical Notes Section Notes 02/17/2024 Acquired keratosis [keratoderma] palmaris et plantaris (ICD-10 - L85.1) 03/20/2024 Metatarsalgia, right foot (ICD-10 - M77.41) 03/20/2024 Metatarsalgia of left foot (ICD-10 - M77.42) 04/17/2024 Acquired keratosis [keratoderma] palmaris et plantaris (ICD-10 - L85.1) 05/25/2024 Atherosclerosis of [place] artery of both lower extremities, with unspecified presence of clinical manifestation (ICD-10 - I70.203) Q7(A), Q8(2B), Q9(1B,2C) 06/22/2024 Atherosclerosis of [place] artery of both lower extremities, with unspecified presence of clinical manifestation (ICD-10 - I70.203) Q7(A), Q8(2B), Q9(1B,2C) 07/10/2024 Pressure injury of left foot, stage 1 (ICD-10 - L89.891) Response to treatment Nonapplicable Patient Educated with: WOUND CARE INSTRUCTIONS. pdf (WOUND CARE INSTRUCTIONS. pdf) 08/07/2024 Atherosclerosis of [place] artery of both lower extremities, with unspecified presence of clinical manifestation (ICD-10 - I70.203) Q7(A), Q8(2B), Q9(1B,2C) 10/19/2024 Atherosclerosis of [place] artery of both lower extremities, with unspecified presence of clinical manifestation (ICD-10 - I70.203) Q7(A), Q8(2B), Q9(1B,2C) 02/17/2024 Other nail disorders (ICD-10 - L60.8) 03/20/2024 [...] Treatment Pending Test Test Name Order Date 66317-VSQJTLR NAIL, 6 OR MORE 02/22/2013 55002-EOZMNYO NAIL, 6 OR MORE 05/04/2013 75932-SNLASCL NAIL, 6 OR MORE 06/05/2013 76214-KEVYCED NAIL, 6 OR MORE 07/03/2013 09445-QIRVIWO NAIL, 6 OR MORE 08/28/2013 49535-VAQHWNV NAIL, 6 OR MORE 11/27/2013 63169-KXOPXJG NAIL, 6 OR MORE 03/26/2014 90241-FXPBLUV NAIL, 6 OR MORE 07/30/2014 45599-HUBUVRK NAIL, 1-5 11/28/2012 90837-RPTKPTP NAIL, 1-5 12/07/2011 77919-WOUJCOC NAIL, 1-5 06/01/2012 69826-ABCHEUZ NAIL, 1-5 08/17/2012 43907-ENGJEZU NAIL, 1-5 10/28/2011 69579-YRUDRMP NAIL, 1-5 01/18/2012 05564-JBFGLPM NAIL, 1-5 02/29/2012 40357-Skty Destruction, 1-14 12/31/2014 86486-Svqckonz Plate 05/23/2014 43411-Ddpluwhn Plate 08/28/2013 06562-Ftpihkyl Plate 07/22/2020 82370- Debride <25 sq cm 08/29/2020 57698- Debride <25 sq cm 12/05/2020 37074- Debride <25 sq cm 07/31/2021 46663- Debride <25 sq cm 09/11/2019 74662- Debride <25 sq cm 10/23/2019 85557- Debride <25 sq cm 11/13/2019 39736- Debride <25 sq cm 12/14/2019 09600- Debride <25 sq cm 02/29/2012 87415- Debride <25 sq cm 03/21/2020 78047- Debride <25 sq cm 05/16/2020 71512- Debride <25 sq cm 06/13/2020 04406- Debride <25 sq cm 07/22/2020 12006- Debride <25 sq cm 07/12/2023 04722- Debride <25 sq cm 07/10/2024 62936- Debride <25 sq cm 09/27/2013 66105- Debride <25 sq cm 10/26/2013 71775- Debride <25 sq cm 08/28/2013 96669- Debride <25 sq cm 07/03/2013 66106- Debride <25 sq cm 07/31/2013 97305- Debride <25 sq cm 03/26/2014 50197- Debride <25 sq cm 04/23/2014 16050- Debride <25 sq cm 05/23/2014 62638- Debride <25 sq cm 11/27/2013 72810- Debride <25 sq cm 12/27/2013 22803- Debride <25 sq cm 01/24/2014 34926- Debride <25 sq cm 02/22/2014 11956- Debride <25 sq cm 06/25/2014 99802- Debride <25 sq cm 01/28/2015 02809- Debride <25 sq cm 02/27/2015 40425- Debride <25 sq cm 08/27/2014 91072- Debride <25 sq cm 09/27/2014 76660- Debride <25 sq cm 10/29/2014 13842- Debride <25 sq cm 11/28/2014 46977- Debride <25 sq cm 12/31/2014 38946- Debride <25 sq cm 03/31/2012 98152- Debride <25 sq cm 05/04/2012 33253- Debride <25 sq cm 06/01/2012 98984- Debride <25 sq cm 01/18/2012 43149- Debride <25 sq cm 12/07/2011 01918- Debride <25 sq cm 08/13/2011 65981- Debride <25 sq cm 10/28/2011 16903- Debride <25 sq cm 04/08/2011 09093- Debride <25 sq cm 05/14/2011 50949- Debride <25 sq cm 08/17/2012 46465- Debride <25 sq cm 11/28/2012 13653- Debride <25 sq cm 12/28/2012 50541- Debride <25 sq cm 02/22/2013 41951- Debride <25 sq cm 03/27/2013 95265- Debride <25 sq cm 06/05/2013 83004- Debride <25 sq cm 05/04/2013 36461- Debride <25 sq cm 12/09/2017 55494- Debride <25 sq cm 07/14/2018 15808- Debride <25 sq cm 08/18/2018 19166- Debride <25 sq cm 12/08/2018 68478-EKPRBVJ SKIN/TISSUE 06/05/2013 81026-AFRQSPQ SKIN/TISSUE 06/30/2012 54881-QDTOEMT SKIN/TISSUE 07/28/2012 05382-OLQBEOS SKIN/TISSUE 07/31/2013 36041-UDHZITW SKIN/TISSUE 07/03/2013 44424-JSJXFFM SKIN/TISSUE 02/19/2020 28732 I&D ABSCESS- SIMPLE,SINGLE 015 93275 I&D ABSCESS- SIMPLE,SINGLE 013 00235 I&D ABSCESS- SIMPLE,SINGLE 013 13614 I&D ABSCESS- SIMPLE,SINGLE 019 85689-WTBN SKIN LESIONS, OVER 4 04/07/20 18 61278-RZGC SKIN LESIONS, OVER 4 05/09/19 19 91557-BBBB SKIN LESIONS, OVER 4 01/07/20 18 32830-PPBE SKIN LESIONS, OVER 4 10/08/19 18 16271-GUEL SKIN LESIONS, OVER 4 02/04/20 18 30649-YITM SKIN LESIONS, OVER 4 03/10/20 18 48975-PKAG SKIN LESIONS, OVER 4 01/06/20 19 85746-NDMU SKIN LESIONS, OVER 4 11/16/19 19 24092-PMYV SKIN LESIONS, OVER 4 09/16/19 19 75323-UDXF SKIN LESIONS, OVER 4 10/14/19 19 40053-GOBP SKIN LESIONS, OVER 4 02/07/20 19 56834-OXZL SKIN LESIONS, OVER 4 03/06/20 19 26092-WWPT SKIN LESIONS, OVER 4 05/08/19 20 53189-HYEO SKIN LESIONS, OVER 4 06/05/19 20 18164-JXTS SKIN LESIONS, OVER 4 11/18/19 16 25530-RTHS SKIN LESIONS, OVER 4 12/23/19 16 93444-IKWR SKIN LESIONS, OVER 4 01/13/20 16 62302-DBLE SKIN LESIONS, OVER 4 02/17/20 16 57786-TSZV SKIN LESIONS, OVER 4 03/16/20 16 47676-QISO SKIN LESIONS, OVER 4 04/20/20 16 82570-FMAQ SKIN LESIONS, OVER 4 05/25/19 17 87070-CGCK SKIN LESIONS, OVER 4 06/25/19 17 39499-RAHV SKIN LESIONS, OVER 4 07/21/19 17 22202-EXZW SKIN LESIONS, OVER 4 08/28/19 17 03238-EJTB SKIN LESIONS, OVER 4 01/26/20 17 83493-TWXC SKIN LESIONS, OVER 4 02/23/20 17 86350-FJOL SKIN LESIONS, OVER 4 03/29/20 17 73495-FUDH SKIN LESIONS, OVER 4 06/03/19 18 83623-WUQP SKIN LESIONS, OVER 4 07/02/19 18 14756-PCBK SKIN LESIONS, OVER 4 08/06/19 18 99870-ZVEB SKIN LESIONS, OVER 4 08/05/19 16 75020-SYKH SKIN LESIONS, OVER 4 09/02/19 16 10230-NOHC SKIN LESIONS, OVER 4 10/07/19 16 14780-NEGY SKIN LESIONS, OVER 4 07/03/19 16 61579-YSGV SKIN LESIONS, OVER 4 04/18/20 94455-POGY SKIN LESIONS, OVER 4 07/03/19 41173-MHRB SKIN LESIONS, OVER 4 07/07/19 23 96855-DFGS SKIN LESIONS, OVER 4 08/08/19 25 52540-YMDY SKIN LESIONS, OVER 4 10/20/19 49682-WZLL SKIN LESIONS, OVER 4 05/25/19 25 90829-HJGW SKIN LESIONS, OVER 4 06/22/19 51050-WQHQ SKIN LESIONS, 2 TO 4 10/25/19 38829-EAUQ SKIN LESIONS, 2 TO 4 11/29/19 22053-PLSV SKIN LESIONS, 2 TO 4 02/17/20 94992-QCKL SKIN LESIONS, 2 TO 4 04/17/20 16912-LFUP SKIN LESIONS, 2 TO 4 06/01/19 23 10409-VIIZ SKIN LESIONS, 2 TO 4 03/30/20 60158-WOVJ SKIN LESIONS, 2 TO 4 04/23/20 46458-ZBCU SKIN LESIONS, 2 TO 4 10/10/19 89591-VQGO SKIN LESIONS, 2 TO 4 11/18/19 71260-SXOZ SKIN LESIONS, 2 TO 4 01/20/20 03847-LHLR SKIN LESIONS, 2 TO 4 02/24/20 83776-XVGG SKIN LESIONS, 2 TO 4 05/20/20 24 49333-QBHL SKIN LESIONS, 2 TO 4 05/10/19 24 13539-OBYJ SKIN LESIONS, 2 TO 4 01/19/20 44039-ZJLE SKIN LESIONS, 2 TO 4 03/22/20 10743-JCBG SKIN LESIONS, 2 TO 4 08/04/19 07140-BDCB SKIN LESIONS, 2 TO 4 09/01/19 14514-QJKY SKIN LESIONS, 2 TO 4 10/02/19 68717-DJJA SKIN LESIONS, 2 TO 4 11/24/19 12562-HCOH SKIN LESIONS, 2 TO 4 08/29/19 21690-HMLI SKIN LESIONS, 2 TO 4 06/19/19 50194-IQBJ SKIN LESIONS, 2 TO 4 04/03/20 34825-UBXC SKIN LESIONS, 2 TO 4 05/01/20 06238-RPED SKIN LESIONS, 2 TO 4 01/03/20 93823-RJGG SKIN LESIONS, 2 TO 4 02/14/20 62610-AKXT SKIN LESIONS, 2 TO 4 11/01/19 21 79142, X5369-QZSFU/INJECT, JOINT/BURSA 0 12/07/2011 97541, M8208-KVFHR/INJECT, JOINT/BURSA 0 05/14/2011 11030, X2614-FUHXX/INJECT, JOINT/BURSA 1 06/09/2010 71956, M9681-FFXIF/INJECT, JOINT/BURSA 0 01/18/2012 04052, G0867-UTHUP/INJECT, JOINT/BURSA 0 08/18/2018 04757-ZHUO NAIL(S) 05/09/2018 26423-RALM NAIL(S) 04/07/2018 55637-YTCF NAIL(S) 03/10/2018 83041-JSGW NAIL(S) 02/03/2018 04609-WYJH NAIL(S) 10/07/2017 55525-QJNL NAIL(S) 01/06/2018 73274-IJLG NAIL(S) 06/05/2019 96125-MMKN NAIL(S) 05/08/2019 34406-QEZN NAIL(S) 03/06/2019 95643-AIEH NAIL(S) 02/06/2019 74563-HPXQ NAIL(S) 10/13/2018 94741-PEZS NAIL(S) 09/15/2018 72852-RMMQ NAIL(S) 11/15/2018 47418-UDJM NAIL(S) 01/05/2019 02276-PTPX NAIL(S) 08/05/2017 52277-DMFF NAIL(S) 07/01/2017 82794-YVAL NAIL(S) 06/03/2017 70483-RTJE NAIL(S) 02/22/2017 13215-DKSX NAIL(S) 01/25/2017 38425-WQYO NAIL(S) 10/31/2020 38828-GWFI NAIL(S) 02/13/2021 01376-VZBB NAIL(S) 01/02/2021 42785-JGNN NAIL(S) 05/01/2021 19903-PVQA NAIL(S) 04/03/2021 56255-HYZK NAIL(S) 06/19/2021 87499-KBDS NAIL(S) 08/28/2021 12671-UJVF NAIL(S) 07/03/2019 63861-XBYP NAIL(S) 04/18/2020 89425-KMKJ NAIL(S) 11/23/2022 12560-YPJA NAIL(S) 10/01/2022 52401-XMOX NAIL(S) 08/31/2022 83987-LYKD NAIL(S) 08/03/2022 04900-KOBA NAIL(S) 03/22/2023 31314-RRSF NAIL(S) 01/18/2023 41703-OGMT NAIL(S) 05/10/2023 63518-YPXF NAIL(S) 09/20/2023 99156-MTOP NAIL(S) 02/23/2022 92696-PDST NAIL(S) 01/19/2022 89055-KRHN NAIL(S) 11/17/2021 34927-OLSX NAIL(S) 10/09/2021 70954-XHSI NAIL(S) 04/23/2022 01836-STCR NAIL(S) 03/30/2022 89501-XQXK NAIL(S) 06/01/2022 50803-AYCW NAIL(S) 07/06/2022 92846-LQOK NAIL(S) 04/17/2024 43263-GYUI NAIL(S) 02/17/2024 97776-ARXC NAIL(S) 11/29/2023 89098-QOZW NAIL(S) 10/25/2023 35033-YURI NAIL(S) 06/22/2024 07039-NCTZ NAIL(S) 05/25/2024 85346-XOSR NAIL(S) 10/19/2024 61964-HBYZ NAIL(S) 08/07/2024 U2676-GDQRTRXB DYSTROPHIC NAILS ANY # C8658-ZNLWPSPA DYSTROPHIC NAILS ANY # R4434-EERCFPTJ DYSTROPHIC NAILS ANY # H0719-LXQPRPZY DYSTROPHIC NAILS ANY # Q5824-SOPGKNNW DYSTROPHIC NAILS ANY # Q4724-TRYBBWYA DYSTROPHIC NAILS ANY # H0676-CZOZSHDC DYSTROPHIC NAILS ANY # M6812-TFLAPXXH DYSTROPHIC NAILS ANY # Q0915-KNHURJKR DYSTROPHIC NAILS ANY # E6733-QOPDUJQN DYSTROPHIC NAILS ANY # U1826-UZJJMSMQ DYSTROPHIC NAILS ANY # X9793-CFGXLUFU DYSTROPHIC NAILS ANY # E7514-AZUMBFQE DYSTROPHIC NAILS ANY # V9315-RVTGLYPV DYSTROPHIC NAILS ANY # X3153-CAARVCOC DYSTROPHIC NAILS ANY # Q8249-Bvitauogs 3mg 01/18/2012 M4201-Bsdajjljv 3mg 12/07/2011 60167 - Tenotomy, open flexor 06/13/2020 45195 - Tenotomy, open flexor 10/09/2019 06712 - Tenotomy, open flexor 01/18/2020 Next Appt Details Provider Name:Adriana Walton , 12/18/2024 02:30:00 PM, [address] [place] [address], [phone], Provider Name:Adriana Walton , 01/29/2025 11:00:00 AM, [address] [place] [address], [phone], Insurance Providers Payer Name Payer Address Payer Phone Subscriber Number Group Number Insured Name Patient Relationship to Insured Coverage Start Date Coverage End Date Medicare National [facility] [address] [place] [address] [id number] lAine Hartley Self - patient is the insured [facility] [address] [place] [address] [id number] Yuan Hartley Spouse - patient is the spouse of the insured Medical (General) History Medical History History ICD Code joint implants/screws mumps measles chicken pox sinus conditions reflux paralysis hernia cataracts back, hip, knee pain asthma Arthritis Anxiety disorder COPD Foot drop, 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 12 Other hammer toe(s) (acquired), left tim t M20.42 Other hammer toe(s) (acquired), right fo ot M20.41 Unsteady gait R26.81 Lower limb length difference M21.70 Displaced fracture of fifth metatarsal bone, left foot, subsequent encounter for fracture with delayed healing S92.352G PlantarFlexion of metatarsal of right fo ot M21.6X1 Essential hypertension I10 Pressure injury of left foot, stage 1 L8 9.891 Pressure injury of right foot, stage 1 L 89.891 Surgical History Surgery Date(Month/Year) hand/wrist 1994 hernia 1991, 2004 hysterectomy 1989 vein left leg laser oblasion 07/19/2014 Colonoscopy 08/16/2017- 9 cataracts 04/08/18 and 04/18/18 cholecystectomy 06/04/2018 [facility]- right hip replacement 01/05/24 knee replacement 08/22/24 Hospitalization History Reason Date(Month/Year) [facility] [place]- Pnuemonia, Sepsis, Blee ding ulcer, Transfusion, Cholecystectomy 06/04/2018-06/11/18 colonoscopy 04/2015 Left Leg laser ablation 07/19/14 Endoscopy & colonoscopy 08/20/14 admitted to [facility] , severe depression, anxiety, took to many drinks 12/08/13-12/22/13
--- NOTE | 2024-12-04 11:03 | A.OFFVIS_ITS ---
Vital Signs 12/04/24 10:33 Height 5 ft Weight 138 lb 14.259 oz BMI 27.1 BP 120/70 Blood Pressure Location Lt brachial Position Sitting Pulse 108 H Pulse Source Pulse Oximeter Pulse Oximetry (%) 98 Oxygen Delivery Method Room Air Intake Visit Reasons: COPD Allergies cat dander (CATS) Allergy (Unknown, Verified 12/04/24 11:04) ASTHMA ATTACK Horse/Equine Containing Products (HORSE/EQUINE CONTAINING PRODUCTS) Allergy (Unknown, Verified 12/04/24 11:04) ASTHMA ATTACK ENVIROMENTAL Allergy (Unknown, Uncoded 12/04/24 11:04) ASTHMA ATTACK Medication List - Last Reconciled 12/04/24 by Albertina Kimball MD albuterol sulfate 90 mcg/actuation 2 puffs inhalation Q4-6H PRN 30 days amlodipine 5 mg PO DAILY amoxicillin 1,000 mg (2 x 500 mg) PO ONCE bisacodyl (Dulcolax (bisacodyl)) 20 mg (4 x 5 mg) PO ONCE 1 day bisacodyl (Dulcolax (bisacodyl)) 20 mg (4 x 5 mg) PO ONCE 1 day cetirizine (Zyrtec) 10 mg PO DAILY PRN cholecalciferol (vitamin D3) 25 mcg PO DAILY 90 days fesoterodine ER 8 mg (2 x 4 mg) PO DAILY 30 days fluticasone propion-salmeterol 250-50 mcg/dose (Wixela Inhub) 1 inh inhalation BID 30 days rikzekas-ltbchvkwjQe-xanglphwW 3.5mg-400 unit- 5,000 unit/gram (Neosporin (pki-xmh-kpkgy)) 1 appl topical TID omeprazole 20 mg PO DAILY 90 days paroxetine HCl 40 mg PO QAM polyethylene glycol 3350 (Miralax) 17 grams PO DAILY 1 day polyethylene glycol 3350 (Miralax) 238 grams PO ONCE 1 day tiotropium bromide 2.5 mcg/actuation (Spiriva Respimat) 2 puffs PO DAILY Do you need a note to return to daycare/school/sports/work: No HPI HPI COPD: Details: CHELLE IS NOW 75 YEARS OLD VERY PLEASANT FEMALE. SHE COMES FOR FOLLOW-UP AFTER 4 MONTHS. SHE DID UNDERGO RIGHT KNEE REPLACEMENT WITHOUT ANY ISSUES. 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 SO THE GASTRIC SLEEVE SURGERY THAT SHE WAS PLANNING FOR WAS ABUNDANT. SHE JUST STAYS WELL WITH THE DIET. 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 WITH THAT WEIGHT LOSS HER BREATHING ALSO HAS IMPROVED. SHE HAS VERY LITTLE COUGH OFF AND ON AND ONLY MILD SHORTNESS OF BREATH ON WALKING. BECAUSE SHE USES WALKER HER WALKING IS USUALLY SLOW AND GUARDED. [facility] Medical History (Updated 12/04/24 @ 11:11 by Albertina Kimball MD) Morbid obesity Restrictive lung disease Tachycardia COVID-19 Endogenous depression COPD (chronic obstructive pulmonary disease) Allergic rhinitis GERD with esophagitis Asthma COPD (chronic obstructive pulmonary disease) History of iron deficiency anemia Hiatal hernia Cirrhosis of liver without ascites Surgical History (Updated 08/17/24 @ 10:13 by Breanne Thomas) History of colonoscopy (~04/20/19) History of right hip replacement Hx of ventral hernia repair History of dental surgery History of surgery on left wrist History of hysterectomy History of hip surgery Status post laparoscopic cholecystectomy (~06/10/18) Family History Other Mental health disorder Substance use disorder Social History Household Members: Spouse Housing: House Alcohol intake: former Patient Tobacco Use Status: Former Tobacco user e-Cigarette/Vaping Use: Never Used Second Hand Smoke Exposure: No service: No Current occupational status: disabled Cognitive needs: Yes (cane, walker) Hearing needs: No Vision needs: Yes (Reading Glasses) Review of Systems Const All systems reviewed & are unremarkable except as noted in HPI and below Eyes Reports no additional complaints ENT Reports nasal congestion (Off and on, mostly controlled at this time) Card Denies chest pain, Denies irregular heart rhythm and Denies leg edema Resp Reports as per HPI GI Reports heartburn (Symptoms of GERD controlled with omeprazole) Reports no additional complaints Musc Reports abnormal gait (Needs cane or walker, for gait stability) and Reports back pain Skin/Breast Reports system reviewed and no additional complaints, except as documented Neuro Reports abnormal gait (Needs cane or walker, for gait stability) Psych Reports depression (Controlled with med) Endo Reports no additional complaints Physical Exam Vital Signs: Last Vital Signs Pulse 108 H 12/04/24 10:33 BP 120/70 12/04/24 10:33 Pulse Ox 98 12/04/24 10:33 Oxygen Delivery Method Room Air 12/04/24 10:33 BMI result Body Mass Index 27.1 Const General: comfortable, no acute distress, alert and awake Orientation/consciousness: patient oriented x3 HEENT Head: Yes normal to inspection General nose exam: No nasal polyps present, No nasal discharge present and Other nasal findings present (Mild nasal congestion) Face and sinus: Yes sinuses nontender Mouth: oropharynx normal Throat: Yes posterior oropharynx normal Eyes General: appearance normal, both eyes and all related structures Neck Neck: Yes normal visual inspection, Yes no lymphadenopathy, Yes trachea midline and Yes no JVD Thyroid: Thyroid normal Chest Chest palpation & inspection: normal inspection of the chest, normal palpation of entire chest wall and no tenderness Resp Other: Percussion note is resonant, breath sounds distant on both sides with prolonged expiratory phase. No expiratory wheezes heard . Also no crepitations. Cardio Palpation: normal PMI Rate: tachycardic (hr at rest 120/mt ) Rhythm: regular rhythm Heart sounds: no gallops and no murmurs GI Palpation (GI): Soft to palpation, nontender, No hepatosplenomegaly present and no masses Auscultation: normal bowel sounds Back/Spine/Pelvis Thoracic/Lumbar Spine: thoracic and lumbar spine normal to inspection, thoraco- lumbar ROM limited and thoraco-lumbar spasm Skin General skin exam: no rashes or lesions noted Neuro General: patient oriented x3 and no focal motor deficits Cranial nerves: Yes CN's II-XII intact bilaterally Extrem General: Yes normal to inspection, Yes no clubbing, cyanosis or edema and Yes no calf tenderness Psych Appearance: grossly normal and well kempt Speech and movement: Normal speech and movement present Assessment & Plan Assessment & Plan (1) COPD (chronic obstructive pulmonary disease): Comment: MILD TO MODERTAELY SEVERE , WELL CONTROLLED , REMAINING STABLE.. , NO ACTIVE SYMPTOMS OF COUGH OR WHEEZING, Code(s): J44.9 - Chronic obstructive pulmonary disease, unspecified Category: Medical Plan: CONTINUE WIXELA 250-51 INHALATION B.I.D. AND SPIRIVA RESPIMAT 2.5 MCG 2 INHALATIONS DAILY. ALBUTEROL HFA 2 PUFFS Q 4-6 HOURS ONLY P.R.N. (2) Restrictive lung disease: Comment: PFT Showed Mild restrictive pulmonary disorder in addition to mild COPD. This is most likely due to her obesity, and is expected to improve as she loses weight. As she has lost significant weight, I think the restrictive component must be very little. Code(s): J98.4 - Other disorders of lung Category: Medical Plan: Still advised to keep on doing deep breathing exercises 2 or 3 times a day (3) Allergic rhinitis: Comment: MILD , STABLE AND CONTROLLED . Code(s): J30.9 - Allergic rhinitis, unspecified Category: Medical Plan: At this point she does not need any active medical treatment. But can still use cetirizine 10 mg once a day p.r.n. Coding Level of Care Code Est Pt Level 3 (27861) Diagnoses COPD (chronic obstructive pulmonary disease) J44.9 Restrictive lung disease J98.4 Allergic rhinitis J30.9
--- NOTE | 2024-12-04 11:15 | MHC.OFFVIS ---
Vital Signs 12/04/24 10:33 Height 5 ft Weight 138 lb 14.259 oz BMI 27.1 BP 120/70 Blood Pressure Location Lt brachial Position Sitting Pulse 108 H Pulse Source Pulse Oximeter Pulse Oximetry (%) 98 Oxygen Delivery Method Room Air Intake Visit Reasons: COPD Allergies cat dander (CATS) Allergy (Unknown, Verified 12/04/24 11:04) ASTHMA ATTACK Horse/Equine Containing Products (HORSE/EQUINE CONTAINING PRODUCTS) Allergy (Unknown, Verified 12/04/24 11:04) ASTHMA ATTACK ENVIROMENTAL Allergy (Unknown, Uncoded 12/04/24 11:04) ASTHMA ATTACK Medication List - Last Reconciled 12/04/24 by Albertina Kimball MD albuterol sulfate 90 mcg/actuation 2 puffs inhalation Q4-6H PRN 30 days amlodipine 5 mg PO DAILY amoxicillin 1,000 mg (2 x 500 mg) PO ONCE bisacodyl (Dulcolax (bisacodyl)) 20 mg (4 x 5 mg) PO ONCE 1 day bisacodyl (Dulcolax (bisacodyl)) 20 mg (4 x 5 mg) PO ONCE 1 day cetirizine (Zyrtec) 10 mg PO DAILY PRN cholecalciferol (vitamin D3) 25 mcg PO DAILY 90 days fesoterodine ER 8 mg (2 x 4 mg) PO DAILY 30 days fluticasone propion-salmeterol 250-50 mcg/dose (Wixela Inhub) 1 inh inhalation BID 30 days jlypwrwp-hcxjqdkrkLr-hvmpvqozT 3.5mg-400 unit- 5,000 unit/gram (Neosporin (ptv-vjy-pywcf)) 1 appl topical TID omeprazole 20 mg PO DAILY 90 days paroxetine HCl 40 mg PO QAM polyethylene glycol 3350 (Miralax) 17 grams PO DAILY 1 day polyethylene glycol 3350 (Miralax) 238 grams PO ONCE 1 day tiotropium bromide 2.5 mcg/actuation (Spiriva Respimat) 2 puffs PO DAILY PFSH Medical History (Updated 12/04/24 @ 11:11 by Albertnia Kimball MD) Morbid obesity Restrictive lung disease Tachycardia COVID-19 Endogenous depression COPD (chronic obstructive pulmonary disease) Allergic rhinitis GERD with esophagitis Asthma COPD (chronic obstructive pulmonary disease) History of iron deficiency anemia Hiatal hernia Cirrhosis of liver without ascites Surgical History (Updated 08/17/24 @ 10:13 by Breanne Thomas) History of colonoscopy (~04/20/19) History of right hip replacement Hx of ventral hernia repair History of dental surgery History of surgery on left wrist History of hysterectomy History of hip surgery Status post laparoscopic cholecystectomy (~06/10/18) Family History Other Mental health disorder Substance use disorder Social History Household Members: Spouse Housing: House Alcohol intake: former Patient Tobacco Use Status: Former Tobacco user e-Cigarette/Vaping Use: Never Used Second Hand Smoke Exposure: No service: No Current occupational status: disabled Cognitive needs: Yes (cane, walker) Hearing needs: No Vision needs: Yes (Reading Glasses) Physical Exam Vital Signs: Last Vital Signs Pulse 108 H 12/04/24 10:33 BP 120/70 12/04/24 10:33 Pulse Ox 98 12/04/24 10:33 Oxygen Delivery Method Room Air 12/04/24 10:33 BMI result Body Mass Index 27.1 Assessment & Plan Assessment & Plan (1) COPD (chronic obstructive pulmonary disease): Comment: MILD TO MODERTAELY SEVERE , WELL CONTROLLED , REMAINING STABLE.. , NO ACTIVE SYMPTOMS OF COUGH OR WHEEZING, Code(s): J44.9 - Chronic obstructive pulmonary disease, unspecified Category: Medical Plan: Continue to use Wixela 250-51 inhalation b.i.d. Albuterol HFA 2 puffs Q 6 hours p.r.n. (2) Restrictive lung disease: Comment: PFT Showed Mild restrictive pulmonary disorder in addition to mild COPD. This is most likely due to her obesity, and is expected to improve as she loses weight. As she has lost significant weight, I think the restrictive component must be very little. Code(s): J98.4 - Other disorders of lung Category: Medical Plan: Keep on doing deep breathing exercises 2 or 3 times a day regularly (3) Allergic rhinitis: Comment: MILD , STABLE AND CONTROLLED . Code(s): J30.9 - Allergic rhinitis, unspecified Category: Medical Plan: May use Zyrtec 10 mg once a day p.r.n. Coding Level of Care Code Est Pt Level 3 (60409) Diagnoses COPD (chronic obstructive pulmonary disease) J44.9 Restrictive lung disease J98.4 Allergic rhinitis J30.9
== END 2024-12-04 11:16 | disposition home or self-care (01) ==
PROVIDERS: PCP Internal Medicine; Visit Provider Internal Medicine
DX: J44.9 Chronic obstructive pulmonary disease, unspecified (principal); J98.4 Other disorders of lung; J30.9 Allergic rhinitis, unspecified
CPT/HCPCS: 99213

== ENCOUNTER → 2024-12-04 10:09 | Outpatient (BNVA) | payer MEDICARE, BC, SELFPAY | PROVIDERS: PCP Internal Medicine; Visit Provider Internal Medicine | DX: J98.4 Other disorders of lung (principal); J44.9 Chronic obstructive pulmonary disease, unspecified; J30.9 Allergic rhinitis, unspecified | CPT/HCPCS: 99212 ==

== ENCOUNTER 2024-12-28 08:52 | Outpatient (AMB) | payer MEDICARE, BC, SELFPAY ==
--- OUTSIDE RECORDS SUMMARY | 2024-09-04 09:45 | XMS_ITS ---
Author Organization [facility] Address [address] [place] [phone] Care Team Providers Care Care Management Coordinator Name Role Phone Rip Huber Primary Care Provider Adriana Walton [phone] Encounters Encounter Location Date Provider Diagnosis [address] [address] 09/04/2024 Adriana Anton Plan Of Treatment Next Appt Details Provider Name:Adriana Walton , 01/29/2025 11:00:00 AM, [address] [place] [address], [phone], Provider Name:Adriana Walton , 03/12/2025 03:15:00 PM, [address] [place] [address], [phone], Progress Notes * Aline HARTLEY MDOB: 8 (79 yo F)Acc No.[id number]:09/04/2024 Progress Notes Patient: Ayala NYE Aline Cai Provider: Gonzalez Walton DPM :1945 A ge:78 Y S ex:Female Date:09/04/2024 Address:[address] [place], [place] [id number] Pcp:Rip Huber Subjective: * Chief Complaints: * * Medical History: Objective: * Vitals: Assessment: Plan: * Treatment: * Images: * The named appointment provid er may or may not be the originator of this progress note, and it is not deemed complete until electronically signed by the appointment provider. Sign off status: Pending * Provider: Gonzalez Walton DPM Date: 09/04/2024 Generated for Nate barbour/Georgie/Jeannine on: 12/28/2024 09:43 AM EDT
--- NOTE | 2024-12-28 08:55 | MHC.PC.OV ---
Vital Signs 12/28/24 08:57 Height 5 ft Weight 139 lb 8 oz BMI 27.2 BP 110/70 Blood Pressure Location Lt brachial Position Sitting Pulse 107 H Pulse Source Pulse Oximeter Temp 96.9 F Temp Source Temporal Artery Scan Pulse Oximetry (%) 97 Oxygen Delivery Method Room Air Intake Visit Reasons: 6 month follow up Intake Note: Patient is here to follow up on HTN, COPD. Trimmer Hand Required: No Broiler Manager: Not Required per policy Accompanied by: Self / Same As Patient Allergies cat dander (CATS) Allergy (Unknown, Verified 12/28/24 08:56) ASTHMA ATTACK Horse/Equine Containing Products (HORSE/EQUINE CONTAINING PRODUCTS) Allergy (Unknown, Verified 12/28/24 08:56) ASTHMA ATTACK ENVIROMENTAL Allergy (Unknown, Uncoded 12/28/24 08:56) ASTHMA ATTACK Tobacco use date assessed: 12/28/24 Fall risk assessment: No Falls in past year Last assessed Fall Risk: 12/28/24 Dental Screening Dental Screen Date: 06/29/24 [facility] Medical History (Updated 12/04/24 @ 11:11 by Albertina Kimball MD) Morbid obesity Restrictive lung disease Tachycardia COVID-19 Endogenous depression COPD (chronic obstructive pulmonary disease) Allergic rhinitis GERD with esophagitis Asthma COPD (chronic obstructive pulmonary disease) History of iron deficiency anemia Hiatal hernia Cirrhosis of liver without ascites Surgical History (Updated 12/28/24 @ 09:02 by TEE Lopez) History of total right knee replacement (TKR) History of colonoscopy (~04/20/19) History of right hip replacement Hx of ventral hernia repair History of dental surgery History of surgery on left wrist History of hysterectomy History of hip surgery Status post laparoscopic cholecystectomy (~06/10/18) Family History Other Mental health disorder Substance use disorder Social History Household Members: Spouse Housing: House Alcohol intake: former Patient Tobacco Use Status: Former Tobacco user e-Cigarette/Vaping Use: Never Used Second Hand Smoke Exposure: No service: No Current occupational status: disabled Cognitive needs: Yes (cane, walker) Hearing needs: No Vision needs: Yes (Reading Glasses) Questionnaire PHQ-9 Over the last 2 weeks, how often have you been bothered by any of the following problems? 1. Little interest or pleasure in doing things: not at all 2. Feeling down, depressed, or hopeless: not at all 3. Trouble falling or staying asleep, or sleeping too much: not at all 4. Feeling tired or having little energy: not at all 5. Poor appetite or overeating: not at all 6. Feeling bad about yourself - or that you are a failure or have let yourself or your family down: not at all 7. Trouble concentrating on things, such as reading the newspaper or watching television: not at all 8. Moving or speaking so slowly that other people could have noticed. Or the opposite - being so fidgety or restless that you have been moving around a lot more than usual: not at all 9. Thoughts that you would be better off or of hurting yourself in some way: not at all Total score: 0 Depression Screening Interpretation: Negative Depression Screening Done: Yes Source: Developed by Drs. Robson Avitia, Dinorah Betancur, Spenser Mancera and colleagues, with an educational charisse from [email or web address]. Thrive Questionnaire Date Thrive assessed: 06/29/24 I am a: Patient What is your living situation today?: I have a steady place to live Within the past 12 months, did the food you bought not last and you didn't have the money to get more?: Never true Within the past 12 months, did you worry whether your food would run out before you got money to buy more?: Never true Do you have trouble paying for medicines?: No Do you have trouble getting transportation to medical appointments?: No Do you have trouble paying your heating and electricity bill?: No Do you have trouble taking care of your child, family member or friend?: No Do you have trouble with day-to-day activities such as bathing, preparing meals, shopping, managing finances, etc.?: No Are you currently unemployed and looking for a job?: No Are you interested in more education?: No Please select the resources that you would like help with: None Currently or been in a relationship where the following occur: No concerns reported THRIVE Score: 0 AUDIT C Alcohol Use Questionnaire (AUDIT-C) 1. How often do you have a drink containing alcohol?: Never Total Score: 0 EFRAIN-7 AMB Questionnaire EFRAIN-7 Date EFRAIN - 7 assessed: 06/29/24 Feeling nervous, anxious, or on edge: 0 = Not at all Not being able to stop or control worryin = Not at all Worrying too much about different things: 0 = Not at all Trouble relaxin = Not at all Being so restless that it is hard to sit still: 0 = Not at all Becoming easily annoyed or irritable: 0 = Not at all Feeling afraid as if something awful might happen: 0 = Not at all Total EFRAIN-7 score (0-4 normal; 5-9 mild; 10-14 moderate; 15-21 severe): 0 Source: Developed by Drs. Robson Avitia, Dinorah Betancur, Spenser Mancera and colleagues, with an educational charisse from [email or web address]. Physical exam (Primary Care) Vital Signs: Last Vital Signs Temp 96.9 F 12/28/24 08:57 Pulse 107 H 12/28/24 08:57 BP 110/70 12/28/24 08:57 Pulse Ox 97 12/28/24 08:57 Oxygen Delivery Method Room Air 12/28/24 08:57 BMI result Body Mass Index 27.2 Tobacco/Smoking Status: Tobacco use Status Tobacco use date assessed 12/28/24 12/28/24 09:03 Patient Tobacco Use Status Former Tobacco user 12/28/24 08:55 e-Cigarette/Vaping Use Never Used 12/28/24 08:55 PHQ-9: PHQ-9 Score PHQ-9: Total score 0 12/28/24 09:03 Depression Screening Interpretation: Negative Thrive Assessment: Date of Thrive Assessment Date Thrive assessed 06/29/24 12/28/24 08:55 Currently or been in a relationship where the following occur: No concerns reported Coding Level of Care Code Est Pt Level 4 (69659) Complex EM visit Add On G2211 Diagnoses Osteoarthritis, knee M17.9 Assessment & Plan Assessment & Plan (1) Osteoarthritis, knee: Code(s): M17.9 - Osteoarthritis of knee, unspecified Plan: S/p knee replacement. Using a walker. Plan History of Present Illness - The patient is a 79-year-old female presenting with a follow-up on right knee arthroplasty and associated leg length discrepancy. - The patient underwent right knee arthroplasty in August and reports no pain in the knee post-surgery. - She is experiencing a leg length discrepancy post-surgery, which has resulted in back pain. - The patient is using a shoe lift to manage the discrepancy and plans to consult a specialist for further adjustment. - The patient reports urinary incontinence, which is improving but still requires attention. - She has undergone cataract surgery and reports improved vision but limits driving at night. - A hearing test is scheduled for the to address hearing loss concerns. Social History - The patient lives with her and is capable of driving, although she limits driving at night due to previous cataract surgery. - She is actively managing her weight through dieting and plans to join [employer] after losing seven more pounds. Review of Systems - Musculoskeletal: Reports leg length discrepancy post-knee arthroplasty causing back pain. - Genitourinary: Reports urinary incontinence, improving. - Ophthalmologic: Denies vision problems post-cataract surgery, limits night driving. - Audiologic: Reports hearing loss, scheduled for a hearing test. Physical Exam General: Cooperative and healthy appearing Nutritional Appearance: Well nourished Orientation/consciousness: Patient oriented x3 Limitations: No limitations Head: Normal to inspection General: Appearance normal, both eyes and all related structures Neck: Normal visual inspection Chest: Normal palpation of entire chest wall Respiratory: N ormal respiratory effort Neurology: Patient oriented x3, reports back pain due to uneven legs after right knee replacement. Results Plan 1. Right Knee Arthroplasty - Follow-up in six months to monitor recovery and address any ongoing issues. 2. Leg Length Discrepancy Post-Surgery - Continue using shoe lift and consult with a specialist for further adjustment. 3. Urinary Incontinence - Monitor symptoms and consider further evaluation if no improvement. 4. Hearing Loss - Hearing test scheduled for further assessment. Discussion Notes During the visit, we discussed the patient's progress following her right knee arthroplasty and the associated leg length discrepancy. We emphasized the importance of using a shoe lift and consulting a specialist for further adjustment. The patient was advised to monitor her urinary incontinence and to proceed with the scheduled hearing test to assess her hearing loss. Follow-up was scheduled for six months to evaluate her recovery and address any ongoing issues. Patient Instructions - Continue using the shoe lift and consult a specialist for leg length discrepancy. - Monitor urinary incontinence and seek further evaluation if symptoms persist. - Attend the scheduled hearing test on the . - Follow up in six months for a routine check-up.
[2024-12-28 08:57] VITALS: BP 110/70; PULSE 107; TEMP 36.1; O2SAT 97; BMI 27.2
--- OUTSIDE RECORDS SUMMARY | 2024-12-28 09:43 | XMS_ITS | Patient Health Record ---
[facility] Address [address] [place] [address] Care Team Providers Care Nitrocellulose Maker Name Role Phone Rip Huber Primary Care Provider Adriana Walton Unavailable [phone] Allergies No Known Allergies Reason For Referral No Information Medications Medication SIG (Take, Route, Frequency, Duration) Notes Start Date End Date Status Custom Orthotics . . .; Duration: . 06/10/2015 Not-Taking Cephalexin 500 MG 1 capsule Orally BID; Duration: 10 days 06/13/2020 Not-Taking Cephalexin 500 MG 1 capsule Orally twice a day; Duration: 10 days Not-Taking traMADol HCl 50 MG 1 tablet as needed Orally Once a day for two weeks Not-Taking amLODIPine Besylate 5 MG 1 tablet Orally Once a day; Duration: 30 day(s) Active Lasix 40 MG 1 tablet Orally Once a day; Duration: 30 day(s) Not-Taking Omeprazole 20 MG Orally Act ghassan predniSONE 20 MG 1 tablet Orally Once a day; Duration: 30 day(s) Not-Taking Ibuprofen 800 MG 1 tablet Orally Three times a day; Duration: 30 day(s) Not-Taking ZyrTEC 10 MG 1 tablet Orally Once a day Active Myrbetriq 50 MG 1 tablet Orally Once a day Active Calcium 500 MG 1 tablet with meals Orally Twice a day; Duration: 30 day(s) Not-Taking Wixela Inhub Active Tylenol Active Albuterol Sulfate HFA 108 (90 Base) MCG/ACT 2 puffs as needed Inhalation every 4 hrs Not-Taking Keflex 500 MG 1 capsule Orally every 12 hrs; Duration: 10 day(s) 11/11/2017 Not-Taking Inhaler Companions N ot-Taking Keflex 500 MG 1 capsule Orally every 12 hrs; Duration: 10 day(s) 10/09/2019 Not-Taking Iron 325 (65 Fe) MG 1 tablet Orally Once a day Not-Taking Vitamin D3 Active Flovent Diskus 50 MCG/BLIST 2 puffs Inhalation Twice a day Not-Taking Custom Orthotics as directed 02/25/2011 Active Flexeril 5 MG 1 tablet Orally Once a day; Duration: 30 day(s) Not-Taking Paxil 50 1 tablet in the morning Once a day Active Prednisone Not-Takin g Spiriva HandiHaler 18 MCG 1 capsule Inhalation Once a day Active Vistaril 25 MG 1 capsule Orally Three times a day; Duration: 30 day(s) Not-Taking Albuterol Sulfate 1.25 MG/3ML 3 ml as needed Inhalation every 6 hrs Not-Taking Protonix 40 MG 1 tablet Orally Once a day; Duration: 30 day(s) Not-Taking albuterol 1 tab Oral Not-Takin g Amoxicillin Not-Taki ng Solifenacin Succinate 5 MG TAKE 1 TABLET BY MOUTH DAILY Oral; Duration: 90 Not-Taking PROzac 20 MG 1 capsule in the morning Orally Once a day; Duration: 30 day(s) Not-Taking Advair Diskus Not-Ta joseph Magnesium 300 MG 1 capsule with a meal Orally Once a day; Duration: 30 day(s) Not-Taking Heel lift as directed add to shoe 08/05/2015 Active predniSONE Not-Takin g Custom Orthotics as directed 03/20/2024 Active Augmentin Not-Taking Immunizations Vaccine Route Administration Date Status [...] atherosclerosis of arteries of lower limbs (disorder) ([id number] ) Atherosclerosis of false pass artery of both lower extremities, with unspecified presence of clinical manifestation (I70.203) Active confirmed Q7(A), Q8(2B), Q9(1B,2 C) Vital Signs Blood pressure diastolic 65 mm Hg 12/18/2024 Height 5ft in 12/18/2024 Blood pressure systolic 122 mm Hg 12/18/2024 Weight 135 lbs 12/18/2024 BMI 26.36 kg/m2 12/18/2024 Procedures Procedure Date Ordered Date Performed Result Body Sit e 69473-JHUC SKIN LESIONS, 2 TO 4 02/17/2024 N/A 94048-WTXY NAIL(S) 02/17/2024 N/A 83514-OJYT SKIN LESIONS, 2 TO 4 04/17/2024 N/A 60930-KQLB NAIL(S) 04/17/2024 N/A 12514-FZGG SKIN LESIONS, OVER 4 05/25/2024 N/A 03439-CGWH NAIL(S) 05/25/2024 N/A 04847-QWMU SKIN LESIONS, OVER 4 06/22/2024 N/A 88468-RGOI NAIL(S) 06/22/2024 N/A 93143- Debride <25 sq cm 07/10/2024 N/A 26631-IATF SKIN LESIONS, OVER 4 08/07/2024 N/A 61574-DUZG NAIL(S) 08/07/2024 N/A 92392-WRWC SKIN LESIONS, OVER 4 10/19/2024 N/A 62403-FUPS NAIL(S) 10/19/2024 N/A 67988-ZTZN SKIN LESIONS, OVER 4 12/18/2024 N/A 92682-BQZI NAIL(S) 12/18/2024 N/A Encounters Encounter Location Date Provider Diagnosis [facility] [address] [address] 02/17/2024 Adriana Black Acquired keratosis [keratoderma] palmaris et plantaris L85.1 and Other nail disorders L60.[address] [facility] [address] 03/20/2024 Adriana Black Metatarsalgia of lef t [...] of intermetatarsal bursa of right foot M77.[address] [address] 04/17/2024 Adriana Black Acquired keratosis [keratoderma] palmaris et plantaris L85.1 and Other nail disorders L60.[address] [address] 05/25/2024 Adriana Black Atherosclerosis of false pass artery of both lower extremities, with unspecified presence of clinical manifestation I70.[address] [address] 06/22/2024 Adriana Black Atherosclerosis of false pass artery of both lower extremities, with unspecified presence of clinical manifestation I70.[address] [address] 07/10/2024 Adriana Black Pressure injury of l eft foot, stage [address] [address] 08/07/2024 Adriana Black Atherosclerosis of false pass artery of both lower extremities, with unspecified presence of clinical manifestation I70.[address] [address] 10/19/2024 Adriana Black Atherosclerosis of false pass artery of both lower extremities, with unspecified presence of clinical manifestation I70.[address] [address] 12/18/2024 Adriana Black Atherosclerosis of false pass artery of both lower extremities, with unspecified [...] plantaris (ICD-10 - L85.1) 05/25/2024 Atherosclerosis of false pass artery of both lower extremities, with unspecified presence of clinical manifestation (ICD-10 - I70.203) Q7(A), Q8(2B), Q9(1B,2C) 06/22/2024 Atherosclerosis of false pass artery of both lower extremities, with unspecified presence of clinical manifestation (ICD-10 - I70.203) Q7(A), Q8(2B), Q9(1B,2C) 07/10/2024 Pressure injury of left foot, stage 1 (ICD-10 - L89.891) Response to treatment Nonapplicable Patient Educated with: WOUND CARE INSTRUCTIONS. pdf (WOUND CARE INSTRUCTIONS. pdf) 08/07/2024 Atherosclerosis of false pass artery of both lower extremities, with unspecified presence of clinical manifestation (ICD-10 - I70.203) Q7(A), Q8(2B), Q9(1B,2C) 10/19/2024 Atherosclerosis of false pass artery of both lower extremities, with unspecified presence of clinical manifestation (ICD-10 - I70.203) Q7(A), Q8(2B), Q9(1B,2C) 12/18/2024 Atherosclerosis of false pass artery of both lower extremities, with unspecified [...] Treatment Pending Test Test Name Order Date 20982-LTYJOBR NAIL, 6 OR MORE 02/22/2013 94462-YEOPYJZ NAIL, 6 OR MORE 05/04/2013 02033-WHBKSXG NAIL, 6 OR MORE 06/05/2013 19484-BWHEVAT NAIL, 6 OR MORE 07/03/2013 90966-GPVOYYC NAIL, 6 OR MORE 08/28/2013 25267-TJMXLPM NAIL, 6 OR MORE 11/27/2013 47792-XHQGMQU NAIL, 6 OR MORE 03/26/2014 80704-VDTLMUK NAIL, 6 OR MORE 07/30/2014 44772-BAAORGK NAIL, 1-5 11/28/2012 78397-CPCVBZO NAIL, 1-5 12/07/2011 76889-DUNPHTP NAIL, 1-5 06/01/2012 94906-KPOFZSN NAIL, 1-5 08/17/2012 49638-EEGEZDE NAIL, 1-5 10/28/2011 25522-ZMPIGEL NAIL, 1-5 01/18/2012 88003-HBUQBZT NAIL, 1-5 02/29/2012 40293-Nsjv Destruction, 1-14 12/31/2014 90819-Bslpydhj Plate 05/23/2014 35681-Fulvxcuq Plate 08/28/2013 15316-Urjdwgcx Plate 07/22/2020 24836- Debride <25 sq cm 08/29/2020 05385- Debride <25 sq cm 12/05/2020 53734- Debride <25 sq cm 07/31/2021 69960- Debride <25 sq cm 09/11/2019 78663- Debride <25 sq cm 10/23/2019 87943- Debride <25 sq cm 11/13/2019 76816- Debride <25 sq cm 12/14/2019 83793- Debride <25 sq cm 02/29/2012 35597- Debride <25 sq cm 03/21/2020 52414- Debride <25 sq cm 05/16/2020 41903- Debride <25 sq cm 06/13/2020 25561- Debride <25 sq cm 07/22/2020 13400- Debride <25 sq cm 07/12/2023 53828- Debride <25 sq cm 07/10/2024 29077- Debride <25 sq cm 09/27/2013 40437- Debride <25 sq cm 10/26/2013 55864- Debride <25 sq cm 08/28/2013 14050- Debride <25 sq cm 07/03/2013 42835- Debride <25 sq cm 07/31/2013 48503- Debride <25 sq cm 03/26/2014 86794- Debride <25 sq cm 04/23/2014 97772- Debride <25 sq cm 05/23/2014 54758- Debride <25 sq cm 11/27/2013 13510- Debride <25 sq cm 12/27/2013 02465- Debride <25 sq cm 01/24/2014 34054- Debride <25 sq cm 02/22/2014 72594- Debride <25 sq cm 06/25/2014 45053- Debride <25 sq cm 01/28/2015 33126- Debride <25 sq cm 02/27/2015 42806- Debride <25 sq cm 08/27/2014 43110- Debride <25 sq cm 09/27/2014 43552- Debride <25 sq cm 10/29/2014 02944- Debride <25 sq cm 11/28/2014 14055- Debride <25 sq cm 12/31/2014 59985- Debride <25 sq cm 03/31/2012 62791- Debride <25 sq cm 05/04/2012 23783- Debride <25 sq cm 06/01/2012 14469- Debride <25 sq cm 01/18/2012 57875- Debride <25 sq cm 12/07/2011 42621- Debride <25 sq cm 08/13/2011 40363- Debride <25 sq cm 10/28/2011 74269- Debride <25 sq cm 04/08/2011 00427- Debride <25 sq cm 05/14/2011 39516- Debride <25 sq cm 08/17/2012 81464- Debride <25 sq cm 11/28/2012 86724- Debride <25 sq cm 12/28/2012 16041- Debride <25 sq cm 02/22/2013 07433- Debride <25 sq cm 03/27/2013 70916- Debride <25 sq cm 06/05/2013 21870- Debride <25 sq cm 05/04/2013 20856- Debride <25 sq cm 12/09/2017 93934- Debride <25 sq cm 07/14/2018 61794- Debride <25 sq cm 08/18/2018 61030- Debride <25 sq cm 12/08/2018 08846-NYCICCD SKIN/TISSUE 06/05/2013 52944-LKQLDSS SKIN/TISSUE 06/30/2012 14209-RILBHPK SKIN/TISSUE 07/28/2012 63979-RLNRFQZ SKIN/TISSUE 07/31/2013 23697-MEOMZRK SKIN/TISSUE 07/03/2013 26963-ZVSSVJF SKIN/TISSUE 02/19/2020 03119 I&D ABSCESS- SIMPLE,SINGLE 015 96191 I&D ABSCESS- SIMPLE,SINGLE 013 57919 I&D ABSCESS- SIMPLE,SINGLE 013 84114 I&D ABSCESS- SIMPLE,SINGLE 019 67713-GQFO SKIN LESIONS, OVER 4 04/07/20 18 22657-YPIC SKIN LESIONS, OVER 4 05/09/19 19 51239-LXWR SKIN LESIONS, OVER 4 01/07/20 18 02902-WONT SKIN LESIONS, OVER 4 10/08/19 18 34900-NNKD SKIN LESIONS, OVER 4 02/04/20 18 17480-SWCC SKIN LESIONS, OVER 4 03/10/20 18 96979-WNTK SKIN LESIONS, OVER 4 01/06/20 19 40600-JQZS SKIN LESIONS, OVER 4 11/16/19 19 54384-GDKV SKIN LESIONS, OVER 4 09/16/19 19 25773-XOUC SKIN LESIONS, OVER 4 10/14/19 19 35386-OBJO SKIN LESIONS, OVER 4 02/07/20 19 52461-QKJX SKIN LESIONS, OVER 4 03/06/20 19 32069-LDTC SKIN LESIONS, OVER 4 05/08/19 20 74880-YRVC SKIN LESIONS, OVER 4 06/05/19 20 50291-WDGS SKIN LESIONS, OVER 4 11/18/19 16 57336-KRCI SKIN LESIONS, OVER 4 12/23/19 16 54874-EMUZ SKIN LESIONS, OVER 4 01/13/20 16 18411-LUTB SKIN LESIONS, OVER 4 02/17/20 16 05154-CLWE SKIN LESIONS, OVER 4 03/16/20 16 87622-WFIM SKIN LESIONS, OVER 4 04/20/20 16 19512-AHFR SKIN LESIONS, OVER 4 05/25/19 17 36776-TMZF SKIN LESIONS, OVER 4 06/25/19 17 85720-PXJI SKIN LESIONS, OVER 4 07/21/19 17 57660-OINM SKIN LESIONS, OVER 4 08/28/19 17 61262-OBBG SKIN LESIONS, OVER 4 01/26/20 17 11322-BEOL SKIN LESIONS, OVER 4 02/23/20 17 65697-JYZE SKIN LESIONS, OVER 4 03/29/20 17 10698-VRSO SKIN LESIONS, OVER 4 06/03/19 18 32246-SPXT SKIN LESIONS, OVER 4 07/02/19 18 48021-AAYM SKIN LESIONS, OVER 4 08/06/19 18 38945-SZFJ SKIN LESIONS, OVER 4 08/05/19 16 05111-OOKS SKIN LESIONS, OVER 4 09/02/19 16 86161-NFPG SKIN LESIONS, OVER 4 10/07/19 16 67146-NFLM SKIN LESIONS, OVER 4 07/03/19 16 84066-KMMM SKIN LESIONS, OVER 4 04/18/20 20 34376-VYQJ SKIN LESIONS, OVER 4 07/03/19 20 27262-FEEL SKIN LESIONS, OVER 4 07/07/19 23 81925-CWFN SKIN LESIONS, OVER 4 08/08/19 25 19824-FSYG SKIN LESIONS, OVER 4 10/20/19 25 24412-FROZ SKIN LESIONS, OVER 4 05/25/19 25 71189-IBFH SKIN LESIONS, OVER 4 06/22/19 25 27474-VGHE SKIN LESIONS, OVER 4 12/19/19 39464-KLWN SKIN LESIONS, 2 TO 4 10/25/19 24 47895-AWVJ SKIN LESIONS, 2 TO 4 11/29/19 19367-URQZ SKIN LESIONS, 2 TO 4 02/17/20 39608-GCAZ SKIN LESIONS, 2 TO 4 04/17/20 32409-OLAI SKIN LESIONS, 2 TO 4 06/01/19 03316-DJTB SKIN LESIONS, 2 TO 4 03/30/20 24807-JVGL SKIN LESIONS, 2 TO 4 04/23/20 03106-HPJU SKIN LESIONS, 2 TO 4 10/10/19 03047-DOOY SKIN LESIONS, 2 TO 4 11/18/19 51209-DVFN SKIN LESIONS, 2 TO 4 01/20/20 46891-KNYF SKIN LESIONS, 2 TO 4 02/24/20 80018-SIPT SKIN LESIONS, 2 TO 4 09/20/19 23601-COVH SKIN LESIONS, 2 TO 4 05/10/19 26541-HSRK SKIN LESIONS, 2 TO 4 01/19/20 67579-BITU SKIN LESIONS, 2 TO 4 03/22/20 52054-VCBF SKIN LESIONS, 2 TO 4 08/04/19 37789-VWBH SKIN LESIONS, 2 TO 4 09/01/19 45370-WDCS SKIN LESIONS, 2 TO 4 10/02/19 06048-TFQF SKIN LESIONS, 2 TO 4 11/24/19 59040-BQGB SKIN LESIONS, 2 TO 4 08/29/19 56278-DCAU SKIN LESIONS, 2 TO 4 06/19/19 62788-HCDQ SKIN LESIONS, 2 TO 4 04/03/20 59078-IOTX SKIN LESIONS, 2 TO 4 05/01/20 19385-RHKG SKIN LESIONS, 2 TO 4 01/03/20 76934-LCNN SKIN LESIONS, 2 TO 4 02/14/20 35029-MIQR SKIN LESIONS, 2 TO 4 11/01/19 52955, K7487-FXJHS/INJECT, JOINT/BURSA 0 12/07/2011 35530, X8084-GFXDC/INJECT, JOINT/BURSA 0 05/14/2011 77518, K7711-CUTLA/INJECT, JOINT/BURSA 1 06/09/2010 46252, J3060-ORNMC/INJECT, JOINT/BURSA 0 01/18/2012 35190, C2379-FBGSQ/INJECT, JOINT/BURSA 0 08/18/2018 68184-UZOJ NAIL(S) 05/09/2018 15322-MYOB NAIL(S) 04/07/2018 42633-RLZN NAIL(S) 03/10/2018 45820-ZWLF NAIL(S) 02/03/2018 73592-CUGD NAIL(S) 10/07/2017 42850-FSYV NAIL(S) 01/06/2018 82168-CFIL NAIL(S) 06/05/2019 12788-SXPC NAIL(S) 05/08/2019 89562-TJZE NAIL(S) 03/06/2019 40579-HEFY NAIL(S) 02/06/2019 36002-DSAR NAIL(S) 10/13/2018 89728-GPSE NAIL(S) 09/15/2018 13145-LMWK NAIL(S) 11/15/2018 79561-NLMH NAIL(S) 01/05/2019 45087-RWFY NAIL(S) 08/05/2017 63088-XAEY NAIL(S) 07/01/2017 54886-ZKZN NAIL(S) 06/03/2017 98773-PVKZ NAIL(S) 02/22/2017 99514-SMPY NAIL(S) 01/25/2017 92863-JHFJ NAIL(S) 10/31/2020 92734-LEDU NAIL(S) 02/13/2021 64001-ZNKX NAIL(S) 01/02/2021 49172-EOPQ NAIL(S) 05/01/2021 53356-GITI NAIL(S) 04/03/2021 04016-LYBL NAIL(S) 06/19/2021 11252-YVGY NAIL(S) 08/28/2021 63575-WTNL NAIL(S) 07/03/2019 53637-NOUB NAIL(S) 04/18/2020 13420-SUUH NAIL(S) 11/23/2022 43235-YBNI NAIL(S) 10/01/2022 24898-BYEL NAIL(S) 08/31/2022 71595-FKLK NAIL(S) 08/03/2022 87564-FQOM NAIL(S) 03/22/2023 89680-NYPE NAIL(S) 01/18/2023 72725-NEGP NAIL(S) 05/10/2023 40568-AXAO NAIL(S) 09/20/2023 67762-HHKO NAIL(S) 02/23/2022 98889-NDWD NAIL(S) 01/19/2022 35499-SRBZ NAIL(S) 11/17/2021 39666-ZCAI NAIL(S) 10/09/2021 93241-JGAX NAIL(S) 04/23/2022 10516-HZDS NAIL(S) 03/30/2022 75357-BGAC NAIL(S) 06/01/2022 76419-EJQN NAIL(S) 07/06/2022 08855-WEUZ NAIL(S) 04/17/2024 17227-CFLJ NAIL(S) 02/17/2024 28518-ILGG NAIL(S) 11/29/2023 23480-TXWZ NAIL(S) 10/25/2023 02246-WSKN NAIL(S) 06/22/2024 03059-IWPK NAIL(S) 05/25/2024 18204-ZRYS NAIL(S) 10/19/2024 08807-NZWR NAIL(S) 08/07/2024 21544-LQEQ NAIL(S) 12/18/2024 E9547-TMHCUZBX DYSTROPHIC NAILS ANY # Q3759-MBMDRCGH DYSTROPHIC NAILS ANY # J4812-XNZVXBZS DYSTROPHIC NAILS ANY # C9104-DWNZMJRQ DYSTROPHIC NAILS ANY # A3742-QQNPWPMY DYSTROPHIC NAILS ANY # F8923-CMLBGZLK DYSTROPHIC NAILS ANY # C8211-SMZJSUTY DYSTROPHIC NAILS ANY # M5759-BHNATPWN DYSTROPHIC NAILS ANY # B0288-OVPPLCLG DYSTROPHIC NAILS ANY # W0578-OFRLRAQX DYSTROPHIC NAILS ANY # X5928-KQHKQPWX DYSTROPHIC NAILS ANY # I0288-YHLGJNBA DYSTROPHIC NAILS ANY # S5563-GJUUXIVU DYSTROPHIC NAILS ANY # M4177-DQIQRJOA DYSTROPHIC NAILS ANY # Z8036-OWLYKMEV DYSTROPHIC NAILS ANY # V8989-Pepclnzwi 3mg 01/18/2012 S9342-Csqnbqyuj 3mg 12/07/2011 19910 - Tenotomy, open flexor 06/13/2020 91508 - Tenotomy, open flexor 10/09/2019 47926 - Tenotomy, open flexor 01/18/2020 Next Appt Details Provider Name:Adriana Parra Anton , 01/29/2025 11:00:00 AM, [address] [place] [address], [phone], Provider Name:Adriana Wlaton , 03/12/2025 03:15:00 PM, [address] [place], [address], Insurance Providers Payer Name Payer Address Payer Phone Subscriber Number Group Number Insured Name Patient Relationship to Insured Coverage Start Date Coverage End Date [employer] [address] [place] [address] [id number] Aline Hartley Self - patient is the insured [facility] [address] [place] [address] [id number] Yuan Hartley Spouse - patient is the [...] 9 cataracts 04/08/18 and 04/18/18 cholecystectomy 06/04/2018 [facility]- right hip replacement 01/05/24 knee replacement 08/22/24 Hospitalization History Reason Date(Month/Year) [facility]- Pnuemonia, Sepsis, Blee ding ulcer, Transfusion, Cholecystectomy 06/04/2018-06/11/18 colonoscopy 04/2015 Left Leg laser ablation 07/19/14 Endoscopy & colonoscopy 08/20/14 admitted to [facility] , severe depression, anxiety, took to many drinks 12/08/13-12/22/13
== END 2024-12-28 09:33 | disposition home or self-care (01) ==
LOC: HO.HMCH 08:54
PROVIDERS: PCP Internal Medicine; Visit Provider Internal Medicine
DX: M17.9 Osteoarthritis of knee, unspecified (principal)

== ENCOUNTER → 2024-12-28 08:52 | Outpatient (BNVA) | payer MEDICARE, BC, SELFPAY | PROVIDERS: PCP Internal Medicine; Visit Provider Internal Medicine | DX: M17.9 Osteoarthritis of knee, unspecified (principal) | CPT/HCPCS: 99212 ==

== ENCOUNTER 2025-01-09 08:55 | Outpatient (REF) | payer MEDICARE, BC, SELFPAY ==
--- OUTSIDE RECORDS SUMMARY | 2024-09-04 09:45 | XMS_ITS ---
Author Organization [facility] Address [address] [place] [address] Care Team Providers Care Landmen Name Role Phone Rip Huber Primary Care Provider [phone] Adriana Walton [phone] Encounters Encounter Location Date Provider Diagnosis [address] [address] 09/04/2024 Adriana Anton Plan Of Treatment Next Appt Details Provider Name:Adriana Walton , 01/29/2025 11:00:00 AM, [address] [place] [address], [phone], Provider Name:Adriana Walton , 03/12/2025 03:15:00 PM, [address] [place] [address], [phone], Progress Notes * Aline HARTLEY MDOB: 8 (79 yo F)Acc No.[id number]:09/04/2024 Progress Notes Patient: Ayala NYE Aline Cai Provider: Gonzalez Walton DPM :1945 A ge:78 Y S ex:Female Date:09/04/2024 Address:[address] [place], [place] [id number] Pcp:Rip Huber Subjective: * Chief Complaints: * [...] 0 09/04/2024 Generated for Nate barbour/Georgie/Jeannine on: 0 01/09/2025 10:08 AM EDT
--- OUTSIDE RECORDS SUMMARY | 2025-01-09 10:08 | XMS_ITS | Patient Health Record ---
[facility] Address [address] [facility] [place] [address] Care Team Providers Care Civil Transportation Engineer Name Role Phone Rip Huber Primary Care Provider Adriana Walton Unavailable [phone] Allergies No Known Allergies Reason For Referral [...] atherosclerosis of arteries of lower limbs (disorder) ([id number] ) Atherosclerosis of [place] artery of both lower extremities, with unspecified presence of clinical manifestation (I70.203) Active confirmed Q7(A), Q8(2B), Q9(1B,2 C) Vital Signs Blood pressure diastolic 65 mm Hg 12/18/2024 Height 5ft in 12/18/2024 Blood pressure systolic 122 mm Hg 12/18/2024 Weight 135 lbs 12/18/2024 BMI 26.36 kg/m2 12/18/2024 Procedures Procedure Date Ordered Date Performed Result Body Sit e 57343-IPWZ SKIN LESIONS, 2 TO 4 02/17/2024 N/A 45209-GZWI NAIL(S) 02/17/2024 N/A 60084-ZMCZ SKIN LESIONS, 2 TO 4 04/17/2024 N/A 62163-BTLX NAIL(S) 04/17/2024 N/A 54913-NIPI SKIN LESIONS, OVER 4 05/25/2024 N/A 35172-VQSI NAIL(S) 05/25/2024 N/A 38537-HFXY SKIN LESIONS, OVER 4 06/22/2024 N/A 15039-VHQB NAIL(S) 06/22/2024 N/A 69277- Debride <25 sq cm 07/10/2024 N/A 99496-ZCTL SKIN LESIONS, OVER 4 08/07/2024 N/A 41444-QWEY NAIL(S) 08/07/2024 N/A 90252-EJAW SKIN LESIONS, OVER 4 10/19/2024 N/A 19498-WRCL NAIL(S) 10/19/2024 N/A 72357-BGZX SKIN LESIONS, OVER 4 12/18/2024 N/A 34112-RQXP NAIL(S) 12/18/2024 N/A Encounters Encounter Location Date Provider Diagnosis [facility] [address] [address] 02/17/2024 Adriana Black Acquired keratosis [keratoderma] palmaris et plantaris L85.1 and Other nail disorders L60.[address] [facility] [address] 03/20/2024 Adriana Black Metatarsalgia of lef t [...] of intermetatarsal bursa of right foot M77.[address] [address] 04/17/2024 Adriana Black Acquired keratosis [keratoderma] palmaris et plantaris L85.1 and Other nail disorders L60.[address] [address] 05/25/2024 Adriana Black Atherosclerosis of [place] artery of both lower extremities, with unspecified presence of clinical manifestation I70.[address] [address] 06/22/2024 Adriana Black Atherosclerosis of [place] artery of both lower extremities, with unspecified presence of clinical manifestation I70.[address] [address] 07/10/2024 Adriana Black Pressure injury of l eft foot, stage [address] [address] 08/07/2024 Adriana Black Atherosclerosis of [place] artery of both lower extremities, with unspecified presence of clinical manifestation I70.[address] [address] 10/19/2024 Adriana Black Atherosclerosis of [place] artery of both lower extremities, with unspecified presence of clinical manifestation I70.[address] [address] 12/18/2024 Adriana Black Atherosclerosis of [place] artery of both lower extremities, with unspecified [...] plantaris (ICD-10 - L85.1) 05/25/2024 Atherosclerosis of [place] artery of both lower extremities, with unspecified presence of clinical manifestation (ICD-10 - I70.203) Q7(A), Q8(2B), Q9(1B,2C) 06/22/2024 Atherosclerosis of [place] artery of both lower extremities, with unspecified presence of clinical manifestation (ICD-10 - I70.203) Q7(A), Q8(2B), Q9(1B,2C) 07/10/2024 Pressure injury of left foot, stage 1 (ICD-10 - L89.891) Response to treatment Nonapplicable Patient Educated with: WOUND CARE INSTRUCTIONS. pdf (WOUND CARE INSTRUCTIONS. pdf) 08/07/2024 Atherosclerosis of [place] artery of both lower extremities, with unspecified presence of clinical manifestation (ICD-10 - I70.203) Q7(A), Q8(2B), Q9(1B,2C) 10/19/2024 Atherosclerosis of [place] artery of both lower extremities, with unspecified presence of clinical manifestation (ICD-10 - I70.203) Q7(A), Q8(2B), Q9(1B,2C) 12/18/2024 Atherosclerosis of [place] artery of both lower extremities, with unspecified [...] Treatment Pending Test Test Name Order Date 63482-OICYQJJ NAIL, 6 OR MORE 02/22/2013 17754-WVFVCFF NAIL, 6 OR MORE 05/04/2013 32788-VYCBKTK NAIL, 6 OR MORE 06/05/2013 03113-QZPLSKG NAIL, 6 OR MORE 07/03/2013 30806-TUTTEXH NAIL, 6 OR MORE 08/28/2013 06833-MDMVECW NAIL, 6 OR MORE 11/27/2013 00931-DJVQHNX NAIL, 6 OR MORE 03/26/2014 59679-WXLHVSL NAIL, 6 OR MORE 07/30/2014 31896-CETBRWI NAIL, 1-5 11/28/2012 68444-FVOXACU NAIL, 1-5 12/07/2011 49751-ZCBBMPY NAIL, 1-5 06/01/2012 27921-WCEDEYT NAIL, 1-5 08/17/2012 63770-XOJRKYA NAIL, 1-5 10/28/2011 35221-PBYLJMJ NAIL, 1-5 01/18/2012 10470-FUDUWKX NAIL, 1-5 02/29/2012 59450-Nutd Destruction, 1-14 12/31/2014 66517-Dguxtnat Plate 05/23/2014 97667-Yrtviiny Plate 08/28/2013 24022-Zaaddyvc Plate 07/22/2020 73771- Debride <25 sq cm 08/29/2020 96821- Debride <25 sq cm 12/05/2020 10746- Debride <25 sq cm 07/31/2021 46532- Debride <25 sq cm 09/11/2019 51180- Debride <25 sq cm 10/23/2019 20023- Debride <25 sq cm 11/13/2019 78062- Debride <25 sq cm 12/14/2019 84252- Debride <25 sq cm 02/29/2012 97846- Debride <25 sq cm 03/21/2020 52119- Debride <25 sq cm 05/16/2020 11303- Debride <25 sq cm 06/13/2020 36517- Debride <25 sq cm 07/22/2020 89039- Debride <25 sq cm 07/12/2023 99812- Debride <25 sq cm 07/10/2024 94572- Debride <25 sq cm 09/27/2013 51760- Debride <25 sq cm 10/26/2013 82814- Debride <25 sq cm 08/28/2013 32132- Debride <25 sq cm 07/03/2013 73552- Debride <25 sq cm 07/31/2013 79835- Debride <25 sq cm 03/26/2014 34534- Debride <25 sq cm 04/23/2014 09499- Debride <25 sq cm 05/23/2014 78486- Debride <25 sq cm 11/27/2013 60785- Debride <25 sq cm 12/27/2013 73741- Debride <25 sq cm 01/24/2014 16336- Debride <25 sq cm 02/22/2014 21192- Debride <25 sq cm 06/25/2014 41403- Debride <25 sq cm 01/28/2015 15507- Debride <25 sq cm 02/27/2015 21004- Debride <25 sq cm 08/27/2014 33593- Debride <25 sq cm 09/27/2014 00471- Debride <25 sq cm 10/29/2014 20286- Debride <25 sq cm 11/28/2014 76005- Debride <25 sq cm 12/31/2014 31122- Debride <25 sq cm 03/31/2012 89024- Debride <25 sq cm 05/04/2012 24393- Debride <25 sq cm 06/01/2012 12695- Debride <25 sq cm 01/18/2012 02641- Debride <25 sq cm 12/07/2011 96847- Debride <25 sq cm 08/13/2011 13824- Debride <25 sq cm 10/28/2011 09535- Debride <25 sq cm 04/08/2011 49001- Debride <25 sq cm 05/14/2011 41457- Debride <25 sq cm 08/17/2012 47887- Debride <25 sq cm 11/28/2012 93444- Debride <25 sq cm 12/28/2012 90277- Debride <25 sq cm 02/22/2013 76568- Debride <25 sq cm 03/27/2013 71646- Debride <25 sq cm 06/05/2013 43584- Debride <25 sq cm 05/04/2013 69899- Debride <25 sq cm 12/09/2017 12875- Debride <25 sq cm 07/14/2018 00449- Debride <25 sq cm 08/18/2018 41261- Debride <25 sq cm 12/08/2018 17466-JJTGGVE SKIN/TISSUE 06/05/2013 34484-WRQCCOO SKIN/TISSUE 06/30/2012 08186-SNILWCY SKIN/TISSUE 07/28/2012 16016-LECTGFH SKIN/TISSUE 07/31/2013 89441-KBKEKPA SKIN/TISSUE 07/03/2013 31822-GCEZDAQ SKIN/TISSUE 02/19/2020 29552 I&D ABSCESS- SIMPLE,SINGLE 015 81793 I&D ABSCESS- SIMPLE,SINGLE 013 16847 I&D ABSCESS- SIMPLE,SINGLE 013 43451 I&D ABSCESS- SIMPLE,SINGLE 019 92053-FCCK SKIN LESIONS, OVER 4 04/07/20 18 58532-AVYK SKIN LESIONS, OVER 4 05/09/19 19 85136-ZUSX SKIN LESIONS, OVER 4 01/07/20 18 89904-QYNI SKIN LESIONS, OVER 4 10/08/19 18 64166-NFTN SKIN LESIONS, OVER 4 02/04/20 18 18358-POBH SKIN LESIONS, OVER 4 03/10/20 18 12842-GWUF SKIN LESIONS, OVER 4 01/06/20 19 77791-AXAE SKIN LESIONS, OVER 4 11/16/19 19 20836-WNZT SKIN LESIONS, OVER 4 09/16/19 19 65749-GADR SKIN LESIONS, OVER 4 10/14/19 19 93253-CGCQ SKIN LESIONS, OVER 4 02/07/20 19 28045-SOZG SKIN LESIONS, OVER 4 03/06/20 19 31727-BVMA SKIN LESIONS, OVER 4 05/08/19 20 69720-BXDE SKIN LESIONS, OVER 4 06/05/19 20 89415-PQRK SKIN LESIONS, OVER 4 11/18/19 16 28264-PVUI SKIN LESIONS, OVER 4 12/23/19 16 31323-HPKR SKIN LESIONS, OVER 4 01/13/20 16 76941-IAEQ SKIN LESIONS, OVER 4 02/17/20 16 40985-ZTEJ SKIN LESIONS, OVER 4 03/16/20 16 64960-VYRO SKIN LESIONS, OVER 4 04/20/20 16 66948-JBWV SKIN LESIONS, OVER 4 05/25/19 17 36672-ELLJ SKIN LESIONS, OVER 4 06/25/19 17 69172-PPYX SKIN LESIONS, OVER 4 07/21/19 17 37609-KUGI SKIN LESIONS, OVER 4 08/28/19 17 42424-ZNKT SKIN LESIONS, OVER 4 01/26/20 17 10136-IAWP SKIN LESIONS, OVER 4 02/23/20 17 27340-EVUO SKIN LESIONS, OVER 4 03/29/20 17 33478-BWXP SKIN LESIONS, OVER 4 06/03/19 18 35472-VIVZ SKIN LESIONS, OVER 4 07/02/19 18 92602-XNPY SKIN LESIONS, OVER 4 08/06/19 18 78590-LQZR SKIN LESIONS, OVER 4 08/05/19 16 14893-FACN SKIN LESIONS, OVER 4 09/02/19 16 86716-ULAI SKIN LESIONS, OVER 4 10/07/19 16 43173-ECAL SKIN LESIONS, OVER 4 07/03/19 16 76289-RDVY SKIN LESIONS, OVER 4 04/18/20 20 78170-BCNL SKIN LESIONS, OVER 4 07/03/19 20 46191-GUZC SKIN LESIONS, OVER 4 07/07/19 23 29266-BZVS SKIN LESIONS, OVER 4 08/08/19 25 23274-GOUG SKIN LESIONS, OVER 4 10/20/19 25 02383-QBJY SKIN LESIONS, OVER 4 05/25/19 25 81407-XUYE SKIN LESIONS, OVER 4 06/22/19 25 62757-IGKA SKIN LESIONS, OVER 4 12/19/19 05909-JZLA SKIN LESIONS, 2 TO 4 10/25/19 24 69804-RAMP SKIN LESIONS, 2 TO 4 11/29/19 78676-QASX SKIN LESIONS, 2 TO 4 02/17/20 43934-HIOO SKIN LESIONS, 2 TO 4 04/17/20 16303-LUGR SKIN LESIONS, 2 TO 4 06/01/19 71203-IVBN SKIN LESIONS, 2 TO 4 03/30/20 07574-HTZV SKIN LESIONS, 2 TO 4 04/23/20 19422-ZJMM SKIN LESIONS, 2 TO 4 10/10/19 94045-MIQG SKIN LESIONS, 2 TO 4 11/18/19 43814-LSZJ SKIN LESIONS, 2 TO 4 01/20/20 55510-AZBA SKIN LESIONS, 2 TO 4 02/24/20 41922-POQB SKIN LESIONS, 2 TO 4 09/20/19 68404-LAYM SKIN LESIONS, 2 TO 4 05/10/19 83583-EDFW SKIN LESIONS, 2 TO 4 01/19/20 40289-JZPF SKIN LESIONS, 2 TO 4 03/22/20 78537-EZAX SKIN LESIONS, 2 TO 4 08/04/19 32203-PMVG SKIN LESIONS, 2 TO 4 09/01/19 81839-CQGS SKIN LESIONS, 2 TO 4 10/02/19 18952-ZHRA SKIN LESIONS, 2 TO 4 11/24/19 60913-CEBN SKIN LESIONS, 2 TO 4 08/29/19 09910-SUHI SKIN LESIONS, 2 TO 4 06/19/19 44682-XAGA SKIN LESIONS, 2 TO 4 04/03/20 91677-QRLU SKIN LESIONS, 2 TO 4 05/01/20 01383-TBAF SKIN LESIONS, 2 TO 4 01/03/20 52444-KAXZ SKIN LESIONS, 2 TO 4 02/14/20 04350-MSCG SKIN LESIONS, 2 TO 4 11/01/19 03170, U2887-HATRF/INJECT, JOINT/BURSA 0 12/07/2011 82240, K5263-WBAYE/INJECT, JOINT/BURSA 0 05/14/2011 66571, Z4976-LQLFZ/INJECT, JOINT/BURSA 1 06/09/2010 16705, O9270-KYFES/INJECT, JOINT/BURSA 0 01/18/2012 28847, A6256-LGCDD/INJECT, JOINT/BURSA 0 08/18/2018 43046-QUKC NAIL(S) 05/09/2018 23679-NCCR NAIL(S) 04/07/2018 35647-QZMB NAIL(S) 03/10/2018 79963-YIGY NAIL(S) 02/03/2018 53100-PDTH NAIL(S) 10/07/2017 86267-RLMG NAIL(S) 01/06/2018 87021-XKLA NAIL(S) 06/05/2019 57179-WGVX NAIL(S) 05/08/2019 04908-OOSP NAIL(S) 03/06/2019 11453-JLKW NAIL(S) 02/06/2019 51111-ETSF NAIL(S) 10/13/2018 57880-LWFJ NAIL(S) 09/15/2018 01353-PGFP NAIL(S) 11/15/2018 60767-YOMD NAIL(S) 01/05/2019 70347-LBBU NAIL(S) 08/05/2017 49915-FNYN NAIL(S) 07/01/2017 00852-HUER NAIL(S) 06/03/2017 75296-NRCT NAIL(S) 02/22/2017 15631-SVPA NAIL(S) 01/25/2017 09451-LORZ NAIL(S) 10/31/2020 83025-XLCW NAIL(S) 02/13/2021 93200-JHTK NAIL(S) 01/02/2021 61568-XIPF NAIL(S) 05/01/2021 54574-UKOT NAIL(S) 04/03/2021 08132-XBKE NAIL(S) 06/19/2021 91473-SCWC NAIL(S) 08/28/2021 19284-JXGK NAIL(S) 07/03/2019 79379-BJGH NAIL(S) 04/18/2020 80210-CSHX NAIL(S) 11/23/2022 58323-JNPY NAIL(S) 10/01/2022 07313-JXPJ NAIL(S) 08/31/2022 91951-VHPI NAIL(S) 08/03/2022 36328-XAET NAIL(S) 03/22/2023 96625-YYYE NAIL(S) 01/18/2023 51944-SHXQ NAIL(S) 05/10/2023 02001-IKMD NAIL(S) 09/20/2023 20477-GPNA NAIL(S) 02/23/2022 03805-VTXX NAIL(S) 01/19/2022 33034-YFQE NAIL(S) 11/17/2021 73617-DDEZ NAIL(S) 10/09/2021 80632-YLXX NAIL(S) 04/23/2022 67711-XZLO NAIL(S) 03/30/2022 11499-DSEF NAIL(S) 06/01/2022 15130-GAPJ NAIL(S) 07/06/2022 99972-SPBW NAIL(S) 04/17/2024 42935-RUSY NAIL(S) 02/17/2024 60755-BGFM NAIL(S) 11/29/2023 68027-XCEY NAIL(S) 10/25/2023 35115-QYFR NAIL(S) 06/22/2024 29933-NQIA NAIL(S) 05/25/2024 66420-GHCD NAIL(S) 10/19/2024 32561-TMLX NAIL(S) 08/07/2024 63684-KPHJ NAIL(S) 12/18/2024 N0403-FRVKAYFQ DYSTROPHIC NAILS ANY # J5374-RBKYZTIZ DYSTROPHIC NAILS ANY # J2866-JNCYHFFB DYSTROPHIC NAILS ANY # V9013-IDGJMYBJ DYSTROPHIC NAILS ANY # B1447-VXVJCTNF DYSTROPHIC NAILS ANY # I1206-OMEJRGWC DYSTROPHIC NAILS ANY # J5049-ZPMIURLU DYSTROPHIC NAILS ANY # E2423-HMGMIUQL DYSTROPHIC NAILS ANY # X0201-LCPWGPYO DYSTROPHIC NAILS ANY # V4574-IYRQRGWK DYSTROPHIC NAILS ANY # R2304-JFKHEXSB DYSTROPHIC NAILS ANY # P6716-VZUYCOCB DYSTROPHIC NAILS ANY # E8185-LYNQQYPK DYSTROPHIC NAILS ANY # C3419-HADYZZKB DYSTROPHIC NAILS ANY # Z6208-GGHSYETE DYSTROPHIC NAILS ANY # H3720-Buumqbhkh 3mg 01/18/2012 K8988-Okifwlyzf 3mg 12/07/2011 87695 - Tenotomy, open flexor 06/13/2020 09377 - Tenotomy, open flexor 10/09/2019 77057 - Tenotomy, open flexor 01/18/2020 Next Appt Details Provider Name:Adriana Parra Anton , 01/29/2025 11:00:00 AM, [address] [place] [address], [phone], Provider Name:Adriana Walton , 03/12/2025 03:15:00 PM, [address] [place], [address], Insurance Providers Payer Name Payer Address Payer Phone Subscriber Number Group Number Insured Name Patient Relationship to Insured Coverage Start Date Coverage End Date Medicare [employer] [address] [place] [address] [id number] Aline Hartley Self - patient is the insured [facility] [address] [place] [address] [id number] Yuan Hartley Spouse - patient is the [...] 9 cataracts 04/08/18 and 04/18/18 cholecystectomy 06[place]04/2018 [facility] [place] 01/05/24 knee replacement 08/22/24 [place] History Reason [place] [facility] [place], S[place], Blee ding ulcer, Transfusion, Cholecystectomy 06/04/2018-06/11/18 colonoscopy 04/2015 Left Leg laser ablation 07/19/14 Endoscopy & colonoscopy 08/20/14 admitted to [facility] , severe depression, anxiety, took to many drinks 12/08/13-12/22/13
--- NOTE | 2025-01-09 14:12 | MHC.AU.MED ---
Medical Clearance for Hearing Instrumentation Date: 01/09/25 Patient Name: Aline Hartley Date of : 1945 Primary Care Provider: Rip Huber MD We have seen your patient on 01/09/25 and have determined that they are a candidate for amplification (See accompanying report). Specifically, they would benefit from: Hearing aid use in both ears There is a statute that addresses Medical Evaluation Requirements prior to fitting a patient with a hearing aid. According to [place] statute 265 CMR:6.03(1), (a) General. Except as provided in 265 CMR 6.03(1)(b), a miner operator shall not sell a hearing aid unless the prospective user has presented to the miner operator a written statement signed by a licensed physician that states that the patient's hearing loss has been medically evaluated and the patient may be considered a candidate for a hearing aid. The medical evaluation must have taken place within the preceding six months. Please note: Due to the [place] Statute referenced above, we cannot accept a signature other than that of a licensed physician. REPAIRER and PA signatures cannot be accepted. I am in agreement with the above recommendation. There is no medical contraindication for hearing instrumentation. Physician Signature Date Physician Name (Printed)
--- NOTE | 2025-01-09 15:06 | MHC.AU.HA1 ---
Hearing Aid Evaluation Date of Visit: 01/09/25 Historical Information: Description of Hearing: Within normal sloping to severe sensorineural hearing loss, bilaterally Summary: Aline is ready to pursue amplification due to daily difficulties she experiences given her hearing loss. She noted difficulty understanding speech, reporting it often sounds as though speakers are mumbling, difficulty following dialogue on television - needs to use closed captions, and often sits in the front row at events to hear speakers better. With her degree and configuration of hearing loss, she is expected to have difficulty even in quiet environments if the speaker is at a distance or not facing her. These difficulties are exacerbated in adverse listening environments including in the presence of background noise or in reverberant spaces. Hearing aids are, therefore, recommended to facilitate improved communication. Discussed manufacturers, styles, and technology. Aline interested in custom rechargeable hearing aids. Need medical clearance and prior approval via [facility] Federal insurance. Once received, will schedule additional consultation for ear mold impressions (will need to pay consultation fee at that appointment). Hearing Aid Prescription: Based on the individual?s shared listening needs, communication environments, dexterity, desire for connectivity, and personal preferences, the following prescription for amplification has been made: Right ear: Make, Model, Color: Phonak Virto I50-R Color: [place] Battery Size: Rechargeable Left ear: Left ear prescription to be same as Right Hearing Aid above: Make, Model, Color: Phonak Virto I50-R Color: [place] Battery Size: Rechargeable Accessories/Assistive Technology: Retail Consultant Plan of Care: Patient wishes to purchase hearing aids as prescribed Action Taken/Action Needed: Prior authorization to be requested. Medical Clearance to be requested from PCP/ENT. Hearing Instrument Fitting to be scheduled when materials arrive Primary Diagnosis: H90.3 Bilateral Sensorineural Hearing Loss Signature: Provider: Jigna Barkley, [facility]
== END 2025-01-09 08:56 | disposition home or self-care (01) ==
LOC: HO.SH 08:55
PROVIDERS: Visit Provider Internal Medicine
DX: Z01.118 Encounter for examination of ears and hearing with other abnormal findings (principal); H90.3 Sensorineural hearing loss, bilateral
CPT/HCPCS: 92557

== ENCOUNTER 2025-02-16 09:15 | Day surgery (SDC) | payer MEDICARE, BC, SELFPAY ==
--- OUTSIDE RECORDS SUMMARY | 2024-09-04 09:45 | XMS_ITS ---
Author Organization [facility] Address [address] [place] [address] Care Team Providers Care Alumina Plant Supervisor Name Role Phone Rip Huber Primary Care Provider Adriana Walton [phone] Encounters Encounter Location Date Provider Diagnosis [address] [address] 09/04/2024 Adriana Anton Plan Of Treatment Next Appt Details Provider Name:Adriana Walton , 01/29/2025 11:00:00 AM, [address] [place] [address], [phone], Provider Name:Adriana Walton , 03/12/2025 03:15:00 PM, [address] [place] [address], [phone], Progress Notes * Aline HARTLEY MDOB: 8 (79 yo F)Acc No.[id number]:09/04/2024 Progress Notes Patient: Ayala NYE Aline Cai Provider: Gonzalez Walton DPM :1945 A ge:78 Y S ex:Female Date:09/04/2024 Address:[address] [place], [place] [id number] Pcp:Rip Huber Subjective: * Chief Complaints: * [...] Date: 09/04/2024 Generated for Nate barbour/Georgie/Jeannine on: 0 01/10/2025 04:57 PM EDT
--- OUTSIDE RECORDS SUMMARY | 2025-01-10 16:57 | XMS_ITS | Patient Health Record ---
[facility] Address [address] [place] [address] Care Team Providers Care Foundry Metallurgist Name Role Phone Rip Huber Primary Care Provider Adriana Walton Unavailable [phone] Allergies No Known Allergies Reason For Referral [...] atherosclerosis of arteries of lower limbs (disorder) ([id number] ) Atherosclerosis of [place]ita artery of both lower extremities, with unspecified presence of clinical manifestation (I70.203) Active confirmed Q7(A), Q8(2B), Q9(1B,2 C) Vital Signs Blood pressure diastolic 65 mm Hg 12/18/2024 Height 5ft in 12/18/2024 Blood pressure systolic 122 mm Hg 12/18/2024 Weight 135 lbs 12/18/2024 BMI 26.36 kg/m2 12/18/2024 Procedures Procedure Date Ordered Date Performed Result Body Sit e 20835-HVMR SKIN LESIONS, 2 TO 4 02/17/2024 N/A 84044-CNLN NAIL(S) 02/17/2024 N/A 75700-NQOF SKIN LESIONS, 2 TO 4 04/17/2024 N/A 81489-SKAH NAIL(S) 04/17/2024 N/A 47651-NTOJ SKIN LESIONS, OVER 4 05/25/2024 N/A 25549-DYQO NAIL(S) 05/25/2024 N/A 61672-MPMS SKIN LESIONS, OVER 4 06/22/2024 N/A 63015-ALFV NAIL(S) 06/22/2024 N/A 36759- Debride <25 sq cm 07/10/2024 N/A 15622-GWLE SKIN LESIONS, OVER 4 08/07/2024 N/A 11885-VJDP NAIL(S) 08/07/2024 N/A 96976-EBRS SKIN LESIONS, OVER 4 10/19/2024 N/A 17886-MHWS NAIL(S) 10/19/2024 N/A 53554-CGET SKIN LESIONS, OVER 4 12/18/2024 N/A 68790-GHSJ NAIL(S) 12/18/2024 N/A Encounters Encounter Location Date Provider Diagnosis [facility] [address] [address] 02/17/2024 Adriana Black Acquired keratosis [keratoderma] palmaris et plantaris L85.1 and Other nail disorders L60.[address] [facility] [address] 03/20/2024 Adriana Black Metatarsalgia of lef t [...] of intermetatarsal bursa of right foot M77.[address] [address] 04/17/2024 Adriana Black Acquired keratosis [keratoderma] palmaris et plantaris L85.1 and Other nail disorders L60.[address] [address] 05/25/2024 Adriana Black Atherosclerosis of wichita artery of both lower extremities, with unspecified presence of clinical manifestation I70.[address] [address] 06/22/2024 Adriana Black Atherosclerosis of w[place] artery of both lower extremities, with unspecified presence of clinical manifestation I70.[address] [address] 07/10/2024 Adriana Black Pressure injury of l eft foot, stage [address] [address] 08/07/2024 Adriana Black Atherosclerosis of w[place] artery of both lower extremities, with unspecified presence of clinical manifestation I70.[address] [address] 10/19/2024 Adriana Black Atherosclerosis of w[place] artery of both lower extremities, with unspecified presence of clinical manifestation I70.[address] [address] 12/18/2024 Adriana Black Atherosclerosis of w[place]ita artery of both lower extremities, with unspecified [...] plantaris (ICD-10 - L85.1) 05/25/2024 Atherosclerosis of w[place]ita artery of both lower extremities, with unspecified presence of clinical manifestation (ICD-10 - I70.203) Q7(A), Q8(2B), Q9(1B,2C) 06/22/2024 Atherosclerosis of wichita artery of both lower extremities, with unspecified presence of clinical manifestation (ICD-10 - I70.203) Q7(A), Q8(2B), Q9(1B,2C) 07/10/2024 Pressure injury of left foot, stage 1 (ICD-10 - L89.891) Response to treatment Nonapplicable Patient Educated with: WOUND CARE INSTRUCTIONS. pdf (WOUND CARE INSTRUCTIONS. pdf) 08/07/2024 Atherosclerosis of wichita artery of both lower extremities, with unspecified presence of clinical manifestation (ICD-10 - I70.203) Q7(A), Q8(2B), Q9(1B,2C) 10/19/2024 Atherosclerosis of wichita artery of both lower extremities, with unspecified presence of clinical manifestation (ICD-10 - I70.203) Q7(A), Q8(2B), Q9(1B,2C) 12/18/2024 Atherosclerosis of w[place]ita artery of both lower extremities, with unspecified [...] Treatment Pending Test Test Name Order Date 74045-BTTCWFE NAIL, 6 OR MORE 02/22/2013 52574-INQUFTG NAIL, 6 OR MORE 05/04/2013 73149-WGTMFSV NAIL, 6 OR MORE 06/05/2013 89088-XQDTAMD NAIL, 6 OR MORE 07/03/2013 16714-ZFBMJWI NAIL, 6 OR MORE 08/28/2013 63561-CSPEYBX NAIL, 6 OR MORE 11/27/2013 82659-IVZDPVW NAIL, 6 OR MORE 03/26/2014 27309-HMQYQQY NAIL, 6 OR MORE 07/30/2014 40618-FCGFKPS NAIL, 1-5 11/28/2012 66184-ADFMWNS NAIL, 1-5 12/07/2011 28528-RDADLHT NAIL, 1-5 06/01/2012 40425-YAXMAIK NAIL, 1-5 08/17/2012 22239-RWLLRUS NAIL, 1-5 10/28/2011 32290-PNTLSPQ NAIL, 1-5 01/18/2012 51087-AFALMKL NAIL, 1-5 02/29/2012 10080-Gifs Destruction, 1-14 12/31/2014 89843-Raaryrwm Plate 05/23/2014 89432-Oatgisje Plate 08/28/2013 40090-Xhtdsaor Plate 07/22/2020 80328- Debride <25 sq cm 08/29/2020 05660- Debride <25 sq cm 12/05/2020 76498- Debride <25 sq cm 07/31/2021 76246- Debride <25 sq cm 09/11/2019 05458- Debride <25 sq cm 10/23/2019 97094- Debride <25 sq cm 11/13/2019 86942- Debride <25 sq cm 12/14/2019 98402- Debride <25 sq cm 02/29/2012 40894- Debride <25 sq cm 03/21/2020 28740- Debride <25 sq cm 05/16/2020 06624- Debride <25 sq cm 06/13/2020 03921- Debride <25 sq cm 07/22/2020 53742- Debride <25 sq cm 07/12/2023 72691- Debride <25 sq cm 07/10/2024 67713- Debride <25 sq cm 09/27/2013 81461- Debride <25 sq cm 10/26/2013 35968- Debride <25 sq cm 08/28/2013 13155- Debride <25 sq cm 07/03/2013 74190- Debride <25 sq cm 07/31/2013 57035- Debride <25 sq cm 03/26/2014 37459- Debride <25 sq cm 04/23/2014 77025- Debride <25 sq cm 05/23/2014 54283- Debride <25 sq cm 11/27/2013 81214- Debride <25 sq cm 12/27/2013 79129- Debride <25 sq cm 01/24/2014 61098- Debride <25 sq cm 02/22/2014 16539- Debride <25 sq cm 06/25/2014 92845- Debride <25 sq cm 01/28/2015 24401- Debride <25 sq cm 02/27/2015 95072- Debride <25 sq cm 08/27/2014 26995- Debride <25 sq cm 09/27/2014 09549- Debride <25 sq cm 10/29/2014 64087- Debride <25 sq cm 11/28/2014 53095- Debride <25 sq cm 12/31/2014 01490- Debride <25 sq cm 03/31/2012 34816- Debride <25 sq cm 05/04/2012 26561- Debride <25 sq cm 06/01/2012 54916- Debride <25 sq cm 01/18/2012 28643- Debride <25 sq cm 12/07/2011 64312- Debride <25 sq cm 08/13/2011 09400- Debride <25 sq cm 10/28/2011 43784- Debride <25 sq cm 04/08/2011 67414- Debride <25 sq cm 05/14/2011 34962- Debride <25 sq cm 08/17/2012 69036- Debride <25 sq cm 11/28/2012 86148- Debride <25 sq cm 12/28/2012 25687- Debride <25 sq cm 02/22/2013 02083- Debride <25 sq cm 03/27/2013 77559- Debride <25 sq cm 06/05/2013 06741- Debride <25 sq cm 05/04/2013 73999- Debride <25 sq cm 12/09/2017 55832- Debride <25 sq cm 07/14/2018 34466- Debride <25 sq cm 08/18/2018 98460- Debride <25 sq cm 12/08/2018 88770-TRTHXTC SKIN/TISSUE 06/05/2013 05603-ERBGEOD SKIN/TISSUE 06/30/2012 86946-KSQRAMV SKIN/TISSUE 07/28/2012 14041-IZWCGEY SKIN/TISSUE 07/31/2013 05533-HQNPCPK SKIN/TISSUE 07/03/2013 50487-MALICJP SKIN/TISSUE 02/19/2020 99567 I&D ABSCESS- SIMPLE,SINGLE 015 97787 I&D ABSCESS- SIMPLE,SINGLE 013 68392 I&D ABSCESS- SIMPLE,SINGLE 013 25603 I&D ABSCESS- SIMPLE,SINGLE 019 53759-MVMP SKIN LESIONS, OVER 4 04/07/20 18 35958-AVMF SKIN LESIONS, OVER 4 05/09/19 19 57813-NXCI SKIN LESIONS, OVER 4 01/07/20 18 16352-QZNK SKIN LESIONS, OVER 4 10/08/19 18 89274-BYJI SKIN LESIONS, OVER 4 02/04/20 18 97468-ERVW SKIN LESIONS, OVER 4 03/10/20 18 63729-PYAV SKIN LESIONS, OVER 4 01/06/20 19 15389-YGAT SKIN LESIONS, OVER 4 11/16/19 19 53218-RWAQ SKIN LESIONS, OVER 4 09/16/19 19 59725-QTCH SKIN LESIONS, OVER 4 10/14/19 19 60148-JKSU SKIN LESIONS, OVER 4 02/07/20 19 61295-FCSV SKIN LESIONS, OVER 4 03/06/20 19 87094-TNQB SKIN LESIONS, OVER 4 05/08/19 20 79688-AQFZ SKIN LESIONS, OVER 4 06/05/19 20 63945-IDBE SKIN LESIONS, OVER 4 11/18/19 16 66218-HCEQ SKIN LESIONS, OVER 4 12/23/19 16 02381-QMQD SKIN LESIONS, OVER 4 01/13/20 16 18707-QQPE SKIN LESIONS, OVER 4 02/17/20 16 85476-JICO SKIN LESIONS, OVER 4 03/16/20 16 31901-BNYI SKIN LESIONS, OVER 4 04/20/20 16 86848-TQTW SKIN LESIONS, OVER 4 05/25/19 17 07385-CNDI SKIN LESIONS, OVER 4 06/25/19 17 13116-XBTW SKIN LESIONS, OVER 4 07/21/19 17 37602-HKHG SKIN LESIONS, OVER 4 08/28/19 17 99454-AEYR SKIN LESIONS, OVER 4 01/26/20 17 81452-BVWO SKIN LESIONS, OVER 4 02/23/20 17 08362-KWKH SKIN LESIONS, OVER 4 03/29/20 17 14419-VZIM SKIN LESIONS, OVER 4 06/03/19 18 36845-XKYG SKIN LESIONS, OVER 4 07/02/19 18 06496-UOCK SKIN LESIONS, OVER 4 08/06/19 18 17097-QWTB SKIN LESIONS, OVER 4 08/05/19 16 79369-HAYK SKIN LESIONS, OVER 4 09/02/19 16 02130-ANJB SKIN LESIONS, OVER 4 10/07/19 16 30881-RFIJ SKIN LESIONS, OVER 4 07/03/19 16 50893-WYCX SKIN LESIONS, OVER 4 04/18/20 20 28310-DMID SKIN LESIONS, OVER 4 07/03/19 20 09879-WPRW SKIN LESIONS, OVER 4 07/07/19 23 94639-DNEB SKIN LESIONS, OVER 4 08/08/19 25 69886-EXDG SKIN LESIONS, OVER 4 10/20/19 25 31777-VBPY SKIN LESIONS, OVER 4 05/25/19 25 89013-VHHS SKIN LESIONS, OVER 4 06/22/19 25 21803-HGMM SKIN LESIONS, OVER 4 12/19/19 60438-OCHM SKIN LESIONS, 2 TO 4 10/25/19 24 34385-NFKB SKIN LESIONS, 2 TO 4 11/29/19 50191-YORG SKIN LESIONS, 2 TO 4 02/17/20 46909-NEPU SKIN LESIONS, 2 TO 4 04/17/20 41020-UADH SKIN LESIONS, 2 TO 4 06/01/19 50937-EBON SKIN LESIONS, 2 TO 4 03/30/20 86126-BMJO SKIN LESIONS, 2 TO 4 04/23/20 91793-DEJM SKIN LESIONS, 2 TO 4 10/10/19 47744-DNSF SKIN LESIONS, 2 TO 4 11/18/19 71339-CIYJ SKIN LESIONS, 2 TO 4 01/20/20 72538-OKLE SKIN LESIONS, 2 TO 4 02/24/20 46285-DXOE SKIN LESIONS, 2 TO 4 09/20/19 30072-BYMU SKIN LESIONS, 2 TO 4 05/10/19 69409-VYPW SKIN LESIONS, 2 TO 4 01/19/20 58580-LCBF SKIN LESIONS, 2 TO 4 03/22/20 17778-YFXZ SKIN LESIONS, 2 TO 4 08/04/19 71208-NEDZ SKIN LESIONS, 2 TO 4 09/01/19 34125-NGMH SKIN LESIONS, 2 TO 4 10/02/19 72161-ZVCP SKIN LESIONS, 2 TO 4 11/24/19 78163-VZPH SKIN LESIONS, 2 TO 4 08/29/19 68028-GDHZ SKIN LESIONS, 2 TO 4 06/19/19 05189-TDIQ SKIN LESIONS, 2 TO 4 04/03/20 04085-RJZR SKIN LESIONS, 2 TO 4 05/01/20 06729-IDAR SKIN LESIONS, 2 TO 4 01/03/20 94061-NOIK SKIN LESIONS, 2 TO 4 02/14/20 72640-KGSE SKIN LESIONS, 2 TO 4 11/01/19 12298, S0380-AFTUL/INJECT, JOINT/BURSA 0 12/07/2011 26483, I8920-SWIII/INJECT, JOINT/BURSA 0 05/14/2011 86993, N4219-SKBAI/INJECT, JOINT/BURSA 1 06/09/2010 65204, V9536-GCUVU/INJECT, JOINT/BURSA 0 01/18/2012 89207, A6902-ECPCR/INJECT, JOINT/BURSA 0 08/18/2018 97597-LFFE NAIL(S) 05/09/2018 63935-WMOH NAIL(S) 04/07/2018 11777-ZVEP NAIL(S) 03/10/2018 03599-GHCU NAIL(S) 02/03/2018 81119-OHYY NAIL(S) 10/07/2017 38891-OWSL NAIL(S) 01/06/2018 22929-ZLFV NAIL(S) 06/05/2019 21944-OJEW NAIL(S) 05/08/2019 89742-UFQJ NAIL(S) 03/06/2019 06718-OLTK NAIL(S) 02/06/2019 20510-ANTN NAIL(S) 10/13/2018 67529-RFWZ NAIL(S) 09/15/2018 89283-QKLA NAIL(S) 11/15/2018 99324-FCIB NAIL(S) 01/05/2019 53203-OFJY NAIL(S) 08/05/2017 92694-SHMG NAIL(S) 07/01/2017 66596-KNEE NAIL(S) 06/03/2017 06329-JQCA NAIL(S) 02/22/2017 97485-GRPD NAIL(S) 01/25/2017 03565-CUGU NAIL(S) 10/31/2020 42932-DSYW NAIL(S) 02/13/2021 07847-AKRZ NAIL(S) 01/02/2021 16714-FLAA NAIL(S) 05/01/2021 21914-CGTQ NAIL(S) 04/03/2021 42472-PTYS NAIL(S) 06/19/2021 33182-CKTE NAIL(S) 08/28/2021 71756-IUKV NAIL(S) 07/03/2019 64828-MOEX NAIL(S) 04/18/2020 73947-NBXU NAIL(S) 11/23/2022 65222-YKYO NAIL(S) 10/01/2022 23272-OAQZ NAIL(S) 08/31/2022 53955-QJBP NAIL(S) 08/03/2022 94252-EHZG NAIL(S) 03/22/2023 23803-SWKJ NAIL(S) 01/18/2023 81522-BVIL NAIL(S) 05/10/2023 86634-ERCC NAIL(S) 09/20/2023 86133-HTWS NAIL(S) 02/23/2022 79051-BRAL NAIL(S) 01/19/2022 33576-PHJF NAIL(S) 11/17/2021 72151-HTMG NAIL(S) 10/09/2021 61372-GCPZ NAIL(S) 04/23/2022 75608-JFFM NAIL(S) 03/30/2022 25505-CMYI NAIL(S) 06/01/2022 14854-SPFJ NAIL(S) 07/06/2022 30091-FYNO NAIL(S) 04/17/2024 36537-ADVJ NAIL(S) 02/17/2024 93470-PIDG NAIL(S) 11/29/2023 61519-FOIV NAIL(S) 10/25/2023 54137-UFMG NAIL(S) 06/22/2024 33919-CVND NAIL(S) 05/25/2024 06122-VUHN NAIL(S) 10/19/2024 62150-CFXF NAIL(S) 08/07/2024 83189-XXJE NAIL(S) 12/18/2024 Z8461-ANOQCDUJ DYSTROPHIC NAILS ANY # E0645-JLPTDKXZ DYSTROPHIC NAILS ANY # G8032-MKJBAONC DYSTROPHIC NAILS ANY # J7070-OTMSLQYE DYSTROPHIC NAILS ANY # Y1035-VZZLPELS DYSTROPHIC NAILS ANY # Z1301-BQYMVSSQ DYSTROPHIC NAILS ANY # G8820-HKWIMSGL DYSTROPHIC NAILS ANY # T1684-WXTENFVZ DYSTROPHIC NAILS ANY # D5998-WBSVUSXF DYSTROPHIC NAILS ANY # R8783-DXOTNBVS DYSTROPHIC NAILS ANY # O3115-NBSSYLZX DYSTROPHIC NAILS ANY # J2364-JDEVIIRP DYSTROPHIC NAILS ANY # I4566-TTOXTYFI DYSTROPHIC NAILS ANY # F7512-VACTJMVR DYSTROPHIC NAILS ANY # Y0993-QOZHYTUV DYSTROPHIC NAILS ANY # P0080-Wzrfweuzm 3mg 01/18/2012 M5571-Btnhplpza 3mg 12/07/2011 63074 - Tenotomy, open flexor 06/13/2020 07385 - Tenotomy, open flexor 10/09/2019 65684 - Tenotomy, open flexor 01/18/2020 Next Appt Details Provider Name:Adriana Parra Anton , 01/29/2025 11:00:00 AM, [address] [place] [address], [phone], Provider Name:Adriana Walton , 03/12/2025 03:15:00 PM, [address] [place], [address], Insurance Providers Payer Name Payer Address Payer Phone Subscriber Number Group Number Insured Name Patient Relationship to Insured Coverage Start Date Coverage End Date Medicare National [employer] [address] [place] [address] [id number] Aline Hartley Self - patient is the insured [facility] [address] [place] [address] [id number] Yuan Hartley Spouse - patient is the [...] 9 cataracts 04/08/18 and 04/18/18 cholecystectomy 06/04/2018 [facility] [place]- right hip replacement 01/05/24 knee replacement 08/22/24 Hospitalization History Reason Date(Month/Year) [facility] [place]- Pnuemonia, Sepsis, Blee ding ulcer, Transfusion, Cholecystectomy 06/04/2018-06/11/18 colonoscopy 04/2015 Left Leg laser ablation 07/19/14 Endoscopy & colonoscopy 08/20/14 admitted to [facility] [place] , severe depression, anxiety, took to many drinks 12/08/13-12/22/13
--- NOTE | 2025-02-14 11:03 | HO.ANESPROP2 ---
Documented by User: Shelbie Arango NP 02/14/25 11:05 HPI - Anesthesia Eval Consult details Narrative: 79 yr old female for colonoscopy COPD: on ICS/LABA, stable without active symptoms [place] [facility] [place] 12/2024 COUNTS INCLUDE 234 BEDS AT [facility] Active Problems Active Problems: All Active Problems (Updated 12/04/24 @ 11:11 by Albertina Kimball MD) Panniculitis (Acute) Major depressive disorder, recurrent, moderate (Acute) Morbid obesity (Acute) Obesity (BMI 35.0-39.9 without comorbidity) (Acute) Bladder trabeculation (Acute) Urinary incontinence, mixed (Acute) Urinary incontinence (Acute) Knee pain, right (Acute) Right hip pain (Acute) HTN (hypertension) (Acute) Restrictive lung disease (Acute) Tachycardia (Acute) COVID-19 (Acute) Endogenous depression (Acute) Vitamin D deficiency (Acute) COPD (chronic obstructive pulmonary disease) (Acute) Allergic rhinitis (Acute) GERD with esophagitis (Acute) History of iron deficiency anemia (Acute) Hiatal hernia (Acute) Cirrhosis of liver without ascites (Acute) Past Medical History Medical History Hx of sepsis (~2018) Walker as ambulation aid Left foot drop Morbid obesity Restrictive lung disease Tachycardia COVID-19 (~01/17/25) Endogenous depression COPD (chronic obstructive pulmonary disease) Allergic rhinitis GERD with esophagitis Asthma COPD (chronic obstructive pulmonary disease) History of iron deficiency anemia Hiatal hernia Cirrhosis of liver without ascites Family History Family History Other Mental health disorder Substance use disorder Surgical History Surgical History History of total right knee replacement (TKR) History of colonoscopy (~04/20/19) History of right hip replacement Hx of ventral hernia repair History of dental surgery History of surgery on left wrist History of hysterectomy History of hip surgery Status post laparoscopic cholecystectomy (~06/10/18) Social History Social History (Updated 02/14/25 @ 15:08 by Dorita Arauz RN) Household Members: Spouse Housing: House Are you a primary care transitions manager to a significant other at home: No Do you presently have visiting nurse or other home services: No Alcohol intake: former Patient Tobacco Use Status: Former Tobacco user Tobacco use type: Cigarette e-Cigarette/Vaping Use: Never Used Second Hand Smoke Exposure: No Use of substances other than those prescribed or required for medical reasons: No Have you been hit, kicked, punched, or otherwise hurt by someone within the past year? If so, by whom?: No Are you DNR?: No Advance Directives: No Advance Directives Information Provided: Yes Advance Directives on File: No Poor oral hygiene: No service: No Current occupational status: disabled Cognitive needs: Yes (cane, walker) Hearing needs: No Vision needs: Yes (Reading Glasses) Meds Allergies Allergy/AdvReac Type Severity Reaction Status Date / Time cat dander (CATS) Allergy Unknown ASTHMA Verified 02/16/25 09:55 ATTACK Horse/Equine Containing Allergy Unknown ASTHMA Verified 02/16/25 09:55 Products (HORSE/EQUINE ATTACK CONTAINING PRODUCTS) ENVIROMENTAL Allergy Unknown ASTHMA Uncoded 02/16/25 09:55 ATTACK Home Medications ?Medication ?Instructions ?Recorded ?Confirmed ?Last Taken ?Type cetirizine 10 mg capsule (Zyrtec) 10 mg PO DAILY PRN Allergy Symptoms 12/04/24 02/16/25 02/16/25 07:30 History albuterol sulfate 90 mcg/actuation 2 puff inhalation Q4-6H PRN 02/14/25 02/16/25 Unknown History aerosol inhaler (Ventolin HFA) shortness of breath or wheezing Documented by User: Brandie Parekh MD 02/16/25 10:13 COUNTS INCLUDE 234 BEDS AT THE [facility] Past Medical History Medical History Hx of sepsis (~2018) Walker as ambulation aid Left foot drop Morbid obesity Restrictive lung disease Tachycardia COVID-19 (~01/17/25) Endogenous depression COPD (chronic obstructive pulmonary disease) Allergic rhinitis GERD with esophagitis Asthma COPD (chronic obstructive pulmonary disease) History of iron deficiency anemia Hiatal hernia Cirrhosis of liver without ascites Family History Family History Other Mental health disorder Substance use disorder Family history of problems with anesthesia: No Surgical History Surgical History History of total right knee replacement (TKR) History of colonoscopy (~04/20/19) History of right hip replacement Hx of ventral hernia repair History of dental surgery History of surgery on left wrist History of hysterectomy History of hip surgery Status post laparoscopic cholecystectomy (~06/10/18) History of Problems with Anesthesia: No Social History Social History (Updated 02/14/25 @ 15:08 by Dorita Arauz RN) Household Members: Spouse Housing: House Are you a primary care transitions manager to a significant other at home: No Do you presently have visiting nurse or other home services: No Alcohol intake: former Patient Tobacco Use Status: Former Tobacco user Tobacco use type: Cigarette e-Cigarette/Vaping Use: Never Used Second Hand Smoke Exposure: No Use of substances other than those prescribed or required for medical reasons: No Have you been hit, kicked, punched, or otherwise hurt by someone within the past year? If so, by whom?: No Are you DNR?: No Advance Directives: No Advance Directives Information Provided: Yes Advance Directives on File: No Poor oral hygiene: No service: No Current occupational status: disabled Cognitive needs: Yes (cane, walker) Hearing needs: No Vision needs: Yes (Reading Glasses) Meds Allergies Allergy/AdvReac Type Severity Reaction Status Date / Time cat dander (CATS) Allergy Unknown ASTHMA Verified 02/16/25 09:55 ATTACK Horse/Equine Containing Allergy Unknown ASTHMA Verified 02/16/25 09:55 Products (HORSE/EQUINE ATTACK CONTAINING PRODUCTS) ENVIROMENTAL Allergy Unknown ASTHMA Uncoded 02/16/25 09:55 ATTACK Home Medications ?Medication ?Instructions ?Recorded ?Confirmed ?Last Taken ?Type cetirizine 10 mg capsule (Zyrtec) 10 mg PO DAILY PRN Allergy Symptoms 12/04/24 02/16/25 02/16/25 07:30 History albuterol sulfate 90 mcg/actuation 2 puff inhalation Q4-6H PRN 02/14/25 02/16/25 Unknown History aerosol inhaler (Ventolin HFA) shortness of breath or wheezing Exam Airway Mallampati Class: II TM Dist: >3cm Neck ROM: Full Partial: Upper Heart: rrr Lungs: cta Assessment and Plan Assessment Anesthesia Assessment: Anesthesia Plan Discussed and Chart Reviewed Final Anesthetic Review Family History of Problems with Anesthesia: No History of Problems with Anesthesia: No NPO: Yes ASA Class: II Final Preanesthetic Review: No Changes in Pt Med Stat, Meds/Allgs Chart Reviewed and Consent Obtained/Reviewed Patient Risk: Low Procedure Risk: Low Anesthetic Plan Anesthetic Plan: MAC: Disposition: Standard PACU
[2025-02-14 11:14] VITALS: BMI 27.1
[2025-02-14 15:05] VITALS: BMI 25.4
--- NOTE | 2025-02-16 09:53 | MHC.SHP ---
Pre-Procedural Eval Section A - 24 Hr Update-Section A only Date of Service: 02/16/25 The patient is an INPATIENT: No The patient has been examined within 24 hours of the surgical procedure. The History & Physical has been completed within 30 days and I have reviewed it.: No Section B - Complete if H&P > 30 days Chief Complaint: Diaphragmatic hernia without obstruction,cirrhosis Relevant Family History (Specify if Yes): No Relevant Social History: Tobacco Use (former smoker) Present Medications: see Short Stay Collaborative assessment Medical History: Significant History (Morbid obesity Restrictive lung disease Tachycardia COVID-19 Endogenous depression COPD (chronic obstructive pulmonary disease) Allergic rhinitis GERD with esophagitis Asthma COPD (chronic obstructive pulmonary disease) History of iron deficiency anemia Hiatal hernia Cirrhosis of liver without ascit) History of Previous Operations: Relevant previous surgery/procedure and date(s) (History of right hip replacement Hx of ventral hernia repair History of dental surgery History of surgery on left wrist History of hysterectomy History of hip surgery Status post laparoscopic cholecystectomy (~06/10/18)) Allergies: Allergies Allergy/AdvReac Type Severity Reaction Status Date / Time cat dander (CATS) Allergy Unknown ASTHMA Verified 12/28/24 08:56 ATTACK Horse/Equine Containing Allergy Unknown ASTHMA Verified 12/28/24 08:56 Products (HORSE/EQUINE ATTACK CONTAINING PRODUCTS) ENVIROMENTAL Allergy Unknown ASTHMA Uncoded 12/28/24 08:56 ATTACK Review of Systems Sugical H&P ROS: Negative: Constitution, Cardiovascular, Respiratory and Gastrointestinal Exam Surgical H&P Exam: Normal: Heart, Normal: Lungs, Normal: Extremities and Normal: Abdomen Plan Diagnosis/Plan: Unchanged I have reviewed the history and physical and performed a pertinent physical examination on my patient. No changes have occurred unless specified. Time Spent With Patient Time: Total time managing care of this patient today ____ minutes.
[2025-02-16 09:56] VITALS: BMI 25.4
[2025-02-16 10:07] VITALS: BP 140/82; PULSE 98; RESP 17; TEMP 37.3; O2SAT 98
[2025-02-16] MEDS: Lactated Ringers 1,000 ML 100 ML IVCONT (10:12)
[2025-02-16 11:56] VITALS: BP 116/65; PULSE 105; RESP 14; TEMP 37.1; O2SAT 97
--- NOTE | 2025-02-16 11:56 | HO.OPN-COLON ---
Colonoscopy Operative Note Operative Note Date of Service: 02/16/25 Narrative: COLONOSCOPY TILL CECUM WITH BIOPSIES Pre-op diagnosis: Surveillance for colon polyps. Post-op diagnosis:? colon polyp, Diverticulosis, hemorrhoids Endoscopist:? Tona Jimenez MD Anesthesia:?MAC Consent: Indications for the procedure and potential complications of bleeding, perforation, reaction to medications and missed diagnosis were discussed with the patient and informed consent was obtained. Instrument: Olympus PCF H 190 L variable stiffness pediatric colonoscope Monitoring: Vital signs and clinical assessment, intermittent blood pressure monitoring, continuous EKG monitoring, Pulse oximetry and Carbon Dioxide monitoring were done throughout the procedure. Please see anesthesia flowsheet. Colon withdrawl time was 20 minutes. Procedure: The patient was placed in the left lateral decubitis position and pre-procedure medications were administered. After a digital rectal examination of the ano-rectum, the video colonoscope was inserted into the rectum and advanced through the colon to the cecum. The colonoscope was slowly withdrawn in a retrograde panoramic fashion and the colon mucosa was carefully examined including a retroflexed view of the rectum. Findings and interventions are described below. Procedure Difficulty: There was luminal narrowing in the left colon due to severe diverticulosis which was navigated with some difficulty Findings: Terminal Ileum: Not evaluated Cecum: Normal Ascending Colon: A 3-4 mm sessile polyp in the mid ascending colon - removed with a cold biopsy Moderate diverticulosis throughout the entire colon. Transverse Colon: Moderate diverticulosis throughout the entire colon. Descending Colon: Moderate diverticulosis throughout the entire colon. Sigmoid Colon: Severe diverticulosis with luminal narrowing. Rectum: Normal Ano-rectum: Moderate internal hemorrhoids Colon preparation: Good after copious irrigation. [place] Bowel Preparation Scale Right colon; 2 Transverse colon: 2 Left colon; 2 (0 = Unprepared colon segment with mucosa not seen due to solid stool that cannot be cleared. 1 = Portion of mucosa of the colon segment seen, but other areas of the colon segment not well seen due to staining, residual stool and/or opaque liquid. 2 = Minor amount of residual staining, small fragments of stool and/or opaque liquid, but mucosa of colon segment seen well. 3 = Entire mucosa of colon segment seen well with no residual staining, small fragments of stool or opaque liquid) Impression and Post Procedure Diagnosis: Colonoscopy Findings: One tiny polyp was removed Moderate to severe diverticulosis seen in the entire colon Moderate hemorrhoids on retroflexed exam. Plan: Pt has a FU appointment on 03/01/[address] Jimenez Repeat Colonoscopy is not recommended due to advanced age. Above findings were reviewed with the patient and relevant handouts were given and the discharge area.
[2025-02-16 12:00] VITALS: BP 106/65; PULSE 105; RESP 14; TEMP 37.1; O2SAT 97
[2025-02-16 12:15] VITALS: BP 118/71; PULSE 90; RESP 14; TEMP 36.6; O2SAT 98
== END 2025-02-16 12:32 | disposition home or self-care (01) ==
PROVIDERS: PCP Internal Medicine; Visit Provider Internal Medicine Gastroenterology
PROC: 0DJD8ZZ Inspection of Lower Intestinal Tract, Via Natural or Artificial Opening Endoscopic (ICD-10-PCS; CPT 45378; principal; 2025-02-16 11:00)
DX: Z12.11 Encounter for screening for malignant neoplasm of colon (principal); K44.9 Diaphragmatic hernia without obstruction or gangrene; K74.60 Unspecified cirrhosis of liver; Z86.2 Personal history of diseases of the blood and blood-forming organs and certain disorders involving the immune mechanism; K21.00 Gastro-esophageal reflux disease with esophagitis, without bleeding; E66.9 Obesity, unspecified; K63.5 Polyp of colon
CPT/HCPCS: 45380; 88305; J2003; J2704

== ENCOUNTER → 2025-02-16 09:15 | Outpatient (BNV) | payer MEDICARE, BC, SELFPAY | PROVIDERS: PCP Internal Medicine; Visit Provider Internal Medicine Gastroenterology | DX: Z12.11 Encounter for screening for malignant neoplasm of colon (principal); K63.5 Polyp of colon; K57.90 Diverticulosis of intestine, part unspecified, without perforation or abscess without bleeding; K64.8 Other hemorrhoids | CPT/HCPCS: 45380 ==

== ENCOUNTER 2025-02-22 08:40 | Outpatient (AMB) | payer MEDICARE, BC, SELFPAY ==
--- NOTE | 2025-02-22 08:43 | MHC.OFFVIS ---
Intake Visit Reasons: 1y/PVR Intake Note: Patient is present for 1Y/PVR Urology Medication:NONE Antibiotic Allergy:NONE Blood Thinner:NONE Last PVR:43ML'S Todays PVR:0ML'S Decoration Checker Required: No Allergies cat dander (CATS) Allergy (Unknown, Verified 02/22/25 10:14) ASTHMA ATTACK Horse/Equine Containing Products (HORSE/EQUINE CONTAINING PRODUCTS) Allergy (Unknown, Verified 02/22/25 10:14) ASTHMA ATTACK ENVIROMENTAL Allergy (Unknown, Uncoded 02/22/25 10:14) ASTHMA ATTACK Medication List - Last Reconciled 02/22/25 by ARCENIO Walker-ZION albuterol sulfate 90 mcg/actuation (Ventolin HFA) 2 puffs inhalation Q4-6H PRN amlodipine 5 mg PO DAILY cetirizine (Zyrtec) 10 mg PO DAILY PRN cholecalciferol (vitamin D3) 25 mcg PO DAILY 90 days fesoterodine ER 8 mg (2 x 4 mg) PO DAILY 30 days fluticasone propion-salmeterol 250-50 mcg/dose (Wixela Inhub) 1 inh inhalation BID 30 days omeprazole 20 mg PO DAILY paroxetine HCl 40 mg PO QAM tiotropium bromide 2.5 mcg/actuation (Spiriva Respimat) 2 puffs PO DAILY HPI Comments Details: Aline is a very pleasant 79 year old female patient of Dr. Huber. She has a past medical history restrictive lung disease, tachycardia, depression, COPD, allergic rhinitis, GERD, asthma, hiatal hernia, iron deficiency anemia, and cirrhosis of the liver without ascites. She presents to the office today for follow-up of her lower urinary tract symptoms. In discussion with the patient today she reports to be doing and feeling well. She discusses her intentional weight loss over the last year with them weight management program here at [facility]. She also discusses how well she has been feeling as she recently got a right hip and knee replacement with Dr. Anderson through [facility]. She discusses feeling extremely happy with her overall health and well-being. She reports feeling lower urinary tract symptoms continue to be a bother. She discusses feeling festoterodine had been helpful initially however feels symptoms have returned. In office urinalysis results reviewed with the patient today. PVR 0 mL. Previous workup has included a retroperitoneal ultrasound 06/26 noting bilateral kidneys with no calculi, lesions, and or hydronephrosis. Multiple benign simple peripelvic cysts are seen, the largest at the inter pole aspect measuring approximately 2 cm. There is no follow-up imaging required per radiology report. The bladder is well distended. Bilateral ureteral jets are demonstrated. Pre void bladder volume is approximately 165 mL. Postvoid bladder volume is approximately 5 mL. There are prominent bladder wall trabeculations. When asked she denies hematuria, dysuria, foul smelling urine, changes to urinary stream, flank pain, fever, and or chills. Discussed at length potential causes for lower urinary tract symptoms patient is experiencing (urinary urgency, urinary frequency, and nocturia). She has previously trialed Myrbetriq and VESIcare and did not find these helpful. We did attempt to prescribed Gemtesa however this was not covered by her insurance. She would like to trial VESIcare again at an increased dose. Discussed possible near future in office cystoscopy and or urodynamics for further assessment evaluation if symptoms arise. She otherwise offers no other issues or concerns at this time. [facility] Medical History Hx of sepsis (~2018) Walker as ambulation aid Left foot drop Morbid obesity Restrictive lung disease Tachycardia COVID-19 (~01/17/25) Endogenous depression COPD (chronic obstructive pulmonary disease) Allergic rhinitis GERD with esophagitis Asthma COPD (chronic obstructive pulmonary disease) History of iron deficiency anemia Hiatal hernia Cirrhosis of liver without ascites Surgical History (Updated 02/19/25 @ 10:40 by Rip Huber MD) History of total right knee replacement (TKR) History of colonoscopy (02/16/25) History of right hip replacement Hx of ventral hernia repair History of dental surgery History of surgery on left wrist History of hysterectomy History of hip surgery Status post laparoscopic cholecystectomy (~06/10/18) Family History Other Mental health disorder Substance use disorder Social History (Updated 02/14/25 @ 15:08 by Dorita Arauz RN) Household Members: Spouse Housing: House Are you a primary administrator health care facility to a significant other at home: No Do you presently have visiting nurse or other home services: No Alcohol intake: former Patient Tobacco Use Status: Former Tobacco user Tobacco use type: Cigarette e-Cigarette/Vaping Use: Never Used Second Hand Smoke Exposure: No service: No Current occupational status: disabled Cognitive needs: Yes (cane, walker) Hearing needs: No Vision needs: Yes (Reading Glasses) Review of Systems Const Reports as per HPI Eyes Reports no additional complaints ENT Reports no additional complaints Card Reports as per HPI Resp Reports as per HPI GI Reports as per HPI Reports as per HPI Musc Reports as per HPI Neuro Reports no additional complaints Psych Reports no additional complaints Endo Reports no additional complaints Physical Exam Const General: cooperative, healthy appearing, comfortable, no acute distress, well developed, alert and awake Nutritional Appearance: overweight Orientation/consciousness: patient oriented x3 Limitations: ambulation with walker HEENT Head: Yes normal to inspection, Yes normocephalic and Yes atraumatic Ears: hearing grossly normal bilaterally Eyes General: appearance normal, both eyes and all related structures Neck Neck: Yes normal visual inspection and Yes trachea midline Chest Chest palpation & inspection: normal inspection of the chest Resp Effort & Inspection: normal respiratory effort and able to speak in complete sentences Cardio Rate: regular rate GI Inspection: Yes normal to inspection General: Yes no CVA tenderness Back/Spine/Pelvis Back: no CVA tenderness Skin General skin exam: no rashes or lesions noted Neuro General: patient oriented x3 Extrem General: Yes normal to inspection Psych Appearance: grossly normal and well kempt Mental Status: mental status grossly normal Speech and movement: Normal speech and movement present and Clear speech present Affect: normal affect Attitude: cooperative Thought process: Normal thought process present Thought content: Normal thought content present Insight: Fair insight present (Psych) Judgement: Fair judgement present (Psych) Office Procedures Post Void Residual Post Residual Void Post Void Residual (PVR): 0 17545-Gobi Void Residual by ultrasound Results AMB Urinalysis, Automated UA Leukoctes 15 Ridge/uL Last Edit by SHAKILA Benito on 02/22/25 08:59 UA Nitrite Negative Last Edit by SHAKILA Benito on 02/22/25 08:59 UA Urobilinogen 0.2 mg/dL Last Edit by SHAKILA Benito on 02/22/25 08:59 UA Protein 15 mg/dL Last Edit by SHAKILA Benito on 02/22/25 08:59 UA pH 6.0 Last Edit by Kaylee Esquivel [facility] on 02/22/25 08:59 UA Blood 0 Deepak/uL [facility] 02/22/[facility] 08:59 UA Specific [place] 1.010 Last Edit by Kaylee Esquivel [facility] on 02/22/25 08:59 UA Ketone Negative Last Edit by Kaylee Esquivel [facility] on 02/22/25 08:59 UA Bilirubin 0 mg/dL Last Edit by Kaylee Esquivel [facility] on 02/22/25 08:59 UA Glucose 0 mg/dL Last Edit by Kaylee Esquivel [facility] on 02/22/25 08:59 Results Reviewed Results Reviewed: Laboratory Last Values Urine pH (Auto) 6.0 02/22/25 08:59 Specific [place] (Auto) 1.010 02/22/25 08:59 Urine Protein (Auto) 15 mg/dL 02/22/25 08:59 Glucose (UA)(Auto) 0 mg/dL 02/22/25 08:59 Urine Ketones (Auto) Negative 02/22/25 08:59 Urine Blood (Auto) 0 Deepak/uL 02/22/25 08:59 Urine Nitrite (Auto) Negative 02/22/25 08:59 Urine Bilirubin (Auto) 0 mg/dL 02/22/25 08:59 Urine Urobilinogen (Auto) 0.2 mg/dL 02/22/25 08:59 Leukocyte Esterase (Auto) 15 Ridge/uL 02/22/25 08:59 Assessment & Plan Assessment & Plan (1) Urinary incontinence, mixed: Code(s): N39.46 - Mixed incontinence Category: Medical (2) Urinary incontinence: Code(s): R32 - Unspecified urinary incontinence Category: Medical (3) Bladder trabeculation: Code(s): N32.89 - Other specified disorders of bladder Category: Medical (4) Lower urinary tract symptoms: Code(s): R39.9 - Unspecified symptoms and signs involving the genitourinary system Category: Medical Plan Office urinalysis results reviewed with the patient today; as noted above. PVR 0 mL. Stop Fesoterodine Start VESIcare 10 mg daily as discussed and prescribed. We did discussed further treatment options and risks and benefits of these treatment options All questions were answered. We did discussed importance of timed/scheduled voiding given decreased mobility. Follow-up in 1-3 months or sooner with any issues, concerns, and or questions. Orders: Orders AMB Urinalysis Automated Today Z13.9 - Encounter for screening, unspecified Medications: New solifenacin (Vesicare) 10 mg PO DAILY 90 tabs 1RF 90 days Discontinued fesoterodine ER Discontinued Reason: Doctor's Order 8 mg (2 x 4 mg) PO DAILY 30 days 60 tabs 2RF Patient Instructions: The patient had an opportunity to ask questions regarding the treatment plan. All questions were answered. Physical exam, labs, and imaging were discussed and reviewed in detail. As well as risks, benefits, and discussion of treatment choices. No major barriers to understanding were identified. The patient expressed understanding and agreement with the above treatment plan. The patient was made aware they should contact our office by phone for worsening of their current condition, the appearance of new symptoms, or with any questions or concerns. Compliance is encouraged with any medications and follow up testing that is ordered. It is a privilege to be allowed the opportunity to participate in? your urological care.? Again, if you have any questions or concerns If you have any questions or concerns please do not hesitate to contact me. The office is [phone]. This note is constructed using voice recognition software. While every effort has been made to ensure accuracy licensed journeyman electrician errors may have been included. Yours sincerely, MARSHA Walker Coding Level of Care Code Est Pt Level 3 (80612) Complex EM visit Add On G2211 Diagnoses Urinary incontinence, mixed N39.46 Urinary incontinence R32 Bladder trabeculation N32.89 Lower urinary tract symptoms R39.9 CPT Codes Post Residual Void - PVR CPT Code: 33600-Ugqx Void Residual by ultrasound ([id number])
== END 2025-02-22 09:26 | disposition home or self-care (01) ==
LOC: HO.HUSH 08:41
PROVIDERS: PCP Internal Medicine; Visit Provider Nurse Practitioner Family
DX: N39.46 Mixed incontinence (principal); R32 Unspecified urinary incontinence; N32.89 Other specified disorders of bladder; R39.9 Unspecified symptoms and signs involving the genitourinary system; Z13.9 Encounter for screening, unspecified
CPT/HCPCS: 99213; G2211

== ENCOUNTER → 2025-02-22 08:40 | Outpatient (BNVA) | payer MEDICARE, BC, SELFPAY | PROVIDERS: PCP Internal Medicine; Visit Provider Nurse Practitioner Family | DX: N39.46 Mixed incontinence (principal); Z13.9 Encounter for screening, unspecified; R35.0 Frequency of micturition; R35.1 Nocturia | CPT/HCPCS: 51798; 81003; 99212 ==

== ENCOUNTER 2025-03-15 08:26 | Outpatient (REF) | payer SELFPAY ==
--- OUTSIDE RECORDS SUMMARY | 2024-09-04 08:45 | XMS_ITS ---
Author Organization [facility] Address [address] [place] [address] Care Team Providers Care Quality Assurance Supervisor Chassis Name Role Phone Rip Huber Primary Care Provider Adriana Walton [phone] Encounters Encounter Location Date Provider Diagnosis [address] [address] 09/04/2024 Adriana Walton Plan Of Treatment Next Appt Details Provider Name:Adriana A Anton , 04/12/2025 10:00:00 AM, [address] [place], [address], Progress Notes * Aline HARTLEY MDOB: 8 (79 yo F)Acc No.[id number]:09/04/2024 Progress Notes Patient: Ayala BRANHAMAline RUSSELL Provider: Gonzalez Walton DPM :1945 A ge:78 Y S ex:Female Date:09/04/2024 Address:[address] [place] [address] [id number] Pcp:Rip Huber Subjective: * Chief Complaints: * * Medical History: Objective: * Vitals: Assessment: Plan: * Treatment: * Images: * The named appointment provid er may or may not be the originator of this progress note, and it is not deemed complete until electronically signed by the appointment provider. Sign off status: Pending * Provider: Gonzalez Walton DPM Date: 0 09/04/2024 Generated for Nate barbour/Georgie/Jeannine on: 1 05/15/2024 08:47 AM EST
--- OUTSIDE RECORDS SUMMARY | 2025-01-29 06:00 | XMS_ITS ---
Author Organization [facility] Address [address] [place] [address] Care Team Providers Care Rigging Man Name Role Phone Rip Huber Primary Care Provider Adriana Walton [phone] Reid Encounters Encounter Location Date Provider Diagnosis [address] [address] 01/29/2025 Adriana Walton Plan Of Treatment Next Appt Details Provider Name:Adriana Walton , 04/12/2025 10:00:00 AM, [address] [place] [address], [phone], Progress Notes * Aline HARTLEY MDOB: 8 (79 yo F)Acc No.[id number]:01/29/2025 Progress Notes Patient: Ayala BRANHAMDREW Aline Cai Provider: Gonzalez Walton DPM :1945 A ge:79 Y S ex:Female Date:01/29/2025 Address:[address] [place] [address] [id number] Pcp:Rip Huber Subjective: * Chief Complaints: * [address] Reid[address] * Medical History: Objective: * Vitals: Assessment: Plan: * Treatment: * Images: * The named appointment provid er may or may not be the originator of this progress note, and it is not deemed complete until electronically signed by the appointment provider. Sign off status: Pending * Provider: Gonzalez Walton DPM Date: 0 01/29/2025 Generated for Nate barbour/Georgie/Jeannine on: 1 05/15/2024 08:47 AM EST
--- OUTSIDE RECORDS SUMMARY | 2025-03-12 10:15 | XMS_ITS ---
Author Organization [facility] Address [address] [place] [address] Care Team Providers Care Liability Claims Representative Name Role Phone Rip Huber Primary Care Provider Adriana Bowens [phone] REASON FOR VISIT per Dr bowens Encounters Encounter Location Date Provider Diagnosis [address] [id number] 03/12/2025 Adriana Bowens Plan Of Treatment Next Appt Details Provider Name:Adriananatalie Bowens , 04/12/2025 10:00:00 AM, [address] [place] [address], [phone], Progress Notes * Aline HARTLEY MDOB: 8 (79 yo F)Acc No.[id number]:03/12/2025 Progress Notes Patient: Ayala BRANHAMDREW Aline Cai Provider: Gonzalez Bowens DPM :1945 A ge:79 Y S ex:Female Date:03/12/2025 Address:[address] [place], [place] [address]Justice [phone] Pcp:Rip Huber Subjective: * Chief Complaints: * [address]. * Medical History: Objective: * Vitals: Assessment: Plan: * Treatment: * Images: * The named appointment provid er may or may not be the originator of this progress note, and it is not deemed complete until electronically signed by the appointment provider. Sign off status: Pending * Provider: Gonzalez Bowens DPM Date: 05/12/2024 Generated for Nate barbour/Georgie/Jeannine on: 05/15/2024 08:47 AM EST
--- OUTSIDE RECORDS SUMMARY | 2025-03-15 08:47 | XMS_ITS | Patient Health Record ---
[facility] Address [address] [address] Care Team Providers Care [employer] Inspector Name Role Phone Rip Huber Primary Care Provider Adriana Walton Unavailable [phone] Allergies No Known Allergies Reason For Referral No Information Medications Medication SIG (Take, Route, Frequency, Duration) Notes Start Date End Date Status Vitamin D3 Active Custom Orthotics as directed 02/25/2011 Active Paxil 50 1 tablet in the morning Once a day Active Prednisone Not-Takin g Spiriva HandiHaler 18 MCG 1 capsule Inhalation Once a day Active Vistaril 25 MG 1 capsule Orally Three times a day; Duration: 30 day(s) Not-Taking amLODIPine Besylate 5 MG 1 tablet Orally Once a day; Duration: 30 day(s) Active Albuterol Sulfate 1.25 MG/3ML 3 ml as needed Inhalation every 6 hrs Not-Taking Omeprazole 20 MG Orally Act ghassan Protonix 40 MG 1 tablet Orally Once a day; Duration: 30 day(s) Not-Taking ZyrTEC 10 MG 1 tablet Orally Once a day Active Inhaler Companions N ot-Taking Myrbetriq 50 MG 1 tablet Orally Once a day Active Albuterol Sulfate HFA 108 (90 Base) MCG/ACT 2 puffs as needed Inhalation every 4 hrs Not-Taking Wixela Inhub Active Iron 325 (65 Fe) MG 1 tablet Orally Once a day Not-Taking Tylenol Active Keflex 500 MG 1 capsule Orally every 12 hrs; Duration: 10 day(s) 11/11/2017 Not-Taking Cephalexin 500 MG 1 capsule Orally BID; Duration: 10 days 06/13/2020 Not-Taking Keflex 500 MG 1 capsule Orally every 12 hrs; Duration: 10 day(s) 10/09/2019 Not-Taking Custom Orthotics . . .; Duration: . 06/10/2015 Not-Taking Cephalexin 500 MG 1 capsule Orally twice a day; Duration: 10 days Not-Taking traMADol HCl 50 MG 1 tablet as needed Orally Once a day for two weeks Not-Taking Amoxicillin Not-Taki ng Lasix 40 MG 1 tablet Orally Once a day; Duration: 30 day(s) Not-Taking predniSONE 20 MG 1 tablet Orally Once a day; Duration: 30 day(s) Not-Taking Ibuprofen 800 MG 1 tablet Orally Three times a day; Duration: 30 day(s) Not-Taking Advair Diskus Not-Ta joseph Magnesium 300 MG 1 capsule with a meal Orally Once a day; Duration: 30 day(s) Not-Taking albuterol 1 tab Oral Not-Takin g Calcium 500 MG 1 tablet with meals Orally Twice a day; Duration: 30 day(s) Not-Taking Custom Orthotics as directed 03/20/2024 Active Augmentin Not-Taking Solifenacin Succinate 5 MG TAKE 1 TABLET BY MOUTH DAILY Oral; Duration: 90 Not-Taking PROzac 20 MG 1 capsule in the morning Orally Once a day; Duration: 30 day(s) Not-Taking Flexeril 5 MG 1 tablet Orally Once a day; Duration: 30 day(s) Not-Taking Heel lift as directed add to shoe 08/05/2015 Active predniSONE Not-Takin g Flovent Diskus 50 MCG/BLIST 2 puffs Inhalation Twice a day Not-Taking Immunizations Vaccine Route Administration Date Status Comme nts COVID-19 Moderna Vaccine Unknown 02/26/2021 Administered 1st 06/29/20 Second Dose: 07/27/20 Influenza Unknown 12/14/2020 Administered Influenza Unknown 01/02/2024 Administered Influenza Unknown 01/01/2025 Administered Social History Tobacco Use: Social History [...] atherosclerosis of arteries of lower limbs (disorder) ([id number] ) Atherosclerosis of jamul artery of both lower extremities, with unspecified presence of clinical manifestation (I70.203) Active confirmed Q7(A), Q8(2B), Q9(1B,2 C) Vital Signs Blood pressure diastolic 67 mm Hg 02/08/2025 Height 5ft in 02/08/2025 Blood pressure systolic 121 mm Hg 02/08/2025 Weight 30 lbs 02/08/2025 BMI 5.86 kg/m2 02/08/2025 Procedures Procedure Date Ordered Date Performed Result Body Sit e 56992-KDAE SKIN LESIONS, 2 TO 4 04/17/2024 N/A 95349-SAQF NAIL(S) 04/17/2024 N/A 71060-UNRM SKIN LESIONS, OVER 4 05/25/2024 N/A 68413-UNGL NAIL(S) 05/25/2024 N/A 66176-PIXM SKIN LESIONS, OVER 4 06/22/2024 N/A 02929-FZLD NAIL(S) 06/22/2024 N/A 66808- Debride <25 sq cm 07/10/2024 N/A 62398-DVFL SKIN LESIONS, OVER 4 08/07/2024 N/A 22987-HVBK NAIL(S) 08/07/2024 N/A 29571-VJLN SKIN LESIONS, OVER 4 10/19/2024 N/A 33446-MIWH NAIL(S) 10/19/2024 N/A 88546-XHMJ SKIN LESIONS, OVER 4 12/18/2024 N/A 10163-HBJZ NAIL(S) 12/18/2024 N/A 01499-QBSB SKIN LESIONS, OVER 4 02/08/2025 N/A 10994-CXLU NAIL(S) 02/08/2025 N/A Encounters Encounter Location Date Provider Diagnosis [facility] [address] [place] [address] 03/20/2024 Adriana Black Metatarsalgia of lef t [...] of intermetatarsal bursa of right foot M77.[address] [address] 04/17/2024 Adriana Black Acquired keratosis [keratoderma] palmaris et plantaris L85.1 and Other nail disorders L60.[address] [address] 05/25/2024 Adriana Black Atherosclerosis of jamul artery of both lower extremities, with unspecified presence of clinical manifestation I70.[address] [address] 06/22/2024 Adriana Black Atherosclerosis of jamul artery of both lower extremities, with unspecified presence of clinical manifestation I70.[address] [address] 07/10/2024 Adriana Black Pressure injury of l eft foot, stage [address] [address] 08/07/2024 Adriana Black Atherosclerosis of jamul artery of both lower extremities, with unspecified presence of clinical manifestation I70.[address] [address] 10/19/2024 Adriana Black Atherosclerosis of jamul artery of both lower extremities, with unspecified presence of clinical manifestation I70.[address] [address] 12/18/2024 Adriana Black Atherosclerosis of jamul artery of both lower extremities, with unspecified presence of clinical manifestation I70.[address] [address] 02/08/2025 Adriana Black Atherosclerosis of jamul artery of both lower extremities, with unspecified presence of clinical manifestation I70.203 Assessments Encounter Date Diagnosis (ICD Code) Assessment Notes Treatment Notes Treatment Clinical Notes Section Notes 03/20/2024 Metatarsalgia, right foot (ICD-10 - M77.41) 04/17/2024 Acquired keratosis [keratoderma] palmaris et plantaris (ICD-10 - L85.1) 05/25/2024 Atherosclerosis of jamul artery of both lower extremities, with unspecified presence of clinical manifestation (ICD-10 - I70.203) Q7(A), Q8(2B), Q9(1B,2C) 06/22/2024 Atherosclerosis of jamul artery of both lower extremities, with unspecified presence of clinical manifestation (ICD-10 - I70.203) Q7(A), Q8(2B), Q9(1B,2C) 07/10/2024 Pressure injury of left foot, stage 1 (ICD-10 - L89.891) Response to treatment Nonapplicable Patient Educated with: WOUND CARE INSTRUCTIONS. pdf (WOUND CARE INSTRUCTIONS. pdf) 08/07/2024 Atherosclerosis of jamul artery of both lower extremities, with unspecified presence of clinical manifestation (ICD-10 - I70.203) Q7(A), Q8(2B), Q9(1B,2C) 10/19/2024 Atherosclerosis of jamul artery of both lower extremities, with unspecified presence of clinical manifestation (ICD-10 - I70.203) Q7(A), Q8(2B), Q9(1B,2C) 12/18/2024 Atherosclerosis of jamul artery of both lower extremities, with unspecified presence of clinical manifestation (ICD-10 - I70.203) Q7(A), Q8(2B), Q9(1B,2C) 02/08/2025 Atherosclerosis of jamul artery of both lower extremities, with unspecified presence of clinical manifestation (ICD-10 - I70.203) Q7(A), Q8(2B), Q9(1B,2C) 03/20/2024 Metatarsalgia of left foot (ICD-10 - [...] Treatment Pending Test Test Name Order Date 32619-WXEHLBW NAIL, 6 OR MORE 02/22/2013 30567-ZDEXKUY NAIL, 6 OR MORE 05/04/2013 93966-QQFIJOF NAIL, 6 OR MORE 06/05/2013 31981-ZSEFTPE NAIL, 6 OR MORE 07/03/2013 12351-ALWWQLO NAIL, 6 OR MORE 08/28/2013 26601-AECBCPC NAIL, 6 OR MORE 11/27/2013 34412-PXEEYAS NAIL, 6 OR MORE 03/26/2014 00961-HOOZAGH NAIL, 6 OR MORE 07/30/2014 40584-RZXOXTU NAIL, 1-5 11/28/2012 69287-AOSDLKO NAIL, 1-5 12/07/2011 04680-MLZYNFN NAIL, 1-5 06/01/2012 28014-MFFSHQH NAIL, 1-5 08/17/2012 78893-ZZDUYUE NAIL, 1-5 10/28/2011 33313-DPFAATR NAIL, 1-5 01/18/2012 60691-PMSLGVI NAIL, 1-5 02/29/2012 69763-Njpm Destruction, 1-14 12/31/2014 16042-Koxbsuef Plate 05/23/2014 99407-Kdpcczrv Plate 08/28/2013 60609-Daiharcd Plate 07/22/2020 91325- Debride <25 sq cm 08/29/2020 32057- Debride <25 sq cm 12/05/2020 76332- Debride <25 sq cm 07/31/2021 93026- Debride <25 sq cm 09/11/2019 03587- Debride <25 sq cm 10/23/2019 44903- Debride <25 sq cm 11/13/2019 76857- Debride <25 sq cm 12/14/2019 26939- Debride <25 sq cm 02/29/2012 35638- Debride <25 sq cm 03/21/2020 30015- Debride <25 sq cm 05/16/2020 88307- Debride <25 sq cm 06/13/2020 62208- Debride <25 sq cm 07/22/2020 43951- Debride <25 sq cm 07/12/2023 95010- Debride <25 sq cm 07/10/2024 66310- Debride <25 sq cm 09/27/2013 18639- Debride <25 sq cm 10/26/2013 36495- Debride <25 sq cm 08/28/2013 71856- Debride <25 sq cm 07/03/2013 01518- Debride <25 sq cm 07/31/2013 75379- Debride <25 sq cm 03/26/2014 26559- Debride <25 sq cm 04/23/2014 12635- Debride <25 sq cm 05/23/2014 85523- Debride <25 sq cm 11/27/2013 98146- Debride <25 sq cm 12/27/2013 68637- Debride <25 sq cm 01/24/2014 47593- Debride <25 sq cm 02/22/2014 84584- Debride <25 sq cm 06/25/2014 00215- Debride <25 sq cm 01/28/2015 65419- Debride <25 sq cm 02/27/2015 77974- Debride <25 sq cm 08/27/2014 50987- Debride <25 sq cm 09/27/2014 85717- Debride <25 sq cm 10/29/2014 78334- Debride <25 sq cm 11/28/2014 95175- Debride <25 sq cm 12/31/2014 11140- Debride <25 sq cm 03/31/2012 65694- Debride <25 sq cm 05/04/2012 95704- Debride <25 sq cm 06/01/2012 04193- Debride <25 sq cm 01/18/2012 49227- Debride <25 sq cm 12/07/2011 74283- Debride <25 sq cm 08/13/2011 04071- Debride <25 sq cm 10/28/2011 40848- Debride <25 sq cm 04/08/2011 56164- Debride <25 sq cm 05/14/2011 77556- Debride <25 sq cm 08/17/2012 45246- Debride <25 sq cm 11/28/2012 00995- Debride <25 sq cm 12/28/2012 84191- Debride <25 sq cm 02/22/2013 37946- Debride <25 sq cm 03/27/2013 78629- Debride <25 sq cm 06/05/2013 34205- Debride <25 sq cm 05/04/2013 47104- Debride <25 sq cm 12/09/2017 91264- Debride <25 sq cm 07/14/2018 37207- Debride <25 sq cm 08/18/2018 33887- Debride <25 sq cm 12/08/2018 64571-JKEMCMA SKIN/TISSUE 06/05/2013 69060-QCNXJSC SKIN/TISSUE 06/30/2012 07623-TKDUUGU SKIN/TISSUE 07/28/2012 18089-YGMSMRX SKIN/TISSUE 07/31/2013 47573-DCHZACH SKIN/TISSUE 07/03/2013 33834-DITYWAF SKIN/TISSUE 02/19/2020 44322 I&D ABSCESS- SIMPLE,SINGLE 015 14186 I&D ABSCESS- SIMPLE,SINGLE 013 77615 I&D ABSCESS- SIMPLE,SINGLE 013 91095 I&D ABSCESS- SIMPLE,SINGLE 019 62986-TWCL SKIN LESIONS, OVER 4 04/07/20 18 86804-JTAQ SKIN LESIONS, OVER 4 05/09/19 19 30610-HCLL SKIN LESIONS, OVER 4 01/07/20 18 39134-BKRP SKIN LESIONS, OVER 4 10/08/19 18 85605-HWVE SKIN LESIONS, OVER 4 02/04/20 18 92453-DPAB SKIN LESIONS, OVER 4 03/10/20 18 38524-USEO SKIN LESIONS, OVER 4 01/06/20 19 04053-FHCA SKIN LESIONS, OVER 4 11/16/19 19 65836-OSPZ SKIN LESIONS, OVER 4 09/16/19 19 07222-PAES SKIN LESIONS, OVER 4 10/14/19 19 87292-HOCT SKIN LESIONS, OVER 4 02/07/20 19 49441-CKKL SKIN LESIONS, OVER 4 03/06/20 19 64292-NPGA SKIN LESIONS, OVER 4 05/08/19 20 53006-SYEF SKIN LESIONS, OVER 4 06/05/19 20 12089-DFXE SKIN LESIONS, OVER 4 11/18/19 16 28693-WAYP SKIN LESIONS, OVER 4 12/23/19 16 68614-VIIZ SKIN LESIONS, OVER 4 01/13/20 16 15712-ZLPK SKIN LESIONS, OVER 4 02/17/20 16 04957-QAEE SKIN LESIONS, OVER 4 03/16/20 16 11077-FLGZ SKIN LESIONS, OVER 4 04/20/20 16 96636-HNSR SKIN LESIONS, OVER 4 05/25/19 17 21536-EURC SKIN LESIONS, OVER 4 06/25/19 17 46464-RRXG SKIN LESIONS, OVER 4 07/21/19 17 42124-GQCD SKIN LESIONS, OVER 4 08/28/19 17 03755-PFJL SKIN LESIONS, OVER 4 01/26/20 17 78454-ZSAH SKIN LESIONS, OVER 4 02/23/20 17 01321-HNNG SKIN LESIONS, OVER 4 03/29/20 17 39913-KXQG SKIN LESIONS, OVER 4 06/03/19 18 19138-YPIP SKIN LESIONS, OVER 4 07/02/19 18 23435-CJIE SKIN LESIONS, OVER 4 08/06/19 18 33056-TYIA SKIN LESIONS, OVER 4 08/05/19 16 58347-EFTW SKIN LESIONS, OVER 4 09/02/19 16 32060-HHTD SKIN LESIONS, OVER 4 10/07/19 16 13650-WDYL SKIN LESIONS, OVER 4 07/03/19 16 19990-PCHG SKIN LESIONS, OVER 4 04/18/20 20 31348-VLCT SKIN LESIONS, OVER 4 07/03/19 20 72625-QFGJ SKIN LESIONS, OVER 4 07/07/19 23 50119-HCGO SKIN LESIONS, OVER 4 08/08/19 25536-GFUZ SKIN LESIONS, OVER 4 10/20/19 78411-PSFC SKIN LESIONS, OVER 4 05/25/19 25 46269-HKZE SKIN LESIONS, OVER 4 06/22/19 45579-ECVS SKIN LESIONS, OVER 4 12/19/19 32294-JIHX SKIN LESIONS, OVER 4 02/09/20 66147-YEQE SKIN LESIONS, 2 TO 4 06/24/20 24 44467-OJSA SKIN LESIONS, 2 TO 4 11/29/19 36312-KHUP SKIN LESIONS, 2 TO 4 02/17/20 23695-MMYT SKIN LESIONS, 2 TO 4 04/17/20 83899-PAWZ SKIN LESIONS, 2 TO 4 06/01/19 22421-JUXY SKIN LESIONS, 2 TO 4 03/30/20 91756-EPCR SKIN LESIONS, 2 TO 4 04/23/20 49527-JLPD SKIN LESIONS, 2 TO 4 10/10/19 59296-NOJA SKIN LESIONS, 2 TO 4 11/18/19 79850-ODBK SKIN LESIONS, 2 TO 4 01/20/20 84800-DVLJ SKIN LESIONS, 2 TO 4 02/24/20 76584-RMTU SKIN LESIONS, 2 TO 4 09/20/19 95008-FTRR SKIN LESIONS, 2 TO 4 05/10/19 81007-ALCO SKIN LESIONS, 2 TO 4 01/19/20 91959-ODUC SKIN LESIONS, 2 TO 4 03/22/20 56946-JTMV SKIN LESIONS, 2 TO 4 08/04/19 50315-TTZV SKIN LESIONS, 2 TO 4 09/01/19 48395-SOCP SKIN LESIONS, 2 TO 4 10/02/19 04631-VYXU SKIN LESIONS, 2 TO 4 11/24/19 31638-HXIJ SKIN LESIONS, 2 TO 4 08/29/19 49983-BRKT SKIN LESIONS, 2 TO 4 06/19/19 45393-MBDB SKIN LESIONS, 2 TO 4 04/03/20 86382-WYZK SKIN LESIONS, 2 TO 4 05/01/20 66865-WBLU SKIN LESIONS, 2 TO 4 01/03/20 67180-WKVL SKIN LESIONS, 2 TO 4 02/14/20 98788-XLMT SKIN LESIONS, 2 TO 4 11/01/19 52261, V7335-JUGPA/INJECT, JOINT/BURSA 0 12/07/2011, C3352-FXPLP/INJECT, JOINT/BURSA 0 05/14/2011, J7419-CWBTL/INJECT, JOINT/BURSA 1 06/09/2010, B0862-RQRDU/INJECT, JOINT/BURSA 0 01/18/2012, C7983-MZTOL/INJECT, JOINT/BURSA 0 08/18/2018 76242-VPMW NAIL(S) 05/09/2018 16947-HIVN NAIL(S) 04/07/2018 43073-UKOO NAIL(S) 03/10/2018 35174-JRTI NAIL(S) 02/03/2018 35577-XKZG NAIL(S) 10/07/2017 32100-WUHR NAIL(S) 01/06/2018 16262-VGPT NAIL(S) 06/05/2019 51205-RWUD NAIL(S) 05/08/2019 00374-PPIU NAIL(S) 03/06/2019 77601-LOYX NAIL(S) 02/06/2019 82028-ZZXO NAIL(S) 10/13/2018 37775-QAYX NAIL(S) 09/15/2018 48712-OIXZ NAIL(S) 11/15/2018 44066-UULG NAIL(S) 01/05/2019 72280-WISG NAIL(S) 08/05/2017 81351-KNAS NAIL(S) 07/01/2017 58277-VIML NAIL(S) 06/03/2017 97453-KBSJ NAIL(S) 02/22/2017 71313-MEWU NAIL(S) 01/25/2017 95897-CAXQ NAIL(S) 10/31/2020 57133-YXEJ NAIL(S) 02/13/2021 10894-SMCJ NAIL(S) 01/02/2021 02989-TBDV NAIL(S) 05/01/2021 54121-GKRH NAIL(S) 04/03/2021 94138-ETRE NAIL(S) 06/19/2021 24404-COEM NAIL(S) 08/28/2021 31163-GWUK NAIL(S) 07/03/2019 36500-MGTA NAIL(S) 04/18/2020 52717-MUXF NAIL(S) 11/23/2022 79692-BWZH NAIL(S) 10/01/2022 14976-RIHS NAIL(S) 08/31/2022 01996-UXTA NAIL(S) 08/03/2022 66429-HMDP NAIL(S) 03/22/2023 77358-FWAD NAIL(S) 01/18/2023 81105-HSVJ NAIL(S) 05/10/2023 68955-YNKC NAIL(S) 09/20/2023 92079-BESL NAIL(S) 02/23/2022 78764-AIXZ NAIL(S) 01/19/2022 28694-ZCAF NAIL(S) 11/17/2021 11487-WBKN NAIL(S) 10/09/2021 99616-JLYE NAIL(S) 04/23/2022 41080-YEVB NAIL(S) 03/30/2022 73150-XSJB NAIL(S) 06/01/2022 16717-PUSO NAIL(S) 07/06/2022 45735-HOGG NAIL(S) 04/17/2024 54627-JTER NAIL(S) 02/17/2024 36789-ZYVF NAIL(S) 11/29/2023 15544-WLBW NAIL(S) 10/25/2023 58085-RLBP NAIL(S) 06/22/2024 06916-BOXX NAIL(S) 05/25/2024 69981-AOCJ NAIL(S) 10/19/2024 11887-VBQP NAIL(S) 08/07/2024 16134-NYRW NAIL(S) 02/08/2025 09305-SNVQ NAIL(S) 12/18/2024 A1040-DDDUJTAS DYSTROPHIC NAILS ANY # Y9859-YKYTEABJ DYSTROPHIC NAILS ANY # A6398-HQRHISTK DYSTROPHIC NAILS ANY # T7767-RSMKSQIG DYSTROPHIC NAILS ANY # I9885-NMOVTSLQ DYSTROPHIC NAILS ANY # P8595-QGDJCWJX DYSTROPHIC NAILS ANY # Q2562-MOPQZGFI DYSTROPHIC NAILS ANY # F2694-KPFARDUU DYSTROPHIC NAILS ANY # S7331-QUDJPMAV DYSTROPHIC NAILS ANY # X3890-OVAQKYKN DYSTROPHIC NAILS ANY # U8045-ZEEGXCJG DYSTROPHIC NAILS ANY # D1564-LGPHMCNL DYSTROPHIC NAILS ANY # U3012-QXMOSGUB DYSTROPHIC NAILS ANY # P0184-MJXUEFRU DYSTROPHIC NAILS ANY # R0566-MRFXPXCV DYSTROPHIC NAILS ANY # B9478-Ipcfnnvwa 3mg 01/18/2012 X1000-Rwlpskije 3mg 12/07/2011 28854 - Tenotomy, open flexor 06/13/2020 94603 - Tenotomy, open flexor 10/09/2019 67732 - Tenotomy, open flexor 01/18/2020 Next Appt Details Provider Name:Adriana Walton , 04/12/2025 10:00:00 AM, [address] [facility], [place], [address], Insurance Providers Payer Name Payer Address Payer Phone Subscriber Number Group Number Insured Name Patient Relationship to Insured Coverage Start Date Coverage End Date Medicare National Govt [facility] [facility] [address] [place] [address] [id number] Aline Hartley Self - patient is the insured [facility] [address] [place] [address] [id number] Yuan Hartley Spouse - patient is the [...] L 89.891 Surgical History Surgery Date(Month/Year) hand/wrist 1995 hernia 1992, 2004 hysterectomy 1990 vein left leg laser oblasion 07/19/2014 Colonoscopy 08/16/2017- 9 cataracts 04/08/18 and 04/18/18 cholecystectomy 06/04/2018 [facility] [place]- right hip replacement 01/05/24 knee replacement 08/22/24 Hospitalization History Reason Date(Month/Year) [facility] [place]- Pnuemonia, Sepsis, Blee ding ulcer, Transfusion, Cholecystectomy 06/04/2018-06/11/18 colonoscopy 04/2015 Left Leg laser ablation 07/19/14 Endoscopy & colonoscopy 08/20/14 admitted to [facility] , severe depression, anxiety, took to many drinks 12/08/13-12/22/13
== END 2025-03-15 08:27 | disposition home or self-care (01) ==
LOC: HO.HAP 08:26
PROVIDERS: Visit Provider Internal Medicine
DX: Z46.1 Encounter for fitting and adjustment of hearing aid (principal); H90.3 Sensorineural hearing loss, bilateral
CPT/HCPCS: 92590

== ENCOUNTER 2025-04-16 09:45 | Outpatient (AMB) | payer MEDICARE, BC, SELFPAY ==
[2025-04-16 10:03] VITALS: BP 110/68; PULSE 95; O2SAT 97; BMI 26.5
--- NOTE | 2025-04-16 10:03 | A.OFFVIS_ITS ---
Vital Signs 04/16/25 10:03 Height 5 ft Weight 135 lb 9.349 oz BMI 26.5 BP 110/68 Blood Pressure Location Lt brachial Position Sitting Pulse 95 Pulse Source Pulse Oximeter Pulse Oximetry (%) 97 Oxygen Delivery Method Room Air Intake Visit Reasons: copd Intake Note: pt is here for follow up and feeling good. she has dropped over 85 lbs!! Photographer'S Model Required: No Esthetician/Skin Therapist: Esthetician/Skin Therapist offered & declined Allergies cat dander (CATS) Allergy (Unknown, Verified 04/16/25 10:17) ASTHMA ATTACK Horse/Equine Containing Products (HORSE/EQUINE CONTAINING PRODUCTS) Allergy (Unknown, Verified 04/16/25 10:17) ASTHMA ATTACK ENVIROMENTAL Allergy (Unknown, Uncoded 04/16/25 10:17) ASTHMA ATTACK Medication List - Last Reconciled 04/16/25 by Albertina Kimball MD albuterol sulfate 90 mcg/actuation (Ventolin HFA) 2 puffs inhalation Q4-6H PRN amlodipine 5 mg PO DAILY cetirizine (Zyrtec) 10 mg PO DAILY PRN cholecalciferol (vitamin D3) 25 mcg PO DAILY 90 days fluticasone propion-salmeterol 250-50 mcg/dose 1 ea PO BID omeprazole 20 mg PO DAILY paroxetine HCl 40 mg PO QAM solifenacin (Vesicare) 10 mg PO DAILY 90 days tiotropium bromide 2.5 mcg/actuation (Spiriva Respimat) 2 puffs PO DAILY Do you need a note to return to daycare/school/sports/work: No HPI HPI copd: Details: YAHIR 79 YEARS OLD FEMALE IS HERE FOR FOLLOW-UP AFTER 4 MONTHS. BREATHING HAS BEEN VERY STABLE EXCEPT FOR MILD INTERMITTENT COUGH. SHE HAS LOST SIGNIFICANT WEIGHT HER SHORTNESS OF BREATH ON EXERTION IS ONLY MINIMAL. SHE DENIES ANY ATTACKS OF WHEEZING. HER WEIGHT LOSS IS BECAUSE OF HER OWN CONTROL ON EATING, AND NOW SHE IS TRYING TO MAINTAIN THE CURRENT WEIGHT. [facility] Medical History Hx of sepsis (~2018) Walker as ambulation aid Left foot drop Morbid obesity Restrictive lung disease Tachycardia COVID-19 (~01/17/25) Endogenous depression COPD (chronic obstructive pulmonary disease) Allergic rhinitis GERD with esophagitis Asthma COPD (chronic obstructive pulmonary disease) History of iron deficiency anemia Hiatal hernia Cirrhosis of liver without ascites Surgical History History of total right knee replacement (TKR) History of colonoscopy (02/16/25) History of right hip replacement Hx of ventral hernia repair History of dental surgery History of surgery on left wrist History of hysterectomy History of hip surgery Status post laparoscopic cholecystectomy (~06/10/18) Family History Other Mental health disorder Substance use disorder Social History Household Members: Spouse Housing: House Are you a primary daycare teacher to a significant other at home: No Do you presently have visiting nurse or other home services: No Alcohol intake: former Patient Tobacco Use Status: Former Tobacco user Tobacco use type: Cigarette e-Cigarette/Vaping Use: Never Used Second Hand Smoke Exposure: No service: No Current occupational status: disabled Cognitive needs: Yes (cane, walker) Hearing needs: No Vision needs: Yes (Reading Glasses) Review of Systems Const All systems reviewed & are unremarkable except as noted in HPI and below Eyes Reports no additional complaints ENT Reports nasal congestion (Off and on, mostly controlled at this time) Card Denies chest pain, Denies irregular heart rhythm and Denies leg edema Resp Reports as per HPI GI Reports heartburn (Symptoms of GERD controlled with omeprazole) Reports no additional complaints Musc Reports abnormal gait (Needs cane or walker, for gait stability) and Reports back pain Skin/Breast Reports system reviewed and no additional complaints, except as documented Neuro Reports abnormal gait (Needs cane or walker, for gait stability) Psych Reports depression (Controlled with med) Endo Reports no additional complaints Physical Exam Vital Signs: Last Vital Signs Pulse 95 04/16/25 10:03 BP 110/68 04/16/25 10:03 Pulse Ox 97 04/16/25 10:03 Oxygen Delivery Method Room Air 04/16/25 10:03 BMI result Body Mass Index 26.5 Const General: comfortable, no acute distress, alert and awake Orientation/consciousness: patient oriented x3 HEENT Head: Yes normal to inspection General nose exam: No nasal polyps present, No nasal discharge present and Other nasal findings present (Mild nasal congestion) Face and sinus: Yes sinuses nontender Mouth: oropharynx normal Throat: Yes posterior oropharynx normal Eyes General: appearance normal, both eyes and all related structures Neck Neck: Yes normal visual inspection, Yes no lymphadenopathy, Yes trachea midline and Yes no JVD Thyroid: Thyroid normal Chest Chest palpation & inspection: normal inspection of the chest, normal palpation of entire chest wall and no tenderness Resp Other: Percussion note is resonant, breath sounds distant on both sides with prolonged expiratory phase. No expiratory wheezes heard . Also no crepitations. Cardio Palpation: normal PMI Rate: tachycardic (hr at rest 120/mt ) Rhythm: regular rhythm Heart sounds: no gallops and no murmurs GI Palpation (GI): Soft to palpation, nontender, No hepatosplenomegaly present and no masses Auscultation: normal bowel sounds Back/Spine/Pelvis Thoracic/Lumbar Spine: thoracic and lumbar spine normal to inspection, thoraco- lumbar ROM limited and thoraco-lumbar spasm Skin General skin exam: no rashes or lesions noted Neuro General: patient oriented x3 and no focal motor deficits Cranial nerves: Yes CN's II-XII intact bilaterally Extrem General: Yes normal to inspection, Yes no clubbing, cyanosis or edema and Yes no calf tenderness Psych Appearance: grossly normal and well kempt Speech and movement: Normal speech and movement present Office Procedures Spirometry Testing Spirometry Comments: In office spirometry completed with results given to Dr Kimball. 20749- Spirometry Results Reviewed Results Reviewed: SPIROMETRY FVC 87 % FEV1 81 % FEF 25-75 63 % Assessment & Plan Assessment & Plan (1) COPD (chronic obstructive pulmonary disease): Comment: MILD TO MODERTAELY SEVERE , WELL CONTROLLED , REMAINING STABLE.. , NO ACTIVE SYMPTOMS OF COUGH OR WHEEZING, Code(s): J44.9 - Chronic obstructive pulmonary disease, unspecified Category: Medical Plan: Continue the present regimen which is reviewed with the patient. WIXELA 250-51 INHALATION B.I.D. SPIRIVA RESPIMAT 2.5 KWESI 2 INHALATIONS DAILY ALBUTEROL HFA 2 PUFFS Q 4-6 HOURS PRN (2) Restrictive lung disease: Comment: PFT Showed Mild restrictive pulmonary disorder in addition to mild COPD. This is most likely due to her obesity, and is expected to improve as she loses weight. As she has lost significant weight, I think the restrictive component must be very little. SHOULD BE NOTED THAT WITH THE SIGNIFICANT WEIGHT LOSS THE RESTRICTIVE PATTERN HAS ALL RESOLVED. TODAY SPIROMETRY SHOWS THAT FVC IS 87% Code(s): J98.4 - Other disorders of lung Category: Medical Plan: PATIENT IS STILL ADVISED TO KEEP ON DOING DEEP BREATHING EXERCISES ABOUT 3 TIMES A DAY (3) Allergic rhinitis: Comment: MILD , STABLE AND CONTROLLED . Code(s): J30.9 - Allergic rhinitis, unspecified Category: Medical Plan: MAY USE LORATADINE 10 MG ONCE A DAY BUT ONLY PRN Orders: Orders AMB Spirometry Testing 04/16/25 J44.9 - Chronic obstructive pulmonary disease, unspecified Coding Level of Care Code Est Pt Level 3 (18333) Diagnoses COPD (chronic obstructive pulmonary disease) J44.9 Restrictive lung disease J98.4 Allergic rhinitis J30.9 CPT Codes Spirometry - CPT: 01383- Spirometry ([id number])
== END 2025-04-16 10:44 | disposition home or self-care (01) ==
PROVIDERS: PCP Internal Medicine; Visit Provider Internal Medicine
DX: J44.9 Chronic obstructive pulmonary disease, unspecified (principal); J98.4 Other disorders of lung; J30.9 Allergic rhinitis, unspecified
CPT/HCPCS: 99213

== ENCOUNTER → 2025-04-16 09:45 | Outpatient (BNVA) | payer MEDICARE, BC, SELFPAY | PROVIDERS: PCP Internal Medicine; Visit Provider Internal Medicine | DX: J44.9 Chronic obstructive pulmonary disease, unspecified (principal); J98.4 Other disorders of lung; J30.9 Allergic rhinitis, unspecified | CPT/HCPCS: 94010; 99212 ==